=== PATIENT | female | born 1935 | race Caucasian/White ===

== ENCOUNTER → 2016-06-02 | Outpatient (CLI) | payer MEDICARE ==
[~2016-06-02] MED LIST: AC325T PO; ALBU8.5H4 IH; AMLO10TA PO; AMLO10TA2 PO; AMLO5TAB2 PO; ASP81TEC PO; ASPI-586 PO; ATEN25TA PO; ATOR80TA76 PO; CARV6.252 PO; CLOP75TA28 PO; CLPD75T PO; FURO20TA4 PO; HCT25T PO; IBUP-792 PO; ISOS30TA3 PO; KCL20TCR PO; LEVO250T46 PO; LEVO750T6 PO; LOSA100T28 PO; LOSA100T7 PO; MULT-963 PO; NITR0.4T12 SL; NITR12SP6 TL; OMEG-12 PO; OMEP20CA12 PO; PNT40TEC PO; POTA20TA15 PO; TICA90TA PO; TMZP15C PO; ZLP10T PO; ZOLP5TAB7 PO
--- OUTSIDE RECORDS SUMMARY | 2016-06-02 11:15 | XMS REPORT | Continuity of Care Document ---
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 Medications Medication Dose Route Sig Days/Qty Instructions Order Date Discontinued Date Status Albuterol 8.5 Gm IH EVERY 6 HOURS PRN 07/01/12 09/10/14 Discontinued Atenolol 25 Mg PO DAILY 07/01/12 Active Hydrochlorothiazide 25 Mg PO DAILY 07/01/12 07/03/12 Discontinued Ibuprofen 400 Mg PO TWICE A DAY PRN 07/01/12 Active Isosorbide Mononitrate (Imdur) 1 Each PO DAILY 07/01/12 07/03/12 Discontinued Levofloxacin 750 Mg PO DAILY 07/01/12 07/25/12 Discontinued Multivitamin 1 Each PO DAILY 07/01/12 Active Nitroglycerin 12 Gm TL 07/01/12 07/25/12 Discontinued Thompson-3/Dha/Epa/Fish Oil 1,000 Mg PO DAILY 07/01/12 Active Acetaminophen 650 Mg PO EVERY 6 HOURS PRN PAIN 07/03/12 09/10/14 Discontinued Amlodipine Besylate (Norvasc 5 Mg) 10 Mg PO DAILY 07/03/12 09/10/14 Discontinued Clopidogrel Bisulfate 75 Mg PO DAILY 07/03/12 Active Pantoprazole Sodium 40 Mg PO DAILY (AT 0700) 07/03/12 09/10/14 Discontinued Aspirin 81 Mg PO DAILY 07/03/12 Active Nitroglycerin 0.4 Mg SL PRN 07/25/12 Active Zolpidem Tartrate 10 Mg PO BEDTIME PRN 07/25/12 09/10/14 Discontinued Potassium Chloride 20 Meq PO DAILY 07/25/12 Active Amlodipine Besylate 10 Mg PO DAILY 09/10/14 Active Omeprazole 20 Mg PO DAILY 09/10/14 Active Furosemide (Lasix) 20 Mg PO DAILY 09/10/14 Active Losartan Potassium 100 Mg PO DAILY 09/10/14 Active Temazepam 15 Mg PO BEDTIME PRN INSOMNIA 09/10/14 Active Social History Social History Problem Response Recorded Date/Time Alcohol Use Denies Use 07/01/2012 4:35pm Recreational Drug Use No 07/01/2012 4:35pm Recent Foreign Travel No 09/10/2014 7:01am Smoking Status Never a Smoker 09/10/2014 7:00am Query Response Start Date Stop Date Smoking Status Never a Smoker Hospital Discharge Instructions No hospital discharge instructions. Plan of Care No plan of care. Functional Status Query Response Date Recorded Comprehension Ability Understands Concepts September 10, 2014 8:00pm Allergies, Adverse Reactions, Alerts Allergen Type Severity Reaction Status Last Updated oxytetracycline HCl Adverse Reaction Mild HIVES Active 07/01/12 Penicillins ([id number]) Allergy Intermediate HIVES Active 07/25/12 lisinopril ([id number]) Adverse Reaction Mild COUGH Active 07/01/12 hydrocodone ([id number]) Adverse Reaction Mild MAKES ME SICK Active oxytetracycline ([id number]) Allergy Intermediate HIVES Active 07/25/12 Tramadol Adverse Reaction Mild NAUSEA, "HEAVINESS" Active 07/01/12 LASIX Adverse Reaction Mild MAKES ME SICK Active 07/01/12 Immunizations Name Given Type Date of Influenza Vaccine 01/05/12 Historical pneumococcal polysaccharide PPV23 09/11/14 Administered Vital Signs Acute Vital Signs Vital Response Date/Time Temperature (Fahrenheit) 99.0 degrees F (97.6 - 99.5) Temperature (Calculated Celsius) 37.99260 degrees C (36.4 - 37.5) Temperature Source Temporal Pulse Rate (adult) 72 bpm (60 - 90) Respiratory Rate 18 bpm (12 - 24) O2 Sat by Pulse Oximetry 93 % (88 - 100) Blood Pressure 157/80 mm Hg Pain Pain Intensity 0 Height (Feet) 5 feet Height (Inches) 2.00 inches Height (Calculated Centimeters) 157.497923 cm Weight (Pounds) 137 pounds Weight (Calculated Grams) 25460.155 gm Weight (Calculated Kilograms) 62.180994 kilograms Calculated BMI 25.05 Results Laboratory Results Test Name Result Units Flags Reference Collection Date/Time Result Date/ Time Comments White Blood Count 10.7 10^3/uL 4.3-11.0 09/11/2014 3:45am 09/11/2014 4: 18am Red Blood Count 3.92 10^6/uL L 4.35-5.85 09/11/2014 3:45am 09/11/2014 4: 18am Hemoglobin 12.0 G/DL 11.5-16.0 09/11/2014 3:45am 09/11/2014 4:18am Hematocrit 35 % 35-52 09/11/2014 3:45am 09/11/2014 4:18am Mean Corpuscular Volume 89 FL 80-99 09/11/2014 3:45am 09/11/2014 4: 18am Mean Corpuscular Hemoglobin 31 PG 25-34 09/11/2014 3:45am 09/11/2014 4: 18am Mean Corpuscular Hemoglobin Concent 34 G/DL 32-36 09/11/2014 3:45am 4:18am Red Cell Distribution Width 12.8 % 10.0-14.5 09/11/2014 3:45am 2014 4:18am Platelet Count 373 10^3/uL 130-400 09/11/2014 3:45am 09/11/2014 4:18am Mean Platelet Volume 10.0 FL 7.4-10.4 09/11/2014 3:45am 09/11/2014 4: 18am Prothrombin Time 11.4 SEC L 12.2-14.7 09/10/2014 7:43am 09/10/2014 8: 04am INR Comment 0.8 0.8-1.4 09/10/2014 7:43am 09/10/2014 8:04am INTERPRETIVE DATA SUGGESTED THERAPEUTIC RANGE FOR INR'S: VENOUS THROMBOSIS, PULMONARY EMBOLISM, OR PREVENTION OF SYSTEMIC EMBOLISM (EG. IN ATRIAL FIBRILLATION): 2.0 - 3.0 MECHANICAL PROSTHETIC HEART VALVES: 2.5 - 3.5* *NOTE: INR'S UP TO 4.5 MAY BE NECESSARY IN SELECTED GROUPS OF HIGH RISK PATIENTS. [employer] CONSENSUS CONFERENCE ON ANTITHROMBOTIC THERAPY (2000). Activated Partial Thromboplast Time 28 SEC 24-35 09/10/2014 7:43am 8:04am Sodium Level 142 MMOL/L 135-145 09/11/2014 3:45am 09/11/2014 4:49am Potassium Level 3.5 MMOL/L L 3.6-5.0 09/11/2014 3:45am 09/11/2014 4:49am Chloride Level 112 MMOL/L H 98-107 09/11/2014 3:45am 09/11/2014 4:49am Carbon Dioxide Level 18 MMOL/L L 21-32 09/11/2014 3:45am 09/11/2014 4: 49am Blood Urea Nitrogen 18 MG/DL 7-18 09/11/2014 3:45am 09/11/2014 4:49am Creatinine 0.79 MG/DL 0.60-1.30 09/11/2014 3:45am 09/11/2014 4:49am BUN/Creatinine Ratio 23 09/11/2014 3:45am 09/11/2014 4:49am Estimat Glomerular Filtration Rate > 60 09/11/2014 3:45am 2014 4:49am GFR INTERPRETIVE DATA UNITS FOR ESTIMATED GFR (eGFR): mL/min/1.73 M2 REFERENCE RANGE FOR ESTIMATED GFR (eGFR) eGFR NORMAL eGFR >60 MODERATELY DECREASED eGFR 30-59 SEVERLY DECREASED eGFR 15-29 KIDNEY FAILURE <15 (OR DIALYSIS) Glucose Level 95 MG/DL 70-105 09/11/2014 3:45am 09/11/2014 4:49am Calcium Level 9.1 MG/DL 8.5-10.1 09/11/2014 3:45am 09/11/2014 4:49am Total Bilirubin 0.4 MG/DL 0.1-1.0 09/10/2014 7:43am 09/10/2014 8:22am Alkaline Phosphatase 84 U/L 40-136 09/10/2014 7:43am 09/10/2014 8:22am Aspartate Amino Transf (AST/SGOT) 24 U/L 5-34 09/10/2014 7:43am 2014 8:22am Alanine Aminotransferase (ALT/SGPT) 18 U/L 0-55 09/10/2014 7:43am 09/10 8:22am Total Protein 8.4 G/DL H 6.4-8.2 09/10/2014 7:43am 09/10/2014 8:22am Albumin 4.4 G/DL 3.2-4.5 09/10/2014 7:43am 09/10/2014 8:22am Triglycerides Level 367 MG/DL H <150 09/10/2014 7:43am 09/10/2014 8:22am Cholesterol Level 309 MG/DL H < 200 09/10/2014 7:43am 09/10/2014 8:22am HDL Cholesterol 52 MG/DL 40-60 09/10/2014 7:43am 09/10/2014 8:22am LDL Cholesterol Direct 185 MG/DL H 1-129 09/10/2014 7:43am 09/10/2014 8: 22am VLDL Cholesterol 73 MG/DL H 5-40 09/10/2014 7:43am 09/10/2014 8:22am Procedures Procedure Status Date Provider(s) Tracing only of electrocardiogram completed 09/10/14 WALTER GIL MD FACP FACC CCDS Tracing only of electrocardiogram completed 09/10/14 WALTER GIL MD FACP FACC CCDS Encounters Encounter Location Date/Time Departed Surgical [facility] 09/10/14 6:44am
== END ==
LOC: CARD 11:12
PROVIDERS: ATTEND Internal Medicine Cardiovascular Disease
DX: R55 Syncope and collapse (principal); I65.23 Occlusion and stenosis of bilateral carotid arteries; M79.89 Other specified soft tissue disorders; I25.10 Atherosclerotic heart disease of native coronary artery without angina pectoris; I10 Essential (primary) hypertension; E78.4 Other hyperlipidemia
CPT/HCPCS: 93225; 93226

== ENCOUNTER → 2016-06-03 | Outpatient (CLI) | payer MEDICARE ==
[~2016-06-03] VITALS: Ht 157.5 cm; Wt 63.5 kg
[~2016-06-03] MED LIST changes: +CATHETER FLUSH 10 ML SYR IV PRN; +REGADENOSON 0.4 MG/5 ML SYR (LEXISCAN) IV ONE
--- OUTSIDE RECORDS SUMMARY | 2016-06-03 08:18 | XMS REPORT | Continuity of Care Document ---
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 Name Role Phone KRISTY RIBEIRO MD PCP Insurance Providers Payer Name Policy Number Subscriber Name Relationship Wps Medicare [id number] Ruchi Cardenas 19 Self / Same As Patient Blue Cross [facility] Supp [id number] Ruchi Cardenas 19 Self / Same As Patient Advance Directives Directive Response Recorded Date/Time Advance Directives No 09/10/14 6:59am Health Care Power of Boiler Blower Y dylan powell [phone](medical) 09/10/14 6:59am Organ Donor No 09/10/14 6:59am [...] Nitroglycerin 12 Gm TL 07/01/12 07/25/12 Discontinued Lebeau-3/Dha/Epa/Fish Oil 1,000 Mg PO DAILY 07/01/12 Active [...] Adverse Reaction Mild HIVES Active 07/01/12 Penicillins ([id number]) Allergy Intermediate HIVES Active 07/25/12 lisinopril ([id number]) Adverse Reaction Mild COUGH Active 07/01/12 hydrocodone ([id number]) Adverse Reaction Mild MAKES ME SICK Active oxytetracycline ([id number]) Allergy Intermediate HIVES Active 07/25/12 Tramadol Adverse Reaction Mild NAUSEA, "HEAVINESS" Active 07/01/12 LASIX Adverse Reaction Mild MAKES ME SICK Active 07/01/12 Immunizations Name Given Type Date of Influenza Vaccine 01/05/12 Historical pneumococcal polysaccharide PPV23 09/11/14 Administered Vital Signs Acute Vital Signs Vital Response Date/Time Temperature (Fahrenheit) 99.0 degrees F (97.6 - 99.5) Temperature (Calculated Celsius) 37.51301 degrees C (36.4 - 37.5) Temperature Source Temporal Pulse Rate (adult) 72 bpm (60 - 90) Respiratory Rate 18 bpm (12 - 24) O2 Sat by Pulse Oximetry 93 % (88 - 100) Blood Pressure 157/80 mm Hg Pain Pain Intensity 0 Height (Feet) 5 feet Height (Inches) 2.00 inches Height (Calculated Centimeters) 157.120728 cm Weight (Pounds) 137 pounds Weight (Calculated Grams) 43985.155 gm Weight (Calculated Kilograms) 62.116321 kilograms Calculated BMI 25.05 Results Laboratory Results [...] SELECTED GROUPS OF HIGH RISK PATIENTS. [employer] CONSENSUS CONFERENCE ON [...] Location Date/Time Departed Surgical [facility] 09/10/14 6:44am
[2016-06-03 09:43] VITALS: BP 146/86
[2016-06-03 09:53] VITALS: BP 158/88
[2016-06-03 09:54] VITALS: BP 155/76
--- NOTE | 2016-06-04 08:50 | STRESS TEST ---
PROCEDURE PHYSICIAN: WALTER MAYER RESTING AND POST REGADENOSON TECHNETIUM 99M TETROFOSMIN SPECT CT IMAGING: DATE OF PROCEDURE: 06/03/2016 ORDERING PHYSICIAN: Dr. Mayer PRIMARY PHYSICIAN: Dr. Márquez CLINICAL DIAGNOSIS: Coronary artery disease, syncope Baseline images were carried out after injection of 10.93 mCi of technetium 99m tetrofosmin. This was followed by 0.4 mg of regadenoson and 29.3 mCi technetium 99m tetrofosmin for stress imaging. The electrocardiogram showed sinus rhythm at baseline with nonspecific ST and T wave abnormality, which became somewhat more pronounced during the study and then returned towards baseline. One 13 beat run of atrial tachycardia is seen at a rate of approximately 120 beats per minute. Review of images at rest and following stress, indicates an apical perfusion defect that is predominantly fixed. This is a relatively small defect. Gated images show normal regional wall motion except in a small area of the apex which appears akinetic. The patient did not report any significant symptoms during this study. CONCLUSIONS: 1. 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 2. A small area of apical akinesis. 3. Well preserved global left ventricular systolic function with a calculated ejection fraction of the 60%. 4. Normal left ventricular cavity size. 5. One 13 beat run of atrial tachycardia at approximately 120 beats per minute. Job ID: [id number] Dictated Date: 06/03/2016 12:49:04 Financial Advisor Trainee Date: 06/04/2016 08:41:52 / saroj
== END ==
LOC: CARD 08:13
PROVIDERS: ATTEND Internal Medicine Cardiovascular Disease
DX: I65.23 Occlusion and stenosis of bilateral carotid arteries (principal); R55 Syncope and collapse; M79.89 Other specified soft tissue disorders; I25.10 Atherosclerotic heart disease of native coronary artery without angina pectoris; I10 Essential (primary) hypertension; E78.4 Other hyperlipidemia
CPT/HCPCS: 78452; 93017

== ENCOUNTER 2016-12-14 09:17 | Day surgery (SDC) | payer MEDICARE ==
[~2016-12-14] VITALS: Ht 157.5 cm; Wt 62.6 kg
[~2016-12-14 09:17] MED LIST changes: -CATHETER FLUSH 10 ML SYR IV PRN; -REGADENOSON 0.4 MG/5 ML SYR (LEXISCAN) IV ONE
[2016-12-14] MEDS ORDERED: NS IV 1000 ML 1,000 ML ONE (09:25)
[2016-12-14] MEDS ORDERED: HEParin (CATH LAB) 2,000 ML IV ONE (09:25)
[2016-12-14 09:42] VITALS: BP 190/94
[2016-12-14] MEDS ORDERED: NS IV 1000 ML 1,000 ML IV SCH ×2 (09:45→16:18)
[2016-12-14 10:09] LABS: MEAN PLATELET VOLUME 9.9 FL (7.4-10.4); RED BLOOD COUNT 4.17 10^6/uL (4.35-5.85); RED CELL DISTRIBUTION WIDTH 12.4 % (10.0-14.5); WHITE BLOOD COUNT 9.9 10^3/uL (4.3-11.0)
[2016-12-14 10:20] LABS: INR 0.9 (0.8-1.4); PROTHROMBIN TIME PATIENT 12.5 SEC (12.2-14.7)
[2016-12-14 10:34] LABS: ALBUMIN 4.3 GM/DL (3.2-4.5); BILIRUBIN,TOTAL 0.6 MG/DL (0.1-1.0); CALCIUM 9.9 MG/DL (8.5-10.1); CREATININE SERUM 0.95 MG/DL (0.60-1.30)
[2016-12-14] MEDS ORDERED: ACET-2267 PO (11:03)
[2016-12-14] MEDS ORDERED: ASPI-983 PO (11:03)
[2016-12-14] MEDS ORDERED: NITR12SP5 TL (11:03)
[2016-12-14] MEDS ORDERED: RANI150T15 PO (11:03)
[2016-12-14] MEDS ORDERED: FURO20TA4 PO (11:03)
[2016-12-14] MEDS ORDERED: METO-395 PO (11:03)
[2016-12-14] MEDS ORDERED: LEVO50TA6 PO (11:03)
--- OUTSIDE RECORDS SUMMARY | 2016-12-14 12:17 | XMS REPORT | Continuity of Care Document ---
Author Author [facility] Organization [facility] Address Unknown Phone Unavailable Allergies Active Description Code Type Severity Reaction Onset Reported/Identified Relationship to Patient Clinical Status Yes hydrocodone [id number] Drug Allergy Mild MAKES ME SICK 07/01/2012 Yes LASIX LASIX Mild MAKES ME SICK 07/01/2012 Yes lisinopril [id number] Drug Allergy Mild COUGH 07/01/2012 Yes oxytetracycline HCl [id number] Drug Allergy Mild HIVES 07/01/2012 Yes tramadol [id number] Drug Allergy Mild NAUSEA, "HEAVIN 07/01/2012 Yes oxytetracycline [id number] Drug Allergy Moderate HIVES 07/25/2012 Yes Penicillins [id number] Drug Allergy Moderate HIVES 07/25/2012 Medications Problems Date Dx Coded Attending Type Code Diagnosis Diagnosed By 07/03/2012 Ot 276.8 HYPOPOTASSEMIA 07/03/2012 Ot 288.60 LEUKOCYTOSIS, UNSPECIFIED 07/03/2012 Ot 401.9 HYPERTENSION NOS 07/03/2012 Ot 410.71 AC MYOCARDIAL INFARCT,SUBENDO INFARCT,IN 07/03/2012 Ot 414.01 CORONARY ATHEROSCLEROSIS OF [place] CORON 07/03/2012 Ot E932.0 ADV EFF CORTICOSTEROIDS 07/26/2012 Ot 272.4 HYPERLIPIDEMIA NEC/NOS 07/26/2012 Ot 412 OLD MYOCARDIAL INFARCT 07/26/2012 Ot 413.9 ANGINA PECTORIS NEC/NOS 07/26/2012 Ot 414.01 CORONARY ATHEROSCLEROSIS OF [place] CORON 07/26/2012 Ot 414.4 CORONARY ATHEROSCLEROSIS DUE TO CALCIFIE 07/26/2012 Ot 599.0 URIN TRACT INFECTION NOS 07/26/2012 Ot 715.90 OSTEOARTHROS NOS-UNSPEC 07/26/2012 Ot V45.82 PERCUTANEOUS TRANSLUM CORON ANGIOPLASTY 07/26/2012 Ot V58.63 LONG-TERM(CURRENT)USE OF ANTIPLATELET/AN 07/26/2012 Ot V58.66 LONG-TERM (CURRENT) USE OF ASPIRIN 07/26/2012 Ot V58.69 OTH MED,LT,CURRENT USE 07/24/2013 JEFFERY PAZC, ALI FACP CCDS Ot 272.4 HYPERLIPIDEMIA NEC/NOS 07/24/2013 JEFFERY PAZC, ALI FACP CCDS Ot 401.9 HYPERTENSION NOS 07/24/2013 JEFFERY CRAIG FACC, ALI FACP CCDS Ot 414.01 CORONARY ATHEROSCLEROSIS OF [place] CORON 07/24/2013 JEFFERY CRAIG FACC, ALI FACP CCDS Ot 414.4 CORONARY ATHEROSCLEROSIS DUE TO [place]CIFIE 07/24/2013 JEFFERY CRAIG FACC, ALI FACP CCDS Ot 729.81 SWELLING OF LIMB 07/24/2013 JEFFERY CRAIG FACC, ALI FACP CCDS Ot 786.59 CHEST PAIN NEC 07/24/2013 JEFFERY CRAIG FACC, ALI FACP CCDS Ot V45.82 PERCUTANEOUS TRANSLUM CORON ANGIOPLASTY 07/24/2013 JEFFERY CRAIG FACC, ALI FACP CCDS Ot V58.69 OTH MED,LT,CURRENT USE 09/11/2014 JEFFERY CRAIG FACC, WALTER PAZP CCDS Ot 272.4 HYPERLIPIDEMIA NEC/NOS 09/11/2014 JEFFERY CRAIG FACC, ALI FACP CCDS Ot 401.9 HYPERTENSION NOS 09/11/2014 JEFFERY CRAIG FACC, ALI FACP CCDS Ot 414.01 CORONARY ATHEROSCLEROSIS OF [place] CORON 09/11/2014 JEFFERY CRAIG FACC, ALI FACP CCDS Ot 414.4 CORONARY ATHEROSCLEROSIS DUE TO CALCIFIE 09/11/2014 JEFFERY CRAIG FACC, ALI FACP CCDS Ot V45.82 PERCUTANEOUS TRANSLUM CORON ANGIOPLASTY 09/11/2014 JEFFERY CRAIG FACC, ALI FACP CCDS Ot V58.69 OTH MED,LT,CURRENT USE 09/21/2014 BAIMA, VERÓNICA L NUTRITIONALIST Ot 272.4 09/21/2014 BAIMA, VERÓNICA L NUTRITIONALIST Ot 401.9 09/21/2014 BAIMA, VERÓNICA L NUTRITIONALIST Ot 414.00 09/21/2014 BAIMA, VERÓNICA L NUTRITIONALIST Ot 786.50 09/22/2014 BAIMA, VERÓNICA L NUTRITIONALIST Ot 272.4 09/22/2014 BAIMA, VERÓNICA L NUTRITIONALIST Ot 401.9 09/22/2014 BAIMA, VERÓNICA L NUTRITIONALIST Ot 414.00 09/22/2014 BAIMA, VERÓNICA L NUTRITIONALIST Ot 786.50 07/17/2015 HAYLEY SERVIN MD Ot E87.2 ACIDOSIS 07/17/2015 HAYLEY SERVIN MD Ot E87.6 HYPOKALEMIA 07/17/2015 HAYLEY SERVIN MD Ot I10 ESSENTIAL (PRIMARY) HYPERTENSION 07/17/2015 HAYLEY SERVIN MD Ot I21.4 NON-ST ELEVATION (NSTEMI) MYOCARDIAL INF 07/17/2015 HAYLEY SERVIN MD Ot 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 07/17/2015 HAYLEY SERVIN MD Ot I25.10 ATHSCL HEART DISEASE OF [place] CORONARY 07/17/2015 HAYLEY SERVIN MD Ot I48.0 PAROXYSMAL ATRIAL FIBRILLATION 07/17/2015 HAYLEY SERVIN MD Ot I49.1 ATRIAL PREMATURE DEPOLARIZATION 07/17/2015 HAYLEY SERVIN MD Ot I50.21 ACUTE SYSTOLIC (CONGESTIVE) HEART FAILUR 07/17/2015 HAYLEY SERVIN MD Ot J18.9 PNEUMONIA, UNSPECIFIED ORGANISM 07/17/2015 HAYLEY SERVIN MD Ot J96.00 ACUTE RESPIRATORY FAILURE, UNSP W HYPOXI 07/17/2015 HAYLEY SERVIN MD Ot R00.8 OTHER ABNORMALITIES OF HEART BEAT 07/17/2015 HAYLEY SERVIN MD Ot 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, I 07/22/2015 LIUSA LOBO MD Ot I10 ESSENTIAL (PRIMARY) HYPERTENSION 07/22/2015 LUISA LOBO MD Ot I21.09 STEMI INVOLVING OTH CORONARY ARTERY OF A 07/22/2015 LUISA LOBO MD Ot 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 07/22/2015 LUISA LOBO MD Ot I25.10 ATHSCL HEART DISEASE OF [place] CORONARY 07/22/2015 LUISA LOBO MD Ot I50.21 ACUTE SYSTOLIC (CONGESTIVE) HEART FAILUR 07/22/2015 LUISA LOBO MD Ot 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, 08/21/2015 Ot 276.8 HYPOPOTASSEMIA 08/21/2015 VERÓNICA DAY NUTRITIONALIST Ot 786.09 RESPIRATORY ABNORM NEC 08/21/2015 VERÓNICA DAY NUTRITIONALIST Ot 272.4 HYPERLIPIDEMIA NEC/NOS 08/21/2015 BAIMA, VERÓNICA L NUTRITIONALIST Ot 401.9 HYPERTENSION NOS 08/21/2015 BAIMA, VERÓNICA L NUTRITIONALIST Ot 414.00 CORON ATHEROSCLER NOS TYPE VESSEL, NATIV 08/21/2015 BAIMA, VERÓNICA L NUTRITIONALIST Ot 786.50 CHEST PAIN NOS 08/22/2015 JEFFERY CRAIG FACC, ALI FACP CCDS Ot E78.4 OTHER HYPERLIPIDEMIA 08/22/2015 JEFFERY CRAIG FACC, ALI FACP CCDS Ot I10 ESSENTIAL (PRIMARY) HYPERTENSION 08/22/2015 JEFFERY PAZC, ALI FACP CCDS Ot I25.10 ATHSCL HEART DISEASE OF [place] CORONARY 08/22/2015 JEFFERY CRAIG FACC, ALI FACP CCDS Ot I25.5 ISCHEMIC CARDIOMYOPATHY 09/11/2015 JEFFERY CRAIG FACC, ALI FACP CCDS Ot E78.4 OTHER HYPERLIPIDEMIA 09/11/2015 JEFFERY CRAIG FACC, ALI FACP CCDS Ot I10 ESSENTIAL (PRIMARY) HYPERTENSION 09/11/2015 JEFFERY CRAIG FACC, ALI FACP CCDS Ot I25.10 ATHSCL HEART DISEASE OF [place] CORONARY 09/11/2015 JEFFERY PAZ, ALI FACP CCDS Ot I25.5 ISCHEMIC CARDIOMYOPATHY 09/19/2015 JEFFERY CRAIG [facility], ALI FACP CCDS Ot E78.4 OTHER HYPERLIPIDEMIA 09/19/2015 JEFFERY CRAIG FACC, ALI FACP CCDS Ot I10 ESSENTIAL (PRIMARY) HYPERTENSION 09/19/2015 JEFFERY PAZ, ALI FACP CCDS Ot I25.10 ATHSCL HEART DISEASE OF [place] CORONARY 09/19/2015 JEFFERY PAZ, ALI FACP CCDS Ot I25.5 ISCHEMIC CARDIOMYOPATHY 06/01/2016 Ot 276.8 HYPOPOTASSEMIA 06/01/2016 ELDONMA, VERÓNICA L NUTRITIONALIST Ot 786.09 RESPIRATORY ABNORM NEC 06/01/2016 BAIMA, VERÓNICA L NUTRITIONALIST Ot 272.4 HYPERLIPIDEMIA NEC/NOS 06/01/2016 BAIMA, VERÓNICA L NUTRITIONALIST Ot 401.9 HYPERTENSION NOS 06/01/2016 BAIMA, VERÓNICA L NUTRITIONALIST Ot 414.00 CORON ATHEROSCLER NOS TYPE VESSEL, NATIV 06/01/2016 BAIMA, VERÓNICA L NUTRITIONALIST Ot 786.50 CHEST PAIN NOS 06/01/2016 JEFFERY CRAIG FACC, ALI FACP CCDS Ot E78.4 OTHER HYPERLIPIDEMIA 06/01/2016 JEFFERY CRAIG FACC, ALI FACP CCDS Ot I10 ESSENTIAL (PRIMARY) HYPERTENSION 06/01/2016 JEFFERY CRAIG FACC, ALI FACP CCDS Ot I25.10 ATHSCL HEART DISEASE OF [place] CORONARY 06/01/2016 JEFFERY CRAIG [facility], ALI FACP CCDS Ot I25.5 ISCHEMIC CARDIOMYOPATHY 06/03/2016 JEFFERY CRAIG FACC, ALI FACP CCDS Ot E78.4 OTHER HYPERLIPIDEMIA 06/03/2016 JEFFERY CRAIG FACC, ALI FACP CCDS Ot I10 ESSENTIAL (PRIMARY) HYPERTENSION 06/03/2016 JEFFERY CRAIG FACC, ALI FACP CCDS Ot I25.10 ATHSCL HEART DISEASE OF [place] CORONARY 06/03/2016 JEFFERY CRAIG FACC, ALI FACP CCDS Ot I65.23 OCCLUSION AND STENOSIS OF BILATERAL [place] 06/03/2016 JEFFERY CRAIG FACC, ALI FACP CCDS Ot M79.89 OTHER SPECIFIED SOFT TISSUE DISORDERS 06/03/2016 JEFFERY CRAIG FACC ALI FACP CCDS Ot R55 SYNCOPE AND COLLAPSE 06/03/2016 JEFFERY CRAIG FACC, ALI FACP CCDS Ot E78.4 OTHER HYPERLIPIDEMIA 06/03/2016 JEFFERY CRAIG FACC, ALI FACP CCDS Ot I10 ESSENTIAL (PRIMARY) HYPERTENSION 06/03/2016 JEFFERY CRAIG FACC, ALI FACP CCDS Ot I25.10 ATHSCL HEART DISEASE OF [place] CORONARY 06/03/2016 JEFFERY CRAIG FACC, ALI FACP CCDS Ot I65.23 OCCLUSION AND STENOSIS OF [place] 06/03/2016 JEFFERY CRAIG FACC, ALI FACP CCDS Ot M79.89 OTHER SPECIFIED SOFT TISSUE DISORDERS 06/03/2016 JEFFERY CRAIG FACC, ALI FACP CCDS Ot R55 SYNCOPE AND COLLAPSE 06/04/2016 JEFFERY CRAIG FACC, ALI FACP CCDS Ot E78.4 OTHER HYPERLIPIDEMIA 06/04/2016 JEFFERY CRAIG FACC, ALI FACP CCDS Ot I10 ESSENTIAL (PRIMARY) HYPERTENSION 06/04/2016 JEFFERY CRAIG FACC, ALI FACP CCDS Ot I25.10 ATHSCL HEART DISEASE OF [place] CORONARY 06/04/2016 JEFFERY CRAIG FACC, ALI FACP CCDS Ot I65.23 OCCLUSION AND STENOSIS OF [place] 06/04/2016 JEFFERY CRAIG FACC, ALI FACP CCDS Ot M79.89 OTHER SPECIFIED SOFT TISSUE DISORDERS 06/04/2016 JEFFERY CRAIG FACC, ALI FACP CCDS Ot R55 SYNCOPE AND COLLAPSE 06/04/2016 JEFFERY CRAIG [facility], ALI FACP CCDS Ot E78.4 OTHER HYPERLIPIDEMIA 06/04/2016 JEFFERY CRAIG FACC, ALI FACP CCDS Ot I10 ESSENTIAL (PRIMARY) HYPERTENSION 06/04/2016 JEFFERY CRAIG FACC, ALI FACP CCDS Ot I25.10 ATHSCL HEART DISEASE OF [place] CORONARY 06/04/2016 JEFFERY PAZC, ALI FACP CCDS Ot I65.23 OCCLUSION AND STENOSIS OF [place] 06/04/2016 JEFFERY CRAIG FACC, ALI FACP CCDS Ot M79.89 OTHER SPECIFIED SOFT TISSUE DISORDERS 06/04/2016 JEFFERY PAZC, ALI FACP CCDS Ot R55 SYNCOPE AND COLLAPSE 06/24/2016 JEFFERY CRAIG FACC, ALI FACP CCDS Ot E78.4 OTHER HYPERLIPIDEMIA 06/24/2016 JEFFERY CRAIG FACC, ALI FACP CCDS Ot I10 ESSENTIAL (PRIMARY) HYPERTENSION 06/24/2016 JEFFERY CRAIG FACC, ALI FACP CCDS Ot I25.10 ATHSCL HEART DISEASE OF [place] CORONARY 06/24/2016 JEFFERY PAZC, ALI FACP CCDS Ot I65.23 OCCLUSION AND STENOSIS OF [place] 06/24/2016 JEFFERY CRAIG FACC, ALI FACP CCDS Ot M79.89 OTHER SPECIFIED SOFT TISSUE DISORDERS 06/24/2016 JEFFERY CRAIG FACC, ALI FACP CCDS Ot R55 SYNCOPE AND COLLAPSE 06/24/2016 JEFFERY CRAIG FACC, ALI FACP CCDS Ot E78.4 OTHER HYPERLIPIDEMIA 06/24/2016 JEFFERY CRAIG FACC, ALI FACP CCDS Ot I10 ESSENTIAL (PRIMARY) HYPERTENSION 06/24/2016 JEFFERY CRAIG FACC, ALI FACP CCDS Ot I25.10 ATHSCL HEART DISEASE OF [place] CORONARY 06/24/2016 JEFFERY CRAIG FACC, ALI FACP CCDS Ot I65.23 OCCLUSION AND STENOSIS OF [place] 06/24/2016 JEFFERY CRAIG FACC, ALI FACP CCDS Ot M79.89 OTHER SPECIFIED SOFT TISSUE DISORDERS 06/24/2016 JEFFERY CRAIG FACC, ALI FACP CCDS Ot R55 SYNCOPE AND COLLAPSE 06/30/2016 JEFFERY CRAIG FACC, ALI FACP CCDS Ot E78.4 OTHER HYPERLIPIDEMIA 06/30/2016 JEFFERY CRAIG [facility], ALI FACP CCDS Ot I10 ESSENTIAL (PRIMARY) HYPERTENSION 06/30/2016 JEFFERY CRAIG [facility], ALI FACP CCDS Ot I25.10 ATHSCL HEART DISEASE OF [place] CORONARY 06/30/2016 JEFFERY MD FACC, ALI FACP CCDS Ot I65.23 OCCLUSION AND STENOSIS OF [place] 06/30/2016 JEFFERY MD FACC, ALI FACP CCDS Ot M79.89 OTHER SPECIFIED SOFT TISSUE DISORDERS 06/30/2016 JEFFERY MD FACC, ALI FACP CCDS Ot R55 SYNCOPE AND COLLAPSE 06/30/2016 JEFFERY MD [facility], ALI FACP CCDS Ot E78.4 OTHER HYPERLIPIDEMIA 06/30/2016 JEFFERY CRAIG FACC, ALI FACP CCDS Ot I10 ESSENTIAL (PRIMARY) HYPERTENSION 06/30/2016 JEFFERY MD FAC, ALI FACP CCDS Ot I25.10 ATHSCL HEART DISEASE OF [place] CORONARY 06/30/2016 JEFFERY CRAIG [facility], ALI FACP CCDS Ot I65.23 OCCLUSION AND STENOSIS OF [place] 06/30/2016 JEFFERY CRAIG [facility], ALI FACP CCDS Ot M79.89 OTHER SPECIFIED SOFT TISSUE DISORDERS 06/30/2016 JEFFERY CRAIG [facility], ALI FACP CCDS Ot R55 SYNCOPE AND COLLAPSE Procedures Code Description Performed By Performed On 00.41 PROCEDURE ON TWO VESSELS 07/01/2012 00.47 INSERTION OF THREE VASCULAR STENTS 07/01/2012 00.66 PERCUTANEOUS TRANSLUMINAL CORONARY ANGIO 07/01/2012 36.07 INSRT OF DRUG-ELUTING CORON ARTERY STENT 07/01/2012 37.22 LEFT HEART CARDIAC CATH 07/01/2012 88.53 LT HEART ANGIOCARDIOGRAM 07/01/2012 88.56 CORONAR ARTERIOGR-2 CATH 07/01/2012 [id number] DILATION OF 1 COR ART WITH DRUG-ELUT INT 07/14/2015 [id number] EXTIRPATION OF MATTER FROM 1 COR ART, PE 07/14/2015 [id number] FLUOROSCOPY OF SINGLE CORONARY ARTERY US 07/14/2015 [id number] FLUOROSCOPY OF MULT COR ART USING L OSM 07/14/2015 [id number] DILATION OF CORONARY ARTERY, ONE SITE, P 07/20/2015 [id number] MEASURE OF CARDIAC SAMPL PRESSURE, L H 07/20/2015 [id number] FLUOROSCOPY OF MULT COR ART USING L OSM 07/20/2015 [id number] FLUOROSCOPY OF LEFT HEART USING LOW OSMO 07/20/2015 Results Encounters ACCT No. Visit Date/Time Discharge Status Pt. Type Provider Facility Loc./Unit Complaint [id number] 06/03/2016 08:13:00 2016 23:59:59 CLS Outpatient JEFFERY CRAIG FACC, ALI FACP CCDS [facility] SYNCOPE,CAD,LEG SWELLING, HLP [id number] 06/02/2016 11:12:00 2016 23:59:59 CLS Outpatient JEFFERY CRAIG FACC, WALTER FACP CCDS [facility] SYNCOPE,CAD,LEG SWELLING [id number] 08/21/2015 08:25:00 2015 23:59:59 CLS Outpatient JEFFERY CRAIG FACC, ALI FACP CCDS [facility] CAD,ESSENTIAL HTN,HLP, ISCHEMIC CARDIOMYOPATHY [id number] 07/20/2015 09:45:00 2015 17:00:00 DIS Inpatient LUISA LOBO MD [facility] ICU ACUTE ANTERIOR ST ELEVATION MS [id number] 07/14/2015 06:38:00 2015 14:30:00 DIS Inpatient HAYLEY SERVIN MD [facility] ICU CHEST PAIN [id number] 09/10/2014 06:44:00 2014 10:12:00 DIS Outpatient WALTER GIL MD, FACC, FACP CCDS [facility] ABNORMAL STRESS TEST [id number] 08/08/2014 08:10:00 2014 23:59:59 CLS Outpatient VERÓNICA DAYP [facility] CARD CP,CAD,HTN [id number] 07/24/2013 11:44:00 2013 18:50:00 DIS Outpatient WALTER GIL MD, FACC FACTerrie CCDS [facility] CP,CAD,HTN,HLP [id number] 10/04/2012 12:31:00 2012 23:59:59 CLS Outpatient VERÓNICA DAY NUTRITIONALIST [facility] RT DYSPNEA [id number] 07/31/2012 13:59:00 Document Registration [id number] 07/25/2012 11:12:00 Document Registration [id number] 07/01/2012 12:05:00 Document Registration
[2016-12-14] MEDS ORDERED: fentaNYL INJECTION 100 MCG/2 ML AMP ONE (14:20)
[2016-12-14] MEDS ORDERED: MIDAZOLAM 5 MG/5 ML (VERSED) VIAL ONE (14:20)
[2016-12-14] MEDS ORDERED: diphenhydrAMINE 50 MG/ML INJ (BENADRYL) ONE (14:21)
[2016-12-14] MEDS ORDERED: EPTIFIBATIDE BOLUS 20 ML IV ONE (15:04)
[2016-12-14] MEDS ORDERED: HEParin 1000 UNIT/ML (10ML VIAL) FOR BOLUS ONE (15:04)
[2016-12-14] MEDS ORDERED: NITROGLYCERIN DRIP 25 MG/D5W 250 ML IV ONE (15:04)
[2016-12-14 15:45] VITALS: BP 169/72
[2016-12-14 16:00] VITALS: BP 169/88
--- NOTE | 2016-12-14 16:18 | Cardiac Procedure Note-CS/ASA ---
Pre-Procedure Note Pre-Op Procedure Note H&P Reviewed The H&P was reviewed, patient examined and no changes noted. Date H&P Reviewed: Dec 14, 2016 Time H&P Reviewed: 15:20 Conscious Sedation Pre-Proced Time Reviewed: 15:20 ASA Class: 3 Airway Mallampati Classification: (tangirnaq appropriate class) I. II. III, IV Lungs Heart ASA score ASA 1: a normal healthy patient ASA 2: a patient with a mild systemic disease (mid diabetes, controlled hypertension, obesity ASA 3: a patient with a severe systemic disease that limits activity (angina , COPD, prior Myocardial infarction) ASA 4: a patient with an incapacitating disease that is a constant threat to life (CHF, renal failure) ASA 5: a moribund patient not expected to survive 24 hrs. (ruptured aneurysm) ASA 6: a declared brain patient whose organs are being harvested. For emergent operations, add the letter E after the classification Grade 2 Sedation Plan: Analgesia, Amnesia, Plan communicated to team members, Discussed options with patient/fam, Discussed risks with patient/fam Note The patient is an appropriate candidate to undergo the planned procedure, sedation, and anesthesia. The patient immediately re-assessed prior to indication. WALTER GIL MD FACP FAC CCDS Dec 14, 2016 16:18
[2016-12-14] MEDS ORDERED: ACETAMINOPHEN 500 MG TAB (TYLENOL) PO PRN (16:30)
[2016-12-14] MEDS ORDERED: PATIENT MAY USE OWN MEDS, ALL PO SCH (16:30)
[2016-12-14] MEDS ORDERED: raNItidine (ZANTAC) 150 MG TAB NON-FORMULARY PO PRN (16:30)
[2016-12-14] MEDS ORDERED: ASPIRIN 81 MG CHEW (CHILDREN'S ASA) ONE (16:57)
[2016-12-14] MEDS ORDERED: CLOPIDOGREL 75 MG (PLAVIX) TABLET ONE (16:57)
[2016-12-14 17:00] VITALS: BP 153/75
[2016-12-14 18:00] VITALS: BP 139/61
--- NOTE | 2016-12-14 19:26 | CARDIAC CATHETERIZATION ---
DATE OF SERVICE: 12/14/2016 The patient is an 81-year-old lady who is known to have coronary artery disease and has had multiple coronary interventions. She has been experiencing symptoms of new onset of angina pectoris. Cardiac catheterization was carried out today after having obtained an informed consent for cardiac catheterization and possible ad hoc coronary intervention. DESCRIPTION OF PROCEDURE: She was brought to the cardiac catheterization laboratory in a fasting state. Right groin was prepared and draped in the usual sterile fashion. Lidocaine 1% local anesthesia. Modified Seldinger technique was used to advance a 5-[place]aur[place] sheath into the right femoral artery. We used 5-[place]aur[place] JL4 catheter for left coronary angiography, a 5-[place]auruan JR4 catheter was used for right coronary angiography and 5-[place]auruan pigtail catheter for left heart catheterization and left ventricular angiography. PERCUTANEOUS INTERVENTION TO THE LEFT CIRCUMFLEX ARTERY: Following completion of the diagnostic procedure, we carried out percutaneous intervention to the left circumflex artery where the patient had an 80% stenosis just distal to a previously placed stent in a large obtuse marginal branch. We exchanged the sheath over a wire for a 6 [place] sheath. We gave 4000 units of intravenous heparin and double bolus of Integrilin. We used a 6-[place]auruan JL3.5 guide catheter to engage the left coronary artery. We advanced a choice floppy wire across the lesion and the tip was placed in the distal vessel. We advanced a Mini Vision 2.0 x 12 mm stent to carefully cover the lesion. The stent extends slightly into a previously placed stent which is known to be 2.25 x 20 mm drug-eluting stent placed a few years ago. The stent was deployed at 10 atmospheres. The stent balloon was then collapsed and removed. We then advanced a 2.25 x 20 mm balloon and the area of stent overlap was fully covered and the balloon was deployed at 12 atmospheres, achieving a stent lumen size of 2.4 for the stent overlap area. The patient tolerated the procedure well. Subsequent angiography revealed 0% residual stenosis at the site of 80% stenosis in the mid first obtuse marginal branch. Angiography of the right femoral artery had been carried out through the sheath at the beginning of the procedure. At the end of the procedure, Mynx was used to achieve hemostasis following sheath removal. She tolerated the procedure well. HEMODYNAMICS: Left ventricular end-diastolic pressure following coronary angiography was 14 mmHg. There was no significant pressure gradient on pullback across the aortic valve. Ascending aortic pressure was 122/58 with a mean of 80 mmHg. CORONARY ANGIOGRAPHY: Left main coronary artery is short and without significant obstructive disease. Left anterior descending artery has a long stented area in its proximal and mid portions and there is approximately 30% in-stent restenosis in the proximal portion of the proximal stent. The left circumflex artery has a stent in its first obtuse marginal branch and there was 80% stenosis distal to that where successful angioplasty was carried out with deployment of a Mini Vision 2.0 x 12 mm stent today. The right coronary artery is of a small caliber. It had diffuse moderate disease. There is a patent stent in the distal right coronary artery. The right coronary artery is dominant. There are stenoses of up to 50% at multiple spots in this vessel. LEFT VENTRICULAR ANGIOGRAPHY: Left ventricular angiography was carried out in the right anterior oblique projection. Global left ventricular systolic function is well preserved. No distinct regional wall motion abnormalities are seen. Left ventricular ejection fraction approximately 60%. There does not appear to be significant mitral regurgitation. CONCLUSIONS: 1. Coronary artery disease, relatively moderate, except for an 80% stenosis in the mid first obtuse marginal branch to which successful stenting was carried out with a Mini Vision 2.0 x 12 mm stent, as detailed above. There are patent stents in the proximal and mid left anterior descending artery that are known to be (from proximal to distal) 2.75 x 20 mm, 2.25 x 12 mm and two 2.25 x 8 mm stents. The most proximal of these stents has approximately 30% proximal restenosis. 2. The left circumflex artery has a patent stent in the first obtuse marginal branch that is known to be Promus 2.25 x 12 mm stent. Just distal to that was an 80% stenosis to which stenting was carried out with a Mini Vision 2.0 x 12 mm stent today and the stent overlap area was ballooned with a 2.25 mm balloon. 3. The right coronary artery has a patent stent in its distal portion and it is known to be Mini Vision 2.0 x 12 mm stent placed in 2012. 4. Mild elevation left ventricular end-diastolic pressure. 5. Well preserved global left ventricular systolic function with ejection fraction approximately 60%. 6. No significant mitral regurgitation. Job ID: [id number] DocumentID: [id number] Dictated Date: 12/14/2016 15:36:54 Photographic Engineer Date: 12/14/2016 19:25:43 Dictated By: WALTER GIL MD, MA, FACP, FACC, MTDD
[2016-12-14 20:00] VITALS: BP 146/62
[2016-12-14] MEDS ORDERED: ZOLPIDEM 5 MG (AMBIEN) TAB PO SCH (21:00)
[2016-12-15] VITALS: BP 104/73
[2016-12-15 04:00] VITALS: BP 133/67
[2016-12-15 04:56] LABS: MEAN PLATELET VOLUME 10.6 FL (7.4-10.4); RED BLOOD COUNT 3.98 10^6/uL (4.35-5.85); RED CELL DISTRIBUTION WIDTH 12.6 % (10.0-14.5); WHITE BLOOD COUNT 10.6 10^3/uL (4.3-11.0)
[2016-12-15 05:12] LABS: CALCIUM 8.9 MG/DL (8.5-10.1); CREATININE SERUM 0.98 MG/DL (0.60-1.30); POTASSIUM 4.1 MMOL/L (3.6-5.0)
[2016-12-15] MEDS: MINERALS PO SCH ×2 (06:54→09:19)
[2016-12-15] MEDS: MULTIVIT PO SCH ×2 (06:54→09:19)
[2016-12-15] MEDS: KCL 20 MEQ TAB (K-DUR) PO SCH ×2 (06:55→09:18)
[2016-12-15 08:00] VITALS: BP 144/60
[2016-12-15] MEDS ORDERED: meTOprolol SUCCINATE 100 MG (TOPROL XL) TAB PO SCH (09:00)
[2016-12-15] MEDS ORDERED: CLOPIDOGREL 75 MG (PLAVIX) TABLET PO SCH (09:00)
[2016-12-15] MEDS ORDERED: FUROSEMIDE 20 MG (LASIX) TAB PO SCH (09:00)
[2016-12-15] MEDS ORDERED: ASPIRIN 81 MG CHEW (CHILDREN'S ASA) PO SCH (09:00)
[2016-12-15] MEDS ORDERED: LEVOTHYROXINE 50 MCG (LEVOTHROID) TAB PO SCH (09:00)
--- NOTE | 2016-12-15 09:41 | Progress Note-Cardiology ---
Cardiology SOAP Progress Note Subjective: Sitting up in a chair at the bedside. C/O tenderness with palpation at the groin site. No c/o CP, dyspnea, palpitations, syncope or near syncope. Objective: I&O/Vital Signs Vital Sign - Last 12Hours 12/15/16 12/15/16 12/15/16 12/15/16 04:00 07:00 08:00 11:19 Temp 98.0 Pulse 64 86 70 Resp 16 B/P (MAP) 133/67 144/60 Pulse Ox 97 O2 Delivery Room Air Room Air Weight (Pounds): 138 Weight (Ounces): 0.0 Weight (Calculated Kilograms): 62.256069 Side: right Groin site without hematoma: Yes Condition: DP/PT pulses palpable, extremity w/d/p Bruising: moderated bruising Constitutional: AAO x 3 Respiratory: No accessory muscle use, lungs clear to auscultation Cardiovascular: regular rate-rhythm, No JVD, S1 and S2 Gastrointestional: No tender, soft, round Neurologic/Psychiatric: grossly intact Results/Procedures: Labs Laboratory Tests 12/15/16 04:36: White Blood Count 10.6, Red Blood Count 3.98L, Hemoglobin 12.5, Hematocrit 38, Mean Corpuscular Volume 94, Mean Corpuscular Hemoglobin 31, Mean Corpuscular Hemoglobin Concent 33, Red Cell Distribution Width 12.6, Platelet Count 227, Mean Platelet Volume 10.6H, Sodium Level 137, Potassium Level 4.1, Chloride Level 107, Carbon Dioxide Level 18L, Anion Gap 12, Blood Urea Nitrogen 22H, Creatinine 0.98, Estimat Glomerular Filtration Rate 55, BUN/Creatinine Ratio 22 , Glucose Level 80, Calcium Level 8.9 Microbiology 12/14/16 MRSA Screen - Final, Complete MRSA not isolated Laboratory Tests 12/14/16 09:59 12/15/16 04:36 Procedures S/P cardiac cath with successful intervention on 12-14-16. Please refer to Dr. Mayer's cardiac cath report for details. A/P: Assessment: Cardiac cath of 12-14-16: Coronary artery disease, relatively moderate, except for an 80% stenosis in the mid first obtuse marginal branch to which successful stenting was carried out with a Mini Vision 2.0 x 12 mm stent, as detailed above. There are patent stents in the proximal and mid left anterior descending artery that are known to be (from proximal to distal) 2.75 x 20 mm, 2.25 x 12 mm and two 2.25 x 8 mm stents. The most proximal of these stents has approximately 30% proximal restenosis. The left circumflex artery has a patent stent in the first obtuse marginal branch that is known to be Promus 2.25 x 12 mm stent. Just distal to that was an 80% stenosis to which stenting was carried out with a Mini Vision 2.0 x 12 mm stent today and the stent overlap area was ballooned with a 2.25 mm balloon. The right coronary artery has a patent stent in its distal portion and it is known to be Mini Vision 2.0 x 12 mm stent placed in 2012. Mild elevation left ventricular end-diastolic pressure. Well preserved global left ventricular systolic function with ejection fraction approximately 60%. No significant mitral regurgitation. ZIO extended ambulatory heart monitor of 06-09-16 to 06-23-16 showed frequent brief episodes of SVT with HR up to 167 bpm without documentation of a-fib HTN, with a component of white-coat hypertension Echocardiogram of 06-22-15: distal septal and anteroapical hypokinesis; LVEF estimated to be 45-50%; mild to mod MR and TR; aortic valve sclerosis and mitral annular calcification, mild, without evidence of valvular stenosis H/O R CEA per Dr. Pimentel at [facility] in [place], [place]. Carotid u/d of 05-18-16 showed mild bilat carotid art dz; distal LICA not well visualized HLP - for which she refuses statin tx d/t reported intolerance d/t abdominal cramping Mild PAD: Seg perssure of 05-05-16 showed OLEKSANDR 1.0 right and 0.89 L Plan: S/P successful PCI with stent placement on 12-14-16 OK to discharge home today Continue current medications including Plavix and ASA She refuses statin d/t reported intolerance as noted above Out pt f/u in 2 weeks Physician Assessment Physician Assessment No cp. Mild groin bruising, but no discomfort. No shortness of breath or palp Lungs: clear Cor: reg Ext: no c/c/e A&R * As documented in our note above that I updated (italics) and as noted below * I spoke with her in detail and explained cath findings and interventions undertaken * I reviewed risk factor modification with her and advised close outpatient f/u (given multivessel CAD that has required multiple interventions in the recent past) VERÓNICA DAY [employer] Dec 15, 2016 09:41 WALTER MAYER MD [facility] CCDS Dec 15, 2016 15:18
--- NOTE | 2016-12-15 09:44 | Discharge Inst-Cardiology ---
Discharge Inst-Cardiac Discharge Medications Continued Medications: Acetaminophen (Tylenol Extra Strength) 500 Mg Tablet 1000 MG PO Q4H PRN for PAIN-MILD, TAB TAKES 2 (500MG) TABLETS Aspirin (Aspirin EC) 81 Mg Tablet.dr 81 MG PO DAILY, TAB Clopidogrel Bisulfate (Clopidogrel) 75 Mg Tablet 75 MG PO DAILY, TAB Furosemide (Furosemide) 20 Mg Tablet 20 MG PO DAILY, TAB Levothyroxine Sodium (Levothyroxine Sodium) 50 Mcg Tablet 50 MCG PO DAILY, TAB Losartan Potassium (Losartan Potassium) 100 Mg Tablet 100 MG PO DAILY, TAB Metoprolol Succinate (Metoprolol Succinate) 100 Mg Tab.er.24h 50 MG PO DAILY, TAB TAKES 1/2 (100MG) TABLET Multivitamin (Multi-Vitamin Daily) 1 Each Tablet 1 TAB PO DAILY, TAB Nitroglycerin (Nitrolingual) 12 Gm [place] TL UD PRN for CHEST PAIN, SPRAY [place]-3/Dha/Epa/Fish Oil (Fish Oil 1,000 Mg Ec Softgel) 1 Each Capsule.dr 1000 MG PO TID, CAP Potassium Chloride (Potassium Chloride) 20 Meq Tab.er.prt 20 MEQ PO DAILY, TAB Ranitidine HCl (Zantac) 150 Mg Tablet 150 MG PO DAILY PRN for HEARTBURN, TAB Zolpidem Tartrate (Zolpidem Tartrate) 5 Mg Tablet 5 MG PO HS, TAB Patient Instructions Patient Instructions: Please schedule follow up appt to see Dr. Mayer in 2 weeks Orders-Post D/C & Referrals Pneu Vac Indicated: Yes VERÓNICA DAY Dec 15, 2016 09:44
[2016-12-15] MEDS ORDERED: OMEGA 3 (FISH OIL) 1000 MG CAP PO SCH (18:00)
== END 2016-12-15 11:15 | disposition home or self-care (01) ==
LOC: CATH 09:17 → ICU 15:45 → CATH 12-15 11:15
PROVIDERS: ATTEND Nurse Practitioner Family
DX: I25.119 Atherosclerotic heart disease of native coronary artery with unspecified angina pectoris (principal); I10 Essential (primary) hypertension; E78.5 Hyperlipidemia, unspecified; I87.2 Venous insufficiency (chronic) (peripheral); Z79.899 Other long term (current) drug therapy; Z95.5 Presence of coronary angioplasty implant and graft
CPT/HCPCS: 36415; 80048; 80053; 80061; 85027; 85610; 85730; 87081; 92928; 93005; 93458

== ENCOUNTER 2018-07-04 10:38 | Day surgery (SDC) | payer MEDICARE ==
[2018-07-04] VITALS (12 sets, daily range): BP systolic 95–192; BP diastolic 35–88
[~2018-07-04] VITALS: Ht 157.5 cm; Wt 63.0 kg
[~2018-07-04 10:38] MED LIST changes: +ACET-2267 PO; -AMLO10TA2 PO; +AMLO10TA7 PO; +ASPI-983 PO; +LEVO50TA6 PO; -LOSA100T28 PO; +LOSA100T57 PO; +METO-395 PO; +NITR12SP5 TL; +RANI150T46 PO
[2018-07-04] MEDS ORDERED: NS IV 1000 ML 3,000 ML ONE (10:53)
[2018-07-04] MEDS ORDERED: LIDOCAINE 1% INJ 20 ML 20 ML VIAL ONE (10:53)
[2018-07-04] MEDS ORDERED: HEParin 1000 UNIT/ML (10ML VIAL) FOR BOLUS ONE (10:53)
[2018-07-04] MEDS ORDERED: NS IV 1000 ML 1,000 ML IV SCH ×2 (11:00→16:27)
[2018-07-04 11:35] LABS: HEMOGLOBIN 11.9 G/DL (11.5-16.0); RED CELL DISTRIBUTION WIDTH 12.6 % (10.0-14.5); WHITE BLOOD COUNT 9.9 10^3/uL (4.3-11.0)
[2018-07-04 11:47] LABS: PROTHROMBIN TIME PATIENT 12.8 SEC (12.2-14.7)
[2018-07-04] MEDS ORDERED: MULT-1029 PO (11:54)
[2018-07-04] MEDS ORDERED: NITR0.4T42 SL (11:54)
[2018-07-04] MEDS ORDERED: FISH1CAP15 PO (11:54)
--- NOTE | 2018-07-04 11:55 | NUR ---
PATIENT HAD HER MEDICATION BOTTLES WITH HER. WE WENT OVER THEM TOGETHER AND SHE VERIFIED HOW SHE TAKES EACH MEDICATION. HER FUROSEMIDE BOTTLE IS WRITTEN TO TAKE 20MG 2 TABS DAILY HOWEVER SHE STATES SHE ONLY TAKES ONE DAILY. HER METOPROLOL ER 100MG IS WRITTEN TO TAKE 1 DAILY HOWEVER SHE STATES TOLD HER TO DECREASE TO 1/2 TAB DAILY. SHE TAKES THE FOLLOWING OTC: FISH OIL 1200MG DAILY MTV DAILY ASPIRIN 81MG DAILY TYLENOL 500MG PRN RANITIDINE 150MG DAILY PRN
[2018-07-04 11:56] LABS: ALBUMIN 4.3 GM/DL (3.2-4.5); BILIRUBIN,TOTAL 0.4 MG/DL (0.1-1.0); CALCIUM 9.6 MG/DL (8.5-10.1); CREATININE SERUM 1.06 MG/DL (0.60-1.30); POTASSIUM 3.8 MMOL/L (3.6-5.0); TOTAL PROTEIN 7.5 GM/DL (6.4-8.2)
--- OUTSIDE RECORDS SUMMARY | 2018-07-04 12:07 | XMS REPORT | Continuity of Care Document ---
Author Author [facility] Organization [facility] Address Unknown Phone Unavailable Allergies Active Description Code Type Severity Reaction Onset Reported/Identified Relationship to Patient Clinical Status Yes hydrocodone [id number] Drug Allergy Mild MAKES ME SICK 07/01/2012 Yes LASIX LASIX Mild MAKES ME SICK 07/01/2012 Yes lisinopril [id number] Drug Allergy Mild COUGH 07/01/2012 Yes oxytetracycline HCl [id number] Drug Allergy Mild HIVES 07/01/2012 Yes tramadol [id number] Drug Allergy Mild NAUSEA, "HEAVIN 07/01/2012 Yes oxytetracycline [id number] Drug Allergy Moderate HIVES 07/25/2012 Yes Penicillins [id number] Drug Allergy Moderate HIVES 07/25/2012 Yes furosemide [id number] Drug Allergy Mild "MAKES ME SICK" 12/14/2016 Medications There is no data. 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,SUBENDO INFARCT,IN 07/03/2012 Ot 414.01 CORONARY ATHEROSCLEROSIS OF I[place] CORON 07/03/2012 Ot E932.0 ADV EFF CORTICOSTEROIDS 07/26/2012 Ot 272.4 HYPERLIPIDEMIA NEC/NOS 07/26/2012 Ot 412 OLD MYOCARDIAL INFARCT 07/26/2012 Ot 413.9 ANGINA PECTORIS NEC/NOS 07/26/2012 Ot 414.01 CORONARY ATHEROSCLEROSIS OF [place] CORON 07/26/2012 Ot 414.4 CORONARY ATHEROSCLEROSIS DUE TO CALCIFIE 07/26/2012 Ot 599.0 URIN TRACT INFECTION NOS 07/26/2012 Ot 715.90 OSTEOARTHROS NOS-UNSPEC 07/26/2012 Ot V45.82 PERCUTANEOUS TRANSLUM CORON ANGIOPLASTY 07/26/2012 Ot V58.63 LONG-TERM( CURRENT)USE OF ANTIPLATELET/AN 07/26/2012 Ot V58.66 LONG-TERM ( CURRENT) USE OF ASPIRIN 07/26/2012 Ot V58.69 OTH MED,LT, CURRENT USE 07/24/2013 JEFFERY CRAIG FACC, WALTER FACP CCDS Ot 272.4 HYPERLIPIDEMIA NEC/NOS 07/24/2013 JEFFERY CRAIG FACC, ALI FACP CCDS Ot 401.9 HYPERTENSION NOS 07/24/2013 JEFFERY CRAIG FACC, ALI FACP CCDS Ot 414.01 CORONARY ATHEROSCLEROSIS OF I[place] CORON 07/24/2013 JEFFERY CRAIG FACC, ALI FACP CCDS Ot 414.4 CORONARY ATHEROSCLEROSIS DUE TO CALCIFIE 07/24/2013 JEFFERY CRAIG FACC, ALI FACP CCDS Ot 729.81 SWELLING OF LIMB 07/24/2013 JEFFERY CRAIG FACC, WALTER FACP CCDS Ot 786.59 CHEST PAIN NEC 07/24/2013 JEFFERY CRAIG FACC, ALI FACP CCDS Ot V45.82 PERCUTANEOUS TRANSLUM CORON ANGIOPLASTY 07/24/2013 JEFFERY CRAIG FACC ALI FACP CCDS Ot V58.69 OTH MED,LT,CURRENT USE 09/11/2014 JEFFERY CRAIG FACC, WALTER FACP CCDS Ot 272.4 HYPERLIPIDEMIA NEC/NOS 09/11/2014 JEFFERY CRAIG FACC, ALI FACP CCDS Ot 401.9 HYPERTENSION NOS 09/11/2014 JEFFERY CRAIG FACC, ALI FACP CCDS Ot 414.01 CORONARY ATHEROSCLEROSIS OF I[place] CORON 09/11/2014 JEFFERY CRAIG FACC, ALI FACP CCDS Ot 414.4 CORONARY ATHEROSCLEROSIS DUE TO CALCIFIE 09/11/2014 JEFFERY CRAIG FACC, ALI FACP CCDS Ot V45.82 PERCUTANEOUS TRANSLUM CORON ANGIOPLASTY 09/11/2014 JEFFERY CRAIG FACC, ALI FACP CCDS Ot V58.69 OTH MED,LT,CURRENT USE 09/21/2014 BAIMA, VERÓNICA L [employer] Ot 272.4 09/21/2014 BAIMA, VERÓNICA L [employer] Ot 401.9 09/21/2014 BAIMA, VERÓNICA L [employer] Ot 414.00 09/21/2014 BAIMA, VERÓNICA L [employer] Ot 786.50 09/22/2014 BAIMA, VERÓNICA L [employer] Ot 272.4 09/22/2014 BAIMA, VERÓNICA L [employer] Ot 401.9 09/22/2014 BAIMA, VERÓNICA L [employer] Ot 414.00 09/22/2014 VERÓNICA DAY [employer] Ot 786.50 07/17/2015 HAYLEY SERVIN MD Ot E87.2 ACIDOSIS 07/17/2015 HAYLEY SERVIN MD Ot E87.6 HYPOKALEMIA 07/17/2015 HAYLEY SERVIN MD Ot I10 ESSENTIAL (PRIMARY) HYPERTENSION 07/17/2015 HAYLEY SERVIN MD Ot I21.4 NON-ST ELEVATION (NSTEMI) MYOCARDIAL INF 07/17/2015 HAYLEY SERVIN MD Ot 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 07/17/2015 HAYLEY SERVIN MD Ot I25.10 ATHSCL HEART DISEASE OF I[place] CORONARY 07/17/2015 HAYLEY SERVIN MD Ot I48.0 [...] MD Ot T82.867A THROMBOSIS OF CARDIAC PROSTH DEV/GRFT, I 07/22/2015 LUISA LOBO MD Ot I10 ESSENTIAL (PRIMARY) HYPERTENSION 07/22/2015 LUISA LOBO MD Ot I21.09 STEMI INVOLVING OTH CORONARY ARTERY OF A 07/22/2015 LUISA LOBO MD Ot 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 07/22/2015 LUISA LOBO MD Ot I25.10 ATHSCL HEART DISEASE OF I[place] CORONARY 07/22/2015 ULISA LOBO MD Ot I50.21 ACUTE SYSTOLIC (CONGESTIVE) HEART FAILUR 07/22/2015 LUISA LOBO MD Ot 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, 08/21/2015 Ot 276.8 HYPOPOTASSEMIA 08/21/2015 VERÓNICA DAY Ot 786.09 RESPIRATORY ABNORM NEC 08/21/2015 BAIMA, VERÓNICA L [employer] Ot 272.4 HYPERLIPIDEMIA NEC/NOS 08/21/2015 BAIMA, VERÓNICA L [employer] Ot 401.9 HYPERTENSION NOS 08/21/2015 BAIMA, VERÓNICA L [employer] Ot 414.00 CORON ATHEROSCLER NOS TYPE VESSEL, NATIV 08/21/2015 BAIMA, VERÓNICA L [employer] Ot 786.50 CHEST PAIN NOS 08/22/2015 JEFFERY CRAIG FACC, ALI FACP CCDS Ot E78.4 OTHER HYPERLIPIDEMIA 08/22/2015 JEFFERY CRAIG FACC, ALI FACP CCDS Ot I10 ESSENTIAL (PRIMARY) HYPERTENSION 08/22/2015 JEFFERY CRAIG FACC, ALI FACP CCDS Ot I25.10 ATHSCL HEART DISEASE OF I[place] CORONARY 08/22/2015 JEFFERY CRAIG FACC, ALI FACP CCDS Ot I25.5 ISCHEMIC CARDIOMYOPATHY 09/11/2015 JEFFERY CRAIG FACC, ALI FACP CCDS Ot E78.4 OTHER HYPERLIPIDEMIA 09/11/2015 JEFFERY CRAIG FACC, ALI FACP CCDS Ot I10 ESSENTIAL (PRIMARY) HYPERTENSION 09/11/2015 JEFFERY CRAIG FACC, ALI FACP CCDS Ot I25.10 ATHSCL HEART DISEASE OF I[place] CORONARY 09/11/2015 JEFFERY CRAIG FACC, ALI FACP CCDS Ot I25.5 ISCHEMIC CARDIOMYOPATHY 09/19/2015 JEFFERY CRAIG FACC, ALI FACP CCDS Ot E78.4 OTHER HYPERLIPIDEMIA 09/19/2015 JEFFERY CRAIG FACC, ALI FACP CCDS Ot I10 ESSENTIAL (PRIMARY) HYPERTENSION 09/19/2015 JEFFERY CRAIG FACC, ALI FACP CCDS Ot I25.10 ATHSCL HEART DISEASE OF I[place] CORONARY 09/19/2015 JEFFERY CRAIG FACC, ALI FACP CCDS Ot I25.5 ISCHEMIC CARDIOMYOPATHY 06/01/2016 Ot 276.8 HYPOPOTASSEMIA 06/01/2016 BAIMA, VERÓNICA L [employer] Ot 786.09 RESPIRATORY ABNORM NEC 06/01/2016 BAIMA, VERÓNICA L [employer] Ot 272.4 HYPERLIPIDEMIA NEC/NOS 06/01/2016 BAIMA, VERÓNICA L [employer] Ot 401.9 HYPERTENSION NOS 06/01/2016 BAIMA, VERÓNICA L [employer] Ot 414.00 CORON ATHEROSCLER NOS TYPE VESSEL, NATIV 06/01/2016 BAIMA, VERÓNICA L [employer] Ot 786.50 CHEST PAIN NOS 06/01/2016 JEFFERY CRAIG FACC, WALTER FACP CCDS Ot E78.4 OTHER HYPERLIPIDEMIA 06/01/2016 JEFFERY CRAIG FACC, ALI FACP CCDS Ot I10 ESSENTIAL (PRIMARY) HYPERTENSION 06/01/2016 JEFFERY CRAIG FACC, ALI FACP CCDS Ot I25.10 ATHSCL HEART DISEASE OF I[place] CORONARY 06/01/2016 JEFFERY CRAIG FACC, ALI FACP CCDS Ot I25.5 ISCHEMIC CARDIOMYOPATHY 06/03/2016 JEFFERY CRAIG FACC, ALI FACP CCDS Ot E78.4 OTHER HYPERLIPIDEMIA 06/03/2016 JEFFERY CRAIG FACC, ALI FACP CCDS Ot I10 ESSENTIAL (PRIMARY) HYPERTENSION 06/03/2016 JEFFERY CRAIG FACC, ALI FACP CCDS Ot I25.10 ATHSCL HEART DISEASE OF I[place] CORONARY 06/03/2016 JEFFERY CRAIG FACC, ALI FACP CCDS Ot I65.23 OCCLUSION AND STENOSIS OF BILATERAL ADAN 06/03/2016 JEFFERY CRAIG FACC, WALTER FACP CCDS Ot M79.89 OTHER SPECIFIED SOFT TISSUE DISORDERS 06/03/2016 JEFFERY CRAIG FACC ALI FACP CCDS Ot R55 SYNCOPE AND COLLAPSE 06/03/2016 JEFFERY CRAIG FACC, ALI FACP CCDS Ot E78.4 OTHER HYPERLIPIDEMIA 06/03/2016 JEFFERY CRAIG FACC, ALI FACP CCDS Ot I10 ESSENTIAL (PRIMARY) HYPERTENSION 06/03/2016 JEFFERY CRAIG FACC, ALI FACP CCDS Ot I25.10 ATHSCL HEART DISEASE OF I[place] CORONARY 06/03/2016 JEFFERY CRAIG FACC, WALTER FACP CCDS Ot I65.23 OCCLUSION AND STENOSIS [...] CCDS Ot I25.10 ATHSCL HEART DISEASE OF I[place] CORONARY 06/04/2016 JEFFERY CRAIG FACC, ALI FACP [...] I10 ESSENTIAL (PRIMARY) HYPERTENSION 06/04/2016 JEFFERY CRAIG FACSukhdev, ALI FACP CCDS Ot I25.10 ATHSCL HEART DISEASE OF I[place] CORONARY 06/04/2016 JEFFERY CRAIG FACC, ALI FACP [...] CCDS Ot I25.10 ATHSCL HEART DISEASE OF I[place] CORONARY 06/24/2016 JEFFERY CRAIG FACC, ALI FACP [...] CCDS Ot I25.10 ATHSCL HEART DISEASE OF I[place] CORONARY 06/24/2016 JEFFERY CRAIG FACC, ALI FACP CCDS Ot I65.23 OCCLUSION AND STENOSIS OF BILATERAL ADAN 06/24/2016 JEFFERY CRAIG FACC, ALI FACP CCDS Ot M79.89 OTHER SPECIFIED SOFT TISSUE DISORDERS 06/24/2016 JEFFERY CRAIG FACC, ALI FACP CCDS Ot R55 SYNCOPE AND COLLAPSE 06/30/2016 JEFFERY CRAIG [facility], ALI FACP CCDS Ot E78.4 OTHER HYPERLIPIDEMIA 06/30/2016 JEFFERY CRAIG [facility], ALI FACP CCDS Ot I10 ESSENTIAL (PRIMARY) HYPERTENSION 06/30/2016 JEFFERY CRAIG [facility], ALI FACP CCDS Ot I25.10 ATHSCL HEART DISEASE OF I[place] CORONARY 06/30/2016 JEFFERY CRAIG [facility], ALI FACP CCDS Ot I65.23 OCCLUSION AND STENOSIS OF BILATERAL ADAN 06/30/2016 JEFFERY CRAIG [facility], ALI FACP CCDS Ot M79.89 OTHER SPECIFIED SOFT TISSUE DISORDERS 06/30/2016 JEFFERY CRAIG [facility], ALI FACP CCDS Ot R55 SYNCOPE AND COLLAPSE 06/30/2016 JEFFERY CRAIG [facility], ALI FACP CCDS Ot E78.4 OTHER HYPERLIPIDEMIA 06/30/2016 JEFFERY CRAIG [facility], ALI FACP CCDS Ot I10 ESSENTIAL (PRIMARY) HYPERTENSION 06/30/2016 JEFFERY CRAIG [facility], ALI FACP CCDS Ot I25.10 ATHSCL HEART DISEASE OF I[place] CORONARY 06/30/2016 JEFFERY CRAIG [facility], ALI FACP CCDS Ot I65.23 OCCLUSION AND STENOSIS OF BILATERAL ADAN 06/30/2016 JEFFERY CRAIG [facility], ALI FACP CCDS Ot M79.89 OTHER SPECIFIED SOFT TISSUE DISORDERS 06/30/2016 JEFFERY CRAIG [facility], ALI FACP CCDS Ot R55 SYNCOPE AND COLLAPSE 12/15/2016 VERÓNICA DAY L [employer] Ot E78.5 HYPERLIPIDEMIA, UNSPECIFIED 12/15/2016 JOE DAYHER L [employer] Ot I10 ESSENTIAL (PRIMARY) HYPERTENSION 12/15/2016 JOE DAYHER L [employer] Ot 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 I[place] COR ART W 12/15/2016 BARB VERÓNICA L [employer] Ot I87.2 VENOUS INSUFFICIENCY (CHRONIC) (PERIPHER 12/15/2016 JOE DAYHER L [employer] Ot Z79.899 OTHER FLIGHT HOSTESS (CURRENT) DRUG THERAPY 12/15/2016 JOE DAYHER L [employer] Ot Z95.5 PRESENCE OF CORONARY ANGIOPLASTY IMPLANT 02/17/2017 JOE DAYHER L [employer] Ot E78.5 HYPERLIPIDEMIA, UNSPECIFIED 02/17/2017 ELDONMA VERÓNICA L [employer] Ot I10 ESSENTIAL (PRIMARY) HYPERTENSION 02/17/2017 VERÓNICA DAY [employer] Ot 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 [place] COR ART W 02/17/2017 VERÓNICA DAYP Ot I87.2 VENOUS INSUFFICIENCY (CHRONIC) (PERIPHER 02/17/2017 VERÓNICA DAY [employer] Ot Z79.899 OTHER RETIREMENT (CURRENT) DRUG THERAPY 02/17/2017 VERÓNICA DAYP Ot Z95.5 PRESENCE OF CORONARY ANGIOPLASTY IMPLANT Procedures Code Description Performed By Performed On 00.41 PROCEDURE ON TWO VESSELS 07/01/2012 00.47 INSERTION OF THREE VASCULAR STENTS 07/01/2012 00.66 PERCUTANEOUS TRANSLUMINAL CORONARY ANGIO 07/01/2012 36.07 INSRT OF DRUG-ELUTING CORON ARTERY STENT 07/01/2012 37.22 LEFT HEART CARDIAC CATH 07/01/2012 88.53 LT HEART ANGIOCARDIOGRAM 07/01/2012 88.56 CORONAR ARTERIOGR-2 CATH 07/01/2012 [id number] DILATION OF 1 COR ART WITH DRUG-ELUT INT 07/14/2015 [id number] EXTIRPATION OF MATTER FROM 1 COR ART, PE 07/14/2015 [id number] FLUOROSCOPY OF SINGLE CORONARY ARTERY US 07/14/2015 [id number] FLUOROSCOPY OF MULT COR ART USING L OSM 07/14/2015 [id number] DILATION OF CORONARY ARTERY, ONE SITE, P 07/20/2015 [id number] MEASURE OF CARDIAC SAMPL PRESSURE, L H 07/20/2015 [id number] FLUOROSCOPY OF MULT COR ART USING L OSM 07/20/2015 [id number] FLUOROSCOPY OF LEFT HEART USING LOW OSMO 07/20/2015 Results Test Result Range Methicillin resistant Staphylococcus aureus (MRSA) screening culture - 09:49 Methicillin resistant Staphylococcus aureus (MRSA) screening culture NEG NR Automated blood complete blood count (hemogram) panel - 12/14/16 09:59 Blood leukocytes automated count (number/volume) 9.9 10*3/uL 4.3-11.0 Blood erythrocytes automated count (number/volume) 4.17 10*6/uL 4.35-5.85 Venous blood hemoglobin measurement (mass/volume) 13.1 g/dL 11.5-16.0 Blood hematocrit (volume fraction) 39 % 35-52 Automated erythrocyte mean corpuscular volume 93 [foz_us] 80-99 Automated erythrocyte mean corpuscular hemoglobin (mass per erythrocyte) 31 pg 25-34 Automated erythrocyte mean corpuscular hemoglobin concentration measurement ( mass/volume) 34 g/dL 32-36 Automated erythrocyte distribution width ratio 12.4 % 10.0-14.5 Automated blood platelet count (count/volume) 403 10*3/uL 130-400 Automated blood platelet mean volume measurement 9.9 [foz_us] 7.4-10.4 PT panel in platelet poor plasma by coagulation assay - 12/14/16 09:59 Prothrombin time (PT) in platelet poor plasma by coagulation assay 12.5 s 12.2-14.7 INR in platelet poor plasma or blood by coagulation assay 0.9 0.8-1.4 Activated partial thromboplastin time (aPTT) in platelet poor plasma bycoagulation assay - 12/14/16 09:59 Activated partial thromboplastin time (aPTT) in platelet poor plasma bycoagulation assay 34 s 24-35 Comprehensive metabolic panel - 12/14/16 09:59 Serum or plasma sodium measurement (moles/volume) 139 mmol/L 135-145 Serum or plasma potassium measurement (moles/volume) 4.0 mmol/L 3.6-5.0 Serum or plasma chloride measurement (moles/volume) 106 mmol/L 98-107 Carbon dioxide 22 mmol/L 21-32 Serum or plasma anion gap determination (moles/volume) 11 mmol/L 5-14 Serum or plasma urea nitrogen measurement (mass/volume) 20 mg/dL 7-18 Serum or plasma creatinine measurement (mass/volume) 0.95 mg/dL 0.60-1.30 Serum or plasma urea nitrogen/creatinine mass ratio 21 NRG Serum or plasma creatinine measurement with calculation of estimated glomerular filtration rate 57 NRG Serum or plasma glucose measurement (mass/volume) 92 mg/dL 70-105 Serum or plasma calcium measurement (mass/volume) 9.9 mg/dL 8.5-10.1 Serum or plasma total bilirubin measurement (mass/volume) 0.6 mg/dL 0.1-1.0 Serum or plasma alkaline phosphatase measurement (enzymatic activity/volume) 47 U/L 40-136 Serum or plasma aspartate aminotransferase measurement (enzymatic activity/ volume) 20 U/L 5-34 Serum or plasma alanine aminotransferase measurement (enzymatic activity/volume ) 13 U/L 0-55 Serum or plasma protein measurement (mass/volume) 8.0 g/dL 6.4-8.2 Serum or plasma albumin measurement (mass/volume) 4.3 g/dL 3.2-4.5 Lipid 1996 panel - 12/14/16 09:59 Serum or plasma triglyceride measurement (mass/volume) 273 mg/dL <150 Serum or plasma cholesterol measurement (mass/volume) 312 mg/dL < 200 Serum or plasma cholesterol in HDL measurement (mass/volume) 54 mg/ dL 40-60 Cholesterol in LDL [mass/volume] in serum or plasma by direct assay 196 mg/dL 1-129 Serum or plasma cholesterol in VLDL measurement (mass/volume) 55 mg/ dL 5-40 Automated blood complete blood count (hemogram) panel - 12/15/16 04:36 Blood leukocytes automated count (number/volume) 10.6 10*3/uL 4.3-11.0 Blood erythrocytes automated count (number/volume) 3.98 10*6/uL 4.35-5.85 Venous blood hemoglobin measurement (mass/volume) 12.5 g/dL 11.5-16.0 Blood hematocrit (volume fraction) 38 % 35-52 Automated erythrocyte mean corpuscular volume 94 [foz_us] 80-99 Automated erythrocyte mean corpuscular hemoglobin (mass per erythrocyte) 31 pg 25-34 Automated erythrocyte mean corpuscular hemoglobin concentration measurement ( mass/volume) 33 g/dL 32-36 Automated erythrocyte distribution width ratio 12.6 % 10.0-14.5 Automated blood platelet count (count/volume) 227 10*3/uL 130-400 Automated blood platelet mean volume measurement 10.6 [foz_us] 7.4-10.4 Whole blood basic metabolic panel - 12/15/16 04:36 Serum or plasma sodium measurement (moles/volume) 137 mmol/L 135-145 Serum or plasma potassium measurement (moles/volume) 4.1 mmol/L 3.6-5.0 Serum or plasma chloride measurement (moles/volume) 107 mmol/L 98-107 Carbon dioxide 18 mmol/L 21-32 Serum or plasma anion gap determination (moles/volume) 12 mmol/L 5-14 Serum or plasma urea nitrogen measurement (mass/volume) 22 mg/dL 7-18 Serum or plasma creatinine measurement (mass/volume) 0.98 mg/dL 0.60-1.30 Serum or plasma urea nitrogen/creatinine mass ratio 22 NRG Serum or plasma creatinine measurement with calculation of estimated glomerular filtration rate 55 NRG Serum or plasma glucose measurement (mass/volume) 80 mg/dL 70-105 Serum or plasma calcium measurement (mass/volume) 8.9 mg/dL 8.5-10.1 Encounters ACCT No. Visit Date/Time Discharge Status Pt. Type Provider Facility Loc./Unit Complaint [id number] 12/14/2016 09:17:00 12/15/2016 11:15:00 DIS Outpatient VERÓNICA DAY [facility] CHEST PAIN,CAD, CAROTID ARTERIAL DISEASE,HL [id number] 06/03/2016 08:13:00 06/03/2016 23:59:59 CLS Outpatient WALTER GIL MD, FACC, FACP CCDS [facility] SYNCOPE,CAD, LEG SWELLING,HLP [id number] 06/02/2016 11:12:00 06/02/2016 23:59:59 CLS Outpatient WALTER GIL MD, FACC, FACP CCDS [facility] SYNCOPE,CAD, LEG SWELLING [id number] 08/21/2015 08:25:00 08/21/2015 23:59:59 CLS Outpatient WALTER GIL MD, FACC, FACP CCDS [facility] CAD, ESSENTIAL HTN,HLP,ISCHEMIC CARDIOMYOPATHY [id number] 07/20/2015 09:45:00 07/22/2015 17:00:00 DIS Inpatient LUISA LOBO MD [facility] ICU ACUTE ANTERIOR ST ELEVATION [place] [id number] 07/14/2015 06:38:00 07/17/2015 14:30:00 DIS Inpatient HAYLEY SERVIN MD [facility] ICU CHEST PAIN [id number] 09/10/2014 06:44:00 09/11/2014 10:12:00 DIS Outpatient WALTER GIL MD, FACC, FACP CCDS [facility] ABNORMAL STRESS TEST [id number] 08/08/2014 08:10:00 08/08/2014 23:59:59 CLS Outpatient VERÓNICA DAY [facility] CP,CAD,HTN [id number] 07/24/2013 11:44:00 07/24/2013 18:50:00 DIS Outpatient WALTER GIL MD, FACC, FACP CCDS [facility] CATH CP,CAD,HTN, HLP [id number] 10/04/2012 12:31:00 10/04/2012 23:59:59 CLS Outpatient VERÓNICA DAY [facility] RT DYSPNEA [id number] 07/18/2018 08:00:00 PEN Preadmit WALTER GIL MD, FACC, FACP CCDS [facility] CATH LEFT HEART CATH [id number] 07/31/2012 13:59:00 Document Registration [id number] 07/25/2012 11:12:00 Document Registration [id number] 07/01/2012 12:05:00 Document Registration
[2018-07-04] MEDS ORDERED: MIDAZOLAM 5 MG/5 ML (VERSED) VIAL ONE (14:35)
[2018-07-04] MEDS ORDERED: fentaNYL INJECTION 100 MCG/2 ML AMP ONE (14:36)
[2018-07-04] MEDS ORDERED: EPTIFIBATIDE BOLUS 20 ML IV ONE (15:26)
[2018-07-04] MEDS ORDERED: NITRO DRIP 25000 MCG/D5W 250 ML IV ONE (15:33)
--- NOTE | 2018-07-04 16:27 | Cardiac Procedure Note-CS/ASA ---
Pre-Procedure Note Pre-Op Procedure Note H&P Reviewed The H&P was reviewed, patient examined and no changes noted. Date H&P Reviewed: Jul 04, 2018 Time H&P Reviewed: 15:20 Conscious Sedation Pre-Proced Time 15:20 ASA Score 3 For ASA 3 and 4: Consider anesthesia and medical clearance. Also, for patients with a history of failed moderate sedation consider anesthesia. Airway Lungs Heart ASA score ASA 1: a normal healthy patient ASA 2: a patient with a mild systemic disease (mid diabetes, controlled hypertension, obesity ASA 3: a patient with a severe systemic disease that limits activity (angina , COPD, prior Myocardial infarction) ASA 4: a patient with an incapacitating disease that is a constant threat to life (CHF, renal failure) ASA 5: a moribund patient not expected to survive 24 hrs. (ruptured aneurysm) ASA 6: a declared brain- patient whose organs are being harvested. For emergent operations, add the letter E after the classification Mallampati Classification Grade 2 Sedation Plan Analgesia, Amnesia, Plan communicated to team members, Discussed options with patient/fam, Discussed risks with patient/fam The patient is an appropriate candidate to undergo the planned procedure, sedation, and anesthesia. The patient immediately re-assessed prior to indication. WALTER GIL MD FACP FAC CCDS Jul 04, 2018 16:27
[2018-07-04] MEDS ORDERED: PATIENT MAY USE OWN MEDS, ALL PO SCH (16:30)
[2018-07-04] MEDS ORDERED: ASPIRIN 81 MG CHEW (CHILDREN'S ASA) PO ONE (16:30)
[2018-07-04] MEDS ORDERED: ACETAMINOPHEN 500 MG TAB (TYLENOL) PO PRN (16:30)
[2018-07-04] MEDS ORDERED: NITROGLYCERIN 0.4 MG SL TABS BTL 25'S SL PRN (16:30)
[2018-07-04] MEDS ORDERED: CLOPIDOGREL 300 MG (PLAVIX) TABLET PO ONE (16:50)
[2018-07-05] VITALS: BP 89/34
--- NOTE | 2018-07-05 00:48 | CARDIAC CATHETERIZATION ---
DATE OF SERVICE: 07/04/2018 CARDIAC CATHETERIZATION AND CORONARY INTERVENTION REPORT The patient is an 83-year-old lady who is known to have coronary artery disease and has previously had multiple coronary interventions. She has recently had symptoms that are consistent with recurrent angina pectoris. Symptoms have been progressive. Cardiac catheterization was carried out today after having obtained an informed consent for cardiac catheterization, possible ad hoc coronary intervention. DESCRIPTION OF PROCEDURE: She was brought to the cardiac catheterization laboratory in a fasting state. Right groin was prepared and draped in usual sterile fashion. A 1% lidocaine was used for local anesthesia. Modified Seldinger technique was used to advance a 5-Israeli sheath into the right femoral artery. A 5-Israeli JL4 catheter was used for left coronary angiography, 5-Israeli JR4 catheter was used for right coronary angiography, 5-Israeli JR4 catheter was also used for left heart catheterization, left ventricular angiography. PERCUTANEOUS INTERVENTION TO THE LEFT CIRCUMFLEX ARTERY: Following completion of the diagnostic procedure, we carried out percutaneous intervention to the left circumflex artery where the patient was exhibiting 80% to 90% in-stent restenosis. We exchanged the sheath over a wire for a 6-Israeli sheath. We used a 6-Israeli JL4 guide catheter. We used a BMW wire to cross the lesion in the standard portion of the left circumflex artery and the tip was placed in the distal part of left circumflex artery. We carried out balloon angioplasty with Emerge 2.5 x 15 mm balloon that was inflated to 10 atmospheres. This was at the site of a previously implanted stents that are known to be overlapping stents (2.5 mm and 2.0 mm stents). Following balloon angioplasty, there is no significant residual stenosis. The flow throughout the vessel was normal. She tolerated the procedure well. Angioplasty equipment was removed. Angiography of the right femoral artery had been carried out through the sheath at the beginning of the procedure. At the end of the procedure, Mynx was used to achieve hemostasis. The patient received 4500 units of intravenous heparin and a double bolus of Integrilin during the intervention procedure. HEMODYNAMICS: Left ventricular end-diastolic pressure following coronary angiography was 13 mmHg. There is no significant pressure gradient on pullback across the aortic valve. Ascending aortic pressure was 129/62 with a mean of 87 mmHg. CORONARY ANGIOGRAPHY: Diffuse coronary calcification is present. Left main coronary artery does not exhibit significant obstructive disease. Left anterior descending artery has a long stented segment in its proximal and mid portion that is patent and without significant in-stent restenosis. The left circumflex artery has a stented segment in its mid portion that was exhibiting 80% to 90% stenosis in its mid portion. Following balloon angioplasty to this, there is no significant residual stenosis. The first obtuse marginal branch is jailed by the previous stent and exhibits 80% ostial stenosis. The vessel is of a small caliber and does not appear amenable to intervention. The right coronary artery is of a small caliber and diffusely diseased. There is a patent stent in its distal portion that does not exhibit significant disease. The distal right coronary artery proximal to the stented segment has 60% to 70% stenosis. CONCLUSIONS: Coronary artery disease as described above. There was 80% to 90% in-stent restenosis in the mid left circumflex artery to which successful balloon angioplasty was carried out and reduced the stenosis to 0% residual. The stents in the proximal and mid left anterior descending and in the distal right coronary artery patent and do not exhibit significant disease. There is moderate to moderately severe disease of the right coronary artery that is diffuse. DISCUSSION AND RECOMMENDATIONS: Her previous cardiac regimen is being continued. Risk factor modification has been reviewed. Management of angina has been reviewed. Outpatient followup is advised. Job ID: [id number] DocumentID: [id number] Dictated Date: 07/04/2018 16:17:46 Director Payer Date: 07/05/2018 00:47:05 Dictated By: WALTER GIL MD, MA, FACP, FACC,
[2018-07-05 04:00] VITALS: BP 109/52
[2018-07-05] MEDS ORDERED: LEVOTHYROXINE 50 MCG (LEVOTHROID) TAB PO SCH (06:30)
[2018-07-05 07:31] VITALS: BP 131/70
[2018-07-05] MEDS ORDERED: KCL 20 MEQ TAB (K-DUR) PO SCH (09:00)
[2018-07-05] MEDS ORDERED: CLOPIDOGREL 75 MG (PLAVIX) TABLET PO SCH ×2 (09:00)
[2018-07-05] MEDS ORDERED: EPA PO SCH (09:00)
[2018-07-05] MEDS ORDERED: LOSARTAN 100 MG (COZAAR) TABLET PO SCH (09:00)
[2018-07-05] MEDS ORDERED: ASPIRIN 81 MG CHEW (CHILDREN'S ASA) PO SCH (09:00)
[2018-07-05] MEDS ORDERED: FISH OIL PO SCH (09:00)
[2018-07-05] MEDS ORDERED: FUROSEMIDE 20 MG (LASIX) TAB PO SCH (09:00)
[2018-07-05] MEDS ORDERED: MULTIVIT MIN PO SCH (09:00)
[2018-07-05] MEDS ORDERED: LUT PO SCH (09:00)
[2018-07-05] MEDS ORDERED: [UNRECOGNIZED DRUG - OTHER] PO SCH (09:00)
[2018-07-05] MEDS ORDERED: DHA PO SCH (09:00)
[2018-07-05] MEDS ORDERED: LYCOPENE PO SCH (09:00)
[2018-07-05] MEDS ORDERED: meTOprolol SUCCINATE 100 MG (TOPROL XL) TAB PO SCH (09:00)
[2018-07-05] MEDS ORDERED: APIX2.5T PO (09:31)
--- NOTE | 2018-07-05 10:01 | Cardiology Discharge Summary ---
Diagnosis/Chief Complaint Date of Admission 07/04/2018 Date of Discharge 07/05/2018 Admission Diagnosis Chest pain Final/Discharge Diagnosis CAD Chief Complaint/HPI Chief Complaint/HPI The patient is an 83-year-old lady who is known to have coronary artery disease and has previously had multiple coronary interventions. She has recently had symptoms that are consistent with recurrent angina pectoris. Symptoms have been progressive. Discharge Summary Procedures Coronary angiography showed severe in-stent restenosis of the mid left circumflex artery stent which was successfully treated with balloon angioplasty. Discharge Physical Examination Unremarkable. Hospital Course Was the Problem List Reviewed?: Yes Unremarkable. Discussion & Recommendations Discussion Discharge instructions were discussed with the patient. Follow up appt.: Dr. Mayer in 2-3 weeks. Dicharge Diet: Cardiac Diet Activity as Tolerated: Yes Home Medications Reviewed patient Home Medication Reconciliation performed by pharmacy medication reconciliations ict help desk technician and/or nursing. Patients Allergies have been reviewed. Discharge Home Medications: Reviewed and agree with Discharge Medication list on patient's Discharge Instruction sheet Condition at discharge Stable. Instructions to patient/family Discussed with the patient. Samson SOUSA MD Jul 05, 2018 10:01
--- NOTE | 2018-07-05 10:02 | Discharge Inst-Post CATH ---
Discharge Inst-CATH/EP Post Cardiac Cath/EP D/C Inst Follow Up/Plan Dr Mayer in two to three weeks. CARDIAC CATH DISCHARGE INSTRUCTIONS *Hold Metformin for 48 hours post heart cath. ACTIVITY * Go Home directly and rest. * Limit activity of the leg (or wrist if it was used) for 7 days including aerobics, swimming, jogging, bicycling, etc. * Restrict stair-climbing for 7 days if possible, if not, climb up with your non -cath leg, then bring together on the same step. * Avoid lifting, pushing, pulling or excessive movement of the affected extremity for 7 days. * Customary sexual activity may be resumed after 2 days-use caution not to use a position that strains or causes pain to the affected extremity. * No driving for 24 hours. * NO SMOKING. * Avoid straining for bowel movements for 7 days. * Gentle walking on level ground is allowed. * Returning to work will depend on the type of procedure and the results. Your doctor will discuss this with you. CALL YOUR DOCTOR FOR ANY OF THE FOLLOWING: *If bleeding from the puncture site occurs- Apply gentle pressure to site with clean cloth and call your doctor or EMS. * If a knot or lump forms under the skin, increases in size, or causes pain. * If bruising appears to be worsening or moving further down your leg instead of disappearing. * Temperature above 101 F. CARE OF YOUR GROIN INCISION; * Bruising or purple discoloration of the skin near the puncture site is common. * You may shower only, no bathtub bathing for 5 days. Be careful to avoid slipping as your leg may feel stiff. * If a closure device was used on your femoral artery, please see the attached guide regarding care of the device and your leg. * Leave the dressing on, until removed by office staff. CARE OF YOUR WRIST INCISION; * Bruising or purple discoloration of the skin near the puncture site is common. * You may shower. * DO NOT submerge wrist. * Leave dressing on, until removed by office staff.. Samson SOUSA MD Jul 05, 2018 10:02
--- NOTE | 2018-07-05 11:01 | NUR ---
KAHLIL TIDWELL Alfred demonstrates understanding of discharge instructions and accurately returns instructions upon questioning. Copy of Post-Discharge Instructions and Medication Discharge Instructions given to pt. KAHLIL TIDWELL Alfred is able to manage continuing needs after discharge. Patients belongings returned to pt. Skin dry and intact; no breakdown noted. Patient discharged from [facility]- on 07/05/18 at 1101. KAHLIL TIDWELL left floor via wc, accompanied by staff.
== END 2018-07-05 11:01 | disposition home or self-care (01) ==
LOC: CATH 10:38 → ICU 16:01 → CATH 07-05 11:01
PROVIDERS: ATTEND Internal Medicine Cardiovascular Disease
DX: T82.855A Stenosis of coronary artery stent, initial encounter (principal); I25.119 Atherosclerotic heart disease of native coronary artery with unspecified angina pectoris; I10 Essential (primary) hypertension; E78.5 Hyperlipidemia, unspecified; I25.5 Ischemic cardiomyopathy; I73.9 Peripheral vascular disease, unspecified; I08.3 Combined rheumatic disorders of mitral, aortic and tricuspid valves; I65.23 Occlusion and stenosis of bilateral carotid arteries; M19.91 Primary osteoarthritis, unspecified site; Z79.02 Long term (current) use of antithrombotics/antiplatelets; Z79.82 Long term (current) use of aspirin; Z79.899 Other long term (current) drug therapy; Z95.5 Presence of coronary angioplasty implant and graft
CPT/HCPCS: 36415; 80053; 80061; 85027; 85610; 85730; 87081; 93005; 93458

== ENCOUNTER → 2018-08-01 | Outpatient (CLI) | payer MEDICARE ==
[~2018-08-01] MED LIST changes: +APIX2.5T PO; +CATHETER FLUSH 10 ML SYR IV PRN; +FISH1CAP15 PO; +HOLD METFORMIN - RECEIVED CONTRAST 20 ML VIAL IV SCH; +IOHEXOL 350 MG/ML 100 ML (OMNIPAQUE 350) VIAL IV ONE; +MULT-1029 PO; +NITR0.4T42 SL; +NS 50 ML (IVPB) BAG IV ONE
[2018-08-01 09:37] LABS: CREATININE SERUM 0.97 MG/DL (0.60-1.30)
--- NOTE | 2018-08-01 11:03 | Diagnostic Imaging Report ---
CLINICAL INDICATION: Patient with headache X3 weeks. Patient has history of carotid arterial disease. EXAM: Axial CT scan of the brain performed without and with 80 cc of Omnipaque 350 IV contrast. COMPARISON: None. FINDINGS: There is a small area of chronic cerebral infarct involving the right occipital lobe. There are small patchy areas of low-attenuation white matter changes seen throughout both cerebral hemispheres suspected to represent chronic small vessel ischemic disease. The brain parenchymal volume appears appropriate for patient's age. There is no brain herniation, intracranial hemorrhage, acute cerebral infarct, or hydrocephalus. There is no abnormal IV contrast enhancement. The visualized [place] vascular structures are unremarkable. The extracranial soft tissue, skull, and orbits are unremarkable. Paranasal sinuses and temporal bone structures are unremarkable. IMPRESSION: 1: There is no definite CT evidence of interval acute cerebral infarction, intracranial hemorrhage, or mass seen. Given the diffuse low attenuation changes throughout the brain parenchyma which can obscure more subtle findings, if there is clinical concern for acute cerebral infarction, MRI of the brain would better evaluate. 2: There are diffuse patchy low-attenuation white matter changes throughout both cerebral hemispheres which may be related to chronic small vessel ischemic disease. 3: Small chronic cerebral infarct involving the right occipital lobe. Dictated by: Dictated on workstation # [id number]
== END ==
LOC: RAD FS 08:45
PROVIDERS: ATTEND Internal Medicine Cardiovascular Disease
DX: I63.89 Other cerebral infarction (principal); R90.82 White matter disease, unspecified; I25.10 Atherosclerotic heart disease of native coronary artery without angina pectoris; I10 Essential (primary) hypertension; I25.5 Ischemic cardiomyopathy; Z98.890 Other specified postprocedural states; Z86.79 Personal history of other diseases of the circulatory system
CPT/HCPCS: 36415; 70470; 82565; 84520

== ENCOUNTER 2018-08-09 10:37 | Inpatient (IN) | payer MEDICARE ==
[2018-08-09] VITALS (7 sets, daily range): BP systolic 16–146; BP diastolic 51–146
[~2018-08-09] VITALS: Ht 157.5 cm; Wt 64.4 kg
[~2018-08-09 10:37] MED LIST changes: -CATHETER FLUSH 10 ML SYR IV PRN; -HOLD METFORMIN - RECEIVED CONTRAST 20 ML VIAL IV SCH; -IOHEXOL 350 MG/ML 100 ML (OMNIPAQUE 350) VIAL IV ONE; -NS 50 ML (IVPB) BAG IV ONE
--- NOTE | 2018-08-09 10:44 | ED Chest Pain ---
General Chief Complaint: Chest Pain Stated Complaint: CHEST PAIN; SOB History of Present Illness Date Seen by Provider: Aug 09, 2018 Time Seen by Provider: 10:44 Associated Symptoms: No edema; fatigue, shortness of breath, weakness 83 y/o F with significant history of CAD with multiple stents and recent admission for CP and had cath with in-stent restenosis/occlusion on ASA 81 mg, Plavix 75 mg and Eliquis 2.5 mg (took all this AM and has been compliant) presents with increasing frequency of dyspnea, non-radiating exertional chest pressure that feels similar to her prior "heart attacks". She was recently taken off of lasix, and started on Eliquis. Rest improves symptoms, exertion worsens. She does not recall exactly when the pain started yesterday, but it improves and nearly resolves when she is at rest. Allergies and Home Medications Allergies Coded Allergies: Penicillins (Verified Allergy, Intermediate, HIVES, 07/25/12) oxytetracycline (Verified Allergy, Intermediate, HIVES, 07/25/12) furosemide (Unverified Adverse Reaction, Mild, "MAKES ME SICK", 12/14/16) hydrocodone (Verified Adverse Reaction, Mild, MAKES ME SICK, 07/01/12) lisinopril (Verified Adverse Reaction, Mild, COUGH, 07/01/12) oxytetracycline HCl (Verified Adverse Reaction, Mild, HIVES, 07/01/12) tramadol (Verified Adverse Reaction, Mild, NAUSEA, "HEAVINESS", 07/01/12) Home Medications Apixaban 2.5 Mg Tablet, 2.5 MG PO BID Prescribed by: VERÓNICA DAY on 07/05/18 0931 Aspirin 81 Mg Tablet.dr, 81 MG PO DAILY, (Reported) Clopidogrel Bisulfate 75 Mg Tablet, 75 MG PO DAILY, (Reported) Fish Oil/Dha/Epa 1 Each Capsule, 1,200 MG PO DAILY, (Reported) Levothyroxine Sodium 50 Mcg Tablet, 50 MCG PO DAILY, (Reported) Losartan Potassium 100 Mg Tablet, 100 MG PO DAILY, (Reported) Metoprolol Succinate 100 Mg Tab.er.24h, 50 MG PO DAILY, (Reported) TAKES 1/2 (100MG) TABLET Multivit-Min/FA/Lycopene/Lut 1 Each Tablet, 1 TAB PO DAILY, (Reported) Nitroglycerin 0.4 Mg Tab.subl, 0.4 MG SL UD PRN for CHEST PAIN, (Reported) Ranitidine HCl 150 Mg Tablet, 150 MG PO DAILY PRN for HEARTBURN, (Reported) Patient Home Medication List Home Medication List Reviewed: Yes Review of Systems Review of Systems Constitutional: No chills, No fever; weakness Respiratory: Denies Cough; Orthopnea, Shortness of Air, SOA With Exertion Gastrointestinal: Denies Abdominal Pain, Denies Vomiting Skin: No lesions, No rash Psychiatric/Neurological: Denies Numbness, Denies Tingling Past Ikjillv-Hnghov-Ghlkgt Hx Past Med/Social Hx: Reviewed Nursing Past Med/Soc Hx Immunizations Up To Date Date of Influenza Vaccine: Dec 28, 2017 Seasonal Allergies Seasonal Allergies: No Past Medical History Respiratory: Yes Pneumonia Currently Using CPAP: No Currently Using BIPAP: No Cardiac: Yes Coronary Artery Disease Neurological: No Bladder Infection Gastrointestinal: No Arthritis, Chronic Back Pain Cancer: No Blood Disorders: No Family Medical History Diabetes mellitus 19 FATHER FH: liver cancer 19 MOTHER Myocardial infarction G8 BROTHER G8 SISTER Physical Exam Vital Signs Vital Signs - First Documented 08/09/18 10:39 Temp 97.6 Pulse 61 Resp 16 B/P (MAP) 187/87 (120) Pulse Ox 94 O2 Delivery Room Air Capillary Refill : Height, Weight, BMI Height: 5'2.00" Weight: 139lbs. 0.0oz. 63.648880nd; 25.2 BMI Method:Stated General Appearance: WD/WN, Mild Distress (speaks 5-10 word sentences, tachypneic) HEENT: PERRL/EOMI, Normal ENT Inspection Neck: Full Range of Motion, Normal Inspection, Non Tender, Supple Respiratory: Chest Non Tender, Lungs Clear, Normal Breath Sounds, No Accessory Muscle Use Cardiovascular: Regular Rate, Rhythm, No Edema, No Gallop, No JVD, No Murmur, Normal Peripheral Pulses Gastrointestinal: Normal Bowel Sounds, No Organomegaly, No Pulsatile Mass, Non Tender, Soft Extremity: Normal Capillary Refill, Normal Inspection, Normal Range of Motion, Non Tender, No Calf Tenderness, Pedal Edema (trace) Neurologic/Psychiatric: Alert, Oriented x3, No Motor/Sensory Deficits Skin: Normal Color, Warm/Dry Progress/Results/Core Measures Results/Orders Lab Results Laboratory Tests Test 08/09/18 10:50 Range/Units White Blood Count 12.1 H 4.3-11.0 10^3/uL Red Blood Count 3.73 L 4.35-5.85 10^6/uL Hemoglobin 11.6 11.5-16.0 G/DL Hematocrit 35 35-52 % Mean Corpuscular Volume 95 80-99 FL Mean Corpuscular Hemoglobin 31 25-34 PG Mean Corpuscular Hemoglobin Concent 33 32-36 G/DL Red Cell Distribution Width 13.5 10.0-14.5 % Platelet Count 369 130-400 10^3/uL Mean Platelet Volume 10.1 7.4-10.4 FL Neutrophils (%) (Auto) 51 42-75 % Lymphocytes (%) (Auto) 35 12-44 % Monocytes (%) (Auto) 10 0-12 % Eosinophils (%) (Auto) 3 0-10 % Basophils (%) (Auto) 1 0-10 % Neutrophils # (Auto) 6.1 1.8-7.8 X 10^3 Lymphocytes # (Auto) 4.3 H 1.0-4.0 X 10^3 Monocytes # (Auto) 1.2 H 0.0-1.0 X 10^3 Eosinophils # (Auto) 0.3 0.0-0.3 10^3/uL Basophils # (Auto) 0.1 0.0-0.1 10^3/uL Prothrombin Time 14.3 12.2-14.7 SEC INR Comment 1.1 0.8-1.4 Activated Partial Thromboplast Time 35 24-35 SEC Sodium Level 140 135-145 MMOL/L Potassium Level 3.9 3.6-5.0 MMOL/L Chloride Level 107 98-107 MMOL/L Carbon Dioxide Level 21 21-32 MMOL/L Anion Gap 12 5-14 MMOL/L Blood Urea Nitrogen 28 H 7-18 MG/DL Creatinine 1.26 0.60-1.30 MG/DL Estimat Glomerular Filtration Rate 41 BUN/Creatinine Ratio 22 Glucose Level 104 70-105 MG/DL Calcium Level 9.6 8.5-10.1 MG/DL Corrected Calcium 9.4 8.5-10.1 MG/DL Magnesium Level 2.1 1.8-2.4 MG/DL Total Bilirubin 0.3 0.1-1.0 MG/DL Aspartate Amino Transf (AST/SGOT) 18 5-34 U/L Alanine Aminotransferase (ALT/SGPT) 10 0-55 U/L Alkaline Phosphatase 59 40-136 U/L Myoglobin 36.0 10.0-92.0 NG/ML Troponin T 14 H <=10 NG/L Pro-B-Type Natriuretic Peptide 2957.0 H <75.0 PG/ML Total Protein 7.6 6.4-8.2 GM/DL Albumin 4.2 3.2-4.5 GM/DL My Orders Orders - HAYLEY MARTI MD Cbc With Automated Diff (08/09/18 10:51) Magnesium (08/09/18 10:51) Chest 1 View Ap/Pa Only (08/09/18 10:51) Ekg Tracing (08/09/18 10:51) Comprehensive Metabolic Panel (08/09/18 10:51) Myoglobin Serum (08/09/18 10:51) Protime With Inr (08/09/18 10:51) Partial Thromboplastin Time (08/09/18 10:51) O2 (08/09/18 10:51) Monitor-Rhythm Ecg Trace Only (08/09/18 10:51) Nitroglycerin 0.4 Mg Btl 25's (Nitrostat (08/09/18 11:00) Morphine Injection (Morphine Injection (08/09/18 10:51) Ed Iv/Invasive Line Start (08/09/18 10:51) Troponin T (08/09/18 10:51) Probnp Fs (08/09/18 10:51) Furosemide Injection (Lasix Injection) (08/09/18 12:00) Medications Given in ED Current Medications Medications Dose Ordered Sig/Aury Route Start Time Stop Time Status Last Admin Dose Admin Furosemide 40 mg ONCE ONCE IVP 08/09/18 12:00 08/09/18 12:01 DC 08/09/18 12:01 40 MG Nitroglycerin 0.4 mg UD PRN SL 08/09/18 11:00 08/09/18 11:27 DC 08/09/18 11:26 0.4 MG Vital Signs/I&O 08/09/18 10:39 Temp 97.6 Pulse 61 Resp 16 B/P (MAP) 187/87 (120) Pulse Ox 94 O2 Delivery Room Air Progress Progress Note #1: Time: 11:24 Progress Note chest pressure has been relieved after NTG and Morphine. shortness of breath improved. Progress Note #2: Progress Note CP resolved following NTG and Morphine. CXR with pulmonary edema, though looks relatively stable. Will give Lasix 40 IVP x1. EKG with multiple inverted T's and ST depressions, no elevations, no prior available to compare with (has had multiple stents in the past these may be chronic and baseline). On Eliquis therefore will not give heparin or other anticoagulant. Will admit for CP rule out. Initial ECG Impression Date: Aug 09, 2018 Initial ECG Impression Time: 10:42 Initial ECG Comparisson: No Previous ECG Available Comment NSR bpm, normal intervals, normal axis, inverted T waves in I, II, III, V4,V5,V6 , multiple leads with ST depression, no ST elevations, poor R-R progression. Diagnostic Imaging Diagonstic Imaging: Xray Plain Films/CT/US/NM/MRI: chest Comments no acute change since previous. Radiology report reviewed. Reviewed: Reviewed by Me Departure Communication (Admissions) Time/Spoke to Admitting Phy: 11:[address] Griffin, plan to admit OBS/Tele with cardiology c/s. Impression Primary Impression: Chest pain Disposition: ADMITTED INPATIENT (OBS status) Condition: Improved Admissions Decision to Admit Reason: Admit from ER (General) Decision to Admit/Date: Aug 09, 2018 Time/Decision to Admit Time: 11:50 Departure-Patient Inst. Referrals: MARLYN DERAS MD (PCP/Family) Primary Care Physician HAYLEY MARTI MD Aug 09, 2018 10:44
--- OUTSIDE RECORDS SUMMARY | 2018-08-09 10:44 | XMS REPORT | Continuity of Care Document ---
Author Organization Unknown Address Unknown Allergies Active Description Code Type Severity Reaction Onset Reported/Identified Relationship to Patient Clinical Status Yes hydrocodone [id number] Drug Allergy Mild MAKES ME SICK 07/01/2012 Yes LASIX LASIX Mild MAKES ME SICK 07/01/2012 Yes lisinopril [id number] Drug Allergy Mild COUGH 07/01/2012 Yes oxytetracycline HCl [id number] Drug Allergy Mild HIVES 07/01/2012 Yes tramadol [id number] Drug Allergy Mild NAUSEA, "HEAVIN 07/01/2012 Yes oxytetracycline [id number] Drug Allergy Moderate HIVES 07/25/2012 Yes Penicillins [id number] Drug Allergy Moderate HIVES 07/25/2012 Yes furosemide [id number] Drug Allergy Mild "MAKES ME SICK" 12/14/2016 Medications There is no data. 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,SUBENDO INFARCT,IN 07/03/2012 Ot 414.01 CORONARY ATHEROSCLEROSIS OF [place] CORON 07/03/2012 Ot E932.0 ADV EFF CORTICOSTEROIDS 07/26/2012 Ot 272.4 HYPERLIPIDEMIA NEC/NOS 07/26/2012 Ot 412 OLD MYOCARDIAL INFARCT 07/26/2012 Ot 413.9 ANGINA PECTORIS NEC/NOS 07/26/2012 Ot 414.01 CORONARY ATHEROSCLEROSIS OF [place] CORON 07/26/2012 Ot 414.4 CORONARY ATHEROSCLEROSIS DUE [...] FACP CCDS Ot 414.01 CORONARY ATHEROSCLEROSIS OF [place] CORON 07/24/2013 JEFFERY CRAIG FACC, ALI FACP [...] FACP CCDS Ot 414.01 CORONARY ATHEROSCLEROSIS OF [place] CORON 09/11/2014 JEFFERY CRAIG FACC, ALI FACP CCDS Ot 414.4 CORONARY ATHEROSCLEROSIS DUE TO [place]IF[place] 09/11/2014 JEFFERY CRAIG FACC, ALI FACP CCDS Ot V45.82 PERCUTANEOUS TRANSLUM CORON ANGIOPLASTY 09/11/2014 JEFFERY CRAIG FACC, ALI FACP CCDS Ot V58.69 OTH MED,LT,CURRENT USE 09/21/2014 BAIMA, VERÓNICA L SCRIPT DEVELOPER Ot 272.4 09/21/2014 BAIMA, VERÓNICA L SCRIPT DEVELOPER Ot 401.9 09/21/2014 BAIMA, VERÓNICA L SCRIPT DEVELOPER Ot 414.00 09/21/2014 BAIMA, VERÓNICA L SCRIPT DEVELOPER Ot 786.50 09/22/2014 BAIMA, VERÓNICA L SCRIPT DEVELOPER Ot 272.4 09/22/2014 BAIMA, VERÓNICA L SCRIPT DEVELOPER Ot 401.9 09/22/2014 BAIMA, VERÓNICA L SCRIPT DEVELOPER Ot 414.00 09/22/2014 VERÓNICA DAY Ot 786.50 07/17/2015 HAYLEY SERVIN MD Ot E87.2 ACIDOSIS 07/17/2015 HAYLEY SERVIN MD Ot E87.6 HYPOKALEMIA 07/17/2015 HAYLEY SERVIN MD Ot I10 ESSENTIAL (PRIMARY) HYPERTENSION 07/17/2015 HAYLEY SERVIN MD Ot I21.4 NON-ST ELEVATION (NSTEMI) MYOCARDIAL INF 07/17/2015 HAYLEY SERVIN MD Ot 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 07/17/2015 HAYLEY SERVIN MD Ot I25.10 ATHSCL HEART DISEASE OF [place] CORONARY 07/17/2015 HAYLEY SERVIN MD Ot I48.0 PAROXYSMAL ATRIAL FIBRILLATION 07/17/2015 HAYLEY SERVIN MD Ot I49.1 ATRIAL PREMATURE DEPOLARIZATION 07/17/2015 HAYLEY SERVIN MD Ot I50.21 ACUTE SYSTOLIC (CONGESTIVE) HEART FAILUR 07/17/2015 HAYELY SERVIN MD Ot J18.9 PNEUMONIA, UNSPECIFIED ORGANISM [...] MD Ot I25.10 ATHSCL HEART DISEASE OF [place] CORONARY 07/22/2015 LUISA LOBO MD Ot I50.21 ACUTE SYSTOLIC (CONGESTIVE) HEART FAILUR 07/22/2015 LUISA LOBO MD Ot 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, 08/21/2015 Ot 276.8 HYPOPOTASSEMIA 08/21/2015 VERÓNICA DAY Ot 786.09 RESPIRATORY ABNORM NEC 08/21/2015 BAIMA, VERÓNICA L SCRIPT DEVELOPER Ot 272.4 HYPERLIPIDEMIA NEC/NOS 08/21/2015 BAIMA, VERÓNICA L SCRIPT DEVELOPER Ot 401.9 HYPERTENSION NOS 08/21/2015 BAIMA, VERÓNICA L SCRIPT DEVELOPER Ot 414.00 CORON ATHEROSCLER NOS TYPE VESSEL, NATIV 08/21/2015 BAIMA, VERÓNICA L SCRIPT DEVELOPER Ot 786.50 CHEST PAIN NOS 08/22/2015 JEFFERY CRAIG FACC, ALI FACP CCDS Ot E78.4 OTHER HYPERLIPIDEMIA 08/22/2015 JEFFERY CRAIG FACC, ALI FACP CCDS Ot I10 ESSENTIAL (PRIMARY) HYPERTENSION 08/22/2015 JEFFERY CRAIG FACC, ALI FACP CCDS Ot I25.10 ATHSCL HEART DISEASE OF [place] CORONARY 08/22/2015 JEFFERY CRAIG FACC, ALI FACP CCDS Ot I25.5 ISCHEMIC CARDIOMYOPATHY 09/11/2015 JEFFERY CRAIG FACC, ALI FACP CCDS Ot E78.4 OTHER HYPERLIPIDEMIA 09/11/2015 JEFFERY CRAIG FACC, ALI FACP CCDS Ot I10 ESSENTIAL (PRIMARY) HYPERTENSION 09/11/2015 JEFFERY CRAIG FACC, ALI FACP CCDS Ot I25.10 ATHSCL HEART DISEASE OF [place] CORONARY 09/11/2015 JEFFERY CRAIG FACC, ALI FACP CCDS Ot I25.5 ISCHEMIC CARDIOMYOPATHY 09/19/2015 JEFFERY CRAIG FACC, ALI FACP CCDS Ot E78.4 OTHER HYPERLIPIDEMIA 09/19/2015 JEFFERY CRAIG FACC, ALI FACP CCDS Ot I10 ESSENTIAL (PRIMARY) HYPERTENSION 09/19/2015 JEFFERY CRAIG FACC, ALI FACP CCDS Ot I25.10 ATHSCL HEART DISEASE OF [place] CORONARY 09/19/2015 JEFFERY CRAIG FACC, ALI FACP CCDS Ot I25.5 ISCHEMIC CARDIOMYOPATHY 06/01/2016 Ot 276.8 HYPOPOTASSEMIA 06/01/2016 BAIMA, VERÓNICA L SCRIPT DEVELOPER Ot 786.09 RESPIRATORY ABNORM NEC 06/01/2016 BAIMA, VERÓNICA L SCRIPT DEVELOPER Ot 272.4 HYPERLIPIDEMIA NEC/NOS 06/01/2016 BAIMA, VERÓNICA L SCRIPT DEVELOPER Ot 401.9 HYPERTENSION NOS 06/01/2016 BAIMA, VERÓNICA L SCRIPT DEVELOPER Ot 414.00 CORON ATHEROSCLER NOS TYPE VESSEL, NATIV 06/01/2016 BAIMA, VERÓNICA L SCRIPT DEVELOPER Ot 786.50 CHEST PAIN NOS 06/01/2016 JEFFERY MD FACC, ALI FACP CCDS Ot E78.4 OTHER HYPERLIPIDEMIA 06/01/2016 JEFFERY PAZC, ALI FACP CCDS Ot I10 ESSENTIAL (PRIMARY) HYPERTENSION 06/01/2016 JEFFERY CRAIG FACSukhdev, ALI FACP CCDS Ot I25.10 ATHSCL HEART DISEASE OF [place] CORONARY 06/01/2016 JEFFERY CRAIG FACC, ALI FACP CCDS Ot I25.5 ISCHEMIC CARDIOMYOPATHY 06/03/2016 JEFFERY CRAIG FACSukhdev, ALI FACP CCDS Ot E78.4 OTHER HYPERLIPIDEMIA 06/03/2016 JEFFERY CRAIG FACC, ALI FACP CCDS Ot I10 ESSENTIAL (PRIMARY) HYPERTENSION 06/03/2016 JEFFERY CRAIG FACC, ALI FACP CCDS Ot I25.10 ATHSCL HEART DISEASE OF [place] CORONARY 06/03/2016 JEFFERY CRAIG FACC, ALI FACP [...] Ot I10 ESSENTIAL (PRIMARY) HYPERTENSION 06/03/2016 JEFFERY PAZ, ALI FACP CCDS Ot I25.10 ATHSCL HEART DISEASE OF [place] CORONARY 06/03/2016 JEFFERY PAZ, ALI FACP CCDS Ot I65.23 OCCLUSION AND STENOSIS OF BILATERAL [place] 06/03/2016 JEFFERY PAZ, ALI FACP CCDS Ot M79.89 OTHER SPECIFIED SOFT TISSUE DISORDERS 06/03/2016 JEFFERY CRAIG FACC, ALI FACP CCDS Ot R55 SYNCOPE AND COLLAPSE 06/04/2016 JEFFERY CRAIG FACC, ALI FACP CCDS Ot E78.4 OTHER HYPERLIPIDEMIA 06/04/2016 JEFFERY CRAIG FACC, ALI FACP CCDS Ot I10 ESSENTIAL (PRIMARY) HYPERTENSION 06/04/2016 JEFFERY CRAIG FACC, ALI FACP CCDS Ot I25.10 ATHSCL HEART DISEASE OF [place] CORONARY 06/04/2016 JEFFERY PAZC, ALI FACP CCDS Ot I65.23 OCCLUSION AND STENOSIS OF BILATERAL [place] 06/04/2016 JEFFERY PAZC, ALI FACP CCDS Ot M79.89 OTHER SPECIFIED SOFT TISSUE DISORDERS 06/04/2016 JEFFERY CRAIG FACC, ALI FACP CCDS Ot R55 SYNCOPE AND COLLAPSE 06/04/2016 JEFFERY CRAIG FACC, ALI FACP CCDS Ot E78.4 OTHER HYPERLIPIDEMIA 06/04/2016 JEFFERY CRAIG FACC, ALI FACP CCDS Ot I10 ESSENTIAL (PRIMARY) HYPERTENSION 06/04/2016 JEFFERY CRAIG FACC, ALI FACP CCDS Ot I25.10 ATHSCL HEART DISEASE OF [place] CORONARY 06/04/2016 JEFFERY PAZ, ALI FACP CCDS Ot I65.23 OCCLUSION AND STENOSIS OF BILATERAL [place] 06/04/2016 JEFFERY PAZC, ALI FACP CCDS Ot M79.89 OTHER SPECIFIED SOFT TISSUE DISORDERS 06/04/2016 JEFFERY CRAIG FACC, ALI FACP CCDS Ot R55 SYNCOPE AND COLLAPSE 06/24/2016 JEFFERY CRAIG FACC, ALI FACP CCDS Ot E78.4 OTHER HYPERLIPIDEMIA 06/24/2016 JEFFERY CRAIG FACC, ALI FACP CCDS Ot I10 ESSENTIAL (PRIMARY) HYPERTENSION 06/24/2016 JEFFERY PAZ, ALI FACP CCDS Ot I25.10 ATHSCL HEART DISEASE OF [place] CORONARY 06/24/2016 JEFFERY CRAIG FACC, ALI FACP CCDS Ot I65.23 OCCLUSION AND STENOSIS OF [place]ILATER[place] 06/24/2016 JEFFERY PAZ, ALI FACP CCDS Ot M79.89 OTHER SPECIFIED SOFT TISSUE DISORDERS 06/24/2016 JEFFERY CRAIG FACC, ALI FACP CCDS Ot R55 SYNCOPE AND COLLAPSE 06/24/2016 JEFFERY CRAIG FACC, ALI FACP CCDS Ot E78.4 OTHER HYPERLIPIDEMIA 06/24/2016 JEFFERY PAZ, ALI FACP CCDS Ot I10 ESSENTIAL (PRIMARY) HYPERTENSION 06/24/2016 JEFFERY PAZ, ALI FACP CCDS Ot I25.10 ATHSCL HEART DISEASE OF [place] CORONARY 06/24/2016 JEFFERY PAZ, ALI FACP CCDS Ot I65.23 OCCLUSION AND STENOSIS OF BILATER[place] 06/24/2016 JEFFERY CRIAG FACC, ALI FACP CCDS Ot M79.89 OTHER SPECIFIED SOFT TISSUE DISORDERS 06/24/2016 JEFFERY CRAIG FACC, ALI FACP CCDS Ot R55 SYNCOPE AND COLLAPSE 06/30/2016 JEFFERY CRAIG [facility] FACP CCDS Ot E78.4 OTHER HYPERLIPIDEMIA 06/30/2016 JEFFERY CRAIG [facility], ALI FACP CCDS Ot I10 ESSENTIAL (PRIMARY) HYPERTENSION 06/30/2016 JEFFERY CRAIG [facility], ALI FACP CCDS Ot I25.10 ATHSCL HEART DISEASE OF [place] CORONARY 06/30/2016 JEFFERY CRAIG [facility], ALI FACP CCDS Ot I65.23 OCCLUSION AND STENOSIS OF BILATERAL [place]AN 06/30/2016 JEFFERY CRAIG [facility], ALI FACP CCDS Ot M79.89 OTHER SPECIFIED SOFT TISSUE DISORDERS 06/30/2016 JEFFERY CRAIG [facility], ALI FACP CCDS Ot R55 SYNCOPE AND COLLAPSE 06/30/2016 JEFFERY CRAIG [facility], ALI FACP CCDS Ot E78.4 OTHER HYPERLIPIDEMIA 06/30/2016 JEFFERY CRAIG [facility], ALI FACP CCDS Ot I10 ESSENTIAL (PRIMARY) HYPERTENSION 06/30/2016 JEFFERY CRAIG [facility], ALI FACP CCDS Ot I25.10 ATHSCL HEART DISEASE OF [place] CORONARY 06/30/2016 JEFFERY CRAIG [facility], ALI FACP CCDS Ot I65.23 OCCLUSION AND STENOSIS OF BILATERAL [place]AN 06/30/2016 JEFFERY CRAIG [facility], ALI FACP CCDS Ot M79.89 OTHER SPECIFIED SOFT TISSUE DISORDERS 06/30/2016 JEFFERY CRAIG [facility], ALI FACP CCDS Ot R55 SYNCOPE AND COLLAPSE 12/15/2016 JOE DAYHER L SCRIPT DEVELOPER Ot E78.5 HYPERLIPIDEMIA, UNSPECIFIED 12/15/2016 ELDONMA, VERÓNICA L SCRIPT DEVELOPER Ot I10 ESSENTIAL (PRIMARY) HYPERTENSION 12/15/2016 ELDONMA VERÓNICA L SCRIPT DEVELOPER Ot 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 [place] COR ART W 12/15/2016 ELDONMA VERÓNICA L SCRIPT DEVELOPER Ot I87.2 VENOUS INSUFFICIENCY (CHRONIC) (PERIPHER 12/15/2016 ELDONMA VERÓNICA L SCRIPT DEVELOPER Ot Z79.899 OTHER COUNTRY SALES MANAGER (CURRENT) DRUG THERAPY 12/15/2016 BARB VERÓNICA L SCRIPT DEVELOPER Ot Z95.5 PRESENCE OF CORONARY ANGIOPLASTY IMPLANT 02/17/2017 BARB VERÓNICA L SCRIPT DEVELOPER Ot E78.5 HYPERLIPIDEMIA, UNSPECIFIED 02/17/2017 BAIMA, VERÓNICA L SCRIPT DEVELOPER Ot I10 ESSENTIAL (PRIMARY) HYPERTENSION 02/17/2017 BAIMA, VERÓNICA L SCRIPT DEVELOPER Ot 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 [place] COR ART W 02/17/2017 VERÓNICA DAY SCRIPT DEVELOPER Ot I87.2 VENOUS INSUFFICIENCY (CHRONIC) (PERIPHER 02/17/2017 VERÓNICA DAY SCRIPT DEVELOPER Ot Z79.899 OTHER HALF-WAY (CURRENT) DRUG THERAPY 02/17/2017 ELDONVERÓNICA ROBERTS SCRIPT DEVELOPER Ot Z95.5 PRESENCE OF CORONARY ANGIOPLASTY IMPLANT 07/04/2018 ELDONVERÓNICA ROBERTS SCRIPT DEVELOPER Ot 272.4 HYPERLIPIDEMIA NEC/NOS 07/04/2018 ELDONVERÓNICA ROBERTS SCRIPT DEVELOPER Ot 401.9 HYPERTENSION NOS 07/04/2018 ELDONVERÓNICA ROBERTS SCRIPT DEVELOPER Ot 414.00 CORON ATHEROSCLER NOS TYPE VESSEL, NATIV 07/04/2018 ELDONVERÓNICA ROBERTS SCRIPT DEVELOPER Ot 786.50 CHEST PAIN NOS 07/04/2018 JEFFERY CRAIG FACC, WALTER FACP CCDS Ot E78.4 OTHER HYPERLIPIDEMIA 07/04/2018 JEFFERY CRAIG FACC, WALTER FACP CCDS Ot I10 ESSENTIAL (PRIMARY) HYPERTENSION 07/04/2018 JEFFERY CRAIG FACC, WALTER FACP CCDS Ot I25.10 ATHSCL HEART DISEASE OF [place] CORONARY 07/04/2018 JEFFERY CRAIG FACC, WALTER FACP CCDS Ot I25.5 ISCHEMIC CARDIOMYOPATHY 07/04/2018 JEFFERY CRAIG FACC, WALTER FACP CCDS Ot E78.4 OTHER HYPERLIPIDEMIA 07/04/2018 JEFFERY CRAIG FACC, ALI FACP CCDS Ot I10 ESSENTIAL (PRIMARY) HYPERTENSION 07/04/2018 JEFFERY CRAIG FACC, ALI FACP CCDS Ot I25.10 ATHSCL HEART DISEASE OF [place] CORONARY 07/04/2018 JEFFERY CRAIG FACC, WALTER FACP CCDS Ot I65.23 OCCLUSION AND STENOSIS OF BILATERAL [place]AN 07/04/2018 JEFFERY CRAIG FACC, ALI FACP CCDS Ot M79.89 OTHER SPECIFIED SOFT TISSUE DISORDERS 07/04/2018 JEFFERY CRAIG FACC, WALTER FACP CCDS Ot R55 SYNCOPE AND COLLAPSE 07/04/2018 JEFFERY CRAIG FACC, ALI FACP CCDS Ot E78.4 OTHER HYPERLIPIDEMIA 07/04/2018 JEFFERY CRAIG FACC, ALI FACP CCDS Ot I10 ESSENTIAL (PRIMARY) HYPERTENSION 07/04/2018 JEFFERY CRAIG FACC, ALI FACP CCDS Ot I25.10 ATHSCL HEART DISEASE OF [place] CORONARY 07/04/2018 JEFFERY CRAIG FACC, WALTER FACP CCDS Ot I65.23 OCCLUSION AND STENOSIS OF BILATERAL [place] 07/04/2018 JEFFERY CRAIG FACC, ALI FACP CCDS Ot M79.89 OTHER SPECIFIED SOFT TISSUE DISORDERS 07/04/2018 JEFFERY CRAIG FACC, ALI FACP CCDS Ot R55 SYNCOPE AND COLLAPSE 07/05/2018 JEFFERY CRAIG FACC, ALI FACP CCDS Ot E78.5 HYPERLIPIDEMIA, UNSPECIFIED 07/05/2018 JEFFERY CRAIG FACC, ALI FACP CCDS Ot I08.3 COMB RHEUMATIC DISORD OF MITRAL, AORTIC 07/05/2018 JEFFERY CRAIG FACC, ALI FACP CCDS Ot I10 ESSENTIAL (PRIMARY) HYPERTENSION 07/05/2018 JEFFERY CRAIG FACC, ALI FACP CCDS Ot 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 [place] COR ART W 07/05/2018 JEFFERY CRAIG FACC, WALTER FACP CCDS Ot I25.5 ISCHEMIC CARDIOMYOPATHY 07/05/2018 JEFFERY CRAIG FACC, ALI FACP CCDS Ot I65.23 OCCLUSION AND STENOSIS OF BILATERAL [place] 07/05/2018 JEFFERY CRAIG FACC, ALI FACP CCDS Ot I73.9 PERIPHERAL VASCULAR DISEASE, UNSPECIFIED 07/05/2018 JEFFERY CRAIG FACC, ALI FACP CCDS Ot M19.91 PRIMARY OSTEOARTHRITIS, UNSPECIFIED SITE 07/05/2018 JEFFERY CRAIG FACC, ALI FACP CCDS Ot T82.855A STENOSIS OF CORONARY ARTERY STENT, INITI 07/05/2018 JEFFERY CRAIG FACC, ALI FACP CCDS Ot Z79.02 COUNTRY SALES MANAGER (CURRENT) USE OF ANTITHROMBOTI 07/05/2018 JEFFERY CRAIG FACC, WALTER FACP CCDS Ot Z79.82 HALF-WAY (CURRENT) USE OF ASPIRIN 07/05/2018 JEFFERY CRAIG FACC, ALI FACP CCDS Ot Z79.899 OTHER HALF-WAY (CURRENT) DRUG THERAPY 07/05/2018 JEFFERY CRAIG FACC, ALI FACP CCDS Ot Z95.5 PRESENCE OF CORONARY ANGIOPLASTY IMPLANT 07/11/2018 JEFFERY CRAIG FACC, ALI FACP CCDS Ot E78.5 HYPERLIPIDEMIA, UNSPECIFIED 07/11/2018 JEFFERY CRAIG FACC, WALTER FACP CCDS Ot I08.3 COMB RHEUMATIC DISORD OF MITRAL, AORTIC 07/11/2018 JEFFERY CRAIG FACC, ALI FACP CCDS Ot I10 ESSENTIAL (PRIMARY) HYPERTENSION 07/11/2018 JEFFERY CRAIG FACC, ALI FACP CCDS Ot 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 [place] COR ART W 07/11/2018 JEFFERY CRAIG FACC, WALTER FACP CCDS Ot I25.5 ISCHEMIC CARDIOMYOPATHY 07/11/2018 JEFFERY CRAIG FACC, ALI FACP CCDS Ot I65.23 OCCLUSION AND STENOSIS OF BILATERAL [place]AN 07/11/2018 JEFFERY CRAIG FACC, ALI FACP CCDS Ot I73.9 PERIPHERAL VASCULAR DISEASE, UNSPECIFIED 07/11/2018 JEFFERY CRAIG FACC, ALI FACP CCDS Ot M19.91 PRIMARY OSTEOARTHRITIS, UNSPECIFIED SITE 07/11/2018 JEFFERY CRAIG FACC, WALTER FACP CCDS Ot T82.855A STENOSIS OF CORONARY ARTERY STENT, INITI 07/11/2018 JEFFERY CRAIG FACC, WALTER FACP CCDS Ot Z79.02 COUNTRY SALES MANAGER (CURRENT) USE OF ANTITHROMBOTI 07/11/2018 WALTER GIL MD, FACC FACP CCDS Ot Z79.82 HALF-WAY (CURRENT) USE OF ASPIRIN 07/11/2018 JEFFERY CRAIG FACC, WALTER FACP CCDS Ot Z79.899 OTHER COUNTRY SALES MANAGER (CURRENT) DRUG THERAPY 07/11/2018 JEFFERY CRAIG FACC, WALTER FACP CCDS Ot Z95.5 PRESENCE OF CORONARY ANGIOPLASTY IMPLANT 07/13/2018 JEFFERY CRAIG FACC, WALTER FACP CCDS Ot E78.5 HYPERLIPIDEMIA, UNSPECIFIED 07/13/2018 JEFFERY CRAIG FACC, ALI FACP CCDS Ot I08.3 COMB RHEUMATIC DISORD OF MITRAL, AORTIC 07/13/2018 JEFFERY CRAIG FACC, ALI FACP CCDS Ot I10 ESSENTIAL (PRIMARY) HYPERTENSION 07/13/2018 JEFFERY CRAIG FACC, ALI FACP CCDS Ot 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 [place] COR ART W 07/13/2018 JEFFERY CRAIG FACC, WALTER FACP CCDS Ot I25.5 ISCHEMIC CARDIOMYOPATHY 07/13/2018 JEFFERY CRAIG FACC, ALI FACP CCDS Ot I65.23 OCCLUSION AND STENOSIS OF BILATERAL ADAN 07/13/2018 JEFFERY CRAIG FACC, ALI FACP CCDS Ot I73.9 PERIPHERAL VASCULAR DISEASE, UNSPECIFIED 07/13/2018 JEFFERY CRAIG FACC, ALI FACP CCDS Ot M19.91 PRIMARY OSTEOARTHRITIS, UNSPECIFIED SITE 07/13/2018 JEFFERY CRAIG FACC, WALTER FACP CCDS Ot T82.855A STENOSIS OF CORONARY ARTERY STENT, INITI 07/13/2018 JEFFERY CRAIG FACC, WALTER FACP CCDS Ot Z79.02 COUNTRY SALES MANAGER (CURRENT) USE OF ANTITHROMBOTI 07/13/2018 WALTER GIL MD, FACC FACP CCDS Ot Z79.82 HALF-WAY (CURRENT) USE OF ASPIRIN 07/13/2018 JEFFERY CRAIG FACC, WALTER FACP CCDS Ot Z79.899 OTHER COUNTRY SALES MANAGER (CURRENT) DRUG THERAPY 07/13/2018 JEFFERY CRAIG FACC, WALTER FACP CCDS Ot Z95.5 PRESENCE OF CORONARY ANGIOPLASTY IMPLANT 07/31/2018 VERÓNICA DAY SCRIPT DEVELOPER Ot 272.4 HYPERLIPIDEMIA NEC/NOS 07/31/2018 BARB VERÓNICA L SCRIPT DEVELOPER Ot 401.9 HYPERTENSION NOS 07/31/2018 ELDONMA VERÓNICA L SCRIPT DEVELOPER Ot 414.00 CORON ATHEROSCLER NOS TYPE VESSEL, NATIV 07/31/2018 VERÓNICA DAY L SCRIPT DEVELOPER Ot 786.50 CHEST PAIN NOS 07/31/2018 JEFFERY CRAIG FACC, WALTER FACP CCDS Ot E78.4 OTHER HYPERLIPIDEMIA 07/31/2018 JEFFERY CRAIG FACC, WALTER FACP CCDS Ot I10 ESSENTIAL (PRIMARY) HYPERTENSION 07/31/2018 JEFFERY CRAIG FACC, WALTER FACP CCDS Ot I25.10 ATHSCL HEART DISEASE OF [place] CORONARY 07/31/2018 JEFFERY CRAIG FACC, WALTER FACP CCDS Ot I25.5 ISCHEMIC CARDIOMYOPATHY 07/31/2018 JEFFERY CRAIG FACC, WALTER FACP CCDS Ot E78.4 OTHER HYPERLIPIDEMIA 07/31/2018 JEFFERY CRAIG FACC, ALI FACP CCDS Ot I10 ESSENTIAL (PRIMARY) HYPERTENSION 07/31/2018 JEFFERY CRAIG FACC, ALI FACP CCDS Ot I25.10 ATHSCL HEART DISEASE OF [place] CORONARY 07/31/2018 JEFFERY CRAIG FACC, WALTER FACP CCDS Ot I65.23 OCCLUSION AND STENOSIS OF BILATERAL ADAN 07/31/2018 JEFFERY CRAIG FACC, WALTER FACP CCDS Ot M79.89 OTHER SPECIFIED SOFT TISSUE DISORDERS 07/31/2018 WALTER GIL MD, FACC FACP CCDS Ot R55 SYNCOPE AND COLLAPSE 07/31/2018 JEFFERY MD FACC, ALI FACP CCDS Ot E78.4 OTHER HYPERLIPIDEMIA 07/31/2018 JEFFERY CRAIG FACC, ALI FACP CCDS Ot I10 ESSENTIAL (PRIMARY) HYPERTENSION 07/31/2018 JEFFERY PAZC, ALI FACP CCDS Ot I25.10 ATHSCL HEART DISEASE OF [place] CORONARY 07/31/2018 JEFFERY PAZC, ALI FACP CCDS Ot I65.23 OCCLUSION AND STENOSIS OF BILATERAL ADAN 07/31/2018 JEFFERY CRAIG [facility], ALI FACP CCDS Ot M79.89 OTHER SPECIFIED SOFT TISSUE DISORDERS 07/31/2018 JEFFERY PAZ, ALI FACP CCDS Ot R55 SYNCOPE AND COLLAPSE 08/02/2018 JEFFERY CRAIG FAC, ALI FACP CCDS Ot I10 ESSENTIAL (PRIMARY) HYPERTENSION 08/02/2018 JEFFERY PAZ, ALI FACP CCDS Ot I25.10 ATHSCL HEART DISEASE OF [place] CORONARY 08/02/2018 JEFFERY PAZ, ALI FACP CCDS Ot I25.5 ISCHEMIC CARDIOMYOPATHY 08/02/2018 JEFFERY PAZ, ALI FACP CCDS Ot 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 08/02/2018 JEFFERY PAZ, ALI FACP CCDS Ot 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, UNSPECIFIED 08/02/2018 JEFFERY PAZ, ALI FACP CCDS Ot Z86.79 PERSONAL HISTORY OF OTHER DISEASES OF 08/02/2018 JEFFERY PAZ, ALI FACP CCDS Ot Z98.890 OTHER SPECIFIED POSTPROCEDURAL STATES 08/04/2018 JEFFERY PAZ, ALI FACP CCDS Ot I10 ESSENTIAL (PRIMARY) HYPERTENSION 08/04/2018 JEFFERY PAZ, ALI FACP CCDS Ot I25.10 ATHSCL HEART DISEASE OF [place] CORONARY 08/04/2018 JEFFERY CRAIG [facility], ALI FACP CCDS Ot I25.5 ISCHEMIC CARDIOMYOPATHY 08/04/2018 JEFFERY PAZ, ALI FACP CCDS Ot 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 08/04/2018 JEFFERY PAZ, ALI FACP CCDS Ot 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, UNSPECIFIED 08/04/2018 JEFFERY PAZC, ALI FACP CCDS Ot Z86.79 PERSONAL HISTORY OF OTHER DISEASES OF 08/04/2018 JEFFERY PAZ, ALI FACP CCDS Ot Z98.890 OTHER SPECIFIED POSTPROCEDURAL STATES Procedures Code Description Performed By Performed On 00.41 PROCEDURE ON TWO VESSELS 07/01/2012 00.47 INSERTION OF THREE VASCULAR STENTS 07/01/2012 00.66 PERCUTANEOUS TRANSLUMINAL CORONARY ANGIO 07/01/2012 36.07 INSRT OF DRUG-ELUTING CORON ARTERY STENT 07/01/2012 37.22 LEFT HEART CARDIAC CATH 07/01/2012 88.53 LT HEART ANGIOCARDIOGRAM 07/01/2012 88.56 CORONAR ARTERIOGR-2 CATH 07/01/2012 [id number] DILATION OF 1 COR ART WITH DRUG-ELUT INT 07/14/2015 [id number] EXTIRPATION OF MATTER FROM 1 COR ART, PE 07/14/2015 [id number] FLUOROSCOPY OF SINGLE CORONARY ARTERY US 07/14/2015 [id number] FLUOROSCOPY OF MULT COR ART USING L OSM 07/14/2015 [id number] DILATION OF CORONARY ARTERY, ONE SITE, P 07/20/2015 [id number] MEASURE OF CARDIAC SAMPL PRESSURE, L H 07/20/2015 [id number] FLUOROSCOPY OF MULT COR ART USING L OSM 07/20/2015 [id number] FLUOROSCOPY OF LEFT HEART USING LOW OSMO [...] plasma calcium measurement (mass/volume) 8.9 mg/dL 8.5-10.1 Automated blood complete blood count (hemogram) panel - 07/04/18 11:25 Blood leukocytes automated count (number/volume) 9.9 10*3/uL 4.3-11.0 Blood erythrocytes automated count (number/volume) 3.88 10*6/uL 4.35-5.85 Venous blood hemoglobin measurement (mass/volume) 11.9 g/dL 11.5-16.0 Blood hematocrit (volume fraction) 37 % 35-52 Automated erythrocyte mean corpuscular volume 96 [foz_us] 80-99 Automated erythrocyte mean corpuscular hemoglobin (mass per erythrocyte) 31 pg 25-34 Automated erythrocyte mean corpuscular hemoglobin concentration measurement ( mass/volume) 32 g/dL 32-36 Automated erythrocyte distribution width ratio 12.6 % 10.0-14.5 Automated blood platelet count (count/volume) 402 10*3/uL 130-400 Automated blood platelet mean volume measurement 10.0 [foz_us] 7.4-10.4 PT panel in platelet poor plasma by coagulation assay - 07/04/18 11:25 Prothrombin time (PT) in platelet poor plasma by coagulation assay 12.8 s 12.2-14.7 INR in platelet poor plasma or blood by coagulation assay 1.0 0.8-1.4 Activated partial thromboplastin time (aPTT) in platelet poor plasma bycoagulation assay - 07/04/18 11:25 Activated partial thromboplastin time (aPTT) in platelet poor plasma bycoagulation assay 32 s 24-35 Comprehensive metabolic panel - 07/04/18 11:25 Serum or plasma sodium measurement (moles/volume) 141 mmol/L 135-145 Serum or plasma potassium measurement (moles/volume) 3.8 mmol/L 3.6-5.0 Serum or plasma chloride measurement (moles/volume) 109 mmol/L 98-107 Carbon dioxide 22 mmol/L 21-32 Serum or plasma anion gap determination (moles/volume) 10 mmol/L 5-14 Serum or plasma urea nitrogen measurement (mass/volume) 27 mg/dL 7-18 Serum or plasma creatinine measurement (mass/volume) 1.06 mg/dL 0.60-1.30 Serum or plasma urea nitrogen/creatinine mass ratio 25 NRG Serum or plasma creatinine measurement with calculation of estimated glomerular filtration rate 50 NRG Serum or plasma glucose measurement (mass/volume) 92 mg/dL 70-105 Serum or plasma calcium measurement (mass/volume) 9.6 mg/dL 8.5-10.1 Serum or plasma total bilirubin measurement (mass/volume) 0.4 mg/dL 0.1-1.0 Serum or plasma alkaline phosphatase measurement (enzymatic activity/volume) 49 U/L 40-136 Serum or plasma aspartate aminotransferase measurement (enzymatic activity/ volume) 22 U/L 5-34 Serum or plasma alanine aminotransferase measurement (enzymatic activity/volume ) 11 U/L 0-55 Serum or plasma protein measurement (mass/volume) 7.5 g/dL 6.4-8.2 Serum or plasma albumin measurement (mass/volume) 4.3 g/dL 3.2-4.5 CALCIUM CORRECTED 9.4 mg/dL 8.5-10.1 Lipid 1996 panel - 07/04/18 11:25 Serum or plasma triglyceride measurement (mass/volume) 275 mg/dL <150 Serum or plasma cholesterol measurement (mass/volume) 278 mg/dL < 200 Serum or plasma cholesterol in HDL measurement (mass/volume) 52 mg/ dL 40-60 Cholesterol in LDL [mass/volume] in serum or plasma by direct assay 170 mg/dL 1-129 Serum or plasma cholesterol in VLDL measurement (mass/volume) 55 mg/ dL 5-40 Methicillin resistant Staphylococcus aureus (MRSA) screening culture - 11:25 Methicillin resistant Staphylococcus aureus (MRSA) screening culture NEG NRG [id number] - 08/01/18 09:00 Serum or plasma urea nitrogen measurement (mass/volume) 22 mg/dL 7-18 Serum or plasma creatinine measurement (mass/volume) 0.97 mg/dL 0.60-1.30 Serum or plasma urea nitrogen/creatinine mass ratio 23 NRG Serum or plasma creatinine measurement with calculation of estimated glomerular filtration rate 55 NRG Encounters ACCT No. Visit Date/Time Discharge Status Pt. Type Provider Facility Loc./Unit Complaint [id number] 08/01/2018 08:45:00 08/01/2018 23:59:59 CLS Outpatient WALTER GIL MD, FACC, FACP CCDS [facility] RAD FS CAROTID ARTERIAL DISEASE [id number] 07/04/2018 10:38:00 07/05/2018 11:01:00 DIS Outpatient WALTER GIL MD, FACC, FACP CCDS [facility] CATH LEFT HEART CATH [id number] 12/14/2016 09:17:00 12/15/2016 11:15:00 DIS Outpatient VERÓINCA DAY L [employer] [facility] CHEST PAIN,CAD, CAROTID ARTERIAL DISEASE,HL [id number] 06/03/2016 08:13:00 06/03/2016 23:59:59 CLS Outpatient JEFFERY CRAIG FACC, ALI FACP CCDS [facility] SYNCOPE,CAD, LEG SWELLING,HLP [id number] 06/02/2016 11:12:00 06/02/2016 23:59:59 CLS Outpatient JEFFERY CRAIG FACC, WALTER FACP CCDS [facility] SYNCOPE,CAD, LEG SWELLING [id number] 08/21/2015 08:25:00 08/21/2015 23:59:59 CLS Outpatient JEFFERY CRAIG FACC, WALTER VILLARREAL CCDS [facility] CAD, ESSENTIAL HTN,HLP,ISCHEMIC CARDIOMYOPATHY [id number] 07/20/2015 09:45:00 07/22/2015 17:00:00 DIS Inpatient LUISA LOBO MD [facility] ICU ACUTE ANTERIOR ST ELEVATION [place] [id number] 07/14/2015 06:38:00 07/17/2015 14:30:00 DIS Inpatient HAYLEY SERVIN MD [facility] ICU CHEST PAIN [id number] 09/10/2014 06:44:00 09/11/2014 10:12:00 DIS Outpatient WALTER GIL MD, FACC, FACP CCDS [facility] ABNORMAL STRESS TEST [id number] 08/08/2014 08:10:00 08/08/2014 23:59:59 CLS Outpatient VERÓNICA DAY SCRIPT DEVELOPER [facility] CP,CAD,HTN [id number] 07/24/2013 11:44:00 07/24/2013 18:50:00 DIS Outpatient JEFFERY CRAIG FACC, WALTER FACTerrie CCDS [facility] CP,CAD,HTN, HLP [id number] 10/04/2012 12:31:00 10/04/2012 23:59:59 CLS Outpatient VERÓNICA DAY L SCRIPT DEVELOPER [facility] RT DYSPNEA [id number] 08/09/2018 10:39:00 ACT Emergency FIGUEROA CRAIG, HAYLEY Davies [facility] ER FS CHEST PAIN; SOB [id number] 07/31/2012 13:59:00 Document Registration [id number] 07/25/2012 11:12:00 Document Registration [id number] 07/01/2012 12:05:00 Document Registration
[2018-08-09] MEDS ORDERED: morphine INJ 10 MG/ML 1ML (SYR OR VIAL) IV STA (10:51)
[2018-08-09 11:14] LABS: HEMATOCRIT 35 % (35-52); HEMOGLOBIN 11.6 G/DL (11.5-16.0); LYMPHOCYTES % (AUTO) 35 % (12-44); MEAN CORPUSCULAR HEMOGLOBIN 31 PG (25-34); MEAN CORPUSCULAR HGB CONC 33 G/DL (32-36); MEAN CORPUSCULAR VOLUME 95 FL (80-99); MEAN PLATELET VOLUME 10.1 FL (7.4-10.4); PLATELET COUNT 369 10^3/uL (130-400); RED CELL DISTRIBUTION WIDTH 13.5 % (10.0-14.5); WHITE BLOOD COUNT 12.1 10^3/uL (4.3-11.0)
[2018-08-09] MEDS: NITROGLYCERIN 0.4 MG SL TABS BTL 25'S SL PRN ×3 (11:14→11:26)
[2018-08-09 11:15] LABS: BASOPHILS # (AUTO) 0.1 10^3/uL (0.0-0.1); BASOPHILS % (AUTO) 1 % (0-10); EOSINOPHILS # (AUTO) 0.3 10^3/uL (0.0-0.3); EOSINOPHILS % (AUTO) 3 % (0-10); LYMPHOCYTES # (AUTO) 4.3 X 10^3 (1.0-4.0); MONOCYTES # (AUTO) 1.2 X 10^3 (0.0-1.0); MONOCYTES % (AUTO) 10 % (0-12); NEUTROPHILS # (AUTO) 6.1 X 10^3 (1.8-7.8); NEUTROPHILS % (AUTO) 51 % (42-75)
--- NOTE | 2018-08-09 11:23 | Diagnostic Imaging Report ---
INDICATION: Chest pain. Portable chest 11:05 a.m. FINDINGS: There is interstitial thickening similar in appearance to compared study dated 07/21/2015. There are no consolidating alveolar infiltrates. There is no effusion or pneumothorax. IMPRESSION: Suspected chronic interstitial lung disease. No acute abnormalities or appreciable change since 07/21/2015. Dictated by: Dictated on workstation # [id number]
[2018-08-09 11:34] LABS: INR 1.1 (0.8-1.4); PROTHROMBIN TIME PATIENT 14.3 SEC (12.2-14.7)
[2018-08-09 11:35] LABS: POTASSIUM 3.9 MMOL/L (3.6-5.0)
[2018-08-09 11:36] LABS: ALBUMIN 4.2 GM/DL (3.2-4.5); BILIRUBIN,TOTAL 0.3 MG/DL (0.1-1.0); CALCIUM 9.6 MG/DL (8.5-10.1); CREATININE SERUM 1.26 MG/DL (0.60-1.30); MAGNESIUM 2.1 MG/DL (1.8-2.4); TOTAL PROTEIN 7.6 GM/DL (6.4-8.2)
--- NOTE | 2018-08-09 11:46 | NUR ---
PT STATES THE HEAVINESS IS GONE AND SHE IS BREATHING BETTER. IN TALKING TO PT AT THIS TIME.
[2018-08-09] MEDS ORDERED: FUROSEMIDE 40 MG/4 ML INJ (LASIX) IVP ONE (12:00)
--- NOTE | 2018-08-09 12:06 | NUR ---
STRATEGIC DEBRIEFING SPECIALIST CONTACTED FOR BED PLACEMENT.
--- NOTE | 2018-08-09 12:33 | NUR ---
PT'S PULSE OX 86% RA AFTER WALKING TO AND FROM THE BATHROOM. OXYGEN APPLIED AT 2LNC. NOTIFIED.
--- NOTE | 2018-08-09 12:43 | NUR ---
UP TO BATHROOM AGAIN.
--- NOTE | 2018-08-09 13:00 | NUR ---
PT HAS VOIDED X3 SINCE HAVING THE LASIX.
[2018-08-09] MEDS ORDERED: CATHETER FLUSH 10 ML SYR IV PRN (14:15)
[2018-08-09] MEDS ORDERED: morphine INJ 4 MG/ML 1 ML (VIAL/SYRINGE) IV PRN (14:15)
[2018-08-09] MEDS ORDERED: NITROGLYCERIN 0.4 MG SL TABS BTL 25'S SL PRN (14:15)
[2018-08-09] MEDS ORDERED: APIX2.5T PO (14:31)
--- NOTE | 2018-08-09 14:34 | NUR ---
SPOKE WITH THE PATIENT ABOUT HER MEDICATIONS, SHE HAD HER PRESCRIPTION BOTTLES AND WE WENT OVER THE EXT MED HX AND SHE VERIFIED HOW SHE TAKES THEM. SHE FILLED LASIX 20MG #180 12-13-17 HOWEVER STATES SHE WAS ONLY TAKING IT ONCE DAILY AND WAS TOLD TO STOP TAKING IT BY DR. GIL 2 WEEKS AGO. SHE ALSO STOPPED TAKING HER POTASSIUM 20MEQ #30 LAST FILLED 07-07-18. SHE IS NOT TO RESUME THESE UNTIL SEEN BY HIM NEXT. OTC MEDS: ASPIRIN 81MG DAILY FISH OIL 1200MG DAILY MTV DAILY ZANTAC PRN SHE ALSO HAS NITROGLYCERIN IF NEEDED
--- NOTE | 2018-08-09 14:51 | NUR ---
KAHLIL TIDWELL admitted to room CU12-1, with an admitting diagnosis of CHEST PAIN , on 08/09/18 from [facility] via [facility], accompanied by EMS. KAHLIL TIDWELL introduced to surroundings, call light, bed controls, phone, TV, temperature control, lights, meal times, smoking policy, visitor policy, side rail policy, bathrooms and showers. Patient Rights given to patient in the handbook.KAHLIL TIDWELL verbalizes understanding that [facility] is not responsible for the loss or damage to any personal effects or valuables that are kept in the patients posession during their hospitalization.
--- NOTE | 2018-08-09 14:58 | NUR ---
1408 DR SOUSA NOTIFIED OF CONSULT NO NEW ORDERS RECEIVED AT THIS TIME.
--- NOTE | 2018-08-09 15:36 | NUR ---
Offered soothing touch and reassuring words and presence as pt was admitted to ICU. Pt is Yazdanism.
[2018-08-09] MEDS ORDERED: PATIENT MAY USE OWN MEDS, ALL MC SCH (16:30)
--- NOTE | 2018-08-09 16:39 | NUR ---
DR SOUSA IN TO SEE PT NEW VERBAL ORDERS RECEIVED TO GIVE LASIX 80 MG IV IN AM AND OBTAIN ECHO IN AM.
--- NOTE | 2018-08-09 18:15 | Consultation-Cardiology ---
HPI-Cardiology Cardiology Consultation: Date of Consultation 08/09/18 Date of Admission Attending Physician Carly Griffin MD Admitting Physician Regulo Márquez MD Consulting Physician Samson ARTIS MD HPI: Time Seen by a Provider: 16:00 Chief Complaint: Chest pain and shortness of breath. This is a 83 year old lady who follows with Dr Mayer. She has history of CAD with numerous PCI in the past. Three months ago, she presented with chest pain and PTCA was done without stents. She continues to be on dual antiplatelet therapy. She has history of PAF and has been on Eliquis. The chest pain is like something sitting on the chest. Improves with rest and worse with exertion. Associated with shortness of breath. symptoms since tuesday. Moderate intensity with no radiation. Resolved with three NTG in the ER and morphine. IV lasix given in the ER. Review of Systems-Cardiology Review of Systems Constitutional: As described under HPI; No As described under HPI, No no symptoms reported, No chills, No fever, No lightheadedness Eyes: No As described under HPI, No no symptoms reported, No blindness, No blurred vision, No contact lenses, No drainage, No decreased acuity, No foreign body sensation, No pain, No vision change Ears/Nose/Throat: No As described under HPI, No no symptoms reported, No chronic hearing loss, No ear discharge, No ear pain, No nasal drainage, No ulcerations Respiratory: No no symptoms reported; As described under HPI; No As described under HPI, No cough, No orthopnea; shortness of breath; No SOB with excertion Cardiovascular: No no symptoms reported; As described under HPI; No As described under HPI; chest pain; No edema, No irregular heart rate, No lightheadedness, No palpitations Gastrointestinal: No no symptoms reported, No As described under HPI, No abdomen distended, No abdominal pain, No blood streaked bowels, No constipation , No diarrhea, No nausea, No vomiting, No stool coloration changes Genitourinary: No As described under HPI, No burning, No dysuria, No discharge , No frequency, No flank pain, No hematuria, No urgency : Yes : No Skin: No rash, No skin related problems, No ulcerations Psychiatric/Neurological: No anxiety, No depression, No seizure, No focal weakness, No syncope Hematologic: No bleeding abnormalities EMA-Irtcwy-Iyudir Hx Patient Social History Alcohol Use: Denies Use Recreational Drug Use: No Smoking Status: Never a Smoker Recent Foreign Travel: No Recent Infectious Disease Expo: No Immunizations Up To Date Date of Influenza Vaccine: Dec 28, 2017 Past Medical History PMH As described under Assessment. Family Medical History Family History: Diabetes mellitus 19 FATHER FH: liver cancer 19 MOTHER Myocardial infarction G8 BROTHER G8 SISTER Allergies and Home Medications Allergies Coded Allergies: Penicillins (Verified Allergy, Intermediate, HIVES, 07/25/12) oxytetracycline (Verified Allergy, Intermediate, HIVES, 07/25/12) furosemide (Unverified Adverse Reaction, Mild, "MAKES ME SICK", 12/14/16) hydrocodone (Verified Adverse Reaction, Mild, MAKES ME SICK, 07/01/12) lisinopril (Verified Adverse Reaction, Mild, COUGH, 07/01/12) oxytetracycline HCl (Verified Adverse Reaction, Mild, HIVES, 07/01/12) tramadol (Verified Adverse Reaction, Mild, NAUSEA, "HEAVINESS", 07/01/12) Home Medications Apixaban 2.5 Mg Tablet, 2.5 MG PO BID, (Reported) Aspirin 81 Mg Tablet.dr, 81 MG PO DAILY, (Reported) Clopidogrel Bisulfate 75 Mg Tablet, 75 MG PO DAILY, (Reported) Fish Oil/Dha/Epa 1 Each Capsule, 1,200 MG PO DAILY, (Reported) Levothyroxine Sodium 50 Mcg Tablet, 50 MCG PO DAILY, (Reported) Losartan Potassium 100 Mg Tablet, 100 MG PO DAILY, (Reported) Metoprolol Succinate 100 Mg Tab.er.24h, 100 MG PO DAILY, (Reported) Multivit-Min/FA/Lycopene/Lut 1 Each Tablet, 1 TAB PO DAILY, (Reported) Nitroglycerin 0.4 Mg Tab.subl, 0.4 MG SL UD PRN for CHEST PAIN, (Reported) Ranitidine HCl 150 Mg Tablet, 150 MG PO HS PRN for HEARTBURN, (Reported) Patient Home Medication List Home Medication List Reviewed: Yes Physical Exam-Cardiology Physical Exam Vital Signs/I&O 08/09/18 08/09/18 08/09/18 08/09/18 10:39 12:33 13:00 13:03 Temp 97.6 Pulse 61 51 53 Resp 16 17 B/P (MAP) 187/87 (120) 143/56 (85) Pulse Ox 94 86 98 O2 Delivery Room Air Nasal Cannula Nasal Cannula O2 Flow Rate 2.00 2.00 08/09/18 08/09/18 08/09/18 08/09/18 13:05 14:19 14:26 15:00 Pulse 51 49 49 Resp 16 15 B/P (MAP) 146/70 (95) 136/55 (82) Pulse Ox 94 98 97 O2 Delivery Nasal Cannula Nasal Cannula Nasal Cannula O2 Flow Rate 2.00 2.00 2.00 08/09/18 08/09/18 08/09/18 16:00 16:04 16:15 Pulse 63 49 Resp 15 B/P (MAP) 136/51 (79) Pulse Ox 94 70 95 O2 Delivery Nasal Cannula Nasal Cannula O2 Flow Rate 2.00 2.00 FiO2 28 Capillary Refill : Less Than 3 Seconds Constitutional: appears stated age, AAO x 3; No apparent distress; well- developed, well-nourished HEENT: PERRL; No normal ENT inspection, No TMs normal, No pharynx normal, No scleral icterus (R), No scleral icterus (L), No pale conjunctivae (R), No pale conjunctivae (L), No photophobia, No TM abnormal (R), No TM abnormal (L), No pharyngeal erythema, No tonsillar exudate, No other, No discharge, No EOMI; hearing is well preserved; No hard of hearing; oral hygience is good; No ulceration, No xanthelasmas are seen Neck: No non-tender, No full range of motion, No supple, No normal inspection, No carotid bruit, No limited range of motion, No lymphadenopathy (R), No lymphadenopathy (L), No tender lateral, No tender midline, No thyromegaly, No other; carotid pulses are 2 + bilaterally; No with good upstrokes Respiratory: No accessory muscle use, No respiratory distress, No chest tender , No chest expansion is symmetric; chest is bilaterally symmetric; No lungs clear to percussion; lungs clear to auscultation; No crackles, No rhonchi, No rales, No stridor, No wheezing, No pleural rub, No other Cardiovascular: regular rate-rhythm; No irregularly irregular, No extra beats, No parasternal heave is noted, No JVD, No edema; bradycardia; No tachycardia, No point of maximal impulse, No cardiac thrills are palpable; S1 and S2; No gallop/S3, No gallop/S4, No diastolic murmur, No systolic murmur, No friction rub, No click, No other Gastrointestinal: No tender, No soft, No round, No distended, No pulsatile mass , No organomegaly, No guarding, No rebound, No tenderness, No hernia, No mass, No audible bowel sounds, No abnormal bowel sounds, No abdominal bruits, No spleenomegaly, No other Rectal: deferred Extremities: No normal range of motion, No non-tender, No normal inspection, No pedal edema, No calf tenderness, No normal capillary refill, No pelvis stable , No calf tenderness, No inflammation, No pedal edema, No slow capillary refill , No swelling, No other, No abrasion, No clubbing, No cyanosis, No ecchymosis, No laceration, No no lower extremity edema bilateral, No significant edema, No tenderness, No wound Neurologic/Psychiatric: no motor/sensory deficits, alert, normal mood/affect, oriented x 3, power is 5/5 both on sides Skin: No normal color, No warm/dry, No cyanosis, No cool, No diaphoresis, No damp, No ecchymosis, No jaundice, No mottled, No pallor, No rash, No tattoos/ piercings, No ulcerations, No rash on exposed areas, No ulcerations on exposed areas, No other Data Review Labs Laboratory Tests 08/09/18 10:50: White Blood Count 12.1H, Red Blood Count 3.73L, Hemoglobin 11.6, Hematocrit 35, Mean Corpuscular Volume 95, Mean Corpuscular Hemoglobin 31, Mean Corpuscular Hemoglobin Concent 33, Red Cell Distribution Width 13.5, Platelet Count 369, Mean Platelet Volume 10.1, Neutrophils (%) (Auto) 51, Lymphocytes (%) (Auto) 35 , Monocytes (%) (Auto) 10, Eosinophils (%) (Auto) 3, Basophils (%) (Auto) 1, Neutrophils # (Auto) 6.1, Lymphocytes # (Auto) 4.3H, Monocytes # (Auto) 1.2H, Eosinophils # (Auto) 0.3, Basophils # (Auto) 0.1, Prothrombin Time 14.3, INR Comment 1.1, Activated Partial Thromboplast Time 35, Sodium Level 140, Potassium Level 3.9, Chloride Level 107, Carbon Dioxide Level 21, Anion Gap 12, Blood Urea Nitrogen 28H, Creatinine 1.26, Estimat Glomerular Filtration Rate 41 , BUN/Creatinine Ratio 22, Glucose Level 104, Calcium Level 9.6, Corrected Calcium 9.4, Magnesium Level 2.1, Total Bilirubin 0.3, Aspartate Amino Transf ( AST/SGOT) 18, Alanine Aminotransferase (ALT/SGPT) 10, Alkaline Phosphatase 59, Myoglobin 36.0, Troponin T 14H, Pro-B-Type Natriuretic Peptide 2957.0H, Total Protein 7.6, Albumin 4.2 08/09/18 16:01: Glucometer 103 08/09/18 18:04: ECG Impression ECG Initial ECG Rhythm: S.Carlyle Comment mild ST depressions. A/P-Cardiology Assessment/Admission Diagnosis Acute coronary syndrome, Acute chf, HTN, Hyperlipidemia, PAF Plan likely Acute coronary syndrome, Troponin serial, if positive, cath. if negative - nuclear stress test. Continue dual antiplatelet therapy. Acute chf, IV lasix. Echo HTN, continue outpatient meds. Hyperlipidemia, continue high dose lipitor. PAF, continue eliquis and BB. Thank you for your consultation. Please call me if you have any questions. Maria Guadalupe Artis MD, FACP, FACC, FSCAI, FHRS, CCDS Interventional Cardiology Cardiac Electrophysiology Vascular Medicine and Endovascular Interventions Clinical Quality Measures AMI/AHF: ASA po Prior to arrival: Yes (81MG) DVT/VTE Risk/Contraindication: Risk Factor Score Per Nursin RFS Level Per Nursing on Admit: 3=High Samson ARTIS MD Aug 09, 2018 18:15
--- NOTE | 2018-08-09 19:04 | NUR ---
DR SOUSA NOTIFIED OF NORMAL TROPONIN RESULTS, PLAN FOR NUCLEAR STRESS TEST TOMORROW. BATTERY MECHANIC NOTIFIED EARLIER IN SHIFT OF TEST TOMORROW.
[2018-08-09] MEDS: APIXABAN 2.5 MG (ELIQUIS) TABLET PO SCH (21:00)
[2018-08-09] MEDS ORDERED: APIXABAN 2.5 MG (ELIQUIS) TABLET PO SCH (21:00)
[2018-08-09] MEDS: CATHETER FLUSH 10 ML SYR IV SCH (22:00)
[2018-08-10] VITALS (15 sets, daily range): BP systolic 91–163; BP diastolic 41–75
[2018-08-10 03:55] LABS: BASOPHILS # (AUTO) 0.1 10^3/uL (0.0-0.1); BASOPHILS % (AUTO) 1 % (0-10); EOSINOPHILS # (AUTO) 0.3 10^3/uL (0.0-0.3); EOSINOPHILS % (AUTO) 4 % (0-10); HEMATOCRIT 33 % (35-52); HEMOGLOBIN 10.4 G/DL (11.5-16.0); LYMPHOCYTES # (AUTO) 3.7 X 10^3 (1.0-4.0); LYMPHOCYTES % (AUTO) 42 % (12-44); MEAN CORPUSCULAR HEMOGLOBIN 30 PG (25-34); MEAN CORPUSCULAR HGB CONC 32 G/DL (32-36); MEAN CORPUSCULAR VOLUME 94 FL (80-99); MEAN PLATELET VOLUME 10.5 FL (7.4-10.4); MONOCYTES # (AUTO) 1.2 X 10^3 (0.0-1.0); MONOCYTES % (AUTO) 13 % (0-12); NEUTROPHILS # (AUTO) 3.6 X 10^3 (1.8-7.8); NEUTROPHILS % (AUTO) 41 % (42-75); PLATELET COUNT 318 10^3/uL (130-400); RED CELL DISTRIBUTION WIDTH 13.8 % (10.0-14.5); WHITE BLOOD COUNT 8.9 10^3/uL (4.3-11.0)
[2018-08-10 04:11] LABS: ALANINE AMINOTRANSFERASE 9 U/L (0-55); ALBUMIN 3.8 GM/DL (3.2-4.5); ALKALINE PHOSPHATASE 43 U/L (40-136); BILIRUBIN,TOTAL 0.4 MG/DL (0.1-1.0); BUN/CREATININE RATIO 27; CALCIUM 9.2 MG/DL (8.5-10.1); CARBON DIOXIDE 18 MMOL/L (21-32); CHLORIDE 110 MMOL/L (98-107); CHOLESTEROL 242 MG/DL (< 200); CREATININE SERUM 1.09 MG/DL (0.60-1.30); GFR ESTIMATED 48; GLUCOSE 79 MG/DL (70-105); HDL CHOLESTEROL 43 MG/DL (40-60); POTASSIUM 3.4 MMOL/L (3.6-5.0); SODIUM 142 MMOL/L (135-145); TOTAL PROTEIN 6.6 GM/DL (6.4-8.2); TRIGLYCERIDES 306 MG/DL (<150); VLDL CHOLESTEROL 61 MG/DL (5-40)
[2018-08-10] MEDS ORDERED: FUROSEMIDE 40 MG/4 ML INJ (LASIX) IVP NR (06:00)
[2018-08-10] MEDS ORDERED: FUROSEMIDE 40 MG/4 ML INJ (LASIX) IVP ONE (06:00)
[2018-08-10] MEDS: CATHETER FLUSH 10 ML SYR IV SCH ×3 (07:00→22:00)
[2018-08-10] MEDS: LEVOTHYROXINE 50 MCG (LEVOTHROID) TAB PO SCH (07:00)
[2018-08-10] MEDS ORDERED: REGADENOSON 0.4 MG/5 ML SYR (LEXISCAN) IV ONE (08:00)
[2018-08-10] MEDS: LOSARTAN 100 MG (COZAAR) TABLET PO SCH (08:20)
[2018-08-10] MEDS: APIXABAN 2.5 MG (ELIQUIS) TABLET PO SCH ×2 (08:20→21:00)
[2018-08-10] MEDS: meTOprolol SUCCINATE 100 MG (TOPROL XL) TAB PO SCH (08:20)
[2018-08-10] MEDS: ASPIRIN E.C. 81 MG (ECOTRIN) TAB PO SCH (08:21)
[2018-08-10] MEDS ORDERED: LIDOCAINE 1% INJ 20 ML 20 ML VIAL ONE (08:34)
[2018-08-10] MEDS ORDERED: HEParin 1000 UNIT/ML (10ML VIAL) FOR BOLUS ONE (08:34)
[2018-08-10] MEDS ORDERED: NS IV 1000 ML 2,000 ML ONE (08:34)
[2018-08-10] MEDS ORDERED: LOSARTAN 100 MG (COZAAR) TABLET PO SCH (09:00)
--- NOTE | 2018-08-10 10:50 | NUR ---
Pt is Judaism. Will decide later on sacraments if she has to stay. Piece Maker offered prayer and blessing.
--- NOTE | 2018-08-10 11:33 | Cardiology Progress Note ---
Cardiology SOAP Progress Note Subjective: No further chest pain. Objective: I&O/Vital Signs 08/10/18 08/10/18 08/10/18 08/10/18 00:00 00:00 01:00 04:00 Temp 97.5 Pulse 46 49 Resp 14 B/P (MAP) 106/61 (76) Pulse Ox 97 96 96 O2 Delivery Nasal Cannula Nasal Cannula Nasal Cannula O2 Flow Rate 2.00 2.00 2.00 08/10/18 08/10/18 08/10/18 08/10/18 04:00 07:00 08:00 08:00 Temp 97.9 97.1 Pulse 55 47 68 Resp 16 25 B/P (MAP) 136/61 (86) 163/68 (99) Pulse Ox 97 94 94 O2 Delivery Room Air Room Air Room Air 08/10/18 08/10/18 08:50 09:00 Pulse Ox 95 94 O2 Delivery Room Air Room Air 08/09/18 23:59 Intake Total 150 ml Output Total 900 ml Balance -750 ml Weight (Pounds): 140 Weight (Ounces): 0.0 Weight (Calculated Kilograms): 63.715671 Constitutional: appears stated age, AAO x 3; No apparent distress; well- developed, well-nourished Respiratory: No accessory muscle use, No respiratory distress, No chest tender , No chest expansion is symmetric; chest is bilaterally symmetric; No lungs clear to percussion; lungs clear to auscultation; No crackles, No rhonchi, No rales, No stridor, No wheezing, No pleural rub, No other Cardiovascular: regular rate-rhythm; No irregularly irregular, No extra beats, No parasternal heave is noted, No JVD, No edema; bradycardia; No tachycardia, No point of maximal impulse, No cardiac thrills are palpable; S1 and S2; No gallop/S3, No gallop/S4, No diastolic murmur, No systolic murmur, No friction rub, No click, No other Gastrointestional: No tender, No soft, No round, No distended, No pulsatile mass, No organomegaly, No guarding, No rebound, No tenderness, No hernia, No mass, No audible bowel sounds, No abnormal bowel sounds, No abdominal bruits, No spleenomegaly, No other Extremities: No normal range of motion, No non-tender, No normal inspection, No pedal edema, No calf tenderness, No normal capillary refill, No pelvis stable , No calf tenderness, No inflammation, No pedal edema, No slow capillary refill , No swelling, No other, No abrasion, No clubbing, No cyanosis, No ecchymosis, No laceration, No no lower extremity edema bilateral, No significant edema, No tenderness, No wound Neurologic/Psychiatric: no motor/sensory deficits, alert, normal mood/affect, oriented x 3, power is 5/5 both on sides Skin: No normal color, No warm/dry, No cyanosis, No cool, No diaphoresis, No damp, No ecchymosis, No jaundice, No mottled, No pallor, No rash, No tattoos/ piercings, No ulcerations, No rash on exposed areas, No ulcerations on exposed areas, No other Results/Procedures: Labs Laboratory Tests 08/09/18 16:01: Glucometer 103 08/09/18 18:04: Troponin I < 0.028 08/10/18 03:10: Troponin I < 0.028, White Blood Count 8.9, Red Blood Count 3.45L, Hemoglobin 10.4L, Hematocrit 33L, Mean Corpuscular Volume 94, Mean Corpuscular Hemoglobin 30, Mean Corpuscular Hemoglobin Concent 32, Red Cell Distribution Width 13.8, Platelet Count 318, Mean Platelet Volume 10.5H, Neutrophils (%) (Auto) 41L, Lymphocytes (%) (Auto) 42, Monocytes (%) (Auto) 13H, Eosinophils (%) (Auto) 4, Basophils (%) (Auto) 1, Neutrophils # (Auto) 3.6, Lymphocytes # (Auto) 3.7, Monocytes # (Auto) 1.2H, Eosinophils # (Auto) 0.3, Basophils # (Auto) 0.1, Sodium Level 142, Potassium Level 3.4L, Chloride Level 110H, Carbon Dioxide Level 18L, Anion Gap 14, Blood Urea Nitrogen 29H, Creatinine 1.09, Estimat Glomerular Filtration Rate 48, BUN/Creatinine Ratio 27, Glucose Level 79, Calcium Level 9.2, Corrected Calcium 9.4, Total Bilirubin 0.4, Aspartate Amino Transf (AST/SGOT) 17, Alanine Aminotransferase (ALT/SGPT) 9, Alkaline Phosphatase 43, Total Protein 6.6, Albumin 3.8, Triglycerides Level 306H, Cholesterol Level 242H, LDL Cholesterol Direct 151H, VLDL Cholesterol 61H, HDL Cholesterol 43 A/P: Assessment/Dx: Acute coronary syndrome, Acute chf, HTN, Hyperlipidemia, PAF Plan: Acute coronary syndrome, serial troponin are negative. However typical prolonged chest pain with significant history of CAD and PCI in the recent past. Therefore coronary angiography is recommended. Acute chf, IV lasix. Echo HTN, continue outpatient meds. Hyperlipidemia, continue high dose lipitor. PAF, continue eliquis and BB. Thank you for your consultation. Please call me if you have any questions. Maria Guadalupe Artis MD, FACP, FACC, FSCAI, FHRS, CCDS Interventional Cardiology Cardiac Electrophysiology Vascular Medicine and Endovascular Interventions Clinical Quality Measures AMI/AHF: ASA po Prior to arrival: Yes (81MG) Samson ARTIS MD Aug 10, 2018 11:33
[2018-08-10] MEDS ORDERED: fentaNYL INJECTION 100 MCG/2 ML AMP ONE (18:10)
[2018-08-10] MEDS ORDERED: MIDAZOLAM 5 MG/5 ML (VERSED) VIAL ONE (18:10)
--- NOTE | 2018-08-10 18:20 | Cardiac Procedure Note-CS/ASA ---
Pre-Procedure Note Pre-Op Procedure Note H&P Reviewed The H&P was reviewed, patient examined and no changes noted. Date H&P Reviewed: Aug 10, 2018 Time H&P Reviewed: 18:20 Conscious Sedation Pre-Proced Time 18:20 ASA Score 3 For ASA 3 and 4: Consider anesthesia and medical clearance. Also, for patients with a history of failed moderate sedation consider anesthesia. Airway Lungs Heart ASA score ASA 1: a normal healthy patient ASA 2: a patient with a mild systemic disease (mid diabetes, controlled hypertension, obesity ASA 3: a patient with a severe systemic disease that limits activity (angina , COPD, prior Myocardial infarction) ASA 4: a patient with an incapacitating disease that is a constant threat to life (CHF, renal failure) ASA 5: a moribund patient not expected to survive 24 hrs. (ruptured aneurysm) ASA 6: a declared brain- patient whose organs are being harvested. For emergent operations, add the letter E after the classification Mallampati Classification Grade 1 Sedation Plan Analgesia, Amnesia, Plan communicated to team members, Discussed options with patient/fam, Discussed risks with patient/fam The patient is an appropriate candidate to undergo the planned procedure, sedation, and anesthesia. The patient immediately re-assessed prior to indication. Samson SOUSA MD Aug 10, 2018 18:20
[2018-08-10] MEDS ORDERED: NS IV 1000 ML 1,000 ML ONE (18:31)
[2018-08-10] MEDS ORDERED: NITRO DRIP 25000 MCG/D5W 250 ML IV ONE (18:49)
[2018-08-10] MEDS ORDERED: VERAPAMIL 5 MG/2 ML (CALAN) VIAL IV ONE (18:49)
--- NOTE | 2018-08-10 19:58 | Coronary Angiography & PCI ---
Coronary Angiography & PCI DATE OF PROCEDURE: 08/10/18 INDICATION: Unstable angina. PREOPERATIVE DIAGNOSIS: Unstable angina. POSTOPERATIVE DIAGNOSIS: Severe ISR of previous LCX stent. HISTORY: This is a 83-year-old lady a patient of Dr. Mayer. She has multiple previous PCI to LAD and left circumflex artery. 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 The patient presented with a prolonged episode of chest pain, which she describes as something sitting on her chest. The chest pain went away after 3 nitroglycerin and morphine. Troponin 2 was negative. EKG showed mild ST depressions. Therefore, the patient was scheduled for coronary angiography. PROCEDURES PERFORMED: 1.Coronary angiography. 2.Left heart catheterization. 3.PTCA to the in-stent restenosis in the left circumflex artery. COMPLICATIONS: None. SPECIMENS: None. ESTIMATED BLOOD LOSS: 10 mL ANESTHESIA: Conscious sedation ANTICOAGULATION: IV heparin CONTRAST: 50 ml. FLUOROSCOPY: 6.8 minutes. FLOUROSCOPY DOSE: 570 mgy. PROCEDURE DETAILS: The patient is a 83 female and was brought to the oven laborer after informed consent was taken. All the risks and complications were explained in detail; this included the risk of bleeding, vascular damage, stroke , [place] and even . The patient was draped and prepped in the usual sterile fashion. We tried to gain access in the right radial artery but were unsuccessful. Therefore, Access was gained in the right femoral artery with a 6 [place] sheath. Coronary angiography and left heart catheterization was performed with a JR4 and a JL4 catheter. FINDINGS: 1.Left main: Patent. 2.LAD: Patent stents in the proximal/mid LAD. Mild diffuse disease. 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 Stenosis severity is 80 percent. 4.RCA: Moderate to severe diffuse disease in a small caliber artery. 5.Left heart catheterization: LV pressure 70/-8 mmHg. LVEDP 3 mmHg. Aortic pressure 80/37 mmHg. Normal LV function with no gradient across the aortic valve. RECOMMENDATIONS: PTCA to the in-stent restenosis in the left circumflex artery stent is recommended. INTERVENTION DETAILS: JL4 guide catheter, whisper extra-support guidewire, IV heparin for anticoagulation. ACT was 274 seconds. The lesion was crossed with the whisper wire. The tip of the wire was placed in the distal left circumflex artery. We took a 2.5 x 15 noncompliant balloon and performed 3 inflations. The first inflation was for 14 xu for 18 seconds. The second inflation was for 20 xu at 18 seconds. The third inflation was for 14 xu for 49 seconds. The patient developed chest pain and ST elevations. Chest pain and ST elevation resolved as soon as the balloon was deflated. Excellent results post with 10 percent residual stenosis. Patient tolerated procedure well and did not have any complications. Right femoral artery was closed with a mynx device. CONCLUSIONS: 1. Successful PTCA to severe in-stent restenosis of the left circumflex artery stent. 2. Continue dual antiplatelet therapy. 3. Overnight IV fluids. Discharged tomorrow on secondary prevention therapy. Follow-up with Dr. Mayer. Maria Guadalupe Artis MD, FACP, FACC, [facility] Interventional Cardiology Samson ARTIS MD Aug 10, 2018 19:58
[2018-08-10] MEDS ORDERED: PATIENT MAY USE OWN MEDS, ALL PO SCH (20:00)
--- NOTE | 2018-08-10 21:42 | History & Physicial (CHS) ---
HPI History of Present Illness: 83 yo F that presents with chest pain. States that she has been having pain for the last 3 days but the day she presented it felt like a heaviness on her chest that would not go away with rest. She has a h/o of multiple stent placements most recently 3 months ago. States that she was having pain at rest. + shortness of breath and fatigue. Denies any radiation of pain. 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 Patients Allergies have been reviewed. Allergies Coded Allergies: Penicillins (Verified Allergy, Intermediate, HIVES, 07/25/12) oxytetracycline (Verified Allergy, Intermediate, HIVES, 07/25/12) furosemide (Unverified Adverse Reaction, Mild, "MAKES ME SICK", 12/14/16) hydrocodone (Verified Adverse Reaction, Mild, MAKES ME SICK, 07/01/12) lisinopril (Verified Adverse Reaction, Mild, COUGH, 07/01/12) oxytetracycline HCl (Verified Adverse Reaction, Mild, HIVES, 07/01/12) tramadol (Verified Adverse Reaction, Mild, NAUSEA, "HEAVINESS", 07/01/12) BCH-Ifnpnx-Jjqaer Hx Patient Social History Alcohol Use: Denies Use Recreational Drug Use: No Smoking Status: Never a Smoker Recent Foreign Travel: No Contact w/other who traveled: No Recent Infectious Disease Expo: No Immunizations Up To Date Date of Influenza Vaccine: Dec 28, 2017 Past Medical History CAD with ~10 stents HTN Family Medical History Family History: Diabetes mellitus 19 FATHER FH: liver cancer 19 MOTHER Myocardial infarction G8 BROTHER G8 SISTER Review of Systems (CHC) Constitutional: malaise, weakness EENTM: no symptoms reported; No ear pain, No nose congestion, No nose pain Respiratory: No cough; dyspnea on exertion, short of breath Cardiovascular: chest pain; No edema, No palpitations Gastrointestinal: no symptoms reported; No abdominal pain, No constipation, No diarrhea, No nausea, No vomiting Genitourinary: no symptoms reported; No dysuria, No frequency, No hematuria Musculoskeletal: no symptoms reported Skin: no symptoms reported Psychiatric/Neurological: No Symptoms Reported Reviewed Test Results Reviewed Test Results Lab Laboratory Tests Test 08/10/18 03:10 Range/Units White Blood Count 8.9 4.3-11.0 10^3/uL Red Blood Count 3.45 L 4.35-5.85 10^6/uL Hemoglobin 10.4 L 11.5-16.0 G/DL Hematocrit 33 L 35-52 % Mean Corpuscular Volume 94 80-99 FL Mean Corpuscular Hemoglobin 30 25-34 PG Mean Corpuscular Hemoglobin Concent 32 32-36 G/DL Red Cell Distribution Width 13.8 10.0-14.5 % Platelet Count 318 130-400 10^3/uL Mean Platelet Volume 10.5 H 7.4-10.4 FL Neutrophils (%) (Auto) 41 L 42-75 % Lymphocytes (%) (Auto) 42 12-44 % Monocytes (%) (Auto) 13 H 0-12 % Eosinophils (%) (Auto) 4 0-10 % Basophils (%) (Auto) 1 0-10 % Neutrophils # (Auto) 3.6 1.8-7.8 X 10^3 Lymphocytes # (Auto) 3.7 1.0-4.0 X 10^3 Monocytes # (Auto) 1.2 H 0.0-1.0 X 10^3 Eosinophils # (Auto) 0.3 0.0-0.3 10^3/uL Basophils # (Auto) 0.1 0.0-0.1 10^3/uL Sodium Level 142 135-145 MMOL/L Potassium Level 3.4 L 3.6-5.0 MMOL/L Chloride Level 110 H 98-107 MMOL/L Carbon Dioxide Level 18 L 21-32 MMOL/L Anion Gap 14 5-14 MMOL/L Blood Urea Nitrogen 29 H 7-18 MG/DL Creatinine 1.09 0.60-1.30 MG/DL Estimat Glomerular Filtration Rate 48 BUN/Creatinine Ratio 27 Glucose Level 79 70-105 MG/DL Calcium Level 9.2 8.5-10.1 MG/DL Corrected Calcium 9.4 8.5-10.1 MG/DL Total Bilirubin 0.4 0.1-1.0 MG/DL Aspartate Amino Transf (AST/SGOT) 17 5-34 U/L Alanine Aminotransferase (ALT/SGPT) 9 0-55 U/L Alkaline Phosphatase 43 40-136 U/L Troponin I < 0.028 <0.028 NG/ML Total Protein 6.6 6.4-8.2 GM/DL Albumin 3.8 3.2-4.5 GM/DL Triglycerides Level 306 H <150 MG/DL Cholesterol Level 242 H < 200 MG/DL LDL Cholesterol Direct 151 H 1-129 MG/DL VLDL Cholesterol 61 H 5-40 MG/DL HDL Cholesterol 43 40-60 MG/DL Physical Exam-(CHC) Physical Exam Vital Signs VS - Last 72 Hours, by Label 08/09/18 08/09/18 08/09/18 08/09/18 10:39 12:33 13:00 13:03 Temp 97.6 Pulse 61 51 53 Resp 16 17 B/P (MAP) 187/87 (120) 143/56 (85) Pulse Ox 94 86 98 O2 Delivery Room Air Nasal Cannula Nasal Cannula O2 Flow Rate 2.00 2.00 08/09/18 08/09/18 08/09/18 08/09/18 13:05 14:19 14:26 15:00 Pulse 51 49 49 Resp 16 15 B/P (MAP) 146/70 (95) 136/55 (82) Pulse Ox 94 98 97 O2 Delivery Nasal Cannula Nasal Cannula Nasal Cannula O2 Flow Rate 2.00 2.00 2.00 08/09/18 08/09/18 08/09/18 08/09/18 16:00 16:04 16:15 17:00 Pulse 63 49 48 Resp 15 14 B/P (MAP) 136/51 (79) 142/63 (89) Pulse Ox 94 70 95 98 O2 Delivery Nasal Cannula Nasal Cannula Nasal Cannula O2 Flow Rate 2.00 2.00 2.00 FiO2 28 08/09/18 08/09/18 08/09/18 08/09/18 18:00 19:23 20:00 20:00 Temp 97.8 Pulse 47 56 Resp 13 14 B/P (MAP) 133/59 (83) 121/60 (80) Pulse Ox 96 97 96 95 O2 Delivery Nasal Cannula Nasal Cannula Nasal Cannula Nasal Cannula O2 Flow Rate 2.00 2.00 2.00 2.00 08/09/18 08/10/18 08/10/18 08/10/18 21:00 00:00 00:00 01:00 Temp 97.5 Pulse 46 49 Resp 14 B/P (MAP) 106/61 (76) Pulse Ox 96 97 96 O2 Delivery Nasal Cannula Nasal Cannula Nasal Cannula O2 Flow Rate 2.00 2.00 2.00 08/10/18 08/10/18 08/10/18 08/10/18 04:00 04:00 07:00 08:00 Temp 97.9 Pulse 55 47 Resp 16 B/P (MAP) 136/61 (86) Pulse Ox 96 97 94 O2 Delivery Nasal Cannula Room Air Room Air O2 Flow Rate 2.00 08/10/18 08/10/18 08/10/18 08/10/18 08:00 08:50 09:00 12:00 Temp 97.1 Pulse 68 Resp 25 B/P (MAP) 163/68 (99) Pulse Ox 94 95 94 93 O2 Delivery Room Air Room Air Room Air Room Air 08/10/18 08/10/18 08/10/18 08/10/18 12:00 13:00 16:00 16:00 Temp 97.1 98.4 Pulse 54 64 55 Resp 20 18 B/P (MAP) 163/75 (104) 145/73 (97) Pulse Ox 93 93 93 O2 Delivery Room Air Room Air Room Air 08/10/18 18:25 Pulse Ox 92 O2 Delivery Room Air Capillary Refill : Less Than 3 Seconds General Appearance: WD/WN, no apparent distress HEENT: PERRL/EOMI Neck: non-tender, full range of motion, supple Respiratory: chest non-tender, lungs clear, normal breath sounds, no respiratory distress, no accessory muscle use Cardiovascular: normal peripheral pulses, regular rate, rhythm, no edema, no murmur Gastrointestinal: normal bowel sounds, non tender, soft, no organomegaly Back: no CVA tenderness, no vertebral tenderness Extremities: normal range of motion, non-tender, normal inspection, no pedal edema, no calf tenderness, normal capillary refill Neurologic/Psychiatric: therapeutic recreation specialist II-XII nml as tested, no motor/sensory deficits, alert, normal mood/affect, oriented x 3 Skin: normal color, warm/dry Lymphatic: no adenopathy Assessment/Plan Assessment/Plan Admission Status: Inpatient Order (span 2 midnights) Reason for Inpatient Admission: Patient needs ICU care with cardiac procedure (1) CAD (coronary artery disease) Status: Acute Assessment & Plan: - To cath today with SHIREEN Pereyra normal x2 Qualifiers: Qualified Codes: I25.110 - Atherosclerotic heart disease of [place] coronary artery with unstable angina pectoris (2) 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
[2018-08-11 00:15] VITALS: BP 101/57
[2018-08-11 04:00] VITALS: BP 117/55
[2018-08-11 04:05] LABS: HEMOGLOBIN 11.7 G/DL (11.5-16.0); MEAN PLATELET VOLUME 10.5 FL (7.4-10.4); RED CELL DISTRIBUTION WIDTH 13.8 % (10.0-14.5); WHITE BLOOD COUNT 10.8 10^3/uL (4.3-11.0)
[2018-08-11 04:20] LABS: CREATININE SERUM 1.06 MG/DL (0.60-1.30); POTASSIUM 3.4 MMOL/L (3.6-5.0)
[2018-08-11 04:47] VITALS: BP 117/55
[2018-08-11] MEDS: NS IV 1000 ML 1,000 ML IV SCH (05:29)
[2018-08-11] MEDS: LEVOTHYROXINE 50 MCG (LEVOTHROID) TAB PO SCH (05:46)
[2018-08-11] MEDS: CATHETER FLUSH 10 ML SYR IV SCH (05:46)
[2018-08-11 08:00] VITALS: BP 133/62
[2018-08-11] MEDS ORDERED: CLOPIDOGREL 75 MG (PLAVIX) TABLET PO SCH (09:00)
[2018-08-11] MEDS ORDERED: ASPIRIN E.C. 81 MG (ECOTRIN) TAB PO SCH (09:00)
[2018-08-11] MEDS: ASPIRIN E.C. 81 MG (ECOTRIN) TAB PO SCH (09:13)
[2018-08-11] MEDS: meTOprolol SUCCINATE 100 MG (TOPROL XL) TAB PO SCH (09:14)
[2018-08-11] MEDS: LOSARTAN 100 MG (COZAAR) TABLET PO SCH (09:16)
[2018-08-11] MEDS: APIXABAN 2.5 MG (ELIQUIS) TABLET PO SCH (09:18)
--- NOTE | 2018-08-11 10:53 | Discharge Summary ---
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 States that she has been having pain for the last 3 days but the day she presented it felt like a heaviness on her chest that would not go away with rest. She has a h/o of multiple stent placements most recently 3 months ago. States that she was having pain at rest. + shortness of breath and fatigue. Denies any radiation of pain. Discharge Summary-Simple/Stand Procedures 08/10: Cath with balloon deployment Consultations Dr Artis, Cardiology Discharge Physical Examination Allergies: Coded Allergies: Penicillins (Verified Allergy, Intermediate, HIVES, 07/25/12) oxytetracycline (Verified Allergy, Intermediate, HIVES, 07/25/12) furosemide (Unverified Adverse Reaction, Mild, "MAKES ME SICK", 12/14/16) hydrocodone (Verified Adverse Reaction, Mild, MAKES ME SICK, 07/01/12) lisinopril (Verified Adverse Reaction, Mild, COUGH, 07/01/12) oxytetracycline HCl (Verified Adverse Reaction, Mild, HIVES, 07/01/12) tramadol (Verified Adverse Reaction, Mild, NAUSEA, "HEAVINESS", 07/01/12) Vitals & I&Os Vital Sign - Last 12Hours Date Time Temp Pulse Resp B/P (MAP) Pulse Ox O2 Delivery O2 Flow Rate FiO2 08/11/18 08:26 94 Room Air 08/11/18 08:00 99.0 59 18 133/62 (85) 08/10/18 04:00 2.00 08/09/18 16:04 28 Intake and Output 08/11/18 00:00 Intake Total 0 ml Output Total 700 ml Balance -700 ml General Appearance: Alert, Oriented X3, Cooperative, No Acute Distress HEENT: Mucous Memb Moist/Winger Respiratory: Clear to Auscultation, Normal Air Movement Cardiovascular: Regular Rate, No Murmurs Abdominal: Normal Bowel Sounds, Soft, No Tenderness, No Masses Extremities: No Edema, No Tenderness/Swelling Skin: No Rashes, No Breakdown Neuro: Strength at 5/5 X4 Ext, Cranial Nerves 3-12 NL Psych/Mental Status: Mental Status NL, Mood NL Hospital Course Was the Problem List Reviewed?: Yes See final discharge diagnosis. Discussion & Recommendations 83 yo F with extensive CAD history with ~10 stents that presented with heaviness in her chest. Patient had normal ECG and CE neg x3. 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 Dr Artis found severe disease in the circumflex and was able to balloon area. On day of discharge patient states that she no longer has heaviness feeling in her chest. She is tolerating ambulation and PO diet without difficulty. Will d/c home with close follow up with Dr Mayer and PCP Discharge Condition at discharge stable Instructions to patient/family Please see electronic discharge instructions given to patient. Discharge Medications Reviewed and agree with Discharge Medication list on patient's Discharge Instruction sheet Clinical Quality Measures AMI/AHF: ASA po Prior to arrival: Yes (81MG) DVT/VTE Risk/Contraindication: Risk Factor Score Per Nursin RFS Level Per Nursing on Admit: 3=High Copy Copies To 1: MARLYN DERAS MD, HOLLY R MD Aug 11, 2018 10:53
--- NOTE | 2018-08-11 10:56 | Discharge Instructions ---
Discharge [facility] Discharge Medications New, Converted or Re-Newed RX: Other Continued Medications: Apixaban (Eliquis) 2.5 Mg Tablet 2.5 MG PO BID, TAB Aspirin (Aspirin EC) 81 Mg Tablet.dr 81 MG PO DAILY, TAB Clopidogrel Bisulfate (Clopidogrel) 75 Mg Tablet 75 MG PO DAILY, TAB Fish Oil/Dha/Epa (Fish Oil 1,200 mg Fish Oil) 1 Each Capsule 1200 MG PO DAILY, CAP Levothyroxine Sodium (Levothyroxine Sodium) 50 Mcg Tablet 50 MCG PO DAILY, TAB Losartan Potassium (Losartan Potassium) 100 Mg Tablet 100 MG PO DAILY, TAB Metoprolol Succinate (Metoprolol Succinate) 100 Mg Tab.er.24h 100 MG PO DAILY, TAB Multivit-Min/FA/Lycopene/Lut (Centrum Silver Tablet) 1 Each Tablet 1 TAB PO DAILY, TAB Nitroglycerin (Nitroglycerin) 0.4 Mg Tab.subl 0.4 MG SL UD PRN for CHEST PAIN, TAB Ranitidine HCl (Zantac) 150 Mg Tablet 150 MG PO HS PRN for HEARTBURN, TAB Patient Instructions Goal/Follow Up Appt: You have a follow up appt with Dr Márquez on August 16 @ 113 Return to The [facility] For: - Chest pain - Shortness of breath Activity & Diet Discharge Diet: Cardiac Diet Activity as Tolerated: Yes Orders-Post D/C & Referrals Pneu Vac Indicated: Yes Copy Copies To 1: MARLYN MÁRQUEZ MD, HOLLY R MD Aug 11, 2018 10:55
--- NOTE | 2018-08-11 11:36 | Cardiology Progress Note ---
Cardiology SOAP Progress Note Subjective: No further chest pain. Objective: I&O/Vital Signs Weight (Pounds): 142 Weight (Ounces): 0.0 Weight (Calculated Kilograms): [phone] Constitutional: appears stated age, AAO x 3; No apparent distress; well- developed, well-nourished Respiratory: No accessory muscle use, No respiratory distress, No chest tender , No chest expansion is symmetric; chest is bilaterally symmetric; No lungs clear to percussion; lungs clear to auscultation; No crackles, No rhonchi, No rales, No stridor, No wheezing, No pleural rub, No other Cardiovascular: regular rate-rhythm; No irregularly irregular, No extra beats, No parasternal heave is noted, No JVD, No edema; bradycardia; No tachycardia, No point of maximal impulse, No cardiac thrills are palpable; S1 and S2; No gallop/S3, No gallop/S4, No diastolic murmur, No systolic murmur, No friction rub, No click, No other Gastrointestional: No tender, No soft, No round, No distended, No pulsatile mass, No organomegaly, No guarding, No rebound, No tenderness, No hernia, No mass, No audible bowel sounds, No abnormal bowel sounds, No abdominal bruits, No spleenomegaly, No other Extremities: No normal range of motion, No non-tender, No normal inspection, No pedal edema, No calf tenderness, No normal capillary refill, No pelvis stable , No calf tenderness, No inflammation, No pedal edema, No slow capillary refill , No swelling, No other, No abrasion, No clubbing, No cyanosis, No ecchymosis, No laceration, No no lower extremity edema bilateral, No significant edema, No tenderness, No wound Neurologic/Psychiatric: no motor/sensory deficits, alert, normal mood/affect, oriented x 3, power is 5/5 both on sides Skin: No normal color, No warm/dry, No cyanosis, No cool, No diaphoresis, No damp, No ecchymosis, No jaundice, No mottled, No pallor, No rash, No tattoos/ piercings, No ulcerations, No rash on exposed areas, No ulcerations on exposed areas, No other Results/Procedures: Labs A/P: Assessment/Dx: Acute coronary syndrome, Acute chf, HTN, Hyperlipidemia, PAF Plan: Acute coronary syndrome, serial troponin are negative. However typical prolonged chest pain with significant history of CAD and PCI in the recent past. 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 Successful balloon angioplasty. Patient will be discharged to follow-up with Dr. Mayer. Acute chf, IV lasix. Echo HTN, continue outpatient meds. Hyperlipidemia, continue high dose lipitor. PAF, continue eliquis and BB. Thank you for your consultation. Please call me if you have any questions. Maria Guadalupe Artis MD, FACP, FACC, FSCAI, FHRS, CCDS Interventional Cardiology Cardiac Electrophysiology Vascular Medicine and Endovascular Interventions Clinical Quality Measures AMI/AHF: ASA po Prior to arrival: Yes (81MG) Samson ARTIS MD Aug 11, 2018 11:36
== END 2018-08-11 11:47 | disposition home or self-care (01) | DRG 250 ==
LOC: EDUNIT# 10:37 → ER FS 10:39 → ICU 12:41
PROVIDERS: ADMIT Family Medicine; ATTEND Family Medicine
PROC: 02703ZZ Dilation of Coronary Artery, One Artery, Percutaneous Approach (ICD-10-PCS; principal; 2018-08-10)
PROC: 4A023N7 Measurement of Cardiac Sampling and Pressure, Left Heart, Percutaneous Approach (ICD-10-PCS; 2018-08-10)
PROC: B2151ZZ Fluoroscopy of Left Heart using Low Osmolar Contrast (ICD-10-PCS; 2018-08-10)
PROC: B2111ZZ Fluoroscopy of Multiple Coronary Arteries using Low Osmolar Contrast (ICD-10-PCS; 2018-08-10)
DX: I24.9 Acute ischemic heart disease, unspecified (principal); T82.855A Stenosis of coronary artery stent, initial encounter; I11.0 Hypertensive heart disease with heart failure; I50.23 Acute on chronic systolic (congestive) heart failure; I48.0 Paroxysmal atrial fibrillation; E78.5 Hyperlipidemia, unspecified; R54 Age-related physical debility; Z95.5 Presence of coronary angioplasty implant and graft; Z79.01 Long term (current) use of anticoagulants; Z79.02 Long term (current) use of antithrombotics/antiplatelets; Z79.82 Long term (current) use of aspirin
CPT/HCPCS: 36415; 71045; 80048; 80053; 80061; 82962; 83735; 83874; 83880; 84484; 85025; 85027; 85347; 85610; 85730; 93005; 93041; 93306; 93458

== ENCOUNTER → 2018-08-30 | Outpatient (CLI) | payer MEDICARE ==
[2018-08-30 08:42] LABS: HEMATOCRIT 37 % (35-52); LYMPHOCYTES % (AUTO) 42 % (12-44); MEAN CORPUSCULAR HEMOGLOBIN 31 PG (25-34); MEAN CORPUSCULAR HGB CONC 32 G/DL (32-36); MEAN CORPUSCULAR VOLUME 96 FL (80-99); MEAN PLATELET VOLUME 9.9 FL (7.4-10.4); MONOCYTES % (AUTO) 11 % (0-12); NEUTROPHILS % (AUTO) 43 % (42-75); PLATELET COUNT 443 10^3/uL (130-400); RED CELL DISTRIBUTION WIDTH 13.4 % (10.0-14.5); WHITE BLOOD COUNT 9.8 10^3/uL (4.3-11.0)
[2018-08-30 08:43] LABS: BASOPHILS # (AUTO) 0.1 10^3/uL (0.0-0.1); BASOPHILS % (AUTO) 1 % (0-10); EOSINOPHILS # (AUTO) 0.3 10^3/uL (0.0-0.3); EOSINOPHILS % (AUTO) 3 % (0-10); LYMPHOCYTES # (AUTO) 4.1 X 10^3 (1.0-4.0); NEUTROPHILS # (AUTO) 4.3 X 10^3 (1.8-7.8)
[2018-08-30 09:27] LABS: ERYTHROCYTE SEDIMENTATION RATE 9 MM/HR (0-30)
[2018-08-30 09:35] LABS: BUN/CREATININE RATIO 29; CARBON DIOXIDE 19 MMOL/L (21-32); CHLORIDE 106 MMOL/L (98-107); CREATININE SERUM 1.18 MG/DL (0.60-1.30); GFR ESTIMATED 44; POTASSIUM 4.5 MMOL/L (3.6-5.0); SODIUM 143 MMOL/L (135-145)
[2018-08-30 09:36] LABS: ALANINE AMINOTRANSFERASE 11 U/L (0-55); ALBUMIN 4.7 GM/DL (3.2-4.5); ALKALINE PHOSPHATASE 59 U/L (40-136); BILIRUBIN,TOTAL 0.3 MG/DL (0.1-1.0); CALCIUM 9.2 MG/DL (8.5-10.1); GLUCOSE 105 MG/DL (70-105); MAGNESIUM 2.5 MG/DL (1.8-2.4)
== END ==
LOC: LAB FS 08:09
PROVIDERS: ATTEND Internal Medicine Cardiovascular Disease
DX: I10 Essential (primary) hypertension (principal); I25.10 Atherosclerotic heart disease of native coronary artery without angina pectoris; I25.5 Ischemic cardiomyopathy; R55 Syncope and collapse; R51 Headache; Z98.890 Other specified postprocedural states
CPT/HCPCS: 36415; 80053; 83735; 84443; 85025; 85652

== ENCOUNTER → 2018-11-20 | Outpatient (CLI) | payer MEDICARE ==
--- NOTE | 2018-11-20 10:31 | Diagnostic Imaging Report ---
INDICATION: Chronic right knee pain. Time of exam 10:17 a.m. FINDINGS: Three views of the right knee were obtained. Moderate patellofemoral and medial compartmental degenerative change is noted with joint space narrowing and marginal spurring. Lateral compartment is fairly well maintained. There is some spurring of the tibial spines. No fracture, dislocation or effusion is identified. IMPRESSION: Degenerative changes. No acute bony abnormality is detected. Dictated by: Dictated on workstation # [id number]
== END ==
LOC: RAD FS 09:55
PROVIDERS: ATTEND Nurse Practitioner
DX: M17.11 Unilateral primary osteoarthritis, right knee (principal)
CPT/HCPCS: 73562

== ENCOUNTER 2018-12-06 13:45 | Observation (INO) | payer MEDICARE ==
[~2018-12-06] VITALS: Ht 157.5 cm; Wt 62.3 kg
[~2018-12-06 13:45] MED LIST changes: +RANI-613 PO; -RANI150T46 PO
--- NOTE | 2018-12-06 13:57 | ED General ---
General Stated Complaint: NAUSEA History of Present Illness Date Seen by Provider: Dec 06, 2018 Time Seen by Provider: 13:55 Initial Comments Patient presents emergency department for evaluation of chest pain abdominal pain nausea and vomiting she says she has been having a chest pressure sensation for the past 2 weeks has been taking nitroglycerin at night consistently for the past 2 weeks however since yesterday she has felt more ill as she has been having upper abdominal pain that is radiating towards her chest and back and is associated with nonbloody nonbilious emesis. She has extensive history of coronary artery disease including 10 stents in the past. She said she spoke to her gravel weigher Dr. Simental and he recommended that she come to the ED. she said it could also feel like reflux as well as she feels acid in her stomach chest and neck. She is in no obvious distress with normal vital signs. Allergies and Home Medications Allergies Coded Allergies: Penicillins (Verified Allergy, Intermediate, HIVES, 07/25/12) oxytetracycline (Verified Allergy, Intermediate, HIVES, 07/25/12) furosemide (Unverified Adverse Reaction, Mild, "MAKES ME SICK", 12/14/16) hydrocodone (Verified Adverse Reaction, Mild, MAKES ME SICK, 07/01/12) lisinopril (Verified Adverse Reaction, Mild, COUGH, 07/01/12) oxytetracycline HCl (Verified Adverse Reaction, Mild, HIVES, 07/01/12) tramadol (Verified Adverse Reaction, Mild, NAUSEA, "HEAVINESS", 07/01/12) Home Medications Apixaban 2.5 Mg Tablet, 2.5 MG PO BID, (Reported) Aspirin 81 Mg Tablet.dr, 81 MG PO DAILY, (Reported) Clopidogrel Bisulfate 75 Mg Tablet, 75 MG PO DAILY, (Reported) Fish Oil/Dha/Epa 1 Each Capsule, 1,200 MG PO DAILY, (Reported) Levothyroxine Sodium 50 Mcg Tablet, 50 MCG PO DAILY, (Reported) Losartan Potassium 100 Mg Tablet, 100 MG PO DAILY, (Reported) Metoprolol Succinate 100 Mg Tab.er.24h, 100 MG PO DAILY, (Reported) Multivit-Min/FA/Lycopene/Lut 1 Each Tablet, 1 TAB PO DAILY, (Reported) Nitroglycerin 0.4 Mg Tab.subl, 0.4 MG SL UD PRN for CHEST PAIN, (Reported) Ranitidine HCl 150 Mg Tablet, 150 MG PO HS PRN for HEARTBURN, (Reported) Patient Home Medication List Home Medication List Reviewed: Yes Review of Systems Review of Systems Constitutional: no symptoms reported EENTM: no symptoms reported Respiratory: no symptoms reported Cardiovascular: chest pain Gastrointestinal: abdominal pain Genitourinary: no symptoms reported Musculoskeletal: no symptoms reported Skin: no symptoms reported Psychiatric/Neurological: No Symptoms Reported All Other Systems Reviewed Negative Unless Noted: Yes Past Blfposq-Jugmol-Mavldh Hx Immunizations Up To Date Date of Influenza Vaccine: Dec 28, 2017 Seasonal Allergies Seasonal Allergies: No Past Medical History Surgeries: Yes (RIGHT CAROTID ENDARTERECTOMY, BACK SURGERY) Respiratory: Yes Pneumonia Currently Using CPAP: No Currently Using BIPAP: No Cardiac: Yes Coronary Artery Disease Neurological: No Bladder Infection Gastrointestinal: No Musculoskeletal: Yes Arthritis, Chronic Back Pain Endocrine: No Cancer: No Psychosocial: No Integumentary: No Blood Disorders: No Family Medical History Diabetes mellitus 19 FATHER FH: liver cancer 19 MOTHER Myocardial infarction G8 BROTHER G8 SISTER Physical Exam Vital Signs Vital Signs - First Documented 12/06/18 13:57 Temp 96.8 Pulse 71 Resp 18 B/P (MAP) 169/75 (106) Pulse Ox 98 Capillary Refill : Height, Weight, BMI Height: 5'2.00" Weight: 142lbs. 0.0oz. [id number]; 25.6 BMI Method:Stated General Appearance: No Apparent Distress, WD/WN Eyes: Bilateral Eye Normal Inspection HEENT: PERRL/EOMI Neck: Supple Respiratory: Lungs Clear, No Respiratory Distress Cardiovascular: Regular Rate, Rhythm Gastrointestinal: Non Tender, Soft Back: Normal Inspection Neurologic/Psychiatric: Alert, Oriented x3 Skin: Normal Color, Warm/Dry Progress/Results/Core Measures Suspected Sepsis SIRS Temperature: Pulse: Respiratory Rate: Laboratory Tests 12/06/18 14:47: White Blood Count 10.3 Blood Pressure / Mean: Laboratory Tests 12/06/18 14:47: Creatinine 1.56H, INR Comment 1.0, Platelet Count 429H, Total Bilirubin 0.2 Results/Orders Lab Results Laboratory Tests Test 12/06/18 14:47 12/06/18 15:00 Range/Units White Blood Count 10.3 4.3-11.0 10^3/uL Red Blood Count 3.94 L 4.35-5.85 10^6/uL Hemoglobin 12.5 11.5-16.0 G/DL Hematocrit 39 35-52 % Mean Corpuscular Volume 98 80-99 FL Mean Corpuscular Hemoglobin 32 25-34 PG Mean Corpuscular Hemoglobin Concent 33 32-36 G/DL Red Cell Distribution Width 12.3 10.0-14.5 % Platelet Count 429 H 130-400 10^3/uL Mean Platelet Volume 9.7 7.4-10.4 FL Neutrophils (%) (Auto) 62 42-75 % Lymphocytes (%) (Auto) 27 12-44 % Monocytes (%) (Auto) 8 0-12 % Eosinophils (%) (Auto) 2 0-10 % Basophils (%) (Auto) 1 0-10 % Neutrophils # (Auto) 6.4 1.8-7.8 X 10^3 Lymphocytes # (Auto) 2.8 1.0-4.0 X 10^3 Monocytes # (Auto) 0.8 0.0-1.0 X 10^3 Eosinophils # (Auto) 0.2 0.0-0.3 10^3/uL Basophils # (Auto) 0.1 0.0-0.1 10^3/uL Prothrombin Time 13.5 12.2-14.7 SEC INR Comment 1.0 0.8-1.4 Activated Partial Thromboplast Time 34 24-35 SEC D-Dimer 0.21 0.00-0.49 UG/ML Sodium Level 140 135-145 MMOL/L Potassium Level 4.2 3.6-5.0 MMOL/L Chloride Level 101 98-107 MMOL/L Carbon Dioxide Level 20 L 21-32 MMOL/L Anion Gap 19 H 5-14 MMOL/L Blood Urea Nitrogen 39 H 7-18 MG/DL Creatinine 1.56 H 0.60-1.30 MG/DL Estimat Glomerular Filtration Rate 32 BUN/Creatinine Ratio 25 Glucose Level 105 70-105 MG/DL Calcium Level 9.6 8.5-10.1 MG/DL Corrected Calcium 9.2 8.5-10.1 MG/DL Magnesium Level 2.2 1.6-2.4 MG/DL Total Bilirubin 0.2 0.1-1.0 MG/DL Aspartate Amino Transf (AST/SGOT) 21 5-34 U/L Alanine Aminotransferase (ALT/SGPT) 13 0-55 U/L Alkaline Phosphatase 53 40-136 U/L Troponin I < 0.30 <0.30 NG/ML Pro-B-Type Natriuretic Peptide 276.9 H <75.0 PG/ML Total Protein 8.0 6.4-8.2 GM/DL Albumin 4.5 3.2-4.5 GM/DL Lipase 144 H 8-78 U/L Urine Color YELLOW Urine Clarity CLEAR Urine pH 5.0 5-9 Urine Specific [place] 1.020 1.016-1.022 Urine Protein NEGATIVE NEGATIVE Urine Glucose (UA) NEGATIVE NEGATIVE Urine Ketones NEGATIVE NEGATIVE Urine Nitrite NEGATIVE NEGATIVE Urine Bilirubin NEGATIVE NEGATIVE Urine Urobilinogen 0.2 NORMAL MG/DL Urine Leukocyte Esterase 2+ H NEGATIVE Urine RBC (Auto) TRACE H NEGATIVE Urine RBC 5-10 H /HPF Urine WBC 50-100 H /HPF Urine Squamous Epithelial Cells 25-505 /HPF Urine Crystals NONE /LPF Urine Bacteria FEW H /HPF Urine Casts NONE /LPF Urine Mucus NEGATIVE /LPF Urine Culture Indicated YES My Orders Orders - JOSE BRADEN DO Ekg Tracing (12/06/18 14:04) Chest 1 View Ap/Pa Only (12/06/18 14:04) Ua Culture If Indicated (12/06/18 14:04) Troponin I (12/06/18 14:04) Cbc With Automated Diff (12/06/18 14:04) Comprehensive Metabolic Panel (12/06/18 14:04) Lipase (12/06/18 14:04) Magnesium (12/06/18 14:04) Fibrin Degradation Products (12/06/18 14:04) Partial Thromboplastin Time (12/06/18 14:04) Protime With Inr (12/06/18 14:04) Probnp Fs (12/06/18 14:04) Ondansetron Injection (Zofran Injectio (12/06/18 14:15) Morphine Injection (Morphine Injection (12/06/18 14:04) Ns Iv 1000 Ml (Sodium Chloride 0.9%) (12/06/18 14:15) Pantoprazole Injection (Protonix Injecti (12/06/18 14:15) Antacid Suspension (Mylanta Suspension (12/06/18 14:15) Aspirin Chewable Tablet (Baby Aspirin Ch (12/06/18 14:15) Urine Culture (12/06/18 15:00) Medications Given in ED Current Medications Medications Dose Ordered Sig/Aury Route Start Time Stop Time Status Last Admin Dose Admin Aspirin 324 mg ONCE ONCE PO 12/06/18 14:15 12/06/18 14:16 DC 12/06/18 14:29 324 MG Ondansetron HCl 4 mg ONCE ONCE IVP 12/06/18 14:15 12/06/18 14:16 DC 12/06/18 14:58 4 MG Pantoprazole 40 mg ONCE ONCE IV 12/06/18 14:15 12/06/18 14:16 DC 12/06/18 14:57 40 MG Vital Signs/I&O 12/06/18 13:57 Temp 96.8 Pulse 71 Resp 18 B/P (MAP) 169/75 (106) Pulse Ox 98 Capillary Refill : Progress Note : Progress Note Patient with chest pain abdominal pain nausea vomiting. Will start by checking labs and imaging treat symptoms and reassess. Patient with abnormal labs including worsening renal insufficiency and dehydration compared to prior as well as she has a elevated lipase consistent with a mild pancreatitis. She does have bradycardia but appears to be similar to prior heart rate on chart review. Patient was given Zofran and morphine Protonix and she says she continues to have nausea and does not want to drink anything. Given her multiple comorbidities with continued symptoms and abnormal workup she will be admitted to [facility]. I was willing to do a CT here however given her renal insufficiency Will hydrate her first and then consider CT at [facility]. Patient accepted by Dr. Pina. She was transferred in stable condition. Departure Impression Primary Impression: Chest pain Additional Impressions: Nausea & vomiting Bradycardia Dehydration Abdominal pain Pancreatitis Disposition: ADMITTED INPATIENT Condition: Stable Departure-Patient Inst. Referrals: MARLYN DERAS MD (PCP/Family) Primary Care Physician JOSE BRADEN DO Dec 06, 2018 13:57
[2018-12-06] MEDS ORDERED: morphine INJ 10 MG/ML 1ML (SYR OR VIAL) IVP STA (14:04)
[2018-12-06] MEDS ORDERED: ASPIRIN 81 MG CHEW (CHILDREN'S ASA) PO ONE (14:15)
[2018-12-06] MEDS ORDERED: ANTACID SUSP 30 ML UDC (MYLANTA) PO ONE (14:15)
[2018-12-06] MEDS ORDERED: PANTOPRAZOLE 40 MG (PROTONIX) VIAL IV ONE (14:15)
[2018-12-06] MEDS ORDERED: ONDANSETRON 4 MG/2 ML (SDV) Z0FRAN IVP ONE ×2 (14:15→16:15)
[2018-12-06] MEDS ORDERED: NS IV 1000 ML 1,000 ML IV SCH (14:15)
--- NOTE | 2018-12-06 14:47 | NUR ---
R ac IV started by Dr Macias under ultrasound guidance.
--- NOTE | 2018-12-06 15:00 | Diagnostic Imaging Report ---
INDICATION: Chest pain x 2 weeks. EXAMINATION: PA and lateral chest. FINDINGS: There are some calcified right hilar lymph nodes. The heart size and pulmonary vascularity are normal. The lungs are clear. There are no effusions or pneumothoraces. IMPRESSION: No acute abnormalities in the chest. Dictated by: Dictated on workstation # [id number]
[2018-12-06 15:06] LABS: BASOPHILS # (AUTO) 0.1 10^3/uL (0.0-0.1); BASOPHILS % (AUTO) 1 % (0-10); EOSINOPHILS # (AUTO) 0.2 10^3/uL (0.0-0.3); EOSINOPHILS % (AUTO) 2 % (0-10); HEMATOCRIT 39 % (35-52); HEMOGLOBIN 12.5 G/DL (11.5-16.0); LYMPHOCYTES # (AUTO) 2.8 X 10^3 (1.0-4.0); LYMPHOCYTES % (AUTO) 27 % (12-44); MEAN CORPUSCULAR HEMOGLOBIN 32 PG (25-34); MEAN CORPUSCULAR HGB CONC 33 G/DL (32-36); MEAN CORPUSCULAR VOLUME 98 FL (80-99); MEAN PLATELET VOLUME 9.7 FL (7.4-10.4); MONOCYTES # (AUTO) 0.8 X 10^3 (0.0-1.0); MONOCYTES % (AUTO) 8 % (0-12); NEUTROPHILS # (AUTO) 6.4 X 10^3 (1.8-7.8); NEUTROPHILS % (AUTO) 62 % (42-75); PLATELET COUNT 429 10^3/uL (130-400); RED CELL DISTRIBUTION WIDTH 12.3 % (10.0-14.5); WHITE BLOOD COUNT 10.3 10^3/uL (4.3-11.0)
[2018-12-06 15:17] LABS: BACTERIA,URINE FEW /HPF; BILIRUBIN,URINE NEGATIVE (NEGATIVE); CLARITY,URINE CLEAR; COLOR,URINE YELLOW; GLUCOSE, URINE (UA) NEGATIVE (NEGATIVE); KETONES,URINE NEGATIVE (NEGATIVE); LEUKOCYTE ESTERASE ,URINE 2+ (NEGATIVE); NITRITE,URINE NEGATIVE (NEGATIVE); PROTEIN,URINE NEGATIVE (NEGATIVE); UROBILINOGEN,URINE 0.2 MG/DL (NORMAL)
[2018-12-06 15:18] LABS: SQUAMOUS EPITHELIAL CELL,UR 25-505 /HPF; WBC,URINE 50-100 /HPF
[2018-12-06 15:28] LABS: FIBRIN DEGRADATION PRODUCTS 0.21 UG/ML (0.00-0.49); PROTHROMBIN TIME PATIENT 13.5 SEC (12.2-14.7)
[2018-12-06 15:30] LABS: BUN/CREATININE RATIO 25; CALCIUM 9.6 MG/DL (8.5-10.1); CARBON DIOXIDE 20 MMOL/L (21-32); CHLORIDE 101 MMOL/L (98-107); CREATININE SERUM 1.56 MG/DL (0.60-1.30); GFR ESTIMATED 32; GLUCOSE 105 MG/DL (70-105); MAGNESIUM 2.2 MG/DL (1.6-2.4); POTASSIUM 4.2 MMOL/L (3.6-5.0); SODIUM 140 MMOL/L (135-145)
[2018-12-06 15:31] LABS: ALANINE AMINOTRANSFERASE 13 U/L (0-55); ALBUMIN 4.5 GM/DL (3.2-4.5); ALKALINE PHOSPHATASE 53 U/L (40-136); BILIRUBIN,TOTAL 0.2 MG/DL (0.1-1.0); LIPASE 144 U/L (8-78)
[2018-12-06] MEDS ORDERED: ONDANSETRON 4 MG (ZOFRAN) ORAL DISSOLVE TAB ONE (16:17)
--- NOTE | 2018-12-06 16:30 | NUR ---
R AC iv is removed due to being infiltrated. Dr Macias and inpatient nurse notified.
[2018-12-06] MEDS ORDERED: ONDANSETRON 4 MG (ZOFRAN) ORAL DISSOLVE TAB PO ONE (16:45)
[2018-12-06 17:30] VITALS: BP 132/60
[2018-12-06] MEDS ORDERED: SCOPOLAMINE 1.5 MG (TRANSDERM-SCOP) PATCH TD NR (17:45)
[2018-12-06] MEDS ORDERED: PROMETHAZINE INJ 25 MG/ML (PHENERGAN) AMP IM PRN (17:45)
[2018-12-06] MEDS ORDERED: ONDANSETRON 4 MG/2 ML (SDV) Z0FRAN IVP PRN (17:45)
[2018-12-06] MEDS ORDERED: ACETAMINOPHEN 500 MG TAB (TYLENOL) PO PRN (17:45)
[2018-12-06] MEDS ORDERED: PROCHLORPERAZINE 25 MG (COMPAZINE) SUPP PR PRN (17:45)
[2018-12-06] MEDS ORDERED: CATHETER FLUSH 10 ML SYR IV PRN (17:45)
[2018-12-06] MEDS: NS IV 1000 ML 1,000 ML IV SCH (17:58)
[2018-12-06 18:00] VITALS: BP 122/57
[2018-12-06] MEDS: fentaNYL INJECTION 100 MCG/2 ML AMP IVP PRN (18:10)
[2018-12-06 19:00] VITALS: BP 105/47
--- NOTE | 2018-12-06 19:15 | NUR ---
Notified Dr. Deal patient has been bradycardic since arrival to unit. Day shift nurse reported HR in 40s and low of 38. Patient's HR now ranging in 40 to 50 range. No orders Rec'd.
--- NOTE | 2018-12-06 19:45 | Consultation-Cardiology ---
HPI-Cardiology Cardiology Consultation Date of Consultation 12/06/18 Date of Admission Time Seen by Provider: 19:41 Indication: Chest pain HPI 83 years old lady with extensive history of coronary artery disease multiple intervention the past was in her usual state of health, has been using nitroglycerin for chest pain and reporting improvement, started to have abdominal pain and retrosternal pain and then nausea and vomiting this morning came into the emergency room and she was admitted and transferred to [place], currently still having abdominal/epigastric pain, no chest pain. No palpitation. Noted to have few episodes of bradycardia. She took her Toprol-XL 100 mg this morning. Home Medications & Allergies Allergies: Coded Allergies: Penicillins (Verified Allergy, Intermediate, HIVES, 07/25/12) oxytetracycline (Verified Allergy, Intermediate, HIVES, 07/25/12) furosemide (Unverified Adverse Reaction, Mild, "MAKES ME SICK", 12/14/16) hydrocodone (Verified Adverse Reaction, Mild, MAKES ME SICK, 07/01/12) lisinopril (Verified Adverse Reaction, Mild, COUGH, 07/01/12) oxytetracycline HCl (Verified Adverse Reaction, Mild, HIVES, 07/01/12) tramadol (Verified Adverse Reaction, Mild, NAUSEA, "HEAVINESS", 07/01/12) Home Medication List Reviewed: Yes OPP-Kajtir-Keostw Hx Patient Social History Marital Status: Employed/Student: retired Alcohol Use: Denies Use Recreational Drug Use: No Smoking Status: Never a Smoker 2nd Hand Smoke Exposure: No Recent Foreign Travel: No Recent Infectious Disease Expo: No Immunizations Up To Date Date of Influenza Vaccine: Dec 28, 2017 Past Medical History Discussed below Family Medical History Family History: Diabetes mellitus 19 FATHER FH: liver cancer 19 MOTHER Myocardial infarction G8 BROTHER G8 SISTER Review of Systems-General Review of Systems Constitutional: no symptoms reported, see HPI, malaise EENTM: see HPI, no symptoms reported Respiratory: see HPI; No cough; dyspnea on exertion; No hemoptysis, No orthopnea, No phlegm, No short of breath, No stridor, No wheezing, No other Cardiovascular: No no symptoms reported; see HPI, chest pain; No edema, No Hx of Intervention, No palpitations, No syncope, No vascular heart diseas, No other Gastrointestinal: abdominal pain, nausea, vomiting Genitourinary: no symptoms reported, see HPI Musculoskeletal: no symptoms reported, see HPI Skin: no symptoms reported, see HPI Psychiatric/Neurological: No Symptoms Reported, See HPI All Other Systems Reviewed Negative Unless Noted: Yes Reviewed Test Results Reviewed Test Results Lab Laboratory Tests Test 12/06/18 14:47 12/06/18 15:00 12/06/18 17:34 Range/Units White Blood Count 10.3 4.3-11.0 10^3/uL Red Blood Count 3.94 L 4.35-5.85 10^6/uL Hemoglobin 12.5 11.5-16.0 G/DL Hematocrit 39 35-52 % Mean Corpuscular Volume 98 80-99 FL Mean Corpuscular Hemoglobin 32 25-34 PG Mean Corpuscular Hemoglobin Concent 33 32-36 G/DL Red Cell Distribution Width 12.3 10.0-14.5 % Platelet Count 429 H 130-400 10^3/uL Mean Platelet Volume 9.7 7.4-10.4 FL Neutrophils (%) (Auto) 62 42-75 % Lymphocytes (%) (Auto) 27 12-44 % Monocytes (%) (Auto) 8 0-12 % Eosinophils (%) (Auto) 2 0-10 % Basophils (%) (Auto) 1 0-10 % Neutrophils # (Auto) 6.4 1.8-7.8 X 10^3 Lymphocytes # (Auto) 2.8 1.0-4.0 X 10^3 Monocytes # (Auto) 0.8 0.0-1.0 X 10^3 Eosinophils # (Auto) 0.2 0.0-0.3 10^3/uL Basophils # (Auto) 0.1 0.0-0.1 10^3/uL Prothrombin Time 13.5 12.2-14.7 SEC INR Comment 1.0 0.8-1.4 Activated Partial Thromboplast Time 34 24-35 SEC D-Dimer 0.21 0.00-0.49 UG/ML Sodium Level 140 135-145 MMOL/L Potassium Level 4.2 3.6-5.0 MMOL/L Chloride Level 101 98-107 MMOL/L Carbon Dioxide Level 20 L 21-32 MMOL/L Anion Gap 19 H 5-14 MMOL/L Blood Urea Nitrogen 39 H 7-18 MG/DL Creatinine 1.56 H 0.60-1.30 MG/DL Estimat Glomerular Filtration Rate 32 BUN/Creatinine Ratio 25 Glucose Level 105 70-105 MG/DL Calcium Level 9.6 8.5-10.1 MG/DL Corrected Calcium 9.2 8.5-10.1 MG/DL Magnesium Level 2.2 1.6-2.4 MG/DL Total Bilirubin 0.2 0.1-1.0 MG/DL Aspartate Amino Transf (AST/SGOT) 21 5-34 U/L Alanine Aminotransferase (ALT/SGPT) 13 0-55 U/L Alkaline Phosphatase 53 40-136 U/L Troponin I < 0.30 < 0.028 <0.028 NG/ML Pro-B-Type Natriuretic Peptide 276.9 H <75.0 PG/ML Total Protein 8.0 6.4-8.2 GM/DL Albumin 4.5 3.2-4.5 GM/DL Lipase 144 H 8-78 U/L Urine Color YELLOW Urine Clarity CLEAR Urine pH 5.0 5-9 Urine Specific [place] 1.020 1.016-1.022 Urine Protein NEGATIVE NEGATIVE Urine Glucose (UA) NEGATIVE NEGATIVE Urine Ketones NEGATIVE NEGATIVE Urine Nitrite NEGATIVE NEGATIVE Urine Bilirubin NEGATIVE NEGATIVE Urine Urobilinogen 0.2 NORMAL MG/DL Urine Leukocyte Esterase 2+ H NEGATIVE Urine RBC (Auto) TRACE H NEGATIVE Urine RBC 5-10 H /HPF Urine WBC 50-100 H /HPF Urine Squamous Epithelial Cells 25-505 /HPF Urine Crystals NONE /LPF Urine Bacteria FEW H /HPF Urine Casts NONE /LPF Urine Mucus NEGATIVE /LPF Urine Culture Indicated YES Physical Exam Physical Exam Vital Signs Vital Signs - First Documented 12/06/18 12/06/18 13:57 15:20 Temp 96.8 Pulse 71 Resp 18 B/P (MAP) 169/75 (106) Pulse Ox 98 O2 Delivery Room Air Capillary Refill : Less Than 3 Seconds Height, Weight, BMI Height: 5'2.00" Weight: 136lbs. 0.0oz. 61.834913fj; 24.9 BMI Method:Stated General Appearance: No Apparent Distress, WD/WN Eyes: Bilateral Eye Normal Inspection HEENT: PERRL/EOMI, TMs Normal, Normal ENT Inspection Neck: Full Range of Motion, Normal Inspection, Supple Respiratory: Lungs Clear, Normal Breath Sounds, No Accessory Muscle Use, No Respiratory Distress Cardiovascular: Regular Rate, Rhythm, No Gallop, Normal Peripheral Pulses, Systolic Murmur Gastrointestinal: Non Tender, Soft Back: Normal Inspection Extremity: Normal Capillary Refill, Normal Inspection, Normal Range of Motion, Non Tender, No Calf Tenderness, No Pedal Edema Neurologic/Psychiatric: Alert, Oriented x3 Skin: Normal Color, Warm/Dry Lymphatic: No Adenopathy A/P-Cardiology Admission Diagnosis Chest pain Coronary artery disease Sinus node dysfunction Paroxysmal atrial fibrillation Assessment/Plan Chest pain, nonspecific etiology, angina, responsive to nitroglycerin, no reported chest pain today, continue with nitroglycerin monitor chronic enzymes and EKG Coronary artery disease multiple intervention in the past, has been followed by Dr. Mayer, last intervention was done on August 10, 2018, had severe instent restenosis in the left circumflex artery that was treated with balloon angioplasty, had diffuse disease in the right coronary artery treated medically, patent stents in the LAD. Next Paroxysmal atrial fibrillation, sinus node dysfunction, sinus bradycardia probably secondary to Toprol, has been on Toprol-XL 100 mg daily, asymptomatic, continue to monitor heart rate. Hypertension, restart home medication except for the beta blockers and monitor next Hyperlipidemia, maintained on high-dose Lipitor Chronic anticoagulation with Eliquis for reducing the risk of stroke Epigastric pain, nausea and vomiting, possible gastroenteritis. Clinical Quality Measures DVT/VTE Risk/Contraindication: Risk Factor Score Per Nursin RFS Level Per Nursing on Admit: 3=High DOMINIC HOOVER MD Dec 06, 2018 19:45
[2018-12-06 20:00] VITALS: BP 136/64
[2018-12-06 21:00] VITALS: BP 130/57
[2018-12-06 22:00] VITALS: BP 107/51
[2018-12-07 00:08] VITALS: BP 91/42
[2018-12-07 03:31] LABS: BASOPHILS % (AUTO) 0 % (0-10); EOSINOPHILS # (AUTO) 0.1 10^3/uL (0.0-0.3); EOSINOPHILS % (AUTO) 1 % (0-10); HEMATOCRIT 32 % (35-52); HEMOGLOBIN 10.2 G/DL (11.5-16.0); LYMPHOCYTES # (AUTO) 2.7 X 10^3 (1.0-4.0); LYMPHOCYTES % (AUTO) 28 % (12-44); MEAN CORPUSCULAR HEMOGLOBIN 32 PG (25-34); MEAN CORPUSCULAR HGB CONC 32 G/DL (32-36); MEAN CORPUSCULAR VOLUME 99 FL (80-99); MEAN PLATELET VOLUME 10.1 FL (7.4-10.4); MONOCYTES # (AUTO) 0.9 X 10^3 (0.0-1.0); MONOCYTES % (AUTO) 10 % (0-12); NEUTROPHILS # (AUTO) 5.7 X 10^3 (1.8-7.8); NEUTROPHILS % (AUTO) 61 % (42-75); PLATELET COUNT 297 10^3/uL (130-400); RED CELL DISTRIBUTION WIDTH 12.7 % (10.0-14.5); WHITE BLOOD COUNT 9.4 10^3/uL (4.3-11.0)
[2018-12-07 03:57] LABS: ALBUMIN 3.5 GM/DL (3.2-4.5); BILIRUBIN,TOTAL 0.4 MG/DL (0.1-1.0); CALCIUM 8.2 MG/DL (8.5-10.1); CREATININE SERUM 1.32 MG/DL (0.60-1.30); POTASSIUM 4.1 MMOL/L (3.6-5.0); TOTAL PROTEIN 6.1 GM/DL (6.4-8.2)
[2018-12-07 04:00] VITALS: BP 85/40
[2018-12-07] MEDS: NS IV 1000 ML 1,000 ML IV SCH ×2 (04:21→20:23)
[2018-12-07 08:00] VITALS: BP 107/48
--- NOTE | 2018-12-07 08:54 | Progress Note - Cardiology ---
Cardiology SOAP Progress Note Subjective: Lying in bed. States no further CP. Reports no further vomiting. C/O abdomen being "sore". Reports abdominal pain, cramping and a "burning sensation from her stomach up into her throat" started approx 30 minutes after eating an egg at home yesterday. Objective: I&O/Vital Signs 12/07/18 12/07/18 12/07/18 12/07/18 04:00 07:00 08:00 12:00 Temp 97.4 Pulse 43 42 43 B/P (MAP) 85/40 (55) 107/48 (67) 130/49 (76) Pulse Ox 98 95 100 O2 Delivery Room Air Room Air Room Air 12/07/18 12:19 Pulse 39 12/07/18 00:00 Intake Total 1000 ml Output Total 350 ml Balance 650 ml Weight (Pounds): 138 Weight (Ounces): 2.0 Weight (Calculated Kilograms): [id number] Constitutional: AAO x 3 Respiratory: accessory muscle use; No respiratory distress; chest expansion is symmetric, chest is bilaterally symmetric, lungs clear to auscultation Cardiovascular: regular rate-rhythm, S1 and S2 Gastrointestional: tender (diffuse), audible bowel sounds (hyperactive) Extremities: no lower extremity edema bilateral Neurologic/Psychiatric: grossly intact Skin: No rash on exposed areas, No ulcerations on exposed areas Results/Procedures: Labs Laboratory Tests 12/06/18 17:34: Troponin I < 0.028 12/07/18 03:01: White Blood Count 9.4, Red Blood Count 3.21L, Hemoglobin 10.2L, Hematocrit 32L, Mean Corpuscular Volume 99, Mean Corpuscular Hemoglobin 32, Mean Corpuscular Hemoglobin Concent 32, Red Cell Distribution Width 12.7, Platelet Count 297, Mean Platelet Volume 10.1, Neutrophils (%) (Auto) 61, Lymphocytes (%) (Auto) 28, Monocytes (%) (Auto) 10, Eosinophils (%) (Auto) 1, Basophils (%) (Auto) 0, Neutrophils # (Auto) 5.7, Lymphocytes # (Auto) 2.7, Monocytes # (Auto) 0.9, Eosinophils # (Auto) 0.1, Basophils # (Auto) 0.0, Sodium Level 142, Potassium Level 4.1, Chloride Level 113#H, Carbon Dioxide Level 17L, Anion Gap 12, Blood Urea Nitrogen 34H, Creatinine 1.32H, Estimat Glomerular Filtration Rate 39, BUN/Creatinine Ratio 26, Glucose Level 83, Calcium Level 8.2L, Corrected Calcium 8.6, Total Bilirubin 0.4, Aspartate Amino Transf (AST/SGOT) 14, Alanine Aminotransferase (ALT/SGPT) 11, Alkaline Phosphatase 40, Total Protein 6.1L, Albumin 3.5, Amylase Level 64, Lipase 65 Laboratory Tests 12/06/18 14:47 12/07/18 03:01 A/P: Assessment: Abdominal pain of undetermined etiology, managed by Dr Pina Coronary artery disease multiple intervention in the past, most recent cath was done on August 10, [address] Artis: had severe instent restenosis in the left circumflex artery that was treated with balloon angioplasty, had diffuse disease in the right coronary artery treated medically, patent stents in the LAD Episodes of intermittent hematuria Paroxysmal atrial fibrillation, sinus node dysfunction, sinus bradycardia probably secondary to Toprol - BB currently being withheld Hypertension - currently hypotensive - hold medications for now Hyperlipidemia - statin - hold statin for now Acute renal insufficiency - likely d/t intravascular volume depletion - continue IVF Chronic anticoagulation with Eliquis Epigastric pain, nausea and vomiting, possible gastroenteritis - management per medical services Probable UTI (culture pending) - management per medical services Plan: No further c/o chest discomfort Continued episodes of SB (albeit asymptomatic), sinus node dysfunction, hold BB Currently somewhat low BP - hold antihypertensives for now (Losartan 100mg) Abdominal discomfort with nausea of undetermined etiology, remains NPO, start PPI - management per medical services Prob UTI (culture pending) - management per medical services Acute renal insufficiency - continue IVF Continue ASA d/t CAD Continue Eliquis for stroke prophylaxis Continue current medication regimen Physician Assessment Physician Assessment No cp or palp or syncope Abd pain better, but not resolved Cor: reg Lungs: clear Abdomen: mild to mod epigastric tenderness, audible bowel sounds Ext: no c/c/e A&R * As documented in our note above that I updated (italics) * We are holding of bb at this time because of relatively low bp * Dr Pina is managing patient's abdominal pain * Monitor labs [place] [employer] ADMINISTRATOR Dec 07, 2018 08:54 WALTER GIL MD [facility] Dec 07, 2018 16:00
[2018-12-07] MEDS ORDERED: PANTOPRAZOLE 40 MG (PROTONIX) VIAL IV SCH (09:00)
[2018-12-07 09:11] LABS: AMYLASE 64 U/L (25-125); LIPASE 65 U/L (8-78)
[2018-12-07] MEDS ORDERED: APIXABAN 2.5 MG (ELIQUIS) TABLET PO NR (09:15)
[2018-12-07] MEDS ORDERED: ASPIRIN 81 MG CHEW (CHILDREN'S ASA) PO NR (09:15)
[2018-12-07] MEDS ORDERED: POTA20TA15 PO (10:16)
[2018-12-07] MEDS ORDERED: FURO20TA4 PO (10:16)
[2018-12-07] MEDS ORDERED: OMG1KC PO (10:16)
[2018-12-07] MEDS ORDERED: ACET-2267 PO (10:17)
--- NOTE | 2018-12-07 10:18 | NUR ---
SPOKE WITH THE PATIENT ABOUT HER MEDICATIONS. SHE HAD A LIST WELL HER BOTTLES HERE WITH HER. HER FUROSEMIDE IS WRITTEN DAILY PRN HOWEVER SHE STATES SHE TAKES IT DAILY SCHEDULED. SHE TAKES THE FOLLOWING OTC: FISH OIL 1000MG DAILY ASPIRIN 81MG DAILY MTV DAILY ZANTAC 150MG 2 HS PRN
--- NOTE | 2018-12-07 10:31 | History & Physical-Hospitalist ---
History of Present Illness HPI/Chief Complaint Chief Complaint: Chest pain with nausea and vomiting and abdominal pain . HPI: This is a 83yoWF with multiple stents placed in the past by Dr. Mayer who presented to the [facility] with non specific chest pain, abdominal pain, nausea and vomiting, and elevated lipase with elevated creatinine of 1.56. She was given IV fluids IV pain medication and she had reported she has been taking Nitroglycerine every night for the past two weeks sublingual type. I have consulted Dr. Caballero and I did consulted Dr. Deal and heart rate remains between 38 and 46 and cardiology is aware Dr. Mayer has assumed her cardiology care from Dr. Deal who was chief controller tower last night and at this current time we will get pt up and around ambulating and await for Dr. Caballero and cardiology expert consultation recommendations. Source: patient Exam Limitations: clinical condition Date Seen 12/07/18 Time Seen by a Provider: 09:00 Attending Physician Kamala Chapman Pankaj K MD Referring Physician Date of Admission Dec 06, 2018 at 16:00 Home Medications & Allergies Home Medications Reviewed patient Home Medication Reconciliation performed by pharmacy medication reconciliations radio/tv technician and/or nursing. Patients Allergies have been reviewed. Allergies Allergies Coded Allergies Penicillins (Verified Allergy, Intermediate, HIVES, 07/25/12) oxytetracycline (Verified Allergy, Intermediate, HIVES, 07/25/12) furosemide (Unverified Adverse Reaction, Mild, "MAKES ME SICK", 12/14/16) hydrocodone (Verified Adverse Reaction, Mild, MAKES ME SICK, 07/01/12) lisinopril (Verified Adverse Reaction, Mild, COUGH, 07/01/12) oxytetracycline HCl (Verified Adverse Reaction, Mild, HIVES, 07/01/12) tramadol (Verified Adverse Reaction, Mild, NAUSEA, "HEAVINESS", 07/01/12) Past Rvdvuur-Cjeely-Bzvevq Hx Past Med/Social Hx: Reviewed Nursing Past Med/Soc Hx, Reviewed and Corrections made Patient Social History Marrital Status: Employed/Student: retired Alcohol Use: Denies Use Recreational Drug Use: No Smoking Status: Never a Smoker 2nd Hand Smoke Exposure: No Recent Foreign Travel: No Contact w/other who traveled: No Recent Infectious Disease Expo: No Immunizations Up To Date Date of Influenza Vaccine: Dec 28, 2017 Seasonal Allergies Seasonal Allergies: No Past Medical History Surgeries: Coronary Stent, Gallbladder, Hysterectomy, Orthopedic Currently Using CPAP: No Currently Using BIPAP: No Cardiac: Coronary Artery Disease, Heart Attack, Hypertension Genitourinary: Bladder Infection Gastrointestinal: Gastroesophageal Reflux Musculoskeletal: Arthritis, Chronic Back Pain History of Blood Disorders: No Family History Diabetes mellitus 19 FATHER FH: liver cancer 19 MOTHER Myocardial infarction G8 BROTHER G8 SISTER Review of Systems Constitutional: see HPI, weakness Respiratory: dyspnea on exertion Cardiovascular: chest pain Gastrointestinal: abdominal pain (LUQ) Physical Exam Physical Exam Vital Signs Vital Signs - First Documented 12/06/18 12/06/18 13:57 15:20 Temp 96.8 Pulse 71 Resp 18 B/P (MAP) 169/75 (106) Pulse Ox 98 O2 Delivery Room Air Capillary Refill : Less Than 3 Seconds Height, Weight, BMI Height: 5'2.00" Weight: 138lbs. 2.0oz. [id number]; 24.9 BMI Method:Stated General Appearance: No Apparent Distress, WD/WN, Chronically ill, Thin Eyes: Right Eye Normal Inspection, Right Eye PERRL HEENT: PERRL/EOMI, Normal ENT Inspection, Pharynx Normal, Moist Mucous Membranes Neck: Full Range of Motion, Normal Inspection, Non Tender Respiratory: Chest Non Tender, Lungs Clear, Normal Breath Sounds, No Accessory Muscle Use, No Respiratory Distress Cardiovascular: Regular Rate, Rhythm, No Edema, No Gallop, No JVD, No Murmur, Normal Peripheral Pulses Gastrointestinal: Normal Bowel Sounds, No Organomegaly, No Pulsatile Mass, Non Tender, Soft Back: Normal Inspection, No CVA Tenderness, No Vertebral Tenderness Extremity: Normal Capillary Refill, Normal Inspection, Normal Range of Motion, Non Tender, No Calf Tenderness, No Pedal Edema Neurologic/Psychiatric: Alert, Oriented x3, No Motor/Sensory Deficits, Normal Mood/Affect, Disoriented (subtle) Skin: Normal Color, Warm/Dry Lymphatic: No Adenopathy Results Results/Procedures Labs Laboratory Tests 12/06/18 14:47 12/07/18 03:01 Patient resulted labs reviewed. Assessment/Plan Admission Diagnosis Assessment: Chest pain Abdominal pain ARF Pancreatitis? Dementia? 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
--- NOTE | 2018-12-07 11:33 | Physical Therapy Evaluation ---
PT Evaluation-General Medical Diagnosis Admission Date Dec 06, 2018 at 16:00 Medical Diagnosis: intractable nausea and vomiting;CP/pancreatitis Onset Date: Dec 06, 2018 Therapy Diagnosis Therapy Diagnosis: debility Height/Weight Height (Feet): 5 Height (Inches): 2.00 Weight (Pounds): 138 Weight (Ounces): 2.0 Precautions Precautions/Isolations: Standard Precautions Referral Physician: Silvana Reason for Referral: Evaluation/Treatment Medical History Pertinent Medical History: Arthritis, CAD Current History ER secondary to CP, N/V and abdominal pain Reviewed History: Yes Social History Home: Apartment Current Living Status: Alone Entry Into Home: Level Entry Prior/Core FIM Prior Level of Function Therapy Code Descriptions/Definitions Functional Hawks Measure: 0=Not Assessed/NA 4=Minimal Assistance 1=Total Assistance 5=Supervision or Setup 2=Maximal Assistance 6=Modified Hawks 3=Moderate Assistance 7=Complete Hawks Therapy Quality Codes: 6 Independent with activity with or without an assistive device 5 Patient requires set up or clean up by helper. Patient completes activity by themselves 4 Supervision or touching assist (CGA). [place] provide cues , steadying assist 3 The helper provides less than half the effort to complete the activity 2 The helper provides more than half the effort to complete the activity 1 Dependent. The helper does all the effort to complete an activity 7 Patient refused to complete or attempt activity 9 The patient did not perform the activity before the current illness or injury 88 Not attempted due to Medical conditions or safety concerns Functional Abilities and Goals: Independent: Patient completed the activities by him/herself, with or without an assistive device, with no assistance from a helper. Needed Some Help: Patient needed partial assistance from another person to complete activities. Dependent: A helper completed the activities for the patient. Unknown: Not Applicable: Bed Mobility: 7 Transfers (B,C,W/C) (FIM): 7 Gait: 7 Indoor Mobility (Ambulation): Independent Prior Devices Use: None PT Evaluation-Current Subjective Patient agrees to PT and adamantly declined FWW use stating, "I'm independent and will stay that way." Objective Patient Orientation: Normal For Age Problem Solving: Fair Attachments: IV ROM/Strength ROM Lower Extremities bilateral LE WFL Strength Lower Extremities 4-/5 grossly bilateral LE Integumentary/Posture Integumentary refer to nursing notes Bowel Incontinence: No Bladder Incontinence: No Posture WFL Neuromuscular (Tone, Coordination, Reflexes) grossly intact Sensory Vision: Wears Glasses Hearing: Functional Sensation Right Lower Extremit: Intact Sensation Left Lower Extremity: Intact Transfers Therapy Code Descriptions/Definitions Functional Hawks Measure: 0=Not Assessed/NA 4=Minimal Assistance 1=Total Assistance 5=Supervision or Setup 2=Maximal Assistance 6=Modified Hawks 3=Moderate Assistance 7=Complete Hawks Transfers (B, C, W/C) (FIM): 7 Scootin Supine to/from Sit: 7 Sit to/from Stand: 7 Gait Mode of Locomotion: Walk Anticipated Mode of Locomotion: Walk Gait (FIM): 7 Distance (FIM): 3=150 ft Distance: 275' Gait Level of Assist: 7 Gait Assistive Device: None Comments/Gait Description slight deviation with self correct x 2 episodes (patient reports she wears a knee brace on her right LE and doesn't have it here) Balance Sitting Static: Normal Sitting Dynamic: Normal Standing Static: Normal Standing Dynamic: Normal Assessment/Needs 83 y.o. female, is currently independent with all gross motor skills and does not require skilled therapy intervention. Rehab Potential: Fair PT Plan Treatment/Plan Treatment Plan: Discontinue PT, goals met Treatment Plan: Other Treatment Duration: Dec 07, 2018 Frequency: 1 time per week Estimated Hrs Per Day: .25 hour per day Patient and/or Family Agrees t: Yes Discharge Recommendations Therapy D/C Recommendations: Home Independently Time/GCodes Time In: 1056 Time Out: 1110 Total Billed Treatment Time: 14 Total Billed Treatment 1 visit EVLowC 14 min ISAAK JARAMILLO PT Dec 07, 2018 11:33
--- NOTE | 2018-12-07 11:39 | NUR ---
Pt is [employer]. Education Department Registrar will provided Communion when not NPO. Offered blessing.
[2018-12-07 12:00] VITALS: BP 130/49
[2018-12-07] MEDS ORDERED: LIDOCAINE 1% INJ 20 ML 20 ML VIAL ONE (13:57)
[2018-12-07] MEDS: fentaNYL INJECTION 100 MCG/2 ML AMP IVP PRN (15:06)
[2018-12-07 16:00] VITALS: BP 133/55
--- NOTE | 2018-12-07 18:17 | Consultation - Surgery ---
History of Present Illness History of Present Illness Patient Consulted On(ryan/time) 12/07/18 18:12 Time Seen by Provider: 09:51 Reason for Visit: Chest pain History of Present Illness Surgery asked to consult regarding abdominal pain and N/V. HPI per ED: Patient presents emergency department for evaluation of chest pain abdominal pain nausea and vomiting she says she has been having a chest pressure sensation for the past 2 weeks has been taking nitroglycerin at night consistently for the past 2 weeks however since yesterday she has felt more ill as she has been having upper abdominal pain that is radiating towards her chest and back and is associated with nonbloody nonbilious emesis. She has extensive history of coronary artery disease including 10 stents in the past. She said she spoke to her quarter lining smoother Dr. Simental and he recommended that she come to the ED. she said it could also feel like reflux as well as she feels acid in her stomach chest and neck. She is in no obvious distress with normal vital signs. When I spoke to pt this am she stated she was feeling a little better, did not have the pain and nausea like she was having. She thought she just had a bad stomach ache; "my friend made me go into the the ER, I thought it would pass". She complained of a burning pain, "like reflux". Rating the pain as 6 out of 10, on 1-10 scale. It was a dull pain. Allergies and Home Medications Allergies Coded Allergies: Penicillins (Verified Allergy, Intermediate, HIVES, 07/25/12) oxytetracycline (Verified Allergy, Intermediate, HIVES, 07/25/12) furosemide (Unverified Adverse Reaction, Mild, "MAKES ME SICK", 12/14/16) hydrocodone (Verified Adverse Reaction, Mild, MAKES ME SICK, 07/01/12) lisinopril (Verified Adverse Reaction, Mild, COUGH, 07/01/12) oxytetracycline HCl (Verified Adverse Reaction, Mild, HIVES, 07/01/12) tramadol (Verified Adverse Reaction, Mild, NAUSEA, "HEAVINESS", 07/01/12) Home Medications Acetaminophen 500 Mg Tablet, 1,000 MG PO TID, (Reported) Apixaban 2.5 Mg Tablet, 2.5 MG PO BID, (Reported) Aspirin 81 Mg Tablet.dr, 81 MG PO DAILY, (Reported) Furosemide 20 Mg Tablet, 20 MG PO DAILY, (Reported) Levothyroxine Sodium 50 Mcg Tablet, 50 MCG PO DAILY, (Reported) Losartan Potassium 100 Mg Tablet, 100 MG PO DAILY, (Reported) Metoprolol Succinate 100 Mg Tab.er.24h, 100 MG PO DAILY, (Reported) Multivit-Min/FA/Lycopene/Lut 1 Each Tablet, 1 TAB PO DAILY, (Reported) Nitroglycerin 0.4 Mg Tab.subl, 0.4 MG SL UD PRN for CHEST PAIN, (Reported) Deposit 3 Polyunsat Fatty Acids 1,000 Mg Cap, 1,000 MG PO DAILY, (Reported) Potassium Chloride 20 Meq Tab.er.prt, 20 MEQ PO DAILY, (Reported) Ranitidine HCl 150 Mg Tablet, 300 MG PO HS PRN for HEARTBURN, (Reported) Patient Home Medication List Home Medication List Reviewed: Yes Past Szpjdiu-Rwqspj-Pltgbq Hx Patient Social History Alcohol Use: Denies Use Recreational Drug Use: No Smoking Status: Never a Smoker 2nd Hand Smoke Exposure: No Recent Foreign Travel: No Contact w/Someone Who Travel: No Recent Infectious Disease Expo: No Immunizations Up To Date Date of Influenza Vaccine: Dec 28, 2017 Seasonal Allergies Seasonal Allergies: No Surgeries History of Surgeries: Yes (RIGHT CAROTID ENDARTERECTOMY, BACK SURGERY) Surgeries: Coronary Stent, Gallbladder, Hysterectomy, Orthopedic Respiratory History of Respiratory Disorde: Yes Respiratory Disorders: Pneumonia Cardiovascular History of Cardiac Disorders: Yes Cardiac Disorders: Coronary Artery Disease, Heart Attack, Hypertension Neurological History of Neurological Disord: No Genitourinary History of Genitourinary Disor: Yes Genitourinary Disorders: Bladder Infection Gastrointestinal History of Gastrointestinal Di: No Gastrointestinal Disorders: Gastroesophageal Reflux Musculoskeletal History of Musculoskeletal Dis: Yes Musculoskeletal Disorders: Arthritis, Chronic Back Pain Endocrine History of Endocrine Disorders: No HEENT History of HEENT Disorders: No Cancer History of Cancer: No Psychosocial History of Psychiatric Problem: No Integumentary History of Skin or Integumenta: No Blood Transfusions History of Blood Disorders: No Family Medical History Significant Family History: Cancer, CAD Over 55 Years Old, Diabetes Family Medial History: Diabetes mellitus 19 FATHER FH: liver cancer 19 MOTHER Myocardial infarction G8 BROTHER G8 SISTER Review of Systems-General Constitutional: dizziness, malaise, weakness EENTM: No blurred vision, No double vision, No mouth swelling, No epistaxis Respiratory: No cough, No dyspnea on exertion, No hemoptysis Cardiovascular: chest pain; No edema; Hx of Intervention Gastrointestinal: abdominal pain, constipation; No hematemesis, No jaundice, No melena Genitourinary: No dysuria, No frequency, No hematuria Musculoskeletal: back pain, joint pain, joint swelling, muscle stiffness Skin: No change in color, No change in hair/nails Psychiatric/Neurological: Denies Anxiety, Denies Depressed, Denies Seizure, Denies Tremors Other pt denies any hx of abnormal bleeding or bruising Physical Exam-General Problems Physical Exam Vital Signs Vital Signs - First Documented 12/06/18 12/06/18 13:57 15:20 Temp 96.8 Pulse 71 Resp 18 B/P (MAP) 169/75 (106) Pulse Ox 98 O2 Delivery Room Air Capillary Refill : Less Than 3 Seconds General Appearance: WD/WN, mild distress Eyes: Bilateral Eye PERRL, Bilateral Eye EOMI HEENT: pharynx normal; No scleral icterus (R), No scleral icterus (L) Neck: No supple, No thyromegaly Respiratory: chest non-tender, lungs clear, normal breath sounds, no respiratory distress, no accessory muscle use Cardiovascular: regular rate, rhythm, no murmur Gastrointestinal: soft, no organomegaly, no pulsatile mass; No distended; tenderness (very minimal with deep palpation diffusely) Back: no CVA tenderness, no vertebral tenderness Extremities: no pedal edema, no calf tenderness, normal capillary refill Neurologic/Psychiatric: citrix architect II-XII nml as tested, no motor/sensory deficits, alert, normal mood/affect, oriented x 3 Skin: normal color, warm/dry Lymphatic: no adenopathy (neck, axilla or groin) Data Review Labs Laboratory Tests 12/07/18 03:01: White Blood Count 9.4, Red Blood Count 3.21L, Hemoglobin 10.2L, Hematocrit 32L, Mean Corpuscular Volume 99, Mean Corpuscular Hemoglobin 32, Mean Corpuscular Hemoglobin Concent 32, Red Cell Distribution Width 12.7, Platelet Count 297, Mean Platelet Volume 10.1, Neutrophils (%) (Auto) 61, Lymphocytes (%) (Auto) 28, Monocytes (%) (Auto) 10, Eosinophils (%) (Auto) 1, Basophils (%) (Auto) 0, Neutrophils # (Auto) 5.7, Lymphocytes # (Auto) 2.7, Monocytes # (Auto) 0.9, Eosinophils # (Auto) 0.1, Basophils # (Auto) 0.0, Sodium Level 142, Potassium Level 4.1, Chloride Level 113#H, Carbon Dioxide Level 17L, Anion Gap 12, Blood Urea Nitrogen 34H, Creatinine 1.32H, Estimat Glomerular Filtration Rate 39, BUN/Creatinine Ratio 26, Glucose Level 83, Calcium Level 8.2L, Corrected Calcium 8.6, Total Bilirubin 0.4, Aspartate Amino Transf (AST/SGOT) 14, Alanine Aminotransferase (ALT/SGPT) 11, Alkaline Phosphatase 40, Total Protein 6.1L, Albumin 3.5, Amylase Level 64, Lipase 65 Assessment/Plan Assessment/Plan Assessment/Plan Abdominal pain Nausea and vomiting Pancreatitis - mild CAD, HTN Anemia Her abdominal pain has improved and her Lipase has come back to normal range (65 from 144). She is not hungry, but states this is normal for her. No more vomiting and only very minimal nausea. I am unsure if all of this was a mild pancreatitis that she is getting over, it is possible she has been battling this for past 2 weeks. Anemia is probably secondary to the IV fluids and most likely her baseline, but can be worked up as an outpt. There are no indications for any surgical intervention at this time. Advance diet slowly and control symptoms of pain and nausea. I will continue to follow along. Clinical Quality Measures DVT/VTE Risk/Contraindication: Risk Factor Score Per Nursin RFS Level Per Nursing on Admit: 3=High OMAYRA BRANDON DO Dec 07, 2018 18:17
[2018-12-07 20:00] VITALS: BP 117/58
[2018-12-07] MEDS: APIXABAN 2.5 MG (ELIQUIS) TABLET PO SCH (20:22)
--- NOTE | 2018-12-08 08:59 | Progress Note - Cardiology ---
Cardiology SOAP Progress Note Subjective: Sitting up in recliner at the bedside. No c/o CP, SOB or palpitations. Reports abdomen feels "sore" but better today. No further c/o nausea or vomiting. Wants to go home. Does not wish to have another IV place. Objective: I&O/Vital Signs 12/08/18 12/08/18 12/08/18 00:36 02:00 07:00 Temp 97.1 Pulse 44 62 12/08/18 00:00 Intake Total 220 ml Output Total 500 ml Balance -280 ml Weight (Pounds): 137 Weight (Ounces): 4.0 Weight (Calculated Kilograms): [id number] Constitutional: AAO x 3 Respiratory: accessory muscle use; No respiratory distress; chest expansion is symmetric, chest is bilaterally symmetric, lungs clear to auscultation Cardiovascular: regular rate-rhythm, S1 and S2 Gastrointestional: tender (diffuse), audible bowel sounds (hyperactive) Extremities: no lower extremity edema bilateral Neurologic/Psychiatric: grossly intact Skin: No rash on exposed areas, No ulcerations on exposed areas Results/Procedures: Labs Laboratory Tests 12/08/18 09:50: White Blood Count 10.4, Red Blood Count 3.31L, Hemoglobin 10.6L, Hematocrit 34L, Mean Corpuscular Volume 101H, Mean Corpuscular Hemoglobin 32, Mean Corpuscular Hemoglobin Concent 32, Red Cell Distribution Width 12.8, Platelet Count 337, Mean Platelet Volume 9.9, Sodium Level 143, Potassium Level 4.3, Chloride Level 113H, Carbon Dioxide Level 20L, Anion Gap 10, Blood Urea Nitrogen 23H, Creatinine 1.26, Estimat Glomerular Filtration Rate 41, BUN/Creatinine Ratio 18, Glucose Level 78, Calcium Level 8.6, Corrected Calcium 8.8, Magnesium Level 1.8, Total Bilirubin 0.4, Aspartate Amino Transf (AST/SGOT) 19, Alanine Aminotransferase (ALT/SGPT) 11, Alkaline Phosphatase 37L, Total Protein 6.9, Albumin 3.7 Microbiology 12/06/18 Urine Culture - Preliminary, Resulted Gram Negative Ugo A/P: Assessment: Abdominal pain of undetermined etiology, managed by Dr Pina Coronary artery disease multiple intervention in the past, most recent cath was done on August 10, [address] Artis: had severe instent restenosis in the left circumflex artery that was treated with balloon angioplasty, had diffuse disease in the right coronary artery treated medically, patent stents in the LAD Episodes of intermittent hematuria Paroxysmal atrial fibrillation, sinus node dysfunction, sinus bradycardia probably secondary to Toprol - BB currently being withheld Hypertension - currently hypotensive - hold medications for now Hyperlipidemia - statin - hold statin for now Acute renal insufficiency - likely d/t intravascular volume depletion - continue IVF Chronic anticoagulation with Eliquis Epigastric pain, nausea and vomiting, possible gastroenteritis - management per medical services Probable UTI (culture pending) - management per medical services Plan: No further c/o chest discomfort HR has improved BP has improved Abdominal discomfort with nausea of undetermined etiology - management per surgical/medical services Prob UTI (culture pending) - management per medical services Acute renal insufficiency Continue ASA d/t CAD Continue Eliquis for stroke prophylaxis Monitor lab Physician Assessment Physician Assessment No cp or palp or syncope or shortness of breath. Abd pain has resolved Lungs: clear Cor: reg Ext: no c/c/e A&R * As documented in our note above that I updated (italics) and as noted below * I advised pt to be compliant with meds and discussed risk factor mod. BB have been reduced due to sinus lidia at presentation * I advised close clinical f/u VERÓNICA DAY DOG HAIR CLIPPER Dec 08, 2018 08:59 WALTER GIL MD [facility] Dec 08, 2018 11:51
[2018-12-08] MEDS ORDERED: PANTOPRAZOLE 40 MG (PROTONIX) TAB PO SCH (09:00)
[2018-12-08] MEDS ORDERED: ASPIRIN 81 MG CHEW (CHILDREN'S ASA) PO SCH (09:00)
--- NOTE | 2018-12-08 09:19 | Progress Note - Surgery ---
ANA ROSA STILES,MED STUDENT 12/08/18 0919: Subjective Date Seen by a Provider: Dec 08, 2018 Time Seen by a Provider: 07:30 Subjective/Events-last exam Pt states her abdominal pain and nausea have subsided and she is feeling ready to go home. Admits some SOB with exertion but otherwise no complaints. Ate some jello last night without sequelae. Review of Systems General: No Chills, No Night Sweats Objective Exam Vital Signs Date Time Temp Pulse Resp B/P (MAP) Pulse Ox O2 Delivery O2 Flow Rate FiO2 12/08/18 07:00 62 12/08/18 02:00 44 12/08/18 00:36 97.1 12/07/18 20:00 96.5 46 18 117/58 (77) 96 Room Air 12/07/18 19:00 46 12/07/18 16:00 40 133/55 (81) 96 Room Air 12/07/18 16:00 96.4 14 12/07/18 12:19 39 12/07/18 12:00 97.4 130/49 (76) 100 Room Air I & O 12/08/18 07:00 Intake Total 220 ml Output Total 950 ml Balance -730 ml Capillary Refill : Less Than 3 Seconds General Appearance: No Apparent Distress, WD/WN HEENT: PERRL/EOMI, Pharynx Normal; No Pale Conjunctivae (L), No Pale Conjunctivae (R) Neck: Non Tender; No Lymphadenopathy (L), No Lymphadenopathy (R) Respiratory: Chest Non Tender, Lungs Clear, Normal Breath Sounds, No Accessory Muscle Use, No Respiratory Distress Cardiovascular: Regular Rate, Rhythm, No Edema, Normal Peripheral Pulses Peripheral Pulses: 2+ Dorsalis Pedis (R), 2+ Left Dors-Pedis (L), 2+ Radial Pulses (R), 2+ Radial Pulses (L) Gastrointestinal: soft, no organomegaly; No distended; tenderness (tender with deep palpation epigastric region) Extremity: Normal Capillary Refill, No Pedal Edema, Calf Tenderness Neurologic/Psychiatric: Alert, Oriented x3, No Motor/Sensory Deficits, Normal Mood/Affect Skin: Normal Color, Warm/Dry Lymphatic: No Adenopathy (neck, axilla) Assessment/Plan Assessment/Plan Assessment/Plan Abdominal pain Nausea and vomiting Pancreatitis - mild CAD, HTN Anemia Tolerating advanced diet but admits she is not hungry, this is her baseline. Pain and nausea have subsided. Patient wants to go home. Will continue to f ollow. Clinical Quality Measures DVT/VTE Risk/Contraindication: Risk Factor Score Per Nursin RFS Level Per Nursing on Admit: 3=High GABINO CABALLERO DO 12/08/18 1031: Subjective Time Seen by a Provider: 10:16 Subjective/Events-last exam Pt states "only a little pain". Review of Systems Pulmonary: No Dyspnea, No Cough Cardiovascular: No: Chest Pain Gastrointestinal: No: Nausea, Vomiting Objective Exam Gastrointestinal: tenderness (tender with deep palpation epigastric region) Assessment/Plan Assessment/Plan Assessment/Plan Pt ok to send home from surgical standpoint. Supervisory-Addendum Brief Verification & Attestation Participated in pt care: history, MDM, physical Personally performed: exam, history, MDM Care discussed with: Medical Student Procedures: n/a Verification and Attestation of Medical Student E/M Service A medical student performed and documented this service in my presence. I reviewed and verified all information documented by the medical student and made modifications to such information, when appropriate. I personally performed the physical exam and medical decision making. Gabino Caballero, Dec 08, 2018,10:30 ANA ROSA STILES,MED STUDENT Dec 08, 2018 09:19 GABINO CABALLERO DO Dec 08, 2018 10:31
[2018-12-08] MEDS: APIXABAN 2.5 MG (ELIQUIS) TABLET PO SCH (09:36)
[2018-12-08] MEDS ORDERED: meTOproloL SUCCINATE 50 MG (TOPROL XL) TAB PO NR (10:00)
[2018-12-08] MEDS ORDERED: LOSARTAN 100 MG (COZAAR) TABLET PO NR (10:00)
[2018-12-08 10:01] LABS: HEMOGLOBIN 10.6 G/DL (11.5-16.0); MEAN PLATELET VOLUME 9.9 FL (7.4-10.4); RED CELL DISTRIBUTION WIDTH 12.8 % (10.0-14.5); WHITE BLOOD COUNT 10.4 10^3/uL (4.3-11.0)
[2018-12-08 10:17] LABS: ALBUMIN 3.7 GM/DL (3.2-4.5); BILIRUBIN,TOTAL 0.4 MG/DL (0.1-1.0); CALCIUM 8.6 MG/DL (8.5-10.1); CREATININE SERUM 1.26 MG/DL (0.60-1.30); MAGNESIUM 1.8 MG/DL (1.6-2.4); POTASSIUM 4.3 MMOL/L (3.6-5.0); TOTAL PROTEIN 6.9 GM/DL (6.4-8.2)
[2018-12-08] MEDS ORDERED: METO-370 PO (10:29)
[2018-12-08] MEDS ORDERED: PANT40TA3 PO (10:29)
--- NOTE | 2018-12-08 10:31 | Discharge Summary ---
Diagnosis/Chief Complaint Date of Admission Dec 06, 2018 at 16:00 Date of Discharge Discharge Date: Dec 08, 2018 Admission Diagnosis Assessment: Chest pain Abdominal pain ARF Pancreatitis? Dementia? 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 (8) Advanced age Status: Chronic (9) CAD (coronary artery disease) Status: Acute Discharge Summary Discharge Physical Exam Allergies: Coded Allergies: Penicillins (Verified Allergy, Intermediate, HIVES, 07/25/12) oxytetracycline (Verified Allergy, Intermediate, HIVES, 07/25/12) furosemide (Unverified Adverse Reaction, Mild, "MAKES ME SICK", 12/14/16) hydrocodone (Verified Adverse Reaction, Mild, MAKES ME SICK, 07/01/12) lisinopril (Verified Adverse Reaction, Mild, COUGH, 07/01/12) oxytetracycline HCl (Verified Adverse Reaction, Mild, HIVES, 07/01/12) tramadol (Verified Adverse Reaction, Mild, NAUSEA, "HEAVINESS", 07/01/12) Vitals & I&Os Vital Signs Date Time Temp Pulse Resp B/P (MAP) Pulse Ox O2 Delivery O2 Flow Rate FiO2 12/08/18 12:54 52 12 109/68 98 Room Air 12/08/18 00:36 97.1 General Appearance: No Apparent Distress, WD/WN, Chronically ill Respiratory: Chest Non Tender, Lungs Clear, Normal Breath Sounds, No Accessory Muscle Use, No Respiratory Distress Cardiovascular: Regular Rate, Rhythm, No Edema, No Gallop, No JVD, No Murmur, Normal Peripheral Pulses Neurologic/Psychiatric: Alert, Oriented x3, No Motor/Sensory Deficits, Normal Mood/Affect Hospital Course Was the Problem List Reviewed?: Yes Hospital course: patient had a short hospital course after she was admitted for chest pain and abdominal pain and elevated lipase along with dehydration and increased creatinine. Surgical and Cardiology consultations were appreciated. Patient was deemed stable for DC after IVF given and she was feeling well enough to return home. Labs (last 24 hrs) Microbiology 12/06/18 Urine Culture - Preliminary, Resulted Gram Negative Ugo Patient resulted labs reviewed. Pending Labs Discussion & Recommendations Discharge Planning: <30 minutes discharge planning Discharge Home Medications: Active Scripts Active Pantoprazole Sodium 40 Mg Tablet.dr 40 Mg PO DAILY Metoprolol Succinate 50 Mg Tab.er.24h 50 Mg PO DAILY Reported Tylenol Extra Strength (Acetaminophen) 500 Mg Tablet 1,000 Mg PO TID Potassium Chloride 20 Meq Tab.er.prt 20 Meq PO DAILY Furosemide 20 Mg Tablet 20 Mg PO DAILY Fish Oil 1,000 mg Capsule ([place] 3 Polyunsat Fatty Acids) 1,000 Mg Cap 1,000 Mg PO DAILY Eliquis (Apixaban) 2.5 Mg Tablet 2.5 Mg PO BID Nitroglycerin 0.4 Mg Tab.subl 0.4 Mg SL UD PRN Centrum Silver Tablet (Multivit-Min/FA/Lycopene/Lut) 1 Each Tablet 1 Tab PO DAILY Zantac (Ranitidine HCl) 150 Mg Tablet 300 Mg PO HS PRN Levothyroxine Sodium 50 Mcg Tablet 50 Mcg PO DAILY Aspirin EC (Aspirin) 81 Mg Tablet.dr 81 Mg PO DAILY Losartan Potassium 100 Mg Tablet 100 Mg PO DAILY Instructions to patient/family Please see electronic discharge instructions given to patient. Clinical Quality Measures DVT/VTE Risk/Contraindication: Risk Factor Score Per Nursin RFS Level Per Nursing on Admit: 3=High CRISTINA CHAPMAN DO Dec 08, 2018 10:31
--- NOTE | 2018-12-08 10:49 | Physical Therapy Progress Note ---
Therapy Progress Note Patient was evaluated by PT 12/07/18 and was dismissed from services due to patient is at PLOF with all gross motor skills. Patient does wear a knee brace due to arthritis and her knee "tamika", however, patient adamantly declines FWW or cane use due to wanting to maintain her "independence". RN notified. No PT indicated. ISAAK JARAMILLO PT Dec 08, 2018 10:49
--- NOTE | 2018-12-08 10:50 | Occupational Therapy Eval ---
OT Evaluation-General/PLF Medical Diagnosis Admission Date Dec 06, 2018 at 16:00 Medical Diagnosis: intractable nausea and vomiting;CP/pancreatitis Onset Date: Dec 06, 2018 Therapy Diagnosis Therapy Diagnosis: imapired ADLS and moblity Height/Weight Height (Feet): 5 Height (Inches): 2.00 Weight (Pounds): 137 Weight (Ounces): 4.0 Precautions Precautions/Isolations: Fall Prevention, Standard Precautions Safety Interventions: Bed Exit Alarm Weight Bear Status Weight Bearing Restriction: Weight Bearing/Tolerated Referral Physician: Silvana Referral Reason: Activity Tolerance, Self Care, Evaluation/Treatment, Strengthening/ROM Medical History Pertinent Medical History: Arthritis, CAD Current History per H&P: "HPI: This is a 83yoWF with multiple stents placed in the past by Dr. Mayer who presented to the [place] [facility] with non specific chest pain, abd ominal pain, nausea and vomiting, and elevated lipase with elevated creatinine of 1.56. She was given IV fluids IV pain medication and she had reported she has been taking Nitroglycerine every night for the past two weeks sublingual type. I have consulted Dr. Caballero and I did consulted Dr. Deal and heart rate remains between 38 and 46 and cardiology is aware Dr. Mayer has assumed her cardiology care from Dr. Deal who was proposal consultant last night and at this current time we will get pt up and around ambulating and await for Dr. Caballero and cardiology expert consultation recommendations." Social History Home: Apartment (correction apts ) Current Living Status: Alone Entry Into Home: Elevator, Level Entry ADL-Prior Level of Function Therapy Code Descriptions/Definitions Functional [place] Measure: 0=Not Assessed/NA 4=Minimal Assistance 1=Total Assistance 5=Supervision or Setup 2=Maximal Assistance 6=Modified [place] 3=Moderate Assistance 7=Complete [place] Therapy Quality Codes: 6 Independent with activity with or without an assistive device 5 Patient requires set up or clean up by helper. Patient completes activity by themselves 4 Supervision or touching assist (CGA). [place] provide cues , steadying assist 3 The helper provides less than half the effort to complete the activity 2 The helper provides more than half the effort to complete the activity 1 Dependent. The helper does all the effort to complete an activity 7 Patient refused to complete or attempt activity 9 The patient did not perform the activity before the current illness or injury 88 Not attempted due to Medical conditions or safety concerns Functional Abilities and Goals: Independent: Patient completed the activities by him/herself, with or without an assistive device, with no assistance from a helper. Needed Some Help: Patient needed partial assistance from another person to complete activities. Dependent: A helper completed the activities for the patient. Unknown: Not Applicable: ADL PLOF Comments pt stated indep PLOF using no AE. pt stated she does own RW and will use it PRN at home. Self Care: Independent Functional Cognition: Independent Drive Self: Yes OT Current Status Subjective pt sitting in recliner chair. pt agreed to OT evaluation session Mental Status/Objective Patient Orientation: Person, Place, Time, Situation Attachments: Telemetry Current Glasses/Contacts: Yes Hearing Aids: No Dentures/Partials: Yes Hand Dominance: Right Upper Extremity ROM pt REF to complete ROM above head stated "if I raise my arms above by head I will pass out" pt reports this has been going on for 5+ years and she has adjusted her life to it. pt stated she is unsure of the reasoning, NSG aware. WFL Upper Extremity Coordination WNL opposition WNL finger to nose Upper Extremity Sensation WFL Upper Extremity Strength WFL ADL-Treatment Therapy Code Descriptions/Definitions Functional [place] Measure: 0=Not Assessed/NA 4=Minimal Assistance 1=Total Assistance 5=Supervision or Setup 2=Maximal Assistance 6=Modified [place] 3=Moderate Assistance 7=Complete [place] Therapy Quality Codes: 6 Independent with activity with or without an assistive device 5 Patient requires set up or clean up by helper. Patient completes activity by themselves 4 Supervision or touching assist (CGA). [place] provide cues , steadying assist 3 The helper provides less than half the effort to complete the activity 2 The helper provides more than half the effort to complete the activity 1 Dependent. The helper does all the effort to complete an activity 7 Patient refused to complete or attempt activity 9 The patient did not perform the activity before the current illness or injury 88 Not attempted due to Medical conditions or safety concerns Eating (FIM): 6 Grooming (FIM): 6 Bathing (FIM): 6 Upper Body Dressing (FIM): 7 Lower Body Dressing (FIM): 7 Toileting (FIM): 7 Transfers (B, C, W/C) (FIM): 6 Toilet/Commode Transfer (FIM): 6 EVALUATION ONLY OT Short Term Goals Short Term Goals 1=Demonstrate adherence to instructed precautions during ADL tasks. 2=Patient will verbalize/demonstrate understanding of assistive devices/modifications for ADL. 3=Patient will improve strength/tolerance for activity to enable patient to perform ADL's. OT Charge Machine Operator Goals Residential Goals 1=Demonstrate adherence to instructed precautions during ADL tasks. 2=Patient will verbalize/demonstrate understanding of assistive devices/modifications for ADL. 3=Patient will improve strength/tolerance for activity to enable patient to perform ADL's. OT Education/Plan Problem List/Assessment Assessment: No Skilled OT Needs ID'd pt demo ability to complete ADLS for EVALUATION. pt lito dylan socks, pants, underpants, shirt, toileting, simulated bathing tasks, and perform functional mobility 100 ft using no AD MOD I . pt MOD I for functional transfers secondary to safety concerns with balance. pt able to self correct. pt demo 1 LOB during tasks. pt demo ability to pick item up from floor from seated and standing while maintaining good balance. OT services not indicated secondary to patient functioning at baseline. pt agrees she does not need OT Services. d/c OT service s at this time. pt is safe to return home. Discharge Recommendations Plan/Recommendations: Discontinue OT Therapy D/C Recommendations: Home w/ Family Support Equpiment Recommendations-D/C: None Treatment Plan/Plan of Care Treatment,Training & Education: Yes Treatment Duration: Dec 08, 2018 Frequency: 1 time per week (EVAL ONLY ) Estimated Hrs Per Day: Other (EVAL ONLY ) Rehab Potential: Fair Time/GCodes Start Time: 10:30 Stop Time: 10:45 Billed Treatment Time EVL 15 minutes SARTHAK SPENCER OT Dec 08, 2018 10:50
--- NOTE | 2018-12-08 11:29 | NUR ---
provided prayer and Communion.
[2018-12-08] MEDS: NS IV 1000 ML 1,000 ML IV SCH (12:09)
[2018-12-08 12:54] VITALS: BP 109/68
[2018-12-09] MEDS ORDERED: meTOproloL SUCCINATE 50 MG (TOPROL XL) TAB PO SCH (09:00)
[2018-12-09] MEDS ORDERED: LOSARTAN 100 MG (COZAAR) TABLET PO SCH ×2 (09:00)
[2018-12-09] MEDS ORDERED: SCOPOLAMINE PATCH REMOVAL TP SCH (17:45)
== END 2018-12-08 10:29 | disposition home or self-care (01) ==
LOC: EDUNIT# 13:45 → ER FS 13:47 → ICU 16:00 → UNDOADMOB 16:00 → ICU 16:55 → UNDODISOB 12-08 12:25
PROVIDERS: ADMIT Internal Medicine; ATTEND Internal Medicine
DX: R07.9 Chest pain, unspecified (principal); E86.0 Dehydration; R10.9 Unspecified abdominal pain; Z79.01 Long term (current) use of anticoagulants; Z79.899 Other long term (current) drug therapy; K85.90 Acute pancreatitis without necrosis or infection, unspecified; R00.1 Bradycardia, unspecified; I50.20 Unspecified systolic (congestive) heart failure; I25.10 Atherosclerotic heart disease of native coronary artery without angina pectoris; D64.9 Anemia, unspecified; R31.9 Hematuria, unspecified; I48.0 Paroxysmal atrial fibrillation; I11.9 Hypertensive heart disease without heart failure; N17.9 Acute kidney failure, unspecified; Z88.0 Allergy status to penicillin; I25.2 Old myocardial infarction; K21.9 Gastro-esophageal reflux disease without esophagitis; M19.91 Primary osteoarthritis, unspecified site; Z95.5 Presence of coronary angioplasty implant and graft
CPT/HCPCS: 36415; 71045; 80053; 81000; 82150; 83690; 83735; 83880; 84484; 85025; 85027; 85379; 85610; 85730; 87077; 87088; 87186; 93005; 96361; 96374; 96375

== ENCOUNTER 2018-12-12 08:30 | Emergency (ER) | payer MEDICARE ==
[~2018-12-12] VITALS: Ht 157.5 cm; Wt 62.1 kg
[~2018-12-12 08:30] MED LIST changes: +METO-370 PO; +OMG1KC PO; +PANT40TA3 PO
--- NOTE | 2018-12-12 09:21 | ED Cardiac General ---
History of Present Illness General Chief Complaint: Chest Pain Stated Complaint: SOB; HIGH BP; DIZZINESS Nursing Triage Note: States she woke up at midnight with shortness of breath, palpitations, and intermittent chest pain. Is currently not having any pain but states she gets sharp pains on the left side of her chest. Has also been dizzy and feels flushed. Has appointment with hide mill man, Dr Mayer, tomorrow. Source: patient Exam Limitations: no limitations History of Present Illness Date Seen by Provider: Dec 12, 2018 Time Seen by Provider: 08:55 Initial Comments Patient is a 83-year-old female with known CAD, paroxysmal atrial fibrillation who presents with written palpitations, shortness of breath with chest pain starting 8 hours prior to ED arrival. Patient's symptoms are nonexertional. Ches t pain is brief and different than typical anginal chest pain. Patient has not taken nitroglycerin for current symptoms. Patient describes symptoms most consistent with her underlying arrhythmia. She does report feeling dizzy while standing and feeling flushed. No fevers chills, nausea vomiting or sweats. No abdominal pain. Denies increased leg pain or swelling. Timing/Duration: 4-6 hours Severity: mild Location: other (left-sided) Activities at Onset: rest Prior CP/Workup: angina, cardiac cath Associated Systoms: No Diaphoresis, No Fever/Chills, No Nausea/Vomiting, No Shortness of Air, No Syncope; Weakness Allergies and Home Medications Allergies Coded Allergies: Penicillins (Verified Allergy, Intermediate, HIVES, 07/25/12) oxytetracycline (Verified Allergy, Intermediate, HIVES, 07/25/12) furosemide (Unverified Adverse Reaction, Mild, "MAKES ME SICK", 12/14/16) hydrocodone (Verified Adverse Reaction, Mild, MAKES ME SICK, 07/01/12) lisinopril (Verified Adverse Reaction, Mild, COUGH, 07/01/12) oxytetracycline HCl (Verified Adverse Reaction, Mild, HIVES, 07/01/12) tramadol (Verified Adverse Reaction, Mild, NAUSEA, "HEAVINESS", 07/01/12) Home Medications Acetaminophen 500 Mg Tablet, 1,000 MG PO TID, (Reported) Apixaban 2.5 Mg Tablet, 2.5 MG PO BID, (Reported) Aspirin 81 Mg Tablet.dr, 81 MG PO DAILY, (Reported) Furosemide 20 Mg Tablet, 20 MG PO DAILY, (Reported) Levothyroxine Sodium 50 Mcg Tablet, 50 MCG PO DAILY, (Reported) Losartan Potassium 100 Mg Tablet, 100 MG PO DAILY, (Reported) Metoprolol Succinate 50 Mg Tab.er.24h, 50 MG PO DAILY Prescribed by: CRISTINA CHAPMAN on 12/08/18 1029 Multivit-Min/FA/Lycopene/Lut 1 Each Tablet, 1 TAB PO DAILY, (Reported) Nitroglycerin 0.4 Mg Tab.subl, 0.4 MG SL UD PRN for CHEST PAIN, (Reported) [place] 3 Polyunsat Fatty Acids 1,000 Mg Cap, 1,000 MG PO DAILY, (Reported) Pantoprazole Sodium 40 Mg Tablet.dr, 40 MG PO DAILY Prescribed by: CRISTINA CHPAMAN on 12/08/18 1029 Potassium Chloride 20 Meq Tab.er.prt, 20 MEQ PO DAILY, (Reported) Ranitidine HCl 150 Mg Tablet, 300 MG PO HS PRN for HEARTBURN, (Reported) Patient Home Medication List Home Medication List Reviewed: Yes Review of Systems Review of Systems Constitutional: see HPI Respiratory: See HPI Cardiovascular: See HPI Gastrointestinal: See HPI Genitourinary: See HPI Musculoskeletal: see HPI Skin: see HPI Psychiatric/Neurological: Anxiety Endocrine: See HPI Hematologic/Lymphatic: See HPI Past Hspkthr-Hduqtv-Cvmeuz Hx Patient Social History Alcohol Use: Denies Use Recreational Drug Use: No Smoking Status: Never a Smoker 2nd Hand Smoke Exposure: No Recent Foreign Travel: No Contact w/Someone Who Travel: No Recent Infectious Disease Expo: No Physical Abuse: No Sexual Abuse: No Mistreated: No Fear: No Immunizations Up To Date Date of Influenza Vaccine: Dec 28, 2017 Seasonal Allergies Seasonal Allergies: No Past Medical History Surgeries: Yes (RIGHT CAROTID ENDARTERECTOMY, BACK SURGERY) Coronary Stent, Gallbladder, Hysterectomy, Orthopedic Respiratory: Yes Pneumonia Currently Using CPAP: No Currently Using BIPAP: No Cardiac: Yes Coronary Artery Disease, Heart Attack, Hypertension Neurological: No Genitourinary: Yes (pessary ) Bladder Infection Gastrointestinal: No Gastroesophageal Reflux Musculoskeletal: Yes Arthritis, Chronic Back Pain Endocrine: No HEENT: No Cancer: No Psychosocial: No Integumentary: No Blood Disorders: No Family Medical History Diabetes mellitus 19 FATHER FH: liver cancer 19 MOTHER Myocardial infarction G8 BROTHER G8 SISTER Cancer, CAD Over 55 Years Old, Diabetes Physical Exam Vital Signs Vital Signs - First Documented 12/12/18 08:35 Temp 98.0 Pulse 66 Resp 18 B/P (MAP) 167/90 (115) Pulse Ox 94 Capillary Refill : Less Than 3 Seconds Height, Weight, BMI Height: 5'2.00" Weight: 137lbs. 4.0oz. [id number]; 24.9 BMI Method:Stated General Appearance: No Apparent Distress, WD/WN, Anxious HEENT: PERRL/EOMI, Pharynx Normal, Moist Mucous Membranes Neck: Normal Inspection, Supple Respiratory: Chest Non Tender, Lungs Clear, Normal Breath Sounds Cardiovascular: Regular Rate, Rhythm, No Edema, No Murmur, Normal Peripheral Pulses Gastrointestinal: Normal Bowel Sounds, No Organomegaly, Non Tender Extremity: Normal Capillary Refill, Normal Range of Motion Neurologic/Psychiatric: Alert, Oriented x3 Progress/Results/Core Measures Results/Orders Lab Results Laboratory Tests Test 12/12/18 09:10 12/12/18 09:35 Range/Units Urine Color PALE YELLOW Urine Clarity CLEAR Urine pH 5.5 5-9 Urine Specific [place] <=1.005 1.016-1.022 Urine Protein NEGATIVE NEGATIVE Urine Glucose (UA) NEGATIVE NEGATIVE Urine Ketones NEGATIVE NEGATIVE Urine Nitrite NEGATIVE NEGATIVE Urine Bilirubin NEGATIVE NEGATIVE Urine Urobilinogen 0.2 NORMAL MG/DL Urine Leukocyte Esterase 1+ H NEGATIVE Urine RBC (Auto) NEGATIVE NEGATIVE Urine RBC NONE /HPF Urine WBC 2-5 /HPF Urine Squamous Epithelial Cells 2-5 /HPF Urine Crystals NONE /LPF Urine Bacteria TRACE /HPF Urine Casts NONE /LPF Urine Mucus NONE /LPF Urine Culture Indicated YES White Blood Count 10.9 4.3-11.0 10^3/uL Red Blood Count 3.71 L 4.35-5.85 10^6/uL Hemoglobin 11.9 11.5-16.0 G/DL Hematocrit 36 35-52 % Mean Corpuscular Volume 96 80-99 FL Mean Corpuscular Hemoglobin 32 25-34 PG Mean Corpuscular Hemoglobin Concent 33 32-36 G/DL Red Cell Distribution Width 12.5 10.0-14.5 % Platelet Count 256 130-400 10^3/uL Mean Platelet Volume 10.2 7.4-10.4 FL Neutrophils (%) (Auto) 54 42-75 % Lymphocytes (%) (Auto) 30 12-44 % Monocytes (%) (Auto) 12 0-12 % Eosinophils (%) (Auto) 2 0-10 % Basophils (%) (Auto) 1 0-10 % Neutrophils # (Auto) 5.9 1.8-7.8 X 10^3 Lymphocytes # (Auto) 3.3 1.0-4.0 X 10^3 Monocytes # (Auto) 1.3 H 0.0-1.0 X 10^3 Eosinophils # (Auto) 0.3 0.0-0.3 10^3/uL Basophils # (Auto) 0.1 0.0-0.1 10^3/uL Sodium Level 139 135-145 MMOL/L Potassium Level 3.9 3.6-5.0 MMOL/L Chloride Level 101 98-107 MMOL/L Carbon Dioxide Level 18 L 21-32 MMOL/L Anion Gap 20 H 5-14 MMOL/L Blood Urea Nitrogen 15 7-18 MG/DL Creatinine 1.26 0.60-1.30 MG/DL Estimat Glomerular Filtration Rate 41 BUN/Creatinine Ratio 12 Glucose Level 93 70-105 MG/DL Calcium Level 9.6 8.5-10.1 MG/DL Corrected Calcium 9.5 8.5-10.1 MG/DL Total Bilirubin 0.2 0.1-1.0 MG/DL Aspartate Amino Transf (AST/SGOT) 21 5-34 U/L Alanine Aminotransferase (ALT/SGPT) 13 0-55 U/L Alkaline Phosphatase 49 40-136 U/L Troponin I < 0.30 <0.30 NG/ML Total Protein 7.5 6.4-8.2 GM/DL Albumin 4.1 3.2-4.5 GM/DL Lipase 100 H 8-78 U/L My Orders Orders - ALVAREZ ANAYA DO Cbc With Automated Diff (12/12/18 09:03) Comprehensive Metabolic Panel (12/12/18 09:03) Troponin I (12/12/18 09:03) Thyroid Stimulating Hormone (12/12/18 09:03) Lipase (12/12/18 09:03) Chest 1 View Ap/Pa Only (12/12/18 09:03) Ua Culture If Indicated (12/12/18 09:11) Ekg Tracing (12/12/18 09:16) Clonidine Tablet (Catapres Tablet) (12/12/18 09:30) Urine Culture (12/12/18 09:10) Medications Given in ED Current Medications Medications Dose Ordered Sig/Aury Route Start Time Stop Time Status Last Admin Dose Admin Clonidine HCl 0.1 mg ONCE ONCE PO 12/12/18 09:30 12/12/18 09:31 DC 12/12/18 09:29 0.1 MG Vital Signs/I&O 12/12/18 08:35 Temp 98.0 Pulse 66 Resp 18 B/P (MAP) 167/90 (115) Pulse Ox 94 Blood Pressure Mean: 115 Departure Communication (Admissions) EKG: Sinus rhythm, rate 66, diffuse ST depression in inferior and lateral leads. No acute ST elevation. Patient with sinus bradycardia on monitor, blood pressure improved and stable treatment. Patient takes Toprol XL 100 mg daily. EKG, labs, imaging unremarkable. Troponin negative despite 8 hours of intermittent palpitati ons/chest pain. Only occasional PAC on monitor. Patient able to ambulate with steady gait. She is instructed to use a walker continued dizziness and increased risk of fall and injury given the patient is currently on Eliquis.. Patient further instructed to follow up with her hide mill man tomorrow. Return precautions reviewed. Impression Primary Impression: Palpitations Additional Impressions: Shortness of breath Dizziness Chest pain Elevated blood pressure reading Disposition: 01 HOME, SELF-CARE Condition: Stable Departure-Patient Inst. Referrals: MARLYN DERAS MD (PCP/Family) Primary Care Physician Patient Instructions: Chest Pain That Is Not Caused by the Heart (DC), Palpitations (DC) Add. Discharge Instructions: You were evaluated in the emergency department for dizziness palpitations, shortness of breath and chest pain. EKG lab and imaging studies were performed and are nondiagnostic. The exact cause of her symptoms has not been determined. Do not take blood pressure medication this afternoon if you continues to feel dizzy or lightheaded. Use a walker to ambulate with assistance as needed. Follow-up with her hide mill man tomorrow as scheduled. Return to the ED if new or worsening symptoms. All discharge instructions reviewed with patient and/or family. Voiced understanding. ALVAREZ ANAYA DO Dec 12, 2018 09:20
[2018-12-12] MEDS ORDERED: cloNIDine 0.1 MG (CATAPRES) TAB PO ONE (09:30)
[2018-12-12 09:42] LABS: HEMATOCRIT 36 % (35-52); HEMOGLOBIN 11.9 G/DL (11.5-16.0); MEAN CORPUSCULAR HEMOGLOBIN 32 PG (25-34); MEAN CORPUSCULAR HGB CONC 33 G/DL (32-36); MEAN CORPUSCULAR VOLUME 96 FL (80-99); WHITE BLOOD COUNT 10.9 10^3/uL (4.3-11.0)
[2018-12-12 09:43] LABS: BASOPHILS # (AUTO) 0.1 10^3/uL (0.0-0.1); BASOPHILS % (AUTO) 1 % (0-10); EOSINOPHILS # (AUTO) 0.3 10^3/uL (0.0-0.3); EOSINOPHILS % (AUTO) 2 % (0-10); LYMPHOCYTES # (AUTO) 3.3 X 10^3 (1.0-4.0); LYMPHOCYTES % (AUTO) 30 % (12-44); MEAN PLATELET VOLUME 10.2 FL (7.4-10.4); MONOCYTES # (AUTO) 1.3 X 10^3 (0.0-1.0); MONOCYTES % (AUTO) 12 % (0-12); NEUTROPHILS # (AUTO) 5.9 X 10^3 (1.8-7.8); NEUTROPHILS % (AUTO) 54 % (42-75); PLATELET COUNT 256 10^3/uL (130-400); RED CELL DISTRIBUTION WIDTH 12.5 % (10.0-14.5)
--- NOTE | 2018-12-12 10:02 | Diagnostic Imaging Report ---
PATIENT HISTORY: Hypertension, shortness of breath, dizziness. TECHNIQUE: Single frontal view of the chest COMPARISON: 12/06/2018 FINDINGS: Lung volumes appear normal. There are mildly prominent interstitial markings, similar to 08/09/2018. Calcified lymph nodes are noted, particularly at the right hilum. No pleural effusion or pneumothorax is seen. No acute osseous abnormality is seen. IMPRESSION: 1. Mildly prominent interstitial markings, increased from the prior exam, but similar to July 2018, may represent a mild interstitial edema. No new airspace consolidation is seen. Dictated by: Dictated on workstation # [id number]
[2018-12-12 10:06] LABS: CARBON DIOXIDE 18 MMOL/L (21-32); CHLORIDE 101 MMOL/L (98-107); POTASSIUM 3.9 MMOL/L (3.6-5.0); SODIUM 139 MMOL/L (135-145)
[2018-12-12 10:07] LABS: ALANINE AMINOTRANSFERASE 13 U/L (0-55); ALBUMIN 4.1 GM/DL (3.2-4.5); ALKALINE PHOSPHATASE 49 U/L (40-136); BILIRUBIN,TOTAL 0.2 MG/DL (0.1-1.0); BUN/CREATININE RATIO 12; CALCIUM 9.6 MG/DL (8.5-10.1); CREATININE SERUM 1.26 MG/DL (0.60-1.30); GFR ESTIMATED 41; GLUCOSE 93 MG/DL (70-105); TOTAL PROTEIN 7.5 GM/DL (6.4-8.2)
[2018-12-12 10:08] LABS: LIPASE 100 U/L (8-78)
[2018-12-12 10:18] LABS: BILIRUBIN,URINE NEGATIVE (NEGATIVE); CLARITY,URINE CLEAR; COLOR,URINE PALE YELLOW; GLUCOSE, URINE (UA) NEGATIVE (NEGATIVE); KETONES,URINE NEGATIVE (NEGATIVE); LEUKOCYTE ESTERASE ,URINE 1+ (NEGATIVE); NITRITE,URINE NEGATIVE (NEGATIVE); PH,URINE 5.5 (5-9); PROTEIN,URINE NEGATIVE (NEGATIVE); UROBILINOGEN,URINE 0.2 MG/DL (NORMAL)
[2018-12-12 10:19] LABS: BACTERIA,URINE TRACE /HPF
[2018-12-12 11:01] VITALS: BP 126/57
== END 2018-12-12 11:01 | disposition home or self-care (01) ==
LOC: EDUNIT# 08:30 → ER FS 08:31
DX: R06.02 Shortness of breath (principal); R00.2 Palpitations; R42 Dizziness and giddiness; R07.9 Chest pain, unspecified; I10 Essential (primary) hypertension; I25.10 Atherosclerotic heart disease of native coronary artery without angina pectoris; I48.0 Paroxysmal atrial fibrillation; F41.9 Anxiety disorder, unspecified; I25.2 Old myocardial infarction; K21.9 Gastro-esophageal reflux disease without esophagitis; Z87.01 Personal history of pneumonia (recurrent); Z88.0 Allergy status to penicillin; Z88.1 Allergy status to other antibiotic agents; Z88.5 Allergy status to narcotic agent; Z88.8 Allergy status to other drugs, medicaments and biological substances; Z79.82 Long term (current) use of aspirin; Z90.710 Acquired absence of both cervix and uterus; Z95.5 Presence of coronary angioplasty implant and graft; Z80.0 Family history of malignant neoplasm of digestive organs
CPT/HCPCS: 36415; 71045; 80053; 81000; 83690; 84443; 84484; 85025; 87077; 87088; 87186; 93005

== ENCOUNTER 2018-12-17 10:22 | Emergency (ER) | payer MEDICARE ==
[~2018-12-17] VITALS: Ht 157.5 cm; Wt 62.1 kg
[2018-12-17] MEDS ORDERED: FAMOTIDINE 20 MG (PEPCID) TABLET PO STA (10:49)
[2018-12-17] MEDS ORDERED: ONDANSETRON 4 MG (ZOFRAN) ORAL DISSOLVE TAB SL STA (10:49)
--- NOTE | 2018-12-17 10:52 | ED Abdominal Pain ---
General Stated Complaint: HIGH BP Source of Information: Patient Exam Limitations: No Limitations History of Present Illness Date Seen by Provider: Dec 17, 2018 Time Seen by Provider: 10:40 Initial Comments The patient presents to ER by private conveyance with chief complaint that earlier this morning she woke up with some abdominal cramping had her walking the floors. She's not taken anything for it. She went to [facility] but then she came to the ER this was still having pain and she noticed she had some diarrhea. She's also nauseated and did vomit once in the early hours the morning. No fevers or chills. She does have a history of coronary disease known to Dr. Mayer however she says this pain is very different from her heart pain. She says it's across the top of her stomach and burning sensation. She's had her gallbladder, appendix out as well as a hysterectomy and some surgical biopsies on her abdomen before. She had a history of dermatomyositis. Allergies and Home Medications Allergies Coded Allergies: Penicillins (Verified Allergy, Intermediate, HIVES, 07/25/12) oxytetracycline (Verified Allergy, Intermediate, HIVES, 07/25/12) furosemide (Unverified Adverse Reaction, Mild, "MAKES ME SICK", 12/14/16) hydrocodone (Verified Adverse Reaction, Mild, MAKES ME SICK, 07/01/12) lisinopril (Verified Adverse Reaction, Mild, COUGH, 07/01/12) oxytetracycline HCl (Verified Adverse Reaction, Mild, HIVES, 07/01/12) tramadol (Verified Adverse Reaction, Mild, NAUSEA, "HEAVINESS", 07/01/12) Home Medications Acetaminophen 500 Mg Tablet, 1,000 MG PO TID, (Reported) Apixaban 2.5 Mg Tablet, 2.5 MG PO BID, (Reported) Aspirin 81 Mg Tablet.dr, 81 MG PO DAILY, (Reported) Furosemide 20 Mg Tablet, 20 MG PO DAILY, (Reported) Levothyroxine Sodium 50 Mcg Tablet, 50 MCG PO DAILY, (Reported) Losartan Potassium 100 Mg Tablet, 100 MG PO DAILY, (Reported) Metoprolol Succinate 50 Mg Tab.er.24h, 50 MG PO DAILY Prescribed by: CRISTINA CHAPMAN on 12/08/18 1029 Multivit-Min/FA/Lycopene/Lut 1 Each Tablet, 1 TAB PO DAILY, (Reported) Nitroglycerin 0.4 Mg Tab.subl, 0.4 MG SL UD PRN for CHEST PAIN, (Reported) [place] 3 Polyunsat Fatty Acids 1,000 Mg Cap, 1,000 MG PO DAILY, (Reported) Ondansetron 4 Mg Tab.rapdis, 4 MG PO Q6H PRN for NAUSEA/VOMITING Prescribed by: LANDON RIVAS on 12/17/18 1218 Pantoprazole Sodium 40 Mg Tablet.dr, 40 MG PO DAILY Prescribed by: CRISTINA CHAPMAN on 12/08/18 1029 Pantoprazole Sodium 40 Mg Tablet.dr, 40 MG PO DAILY Prescribed by: LANDON RIVAS on 12/17/18 1218 Potassium Chloride 20 Meq Tab.er.prt, 20 MEQ PO DAILY, (Reported) Ranitidine HCl 150 Mg Tablet, 300 MG PO HS PRN for HEARTBURN, (Reported) Sucralfate 1 Gm Tablet, 1 GM PO QIDACHS Prescribed by: LANDON RIVAS on 12/17/18 1218 Patient Home Medication List Home Medication List Reviewed: Yes Review of Systems Review of Systems Constitutional: No chills, No fever; malaise EENTM: No Blurred Vision, No Double Vision Respiratory: Denies Cough, Denies Shortness of Air Cardiovascular: Denies Chest Pain, Denies Edema Gastrointestinal: Denies Abdomen Distended; Abdominal Pain; Denies Constipated; Diarrhea, Nausea, Poor Fluid Intake, Vomiting Genitourinary: Denies Burning, Denies Discharge Musculoskeletal: No back pain, No joint pain Skin: No pruritus, No rash Psychiatric/Neurological: Denies Headache, Denies Numbness Past Bqjknva-Mppghu-Lbblph Hx Patient Social History Alcohol Use: Denies Use Recreational Drug Use: No Smoking Status: Never a Smoker 2nd Hand Smoke Exposure: No Immunizations Up To Date Date of Influenza Vaccine: Dec 28, 2017 Seasonal Allergies Seasonal Allergies: No Past Medical History Surgeries: Yes (RIGHT CAROTID ENDARTERECTOMY, BACK SURGERY) Coronary Stent, Gallbladder, Hysterectomy, Orthopedic Respiratory: Yes Pneumonia Currently Using CPAP: No Currently Using BIPAP: No Cardiac: Yes Coronary Artery Disease, Heart Attack, Hypertension Neurological: No Genitourinary: Yes (pessary ) Bladder Infection Gastrointestinal: No Gastroesophageal Reflux Musculoskeletal: Yes Arthritis, Chronic Back Pain Endocrine: No HEENT: No Cancer: No Psychosocial: No Integumentary: No Blood Disorders: No Family Medical History Diabetes mellitus 19 FATHER FH: liver cancer 19 MOTHER Myocardial infarction G8 BROTHER G8 SISTER Cancer, CAD Over 55 Years Old, Diabetes Physical Exam Vital Signs Vital Signs - First Documented 12/17/18 10:40 Temp 97.6 Pulse 81 Resp 18 B/P (MAP) 153/101 (118) Pulse Ox 99 O2 Delivery Room Air Capillary Refill : Height/Weight/BMI Height: 5'2.00" Weight: 137lbs. 4.0oz. [id number]; 24.9 BMI Method:Stated General Appearance: WD/WN, mild distress HEENT: PERRL/EOMI, normal ENT inspection, pharynx normal Neck: full range of motion, normal inspection Respiratory: lungs clear, normal breath sounds, no respiratory distress, no accessory muscle use Cardiovascular: normal peripheral pulses, regular rate, rhythm Peripheral Pulses: 2+ Radial Pulses (R), 2+ Radial Pulses (L) Gastrointestinal: normal bowel sounds, soft, tenderness (epigastric) Extremities: normal range of motion, non-tender, normal capillary refill Neurologic/Psychiatric: alert, normal mood/affect, oriented x 3 Skin: normal color, warm/dry Progress/Results/Core Measures Results/Orders Lab Results Laboratory Tests Test 12/17/18 11:15 12/17/18 11:38 Range/Units White Blood Count 8.1 4.3-11.0 10^3/uL Red Blood Count 3.80 L 4.35-5.85 10^6/uL Hemoglobin 12.0 11.5-16.0 G/DL Hematocrit 37 35-52 % Mean Corpuscular Volume 97 80-99 FL Mean Corpuscular Hemoglobin 32 25-34 PG Mean Corpuscular Hemoglobin Concent 32 32-36 G/DL Red Cell Distribution Width 12.5 10.0-14.5 % Platelet Count 277 130-400 10^3/uL Mean Platelet Volume 10.0 7.4-10.4 FL Neutrophils (%) (Auto) 50 42-75 % Lymphocytes (%) (Auto) 33 12-44 % Monocytes (%) (Auto) 14 H 0-12 % Eosinophils (%) (Auto) 2 0-10 % Basophils (%) (Auto) 1 0-10 % Neutrophils # (Auto) 4.0 1.8-7.8 X 10^3 Lymphocytes # (Auto) 2.6 1.0-4.0 X 10^3 Monocytes # (Auto) 1.8 H 0.0-1.0 X 10^3 Eosinophils # (Auto) 0.2 0.0-0.3 10^3/uL Basophils # (Auto) 0.1 0.0-0.1 10^3/uL Sodium Level 141 135-145 MMOL/L Potassium Level 3.7 3.6-5.0 MMOL/L Chloride Level 104 98-107 MMOL/L Carbon Dioxide Level 20 L 21-32 MMOL/L Anion Gap 17 H 5-14 MMOL/L Blood Urea Nitrogen 14 7-18 MG/DL Creatinine 1.06 0.60-1.30 MG/DL Estimat Glomerular Filtration Rate 50 BUN/Creatinine Ratio 13 Glucose Level 125 H 70-105 MG/DL Calcium Level 9.5 8.5-10.1 MG/DL Corrected Calcium 9.4 8.5-10.1 MG/DL Total Bilirubin 0.2 0.1-1.0 MG/DL Aspartate Amino Transf (AST/SGOT) 20 5-34 U/L Alanine Aminotransferase (ALT/SGPT) 13 0-55 U/L Alkaline Phosphatase 56 40-136 U/L Troponin I < 0.30 <0.30 NG/ML Total Protein 7.7 6.4-8.2 GM/DL Albumin 4.1 3.2-4.5 GM/DL Lipase 95 H 8-78 U/L Urine Color YELLOW Urine Clarity SL CLOUDY Urine pH 5.5 5-9 Urine Specific [place] <=1.005 1.016-1.022 Urine Protein NEGATIVE NEGATIVE Urine Glucose (UA) NEGATIVE NEGATIVE Urine Ketones NEGATIVE NEGATIVE Urine Nitrite NEGATIVE NEGATIVE Urine Bilirubin NEGATIVE NEGATIVE Urine Urobilinogen 0.2 NORMAL MG/DL Urine Leukocyte Esterase 2+ H NEGATIVE Urine RBC (Auto) NEGATIVE NEGATIVE Urine RBC NONE /HPF Urine WBC 25-50 H /HPF Urine Squamous Epithelial Cells 5-10 /HPF Urine Crystals NONE /LPF Urine Bacteria LARGE H /HPF Urine Casts NONE /LPF Urine Mucus NEGATIVE /LPF Urine Culture Indicated YES My Orders Orders - LANDON RIVAS Cbc With Automated Diff (12/17/18 10:42) Comprehensive Metabolic Panel (12/17/18 10:42) Lipase (12/17/18 10:42) Ekg Tracing (12/17/18 10:42) Continuous Ekg Monitoring (12/17/18 10:42) Ua Culture If Indicated (12/17/18 10:42) Ondansetron Oral Dissolve Tab (Zofran (12/17/18 10:49) Lidocaine 2% Viscous 15 Ml (Xylocaine Vi (12/17/18 11:00) Famotidine Tablet (Pepcid Tablet) (12/17/18 10:49) Antacid Suspension (Mylanta Suspension (12/17/18 11:00) Troponin I (12/17/18 10:49) Urine Culture (12/17/18 11:38) Ct Abdomen/Pelvis Wo (12/17/18 12:03) Ekg Tracing (12/17/18 12:09) Medications Given in ED Vital Signs/I&O 12/17/18 10:40 Temp 97.6 Pulse 81 Resp 18 B/P (MAP) 153/101 (118) Pulse Ox 99 O2 Delivery Room Air Progress Progress Note #1: Time: 11:08 Progress Note CBC, CMP, UA, lipase. We'll give her some Zofran and then trial some GI cocktail and Pepcid. She has a history of being a very difficult IV start and has refused further attempts at this time. If we can get her symptoms under control and rehydrate her orally that would be ideal. If we need to do imaging a CT without contrast would be less than desirable. Her previous hospitalization from a week ago she had a mild bump in her lipase and similar symptoms. With conservative care her lipase went back down to normal. Known to Dr. Mayer with last intervention August 10, 2018. 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 Diffuse disease in the right coronary artery treated medically and patent stents in the LAD. History of paroxysmal atrial fibrillation, sinus node dysfunction, sinus bradycardia likely secondary to Toprol but asymptomatic. History of hyperlipidemia and uses Eliquis. Suspect gastroenteritis versus gastritis versus pancreatitis. Progress Note #2: Time: 12:04 Progress Note Urine could be contamination or infection. We'll culture. Plan to get a CT of the abdomen and pelvis as she does have a mild elevation in her lipase. Unable to get an IV so we'll do it without IV contrast. She did get moderate relief from the Pepcid. She declined to take the Mylanta or lidocaine. No nausea or vomiting presently. Plan to put her on an antacid and have her follow up outpatient with Dr. Villarreal to consider endoscopy or further management. Initial ECG Impression Date: Dec 17, 2018 Initial ECG Impression Time: 11:20 Initial ECG Rate: 63 Initial ECG Rhythm: Normal Sinus Initial ECG Intervals: QT (477) Initial ECG Impression: Normal, Nonspecific Changes Comment EKG with some respiratory artifact but no clinically significant ST elevation or depression. EKG : EKG Time: 12:23 Rate: 63 Rhythm: Normal Sinus Intervals: QT (399) ECG Comparisson: Unchanged ECG Impression: Normal, Nonspecific Changes Comment No clinically significant ST elevation or depression. Diagnostic Imaging Diagonstic Imaging: CT (without IV contrast) Plain Films/CT/US/NM/MRI: abdomen, pelvis Comments NAME: KAHLIL TIDWELL [facility] REC#: [id number] PT STATUS: REG ER : 1935 PHYSICIAN: LANDON RIVAS MD ADMIT DATE: 12/17/18/ER FS Signed Date of Exam:12/17/18 CT ABDOMEN/PELVIS WO PROCEDURE: CT abdomen and pelvis without contrast. TECHNIQUE: Multiple contiguous axial images were obtained through the abdomen and pelvis without the use of intravenous contrast. Auto Exposure Controls were utilized during the CT exam to meet ALARA standards for radiation dose reduction. INDICATION: Low abdominal pain. COMPARISON: There are no prior studies available for comparison. FINDINGS: The images through the low pelvis show that there are innumerable diverticula involving the sigmoid and distal descending colon. However, there is no definite distortion of the pericolonic fat about the diverticula to suggest acute diverticulitis. There is no pelvic mass or free fluid collection noted either. The uterus is surgically absent. There is a pessary in place. The urinary bladder is grossly unremarkable. The appendix is not well-visualized. There are no indirect signs of acute appendicitis. There are a few calcifications scattered throughout the liver and several macrocalcifications within the spleen. These findings are nonspecific. The liver and spleen are otherwise unremarkable. The pancreas, adrenals, kidneys, aorta and inferior vena cava show no sign of an acute abnormality. The stomach is not well-distended and consequently difficult to assess. There is a sizable 2.9 x 5.5 cm hiatal hernia. The images through lung bases do show cardiomegaly. The central pulmonary vascularity is somewhat prominent and there may be an element of mild pulmonary congestion present as well. A small amount of atelectasis/infiltrate is also seen in the right lung base. The bone windows are unremarkable for fracture or for destructive lesion. IMPRESSION: 1. There are numerous diverticula involving the sigmoid and descending colon, but there is no sign of acute diverticulitis. 2. There is no acute abnormality of the abdomen or pelvis noted otherwise. 3. There is cardiomegaly and there may be an element of mild pulmonary congestion present. A small amount of atelectasis/infiltrate is also seen in the right lung base. Clinical followup is recommended. 4. There is a large hiatal hernia. Dictated by: Dictated on workstation # [id number] Dict: 12/17/18 1227 Trans: 12/17/18 1244 [facility] [id number] Interpreted by: PIOTR KOCH MD Electronically signed by: PIOTR KOCH MD 12/17/18 1244 Reviewed: Reviewed by Me Departure Impression Primary Impression: Gastritis Qualified Codes: K29.70 - Gastritis, unspecified, without bleeding Disposition: 01 HOME, SELF-CARE Condition: Stable Departure-Patient Inst. Decision time for Depature: 13:10 Referrals: [place] VILLARREAL PANKAJ K MD (PCP/Family) Primary Care Physician Patient Instructions: Gastritis (DC) Add. 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 meter shop superintendent the Carafate and take one tablet 30 minutes prior to meals and at bedtime for the next 2 weeks. Stick to a liquid diet until your symptoms improve. Then you can advance back towards your normal diet. Call Dr. Villarreal and request a follow-up appointment for your recurrent burning pain in your belly. Take your other medications as prescribed. If you have recurrence of your burning in your belly please try antacids such as Tums, Rolaids, Mylanta, Maalox etc. If you have nausea use the Zofran 1 tablet every 6 hours under the tongue as needed. Scripts Ondansetron (Ondansetron Odt) 4 Mg Tab.rapdis 4 MG PO Q6H PRN for NAUSEA/VOMITING, #8 TAB 0 Refills Prov: LANDON RIVAS 12/17/18 Pantoprazole Sodium (Pantoprazole Sodium) 40 Mg Tablet.dr 40 MG PO DAILY for 14 Days, #28 TAB 0 Refills Prov: LANDON RIVAS 12/17/18 Sucralfate (Carafate) 1 Gm Tablet 1 GM PO QIDACHS for 14 Days, #56 TAB 0 Refills Prov: LANDON RIVAS 12/17/18 Copy Copies To 1: IND[place] VILLARREAL DO LANDON RIVAS Dec 17, 2018 10:51
[2018-12-17] MEDS: LIDOCAINE 2% VISCOUS 15 ML UDC PO ONE ×2 (11:26→11:31)
[2018-12-17] MEDS: ANTACID SUSP 30 ML UDC (MYLANTA) PO ONE ×2 (11:26→11:30)
[2018-12-17 11:33] LABS: HEMATOCRIT 37 % (35-52); MEAN CORPUSCULAR HEMOGLOBIN 32 PG (25-34); MEAN CORPUSCULAR HGB CONC 32 G/DL (32-36); MEAN CORPUSCULAR VOLUME 97 FL (80-99); RED CELL DISTRIBUTION WIDTH 12.5 % (10.0-14.5); WHITE BLOOD COUNT 8.1 10^3/uL (4.3-11.0)
[2018-12-17 11:34] LABS: BASOPHILS # (AUTO) 0.1 10^3/uL (0.0-0.1); BASOPHILS % (AUTO) 1 % (0-10); EOSINOPHILS # (AUTO) 0.2 10^3/uL (0.0-0.3); EOSINOPHILS % (AUTO) 2 % (0-10); LYMPHOCYTES # (AUTO) 2.6 X 10^3 (1.0-4.0); LYMPHOCYTES % (AUTO) 33 % (12-44); MONOCYTES # (AUTO) 1.8 X 10^3 (0.0-1.0); MONOCYTES % (AUTO) 14 % (0-12); NEUTROPHILS % (AUTO) 50 % (42-75)
[2018-12-17 11:54] LABS: PLATELET COUNT 277 10^3/uL (130-400)
[2018-12-17 11:55] LABS: BILIRUBIN,URINE NEGATIVE (NEGATIVE); CLARITY,URINE SL CLOUDY; COLOR,URINE YELLOW; GLUCOSE, URINE (UA) NEGATIVE (NEGATIVE); KETONES,URINE NEGATIVE (NEGATIVE); NITRITE,URINE NEGATIVE (NEGATIVE); PH,URINE 5.5 (5-9); PROTEIN,URINE NEGATIVE (NEGATIVE)
[2018-12-17 11:56] LABS: BACTERIA,URINE LARGE /HPF; LEUKOCYTE ESTERASE ,URINE 2+ (NEGATIVE); UROBILINOGEN,URINE 0.2 MG/DL (NORMAL); WBC,URINE 25-50 /HPF
[2018-12-17 11:58] LABS: ALANINE AMINOTRANSFERASE 13 U/L (0-55); ALKALINE PHOSPHATASE 56 U/L (40-136); BILIRUBIN,TOTAL 0.2 MG/DL (0.1-1.0); BUN/CREATININE RATIO 13; CALCIUM 9.5 MG/DL (8.5-10.1); CARBON DIOXIDE 20 MMOL/L (21-32); CHLORIDE 104 MMOL/L (98-107); CREATININE SERUM 1.06 MG/DL (0.60-1.30); GFR ESTIMATED 50; GLUCOSE 125 MG/DL (70-105); POTASSIUM 3.7 MMOL/L (3.6-5.0); SODIUM 141 MMOL/L (135-145)
[2018-12-17 11:59] LABS: ALBUMIN 4.1 GM/DL (3.2-4.5); LIPASE 95 U/L (8-78); TOTAL PROTEIN 7.7 GM/DL (6.4-8.2)
[2018-12-17] MEDS ORDERED: SUCR1TAB36 PO (12:18)
[2018-12-17] MEDS ORDERED: PANT40TA3 PO (12:18)
[2018-12-17] MEDS ORDERED: ONDA4TAB11 PO (12:18)
--- NOTE | 2018-12-17 12:41 | Diagnostic Imaging Report ---
PROCEDURE: CT abdomen and pelvis without contrast. TECHNIQUE: Multiple contiguous axial images were obtained through the abdomen and pelvis without the use of intravenous contrast. Auto Exposure Controls were utilized during the CT exam to meet ALARA standards for radiation dose reduction. INDICATION: Low abdominal pain. COMPARISON: There are no prior studies available for comparison. FINDINGS: The images through the low pelvis show that there are innumerable diverticula involving the sigmoid and distal descending colon. However, there is no definite distortion of the pericolonic fat about the diverticula to suggest acute diverticulitis. There is no pelvic mass or free fluid collection noted either. The uterus is surgically absent. There is a pessary in place. The urinary bladder is grossly unremarkable. The appendix is not well-visualized. There are no indirect signs of acute appendicitis. There are a few calcifications scattered throughout the liver and several macrocalcifications within the spleen. These findings are nonspecific. The liver and spleen are otherwise unremarkable. The pancreas, adrenals, kidneys, aorta and inferior vena cava show no sign of an acute abnormality. The stomach is not well-distended and consequently difficult to assess. There is a sizable 2.9 x 5.5 cm hiatal hernia. The images through lung bases do show cardiomegaly. The central pulmonary vascularity is somewhat prominent and there may be an element of mild pulmonary congestion present as well. A small amount of atelectasis/infiltrate is also seen in the right lung base. The bone windows are unremarkable for fracture or for destructive lesion. IMPRESSION: 1. There are numerous diverticula involving the sigmoid and descending colon, but there is no sign of acute diverticulitis. 2. There is no acute abnormality of the abdomen or pelvis noted otherwise. 3. There is cardiomegaly and there may be an element of mild pulmonary congestion present. A small amount of atelectasis/infiltrate is also seen in the right lung base. Clinical followup is recommended. 4. There is a large hiatal hernia. Dictated by: Dictated on workstation # [id number]
[2018-12-17 13:50] VITALS: BP 128/85
[2018-12-18] MEDS ORDERED: NITR-65 PO (16:08)
== END 2018-12-17 13:50 | disposition home or self-care (01) ==
LOC: EDUNIT# 10:22 → ER FS 10:24
DX: K29.70 Gastritis, unspecified, without bleeding (principal); I10 Essential (primary) hypertension; I25.2 Old myocardial infarction; I25.10 Atherosclerotic heart disease of native coronary artery without angina pectoris; K21.9 Gastro-esophageal reflux disease without esophagitis; I48.0 Paroxysmal atrial fibrillation; E78.5 Hyperlipidemia, unspecified; Z80.0 Family history of malignant neoplasm of digestive organs; Z90.710 Acquired absence of both cervix and uterus; Z88.0 Allergy status to penicillin; Z88.1 Allergy status to other antibiotic agents; Z88.5 Allergy status to narcotic agent; Z88.8 Allergy status to other drugs, medicaments and biological substances; Z79.82 Long term (current) use of aspirin; Z95.5 Presence of coronary angioplasty implant and graft; Z87.01 Personal history of pneumonia (recurrent); Z82.49 Family history of ischemic heart disease and other diseases of the circulatory system; Z79.01 Long term (current) use of anticoagulants
CPT/HCPCS: 36415; 74176; 80053; 81000; 83690; 84484; 85025; 87077; 87088; 87186; 93005

== ENCOUNTER 2018-12-28 10:10 | Emergency (ER) | payer MEDICARE ==
[~2018-12-28] VITALS: Ht 157.5 cm; Wt 61.7 kg
[~2018-12-28 10:10] MED LIST changes: +NITR-65 PO; +ONDA4TAB11 PO; +SUCR1TAB36 PO
[2018-12-28 10:56] LABS: BILIRUBIN,URINE NEGATIVE (NEGATIVE); CLARITY,URINE CLEAR; COLOR,URINE YELLOW; GLUCOSE, URINE (UA) NEGATIVE (NEGATIVE); KETONES,URINE NEGATIVE (NEGATIVE); LEUKOCYTE ESTERASE ,URINE 3+ (NEGATIVE); NITRITE,URINE NEGATIVE (NEGATIVE); PH,URINE 5 (5-9); PROTEIN,URINE NEGATIVE (NEGATIVE); UROBILINOGEN,URINE NORMAL (NORMAL)
[2018-12-28] MEDS ORDERED: ONDANSETRON 4 MG/2 ML (SDV) Z0FRAN IVP ONE (11:00)
[2018-12-28] MEDS ORDERED: LIDOCAINE 2% VISCOUS 15 ML UDC PO ONE (11:00)
[2018-12-28] MEDS ORDERED: ANTACID SUSP 30 ML UDC (MYLANTA) PO ONE (11:00)
--- NOTE | 2018-12-28 11:02 | ED GI ---
General Chief Complaint: Abdominal/GI Problems Stated Complaint: N/V Nursing Triage Note: TO ROOM 06 WITH CONTINUED ABD PAIN N/V. HAS BEEN A INPATIENT HERE AND RECENTLY SEEN IN [facility]. STATES SHE WAS CALLED YESTERDAY DUE TO NEEDING A NEW ABX FOR A KIDNEY INFECTION BUT HAS NOT STARTED IT. Sepsis Screen: No Definite Risk Source of Information: Patient Exam Limitations: No Limitations History of Present Illness Date Seen by Provider: Dec 28, 2018 Time Seen by Provider: 11:01 Initial Comments To have continued nausea and vomiting and epigastric pain for the past month. Scheduled to see Dr. Gomez in 5 days. Timing/Duration: Other Severity/Quality: Moderate Location: Epigastric Radiation: No Radiation Activities at Onset: None Associated Symptoms: Nausea/Vomiting Allergies and Home Medications Allergies Coded Allergies: Penicillins (Verified Allergy, Intermediate, HIVES, 07/25/12) oxytetracycline (Verified Allergy, Intermediate, HIVES, 07/25/12) furosemide (Unverified Adverse Reaction, Mild, "MAKES ME SICK", 12/14/16) hydrocodone (Verified Adverse Reaction, Mild, MAKES ME SICK, 07/01/12) lisinopril (Verified Adverse Reaction, Mild, COUGH, 07/01/12) oxytetracycline HCl (Verified Adverse Reaction, Mild, HIVES, 07/01/12) tramadol (Verified Adverse Reaction, Mild, NAUSEA, "HEAVINESS", 07/01/12) Home Medications Acetaminophen 500 Mg Tablet, 1,000 MG PO TID, (Reported) Apixaban 2.5 Mg Tablet, 2.5 MG PO BID, (Reported) Aspirin 81 Mg Tablet.dr, 81 MG PO DAILY, (Reported) Furosemide 20 Mg Tablet, 20 MG PO DAILY, (Reported) Levothyroxine Sodium 50 Mcg Tablet, 50 MCG PO DAILY, (Reported) Losartan Potassium 100 Mg Tablet, 100 MG PO DAILY, (Reported) Metoprolol Succinate 50 Mg Tab.er.24h, 50 MG PO DAILY Prescribed by: CRISTINA CHAPMAN on 12/08/18 1029 Multivit-Min/FA/Lycopene/Lut 1 Each Tablet, 1 TAB PO DAILY, (Reported) Nitrofurantoin Monohyd/M-Cryst 100 Mg Capsule, 100 MG PO BID, (Reported) Nitroglycerin 0.4 Mg Tab.subl, 0.4 MG SL UD PRN for CHEST PAIN, (Reported) [place] 3 Polyunsat Fatty Acids 1,000 Mg Cap, 1,000 MG PO DAILY, (Reported) Ondansetron 4 Mg Tab.rapdis, 4 MG PO Q6H PRN for NAUSEA/VOMITING Prescribed by: LANDON RIVAS on 12/17/18 1218 Pantoprazole Sodium 40 Mg Tablet.dr, 40 MG PO DAILY Prescribed by: CRISTINA CHAPMAN on 12/08/18 1029 Pantoprazole Sodium 40 Mg Tablet.dr, 40 MG PO DAILY Prescribed by: LANDON RIVAS on 12/17/18 1218 Potassium Chloride 20 Meq Tab.er.prt, 20 MEQ PO DAILY, (Reported) Ranitidine HCl 150 Mg Tablet, 300 MG PO HS PRN for HEARTBURN, (Reported) Sucralfate 1 Gm Tablet, 1 GM PO QIDACHS Prescribed by: LANDON RIVAS on 12/17/18 1218 Patient Home Medication List Home Medication List Reviewed: Yes Review of Systems Review of Systems Constitutional: see HPI EENTM: No Symptoms Reported Respiratory: No Symptoms Reported Cardiovascular: No Symptoms Reported Gastrointestinal: See HPI, Abdominal Pain Genitourinary: No Symptoms Reported Musculoskeletal: no symptoms reported Skin: no symptoms reported Psychiatric/Neurological: No Symptoms Reported Endocrine: No Symptoms Reported Hematologic/Lymphatic: No Symptoms Reported Past Yqyyedi-Rofaur-Ylzkbe Hx Patient Social History Alcohol Use: Denies Use Recreational Drug Use: No Smoking Status: Never a Smoker 2nd Hand Smoke Exposure: No Recent Foreign Travel: No Contact w/Someone Who Travel: No Recent Infectious Disease Expo: No Recent Hopitalizations: Yes (Via [facility]) Immunizations Up To Date Date of Influenza Vaccine: Dec 28, 2017 Seasonal Allergies Seasonal Allergies: No Past Medical History Surgeries: Yes (RIGHT CAROTID ENDARTERECTOMY, BACK SURGERY) Coronary Stent, Gallbladder, Hysterectomy, Orthopedic Respiratory: Yes Pneumonia Currently Using CPAP: No Currently Using BIPAP: No Cardiac: Yes Coronary Artery Disease, Heart Attack, Hypertension Neurological: No Genitourinary: Yes (pessary ) Bladder Infection Gastrointestinal: No Gastroesophageal Reflux Musculoskeletal: Yes Arthritis, Chronic Back Pain Endocrine: No HEENT: No Cancer: No Psychosocial: No Integumentary: No Blood Disorders: No Family Medical History Diabetes mellitus 19 FATHER FH: liver cancer 19 MOTHER Myocardial infarction G8 BROTHER G8 SISTER Cancer, CAD Over 55 Years Old, Diabetes Physical Exam Vital Signs Vital Signs - First Documented 12/28/18 10:14 Temp 97.0 Pulse 61 Resp 16 B/P (MAP) 187/78 (114) Pulse Ox 97 O2 Delivery Room Air Capillary Refill : Less Than 3 Seconds Height/Weight/BMI Height: 5'2.00" Weight: 136lbs. 4.0oz. 61.867862dn; 24.9 BMI Method:Stated General Appearance: WD/WN, no apparent distress Respiratory: no respiratory distress, no accessory muscle use Cardiovascular: regular rate, rhythm, no murmur Gastrointestinal: normal bowel sounds, soft, tenderness Extremities: normal range of motion, non-tender Neurologic/Psychiatric: alert, normal mood/affect, oriented x 3 Skin: normal color, warm/dry Progress/Results/Core Measures Results/Orders Lab Results Laboratory Tests Test 12/28/18 10:33 12/28/18 11:33 Range/Units Urine Color YELLOW Urine Clarity CLEAR Urine pH 5 5-9 Urine Specific [place] 1.015 L 1.016-1.022 Urine Protein NEGATIVE NEGATIVE Urine Glucose (UA) NEGATIVE NEGATIVE Urine Ketones NEGATIVE NEGATIVE Urine Nitrite NEGATIVE NEGATIVE Urine Bilirubin NEGATIVE NEGATIVE Urine Urobilinogen NORMAL NORMAL MG/DL Urine Leukocyte Esterase 3+ H NEGATIVE Urine RBC (Auto) NEGATIVE NEGATIVE Urine RBC RARE /HPF Urine WBC 5-10 H /HPF Urine Squamous Epithelial Cells 5-10 /HPF Urine Crystals NONE /LPF Urine Bacteria TRACE /HPF Urine Casts NONE /LPF Urine Mucus SMALL H /LPF Urine Culture Indicated YES White Blood Count 11.7 H 4.3-11.0 10^3/uL Red Blood Count 4.19 L 4.35-5.85 10^6/uL Hemoglobin 13.1 11.5-16.0 G/DL Hematocrit 41 35-52 % Mean Corpuscular Volume 97 80-99 FL Mean Corpuscular Hemoglobin 31 25-34 PG Mean Corpuscular Hemoglobin Concent 32 32-36 G/DL Red Cell Distribution Width 12.5 10.0-14.5 % Platelet Count 308 130-400 10^3/uL Mean Platelet Volume 10.1 7.4-10.4 FL Neutrophils (%) (Auto) 58 42-75 % Lymphocytes (%) (Auto) 28 12-44 % Monocytes (%) (Auto) 12 0-12 % Eosinophils (%) (Auto) 2 0-10 % Basophils (%) (Auto) 1 0-10 % Neutrophils # (Auto) 6.7 1.8-7.8 X 10^3 Lymphocytes # (Auto) 3.3 1.0-4.0 X 10^3 Monocytes # (Auto) 1.4 H 0.0-1.0 X 10^3 Eosinophils # (Auto) 0.2 0.0-0.3 10^3/uL Basophils # (Auto) 0.1 0.0-0.1 10^3/uL Sodium Level 142 135-145 MMOL/L Potassium Level 3.9 3.6-5.0 MMOL/L Chloride Level 105 98-107 MMOL/L Carbon Dioxide Level 27 21-32 MMOL/L Anion Gap 10 5-14 MMOL/L Blood Urea Nitrogen 16 7-18 MG/DL Creatinine 1.13 0.60-1.30 MG/DL Estimat Glomerular Filtration Rate 46 BUN/Creatinine Ratio 14 Glucose Level 86 70-105 MG/DL Calcium Level 9.7 8.5-10.1 MG/DL Corrected Calcium 9.4 8.5-10.1 MG/DL Total Bilirubin 0.4 0.1-1.0 MG/DL Aspartate Amino Transf (AST/SGOT) 21 5-34 U/L Alanine Aminotransferase (ALT/SGPT) 18 0-55 U/L Alkaline Phosphatase 58 40-136 U/L Total Protein 7.8 6.4-8.2 GM/DL Albumin 4.4 3.2-4.5 GM/DL Lipase 106 H 8-78 U/L My Orders Orders - LATOYA ALVARADO TEXTILE EXAMINER Cbc With Automated Diff (12/28/18 10:50) Comprehensive Metabolic Panel (12/28/18 10:50) Ua Culture If Indicated (12/28/18 10:50) Ed Iv/Invasive Line Start (12/28/18 10:50) Lipase (12/28/18 10:59) Ondansetron Injection (Zofran Injectio (12/28/18 11:00) Antacid Suspension (Mylanta Suspension (12/28/18 11:00) Lidocaine 2% Viscous 15 Ml (Xylocaine Vi (12/28/18 11:00) Urine Culture (12/28/18 10:33) Ondansetron Oral Dissolve Tab (Zofran (12/28/18 11:30) Ct Abdomen/Pelvis Wo (12/28/18 12:09) Medications Given in ED Current Medications Medications Dose Ordered Sig/Aury Route Start Time Stop Time Status Last Admin Dose Admin Al Hydrox/Mg Hydrox/Simethicone 30 ml ONCE ONCE PO 12/28/18 11:00 12/28/18 11:01 DC 12/28/18 11:24 30 ML Lidocaine HCl 15 ml ONCE ONCE PO 12/28/18 11:00 12/28/18 11:01 DC 12/28/18 11:24 15 ML Ondansetron HCl 8 mg ONCE ONCE PO 12/28/18 11:30 12/28/18 11:31 DC 12/28/18 11:25 8 MG Vital Signs/I&O 12/28/18 10:14 Temp 97.0 Pulse 61 Resp 16 B/P (MAP) 187/78 (114) Pulse Ox 97 O2 Delivery Room Air Blood Pressure Mean: 114 Departure Communication (Admissions) She did have improvement in pain after a GI cocktail, still persists but is much better. Impression Primary Impression: Abdominal pain Qualified Codes: R10.13 - Epigastric pain Additional Impression: Nausea alone Disposition: HOME, SELF-CARE Condition: Stable Departure-Patient Inst. Decision time for Depature: 13:47 Referrals: MARLYN DERAS MD (PCP/Family) Primary Care Physician Patient Instructions: Acute Abdomen (Belly Pain), Adult (DC) Add. Discharge Instructions: 1. Follow-up with Dr. gomez as scheduled 2. Return to ER for any concerns All discharge instructions reviewed with patient and/or family. Voiced understanding. Scripts Sucralfate (Carafate) 1 Gm Tablet 1 GM PO QID, #40 TAB Prov: LATOYA ALVARADO TEXTILE EXAMINER 12/28/18 Pantoprazole Sodium (Protonix) 40 Mg Tablet. 40 MG PO DAILY, #20 TAB Prov: LATOYA ALVARADO TEXTILE EXAMINER 12/28/18 Copy Copies To 1: WALTER GIL MD [employer] LATOYA ALVARADO TEXTILE EXAMINER Dec 28, 2018 11:02
[2018-12-28 11:05] LABS: RBC,URINE RARE /HPF
[2018-12-28 11:06] LABS: BACTERIA,URINE TRACE /HPF
[2018-12-28] MEDS ORDERED: ONDANSETRON 4 MG (ZOFRAN) ORAL DISSOLVE TAB PO ONE (11:30)
[2018-12-28 11:44] LABS: BASOPHILS # (AUTO) 0.1 10^3/uL (0.0-0.1); BASOPHILS % (AUTO) 1 % (0-10); EOSINOPHILS # (AUTO) 0.2 10^3/uL (0.0-0.3); EOSINOPHILS % (AUTO) 2 % (0-10); HEMATOCRIT 41 % (35-52); HEMOGLOBIN 13.1 G/DL (11.5-16.0); LYMPHOCYTES # (AUTO) 3.3 X 10^3 (1.0-4.0); LYMPHOCYTES % (AUTO) 28 % (12-44); MEAN CORPUSCULAR HEMOGLOBIN 31 PG (25-34); MEAN CORPUSCULAR HGB CONC 32 G/DL (32-36); MEAN CORPUSCULAR VOLUME 97 FL (80-99); MEAN PLATELET VOLUME 10.1 FL (7.4-10.4); MONOCYTES # (AUTO) 1.4 X 10^3 (0.0-1.0); MONOCYTES % (AUTO) 12 % (0-12); NEUTROPHILS # (AUTO) 6.7 X 10^3 (1.8-7.8); NEUTROPHILS % (AUTO) 58 % (42-75); PLATELET COUNT 308 10^3/uL (130-400); RED CELL DISTRIBUTION WIDTH 12.5 % (10.0-14.5); WHITE BLOOD COUNT 11.7 10^3/uL (4.3-11.0)
[2018-12-28 12:05] LABS: ALBUMIN 4.4 GM/DL (3.2-4.5); BILIRUBIN,TOTAL 0.4 MG/DL (0.1-1.0); CALCIUM 9.7 MG/DL (8.5-10.1); CREATININE SERUM 1.13 MG/DL (0.60-1.30); POTASSIUM 3.9 MMOL/L (3.6-5.0); TOTAL PROTEIN 7.8 GM/DL (6.4-8.2)
--- NOTE | 2018-12-28 13:44 | Diagnostic Imaging Report ---
PROCEDURE: CT abdomen and pelvis without contrast. TECHNIQUE: Multiple contiguous axial images were obtained through the abdomen and pelvis without the use of intravenous contrast. Auto Exposure Controls were utilized during the CT exam to meet ALARA standards for radiation dose reduction. INDICATION: Abdominal pain. History of bladder sling, cholecystectomy, appendectomy, and partial hysterectomy. COMPARISON: 12/17/2018. FINDINGS: There is atelectasis/scarring in the lung bases. There is a large hiatal hernia. The heart is large. No pericardial effusion is seen. The liver demonstrates no focal lesions. There are calcified granulomas. There are calcified granulomas in the spleen as well, from old granulomatous disease. The pancreas is normal. The adrenal glands appear normal. The kidneys demonstrate no hydronephrosis. There is a punctate nonobstructing calculus in the right kidney. The bowel loops are nondistended without obstruction. There is diverticulosis of the transverse, descending, and sigmoid colon without diverticulitis seen. A pessary is noted. There is mild calcific atherosclerosis. No free fluid or free air is seen. No acute osseous abnormality is seen. Injection granulomas are seen posteriorly. IMPRESSION: 1. No evidence of bowel obstruction or other acute abdominal abnormality seen. 2. Large hiatal hernia. 3. Extensive colonic diverticulosis without diverticulitis. 4. Chronic opacities in lung bases, thought to represent atelectasis/scarring. There is mild cardiomegaly. Dictated by: Dictated on workstation # [id number]
[2018-12-28] MEDS ORDERED: PANT40TA2 PO (13:48)
[2018-12-28] MEDS ORDERED: SUCR1TAB36 PO (13:48)
[2018-12-28 13:51] VITALS: BP 196/92
== END 2018-12-28 13:51 | disposition home or self-care (01) ==
LOC: EDUNIT# 10:10 → ER 10:10
DX: R10.13 Epigastric pain (principal); R11.0 Nausea; I10 Essential (primary) hypertension; I25.2 Old myocardial infarction; I25.10 Atherosclerotic heart disease of native coronary artery without angina pectoris; K21.9 Gastro-esophageal reflux disease without esophagitis; Z80.0 Family history of malignant neoplasm of digestive organs; Z87.01 Personal history of pneumonia (recurrent); Z88.0 Allergy status to penicillin; Z88.1 Allergy status to other antibiotic agents; Z88.5 Allergy status to narcotic agent; Z88.8 Allergy status to other drugs, medicaments and biological substances; Z79.82 Long term (current) use of aspirin; Z95.5 Presence of coronary angioplasty implant and graft; Z90.710 Acquired absence of both cervix and uterus; Z82.49 Family history of ischemic heart disease and other diseases of the circulatory system
CPT/HCPCS: 36415; 74176; 80053; 81000; 83690; 85025; 87088

== ENCOUNTER 2019-01-03 13:08 | Day surgery (SDC) | payer MEDICARE ==
[~2019-01-03] VITALS: Ht 157.5 cm; Wt 61.8 kg
[2019-01-03] VITALS (7 sets, daily range): BP systolic 122–180; BP diastolic 63–85
[~2019-01-03 13:08] MED LIST changes: +LACTATED RINGERS 1,000 ML IV ONE; +PANT40TA2 PO
[2019-01-03] MEDS ORDERED: proPOfol 200 MG/20 ML (DIPRIVAN) VIAL IV ONE (13:49)
[2019-01-03] MEDS ORDERED: LACTATED RINGERS 1,000 ML IV STA (14:05)
[2019-01-03] MEDS ORDERED: HURRICAINE EXT TUBE (BENZOCAINE) XX PRN (14:15)
--- NOTE | 2019-01-03 14:24 | Progress Note-Post Operative ---
Post-Operative Progess Note Surgeon (s)/Regional Planner (s) Surgeon OMAYRA BRANDON DO Regional Planner: none Pre-Operative Diagnosis Epigastric Burning pain, vomiting, weight loss Post-Operative Diagnosis Gastritis Hiatal Hernia Procedure & Operative Findings Date of Procedure 01/03/19 Procedure Performed/Findings EGD with bx Anesthesia Type IV sedation by ORTHO TECH Estimated Blood Loss Estimated blood loss (mL): scant Specimens/Packing Specimens Removed Antral bx body of stomach bx GE jxn bx LES bx OMAYRA BRANDON DO Jan 03, 2019 14:24
--- NOTE | 2019-01-03 14:27 | Endoscopy Discharge Instruct ---
Endo Procedure/Findings Findings 1.: Gastritis 2.: Hiatal Hernia Discharge Instructions - Activity: You might feel a little sleepy until tomorrow. This is due to the medicine you received to relax you. Until tomorrow, you should: NOT drive a car, operate machinery or power tools. NOT drink any alcoholic beverages. NOT make any important decisions or sign importortant papers. Do not return to work until tomorrow, unless otherwise instructed. Resume previous activities tomorrow. Diet: Start by taking liquids. If you tolerate liquids, advance to solid food. make an appointment for one week. Notify Physician - If you experience excessive bleeding, unusual abdominal pain, fever, or chest pain, contact your doctor immediately. OMARYA BRANDON DO Jan 03, 2019 14:27
[2019-01-03] MEDS ORDERED: SUCR1TAB36 PO (14:41)
--- NOTE | 2019-01-03 22:46 | OPERATIVE REPORT ---
DATE OF SERVICE: PREOPERATIVE DIAGNOSES: 1. Burning epigastric pain. 2. Vomiting with nausea. 3. Weight loss. POSTOPERATIVE DIAGNOSES: 1. Gastritis. 2. Large hiatal hernia. PROCEDURE: EGD with biopsy. SURGEON: Gabino Caballero D.O. MENTAL HEALTH AIDES TEACHER: None. ANESTHESIA: IV sedation by [employer]. SPECIMEN: Biopsy from the antrum, biopsy from the body of stomach, one biopsy from the GE junction, one biopsy from the lower esophageal sphincter. BLOOD LOSS: Scant. FLUIDS: Per anesthesia. POSTOPERATIVE CONDITION: Stable. INDICATION FOR PROCEDURE: The patient is an 83-year-old female who has been having severe epigastric burning pain so much so that she has had nausea, vomiting and has been unable to eat and has lost weight. She had a CAT scan performed and was told that she had a large hiatal hernia, possibly even cancer. FINDINGS: The patient had gastritis and large hiatal hernia, pictures taken, biopsy was done. PROCEDURE NOTE: After informed consent was obtained, the patient was brought to the endoscopy suite, placed in the left lateral decubitus position. She was administered IV sedation by the [employer] who then monitored her vitals the entire time, heart rate, blood pressure and pulse ox and the scope was inserted down the mouth through the esophagus into the stomach. Upon entering the stomach, pushed towards the antrum, appeared some gastritis, redness, took a picture, pushed into the duodenum, duodenum looked fine, pulled back into the antrum, did a biopsy and then pulled back into the body of stomach, did another biopsy and then retroflexed the scope and saw a large hiatal hernia, took a picture of this and then able to actually pulled into the hiatal hernia, took another picture then pulled back, did a biopsy of the GE junction, which is actually below the lower esophageal sphincter, in the hiatal hernia, took a biopsy here and then did a biopsy of the lower esophageal sphincter. All these were sent in separate specimen containers. At this point, then suctioned out all the air out of the stomach and pulled the scope up the esophagus, took picture of the esophagus, was normal and then removed the scope. The patient tolerated the procedure, recovered in endoscopy suite. Job ID: [id number] DocumentID: [id number] Dictated Date: 01/03/2019 14:16:45 Knife Setter Assembler Date: 01/03/2019 22:44:37 Dictated By: GABINO CABALLERO DO
== END 2019-01-03 15:15 | disposition home or self-care (01) ==
LOC: ENDO 13:08
PROVIDERS: ATTEND Surgery
DX: K29.50 Unspecified chronic gastritis without bleeding (principal); K21.0 Gastro-esophageal reflux disease with esophagitis; K44.9 Diaphragmatic hernia without obstruction or gangrene; R63.4 Abnormal weight loss; I25.10 Atherosclerotic heart disease of native coronary artery without angina pectoris; I20.8 Other forms of angina pectoris; Z95.1 Presence of aortocoronary bypass graft; Z88.6 Allergy status to analgesic agent; Z88.1 Allergy status to other antibiotic agents; Z88.5 Allergy status to narcotic agent; Z88.8 Allergy status to other drugs, medicaments and biological substances; Z79.82 Long term (current) use of aspirin; Z79.899 Other long term (current) drug therapy
CPT/HCPCS: 88305

== ENCOUNTER 2019-02-15 11:45 | Outpatient (RCR) | payer MEDICARE ==
[~2019-02-15 11:45] MED LIST changes: -LACTATED RINGERS 1,000 ML IV ONE; -METO-370 PO; -METO-395 PO; +METO50TA7 PO; +MTP100TCR PO
[2019-03-07] MEDS ORDERED: RANI150T11 PO (16:09)
[2019-03-07] MEDS ORDERED: AMLO5TAB9 PO (16:09)
[2019-03-07] MEDS ORDERED: FAMO20TA3 PO (16:09)
[2019-03-07] MEDS ORDERED: ACET-2267 PO (16:09)
[2019-03-07] MEDS ORDERED: MTP100TCR PO (16:09)
[2019-03-09] MEDS ORDERED: PANT40TA3 PO (15:21)
== END 2019-05-16 | disposition home or self-care (01) ==
LOC: LAB 11:45
PROVIDERS: ATTEND Surgery
DX: Z09 Encounter for follow-up examination after completed treatment for conditions other than malignant neoplasm (principal); B96.81 Helicobacter pylori [H. pylori] as the cause of diseases classified elsewhere
CPT/HCPCS: 87338

== ENCOUNTER 2019-07-16 11:27 | Emergency (ER) | payer MEDICARE ==
[~2019-07-16 11:27] MED LIST changes: +AMLO5TAB9 PO; +FAMO20TA3 PO; +RANI150T11 PO
--- OUTSIDE RECORDS SUMMARY | 2019-07-16 11:36 | XMS REPORT | Continuity of Care Document ---
Author Organization Unknown Address Unknown Phone Unavailable Allergies Active Description Code Type Severity Reaction Onset Reported/Identified Relationship to Patient Clinical Status Yes hydrocodone [id number] Drug Aller gy Mild MAKES ME SICK 07/01/2012 Yes LASIX LASIX Mild MAKES ME SICK 07/01/2012 Yes lisinopril [id number] Drug Allerg y Mild COUGH 07/01/2012 Yes oxytetracycline HCl [id number] Drug Allergy Mild HIVES 07/01/2012 Yes tramadol [id number] Drug Allergy Mild NAUSEA, "HEAVIN 07/01/2012 Yes oxytetracycline [id number] D rug Allergy Moderate HIVES 07/25/2012 Yes Penicillins [id number] Drug Aller gy Moderate HIVES 07/25/2012 Yes furosemide [id number] Drug Allerg y Mild "MAKES ME SICK" 12/14/2016 Medications There is no data. 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 07/26/2012 Ot 599.0 URIN TRACT INFECTION NOS 07/26/2012 Ot 715.90 OST EOARTHROS NOS- UNSPEC 07/26/2012 Ot V45.82 PER CUTANEOUS TRANSLUM CORON ANGIOPLASTY 07/26/2012 Ot V58.63 NELSY G- TERM(CURRENT)USE OF ANTIPLATELET/AN 07/26/2012 Ot V58.66 NELSY G-TERM (CURRENT) USE OF ASPIRIN 07/26/2012 Ot V58.69 OTH MED,LT,CURRENT USE 07/24/2013 JEFFERY CRAIG FACC, WALTER FACP CCDS Ot 272.4 HYPERLIPIDEMIA NEC/NOS 07/24/2013 JEFFERY CRAIG FACC, ALI FACP CCDS Ot 401.9 HYPERTENSION NOS 07/24/2013 JEFFERY CRAIG FACC, ALI FACP CCDS Ot 414.01 CORONARY ATHEROSCLEROSIS OF [place] CORON 07/24/2013 JEFFERY CRAIG FACC, ALI FACP [...] FACP CCDS Ot 414.01 CORONARY ATHEROSCLEROSIS OF [place] CORON 09/11/2014 JEFFERY CRAIG FACC, ALI FACP CCDS Ot 414.4 CORONARY ATHEROSCLEROSIS DUE TO [place]CIF[place] 09/11/2014 JEFFERY CRAIG FACC, ALI FACP CCDS Ot V45.82 PERCUTANEOUS TRANSLUM CORON ANGIOPLASTY 09/11/2014 JEFFERY CRAIG FACC, ALI FACP CCDS Ot V58.69 OTH MED,LT,CURRENT USE 09/21/2014 BAIMA, VERÓNICA L INSIDE SALES ENGINEER Ot 272.4 09/21/2014 BAIMA, VERÓNICA L INSIDE SALES ENGINEER Ot 401.9 09/21/2014 BAIMA, VERÓNICA L INSIDE SALES ENGINEER Ot 414.00 09/21/2014 BAIMA, VERÓNICA L INSIDE SALES ENGINEER Ot 786.50 09/22/2014 BAIMA, VERÓNICA L INSIDE SALES ENGINEER Ot 272.4 09/22/2014 BAIMA, VERÓNICA L INSIDE SALES ENGINEER Ot 401.9 09/22/2014 VERÓNICA DAY INSIDE SALES ENGINEER Ot 414.00 09/22/2014 VERÓNICA DAY INSIDE SALES ENGINEER Ot 786.50 07/17/2015 HAYLEY SERVIN MD Ot E87.2 ACIDOSIS 07/17/2015 HAYLEY SERVIN MD Ot E87.6 HYPOKALEMIA 07/17/2015 HAYLEY SERVIN MD Ot I10 ESSENTIAL (PRIMARY) HYPERTENSION 07/17/2015 HAYLEY SERVIN MD Ot I21.4 NON-ST ELEVATION (NSTEMI) MYOCARDIAL INF 07/17/2015 HAYLEY SEVRIN MD Ot 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 07/17/2015 HAYLEY SERVIN MD Ot I25.10 ATHSCL HEART DISEASE OF [place] CORONARY 07/17/2015 HAYLEY SERVIN MD Ot I48.0 [...] MD Ot I25.10 ATHSCL HEART DISEASE OF [place] CORONARY 07/22/2015 LUISA LOBO MD Ot I50.21 ACUTE SYSTOLIC (CONGESTIVE) HEART FAILUR 07/22/2015 LUISA LOBO MD Ot 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, 08/21/2015 Ot 276.8 HYPO POTASSEMIA 08/21/2015 BAIMA, VERÓNICA L INSIDE SALES ENGINEER Ot 786.09 RESPIRATORY ABNORM NEC 08/21/2015 BAIMA, VERÓNICA L INSIDE SALES ENGINEER Ot 272.4 HYPERLIPIDEMIA NEC/NOS 08/21/2015 BAIMA, VERÓNICA L INSIDE SALES ENGINEER Ot 401.9 HYPERTENSION NOS 08/21/2015 BAIMA, VERÓNICA L INSIDE SALES ENGINEER Ot 414.00 CORON ATHEROSCLER NOS TYPE VESSEL, NATIV 08/21/2015 BAIMA, VERÓNICA L INSIDE SALES ENGINEER Ot 786.50 CHEST PAIN NOS 08/22/2015 JEFFERY CRAIG FACC, ALI FACP CCDS Ot E78.4 OTHER HYPERLIPIDEMIA 08/22/2015 JEFFERY CRAIG FACC, ALI FACP CCDS Ot I10 ESSENTIAL (PRIMARY) HYPERTENSION 08/22/2015 JEFFERY CRAIG FACC, ALI FACP CCDS Ot I25.10 ATHSCL HEART DISEASE OF [place] CORONARY 08/22/2015 JEFFERY CRAIG FACC, ALI FACP CCDS Ot I25.5 ISCHEMIC CARDIOMYOPATHY 09/11/2015 JEFFERY CRAIG FACC, ALI FACP CCDS Ot E78.4 OTHER HYPERLIPIDEMIA 09/11/2015 JEFFERY CRAIG FACC, ALI FACP CCDS Ot I10 ESSENTIAL (PRIMARY) HYPERTENSION 09/11/2015 JEFFERY CRAIG FACC, ALI FACP CCDS Ot I25.10 ATHSCL HEART DISEASE OF [place] CORONARY 09/11/2015 JEFFERY CRAIG FACC, ALI FACP CCDS Ot I25.5 ISCHEMIC CARDIOMYOPATHY 09/19/2015 JEFFERY CRAIG FACC, ALI FACP CCDS Ot E78.4 OTHER HYPERLIPIDEMIA 09/19/2015 JEFFERY CRAIG FACC, ALI FACP CCDS Ot I10 ESSENTIAL (PRIMARY) HYPERTENSION 09/19/2015 JEFFERY CRAIG FACC, ALI FACP CCDS Ot I25.10 ATHSCL HEART DISEASE OF [place] CORONARY 09/19/2015 JEFFERY CRAIG FACC, ALI FACP CCDS Ot I25.5 ISCHEMIC CARDIOMYOPATHY 06/01/2016 Ot 276.8 HYPO POTASSEMIA 06/01/2016 ELDONALEJANDRA, VERÓNICA L INSIDE SALES ENGINEER Ot 786.09 RESPIRATORY ABNORM NEC 06/01/2016 ELDONMA, VERÓNICA L INSIDE SALES ENGINEER Ot 272.4 HYPERLIPIDEMIA NEC/NOS 06/01/2016 BAIMA, VERÓNICA L INSIDE SALES ENGINEER Ot 401.9 HYPERTENSION NOS 06/01/2016 BAIMA, VERÓNICA L INSIDE SALES ENGINEER Ot 414.00 CORON ATHEROSCLER NOS TYPE VESSEL, NATIV 06/01/2016 ELDONALEJANDRA, VERÓNICA Gina INSIDE SALES ENGINEER Ot 786.50 CHEST PAIN NOS 06/01/2016 JEFFERY CRAIG FACC, ALI FACP CCDS Ot E78.4 OTHER HYPERLIPIDEMIA 06/01/2016 JEFFERY CRAIG FACC, ALI FACP CCDS Ot I10 ESSENTIAL (PRIMARY) HYPERTENSION 06/01/2016 JEFFERY CRAIG FACC, ALI FACP CCDS Ot I25.10 ATHSCL HEART DISEASE OF [place] CORONARY 06/01/2016 JEFFERY CRAIG FACC, ALI FACP CCDS Ot I25.5 ISCHEMIC CARDIOMYOPATHY 06/03/2016 JEFFERY CRAIG FACC, ALI FACP CCDS Ot E78.4 OTHER HYPERLIPIDEMIA 06/03/2016 JEFFERY CRAIG FACC, ALI FACP CCDS Ot I10 ESSENTIAL (PRIMARY) HYPERTENSION 06/03/2016 JEFFERY CRAIG FACC, ALI FACP CCDS Ot I25.10 ATHSCL HEART DISEASE OF [place] CORONARY 06/03/2016 JEFFERY CRAIG FACC, ALI FACP [...] CCDS Ot I25.10 ATHSCL HEART DISEASE OF [place] CORONARY 06/03/2016 JEFFERY PAZ, ALI FACP CCDS [...] CCDS Ot I25.10 ATHSCL HEART DISEASE OF [place] CORONARY 06/04/2016 JEFFERY MD FACC, ALI FACP CCDS Ot [...] CCDS Ot I25.10 ATHSCL HEART DISEASE OF [place] CORONARY 06/04/2016 JEFFERY CRAIG FACC, ALI FACP [...] Ot I10 ESSENTIAL (PRIMARY) HYPERTENSION 06/24/2016 JEFFERY PAZC, ALI FACP CCDS Ot I25.10 ATHSCL HEART DISEASE OF [place] CORONARY 06/24/2016 JEFFERY PAZ, ALI FACP CCDS Ot I65.23 OCCLUSION AND STENOSIS OF BILATERAL ADAN 06/24/[address] [facility], ALI FACP CCDS Ot M79.89 OTHER SPECIFIED SOFT TISSUE DISORDERS 06/24/2016 JEFFERY CRAIG FACC, ALI FACP CCDS Ot R55 SYNCOPE AND COLLAPSE 06/24/2016 JEFFERY PAZ, ALI FACP CCDS Ot E78.4 OTHER HYPERLIPIDEMIA 06/24/2016 JEFFERY PAZC, ALI FACP CCDS Ot I10 ESSENTIAL (PRIMARY) HYPERTENSION 06/24/2016 JEFFERY CRAIG FACC, ALI FACP CCDS Ot I25.10 ATHSCL HEART DISEASE OF [place] CORONARY 06/24/2016 JEFFERY PAZC, ALI FACP CCDS Ot I65.23 OCCLUSION AND STENOSIS OF BILATERAL ADAN 06/24/2016 JEFFERY CRAIG FACC, ALI FACP CCDS Ot M79.89 OTHER SPECIFIED SOFT TISSUE DISORDERS 06/24/[address] [facility], [facility] FACP CCDS Ot R55 SYNCOPE AND COLLAPSE 06/30/[address] [facility], ALI FACP CCDS Ot E78.4 OTHER HYPERLIPIDEMIA 06/30/[address] [facility], ALI FACP CCDS Ot I10 ESSENTIAL (PRIMARY) HYPERTENSION 06/30/[address] [facility], ALI FACP CCDS Ot I25.10 ATHSCL HEART DISEASE OF [place] CORONARY 06/30/[address] [facility], ALI FACP CCDS Ot I65.23 OCCLUSION AND STENOSIS OF BILATERAL ADAN 06/30/[address] [facility], ALI FACP CCDS Ot M79.89 OTHER SPECIFIED SOFT TISSUE DISORDERS 06/30/[address] [facility], ALI FACP CCDS Ot R55 SYNCOPE AND COLLAPSE 06/30/[address] [facility], ALI FACP CCDS Ot E78.4 OTHER HYPERLIPIDEMIA 06/30/[address] [facility], ALI FACP CCDS Ot I10 ESSENTIAL (PRIMARY) HYPERTENSION 06/30/[address] [facility], ALI FACP CCDS Ot I25.10 ATHSCL HEART DISEASE OF [place] CORONARY 06/30/[address] [facility], ALI FACP CCDS Ot I65.23 OCCLUSION AND STENOSIS OF BILATERAL ADAN 06/30/[address] [facility], ALI FACP CCDS Ot M79.89 OTHER SPECIFIED SOFT TISSUE DISORDERS 06/30/[address] [facility], ALI FACP CCDS Ot R55 SYNCOPE AND COLLAPSE 12/15/2016 VERÓNICA DAY L INSIDE SALES ENGINEER Ot E78.5 HYPERLIPIDEMIA, UNSPECIFIED 12/15/2016 BARB VERÓNICA L INSIDE SALES ENGINEER Ot I 10 ESSENTIAL (PRIMARY) HYPERTENSION 12/15/2016 BARB VERÓNICA L INSIDE SALES ENGINEER Ot 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 [place] COR ART W 12/15/2016 JOE DAYHER L INSIDE SALES ENGINEER Ot I87.2 VENOUS INSUFFICIENCY (CHRONIC) (PERIPHER 12/15/2016 JOE DAYHER L INSIDE SALES ENGINEER Ot Z79.899 OTHER 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 (CURRENT) DRUG THERAPY 12/15/2016 JOE DAYHER L INSIDE SALES ENGINEER Ot Z95.5 PRESENCE OF CORONARY ANGIOPLASTY IMPLANT 02/17/2017 JOE DAYHER L INSIDE SALES ENGINEER Ot E78.5 HYPERLIPIDEMIA, UNSPECIFIED 02/17/2017 BAIMA, VERÓNICA L INSIDE SALES ENGINEER Ot I 10 ESSENTIAL (PRIMARY) HYPERTENSION 02/17/2017 VERÓNICA DAY INSIDE SALES ENGINEER Ot 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 [place] COR ART W 02/17/2017 VERÓNICA DAY INSIDE SALES ENGINEER Ot I87.2 VENOUS INSUFFICIENCY (CHRONIC) (PERIPHER 02/17/2017 VERÓNICA DAY INSIDE SALES ENGINEER Ot Z79.899 OTHER USP (CURRENT) DRUG THERAPY 02/17/2017 ELDONVERÓNICA ROBERTS INSIDE SALES ENGINEER Ot Z95.5 PRESENCE OF CORONARY ANGIOPLASTY IMPLANT 07/04/2018 VERÓNICA DAY INSIDE SALES ENGINEER Ot 272.4 HYPERLIPIDEMIA NEC/NOS 07/04/2018 VERÓNICA DAY INSIDE SALES ENGINEER Ot 401.9 HYPERTENSION NOS 07/04/2018 ELDONVERÓNICA ROBERTS INSIDE SALES ENGINEER Ot 414.00 CORON ATHEROSCLER NOS TYPE VESSEL, NATIV 07/04/2018 VERÓNICA DAY INSIDE SALES ENGINEER Ot 786.50 CHEST PAIN NOS 07/04/2018 JEFFERY CRAIG FACC, WALTER FACP CCDS Ot E78.4 OTHER HYPERLIPIDEMIA 07/04/2018 JEFFERY CRAIG FACC, WALTER FACP CCDS Ot I10 ESSENTIAL (PRIMARY) HYPERTENSION 07/04/2018 JEFFERY CRAIG FACC, WALTER FACP CCDS Ot I25.10 ATHSCL HEART DISEASE OF [place] CORONARY 07/04/2018 JEFFERY CRAIG FACC, WALTER FACP CCDS Ot I25.5 ISCHEMIC CARDIOMYOPATHY 07/04/2018 JEFFERY CRAIG FACC, WALTER FACP CCDS Ot E78.4 OTHER HYPERLIPIDEMIA 07/04/2018 JEFFERY CRAIG FACC, ALI FACP CCDS Ot I10 ESSENTIAL (PRIMARY) HYPERTENSION 07/04/2018 JEFFERY CRAIG FACC, ALI FACP CCDS Ot I25.10 ATHSCL HEART DISEASE OF [place] CORONARY 07/04/2018 JEFFERY CRAIG FACC, WALTER FACP [...] CCDS Ot I25.10 ATHSCL HEART DISEASE OF [place] CORONARY 07/04/2018 JEFFERY CRAIG FACC, ALI FACP CCDS [...] CCDS Ot 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 [place] COR ART W 07/05/2018 JEFFERY CRAIG FACC, ALI FACP CCDS Ot I25.5 ISCHEMIC CARDIOMYOPATHY 07/05/2018 [...] CRAIG FACC, ALI FACP CCDS Ot Z79.02 USP (CURRENT) USE OF ANTITHROMBOTI 07/05/2018 JEFFERY CRAIG FACC, WALTER FACP CCDS Ot Z79.82 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 (CURRENT) USE OF ASPIRIN 07/05/2018 JEFFERY CRAIG FACC, ALI FACP CCDS Ot Z79.899 OTHER 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 (CURRENT) DRUG THERAPY 07/05/2018 JEFFERY CRAIG FACC, ALI FACP CCDS Ot Z95.5 PRESENCE OF CORONARY ANGIOPLASTY IMPLANT 07/11/2018 JEFFERY CRAIG FACC, WALTER FACP CCDS Ot E78.5 HYPERLIPIDEMIA, UNSPECIFIED 07/11/2018 JEFFERY CRAIG FACC, ALI FACP CCDS Ot I08.3 COMB RHEUMATIC DISORD OF MITRAL, AORTIC 07/11/2018 JEFFERY CRAIG FACC, ALI FACP CCDS Ot I10 ESSENTIAL (PRIMARY) HYPERTENSION 07/11/2018 JEFFERY CRAIG FACC, ALI FACP CCDS Ot 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 [place] COR ART W 07/11/2018 JEFFERY CRAIG FACC, ALI FACP CCDS Ot I25.5 ISCHEMIC CARDIOMYOPATHY 07/11/2018 JEFFERY CRAIG FACC, ALI FACP CCDS Ot I65.23 OCCLUSION AND STENOSIS OF BILATERAL ADAN 07/11/2018 JEFFERY CRAIG FACC, ALI FACP CCDS Ot I73.9 PERIPHERAL VASCULAR DISEASE, UNSPECIFIED 07/11/2018 JEFFERY CRAIG FACC, ALI FACP CCDS Ot M19.91 PRIMARY OSTEOARTHRITIS, UNSPECIFIED SITE 07/11/2018 JEFFERY CRAIG FACC, ALI FACP CCDS Ot T82.855A STENOSIS OF CORONARY ARTERY STENT, INITI 07/11/2018 JEFFERY CRAIG FACC, WALTER FACP CCDS Ot Z79.02 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 (CURRENT) USE OF ANTITHROMBOTI 07/11/2018 JEFFERY CRAIG FACC, WALTER FACP CCDS Ot Z79.82 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 (CURRENT) USE OF ASPIRIN 07/11/2018 JEFFERY CRAIG FACC, WALTER FACP CCDS Ot Z79.899 OTHER USP (CURRENT) DRUG THERAPY 07/11/2018 JEFFERY CRAIG FACC, ALI FACP CCDS Ot Z95.5 PRESENCE OF CORONARY ANGIOPLASTY IMPLANT 07/13/2018 JEFFERY CRAIG FACC, ALI FACP CCDS Ot E78.5 HYPERLIPIDEMIA, UNSPECIFIED 07/13/2018 JEFFERY CRAIG FACC, WALTER FACP CCDS Ot I08.3 COMB RHEUMATIC DISORD OF MITRAL, AORTIC 07/13/2018 JEFFERY CRAIG FACC, ALI FACP CCDS Ot I10 ESSENTIAL (PRIMARY) HYPERTENSION 07/13/2018 JEFFERY CRAIG FACC, WALTER FACP CCDS Ot 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 [place] COR ART W 07/13/2018 JEFFERY CRAIG FACC, ALI FACP CCDS Ot I25.5 ISCHEMIC CARDIOMYOPATHY 07/13/2018 JEFFERY CRAIG FACC, ALI FACP CCDS Ot I65.23 OCCLUSION AND STENOSIS OF BILATERAL ADAN 07/13/2018 JEFFERY CRAIG FACC, ALI FACP CCDS Ot I73.9 PERIPHERAL VASCULAR DISEASE, UNSPECIFIED 07/13/2018 JEFFERY CRAIG FACC, WALTER FACP CCDS Ot M19.91 PRIMARY OSTEOARTHRITIS, UNSPECIFIED SITE 07/13/2018 JEFFERY CRAIG FACC, WALTER FACP CCDS Ot T82.855A STENOSIS OF CORONARY ARTERY STENT, INITI 07/13/2018 JEFFERY CRAIG FACC, WALTER FACP CCDS Ot Z79.02 USP (CURRENT) USE OF ANTITHROMBOTI 07/13/2018 WALTER GIL MD, FACC FACP CCDS Ot Z79.82 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 (CURRENT) USE OF ASPIRIN 07/13/2018 JEFFERY CRAIG FACC, WALTER FACP CCDS Ot Z79.899 OTHER 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 (CURRENT) DRUG THERAPY 07/13/2018 JEFFERY CRAIG FACC, WALTER FACP CCDS Ot Z95.5 PRESENCE OF CORONARY ANGIOPLASTY IMPLANT 07/31/2018 VERÓNICA DAY L INSIDE SALES ENGINEER Ot 272.4 HYPERLIPIDEMIA NEC/NOS 07/31/2018 BARB VERÓNICA L INSIDE SALES ENGINEER Ot 401.9 HYPERTENSION NOS 07/31/2018 BARB VERÓNICA L INSIDE SALES ENGINEER Ot 414.00 CORON ATHEROSCLER NOS TYPE VESSEL, NATIV 07/31/2018 BARB VERÓNICA L INSIDE SALES ENGINEER Ot 786.50 CHEST PAIN NOS 07/31/2018 JEFFERY CRAIG FACC, WALTER FACP CCDS Ot E78.4 OTHER HYPERLIPIDEMIA 07/31/2018 JEFFERY CRAIG FACC, WALTER FACP CCDS Ot I10 ESSENTIAL (PRIMARY) HYPERTENSION 07/31/2018 JEFFERY CRAIG FACC, WALTER FACP CCDS Ot I25.10 ATHSCL HEART DISEASE OF [place] CORONARY 07/31/2018 JEFFERY CRAIG FACC, WALTER FACP CCDS Ot I25.5 ISCHEMIC CARDIOMYOPATHY 07/31/2018 JEFFERY CRAIG FACC, WALTER FACP CCDS Ot E78.4 OTHER HYPERLIPIDEMIA 07/31/2018 JEFFERY CRAIG FACC, ALI FACP CCDS Ot I10 ESSENTIAL (PRIMARY) HYPERTENSION 07/31/2018 JEFFERY CRAIG FACC, ALI FACP CCDS Ot I25.10 ATHSCL HEART DISEASE OF [place] CORONARY 07/31/2018 WALTER GIL MD, FACC FACP CCDS Ot I65.23 OCCLUSION AND STENOSIS OF BILATERAL ADAN 07/31/2018 WALTER GIL MD, FACC FACP CCDS Ot M79.89 OTHER SPECIFIED SOFT TISSUE DISORDERS 07/31/2018 JEFFERY MD FACC, ALI FACP CCDS Ot R55 SYNCOPE AND COLLAPSE 07/31/2018 JEFFERY CRAIG FACC, ALI FACP CCDS Ot E78.4 OTHER HYPERLIPIDEMIA 07/31/2018 JEFFERY CRAIG FACC, ALI FACP CCDS Ot I10 ESSENTIAL (PRIMARY) HYPERTENSION 07/31/2018 JEFFERY CRAIG FACC, ALI FACP CCDS Ot I25.10 ATHSCL HEART DISEASE OF [place] CORONARY 07/31/2018 JEFFERY CRAIG FACC, ALI FACP CCDS Ot I65.23 OCCLUSION AND STENOSIS OF BILATERAL ADAN 07/31/2018 JEFFERY CRAIG FAC, ALI FACP CCDS Ot M79.89 OTHER SPECIFIED SOFT TISSUE DISORDERS 07/31/2018 JEFFERY PAZ, ALI FACP CCDS Ot R55 SYNCOPE AND COLLAPSE 08/02/2018 JEFFERY CRAIG FACC, ALI FACP CCDS Ot I10 ESSENTIAL (PRIMARY) HYPERTENSION 08/02/2018 JEFFERY PAZC, ALI FACP CCDS Ot I25.10 ATHSCL HEART DISEASE OF [place] CORONARY 08/02/2018 JEFFERY PAZ, ALI FACP CCDS [...] CCDS Ot I25.10 ATHSCL HEART DISEASE OF [place] CORONARY 08/04/2018 JEFFERY PAZ, ALI FACP CCDS Ot I25.5 ISCHEMIC CARDIOMYOPATHY 08/04/2018 JEFFERY PAZ, ALI FACP CCDS Ot 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 08/04/2018 JEFFERY PAZ, ALI FACP CCDS Ot 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, UNSPECIFIED 08/04/2018 JEFFERY PAZ, ALI FACP CCDS Ot Z86.79 PERSONAL HISTORY OF OTHER DISEASES OF 08/04/2018 JEFFERY CRAIG FAC, WALTER FACP CCDS Ot Z98.890 OTHER SPECIFIED POSTPROCEDURAL STATES 08/11/2018 SINGH LUCAS MD Ot E78.5 HYPERLIPIDEMIA, UNSPECIFIED 08/11/2018 SINGH LUCAS MD Ot I11.0 HYPERTENSIVE HEART DISEASE WITH HEART FA 08/11/2018 SINGH LUCAS MD Ot I24.9 ACUTE ISCHEMIC HEART DISEASE, UNSPECIFIE 08/11/2018 SINGH LUCAS MD Ot I48.0 PAROXYSMAL ATRIAL FIBRILLATION 08/11/2018 SINGH LUCAS MD Ot I50.2 3 ACUTE ON CHRONIC SYSTOLIC (CONGESTIVE) H 08/11/2018 SINGH LUCAS MD Ot 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 08/11/2018 SINGH LUCAS MD Ot T82.855A STENOSIS OF CORONARY ARTERY STENT, INITI 08/11/2018 SINGH LUCAS MD Ot Z79.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 OF 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 08/11/2018 SINGH LUCAS MD Ot Z79.0 2 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 (CURRENT) USE OF ANTITHROMBOTI 08/11/2018 SINGH LUCAS MD Ot Z79.8 2 USP (CURRENT) USE OF ASPIRIN 08/11/2018 SINGH LUCAS MD Ot Z95.5 PRESENCE OF CORONARY ANGIOPLASTY IMPLANT 08/16/2018 SINGH LUCAS MD Ot E78.5 HYPERLIPIDEMIA, UNSPECIFIED 08/16/2018 SINGH LUCAS MD Ot I11.0 HYPERTENSIVE HEART DISEASE WITH HEART FA 08/16/2018 SINGH LUCAS MD Ot I24.9 ACUTE ISCHEMIC HEART DISEASE, UNSPECIFIE 08/16/2018 SINGH LUCAS MD Ot I48.0 PAROXYSMAL ATRIAL FIBRILLATION 08/16/2018 SINGH LUCAS MD Ot I50.2 3 ACUTE ON CHRONIC SYSTOLIC (CONGESTIVE) H 08/16/2018 SINGH LUCAS MD Ot 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 08/16/2018 SINGH LUCAS MD Ot T82.855A STENOSIS OF CORONARY ARTERY STENT, INITI 08/16/2018 SINGH LUCAS MD Ot Z79.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 OF 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 08/16/2018 SINGH LUCAS MD Ot Z79.0 2 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 (CURRENT) USE OF ANTITHROMBOTI 08/16/2018 SINGH LUCAS MD Ot Z79.8 2 USP (CURRENT) USE OF ASPIRIN 08/16/2018 SINGH LUCAS MD R Ot Z95.5 PRESENCE OF CORONARY ANGIOPLASTY IMPLANT 08/17/2018 SINGH LUCAS MD Ot E78.5 HYPERLIPIDEMIA, UNSPECIFIED 08/17/2018 SINGH LUCAS MD R Ot I11.0 HYPERTENSIVE HEART DISEASE WITH HEART FA 08/17/2018 SINGH LUCAS MD R Ot I24.9 ACUTE ISCHEMIC HEART DISEASE, UNSPECIFIE 08/17/2018 SINGH LUCAS MD R Ot I48.0 PAROXYSMAL ATRIAL FIBRILLATION 08/17/2018 SINGH LUCAS MD R Ot I50.2 3 ACUTE ON CHRONIC SYSTOLIC (CONGESTIVE) H 08/17/2018 SINGH LUCAS MD Ot 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 08/17/2018 SINGH LUCAS MD Ot T82.855A STENOSIS OF CORONARY ARTERY STENT, INITI 08/17/2018 SINGH LUCAS MD R Ot Z79.0 1 USP (CURRENT) USE OF 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 08/17/2018 SINGH LUCAS MD Ot Z79.0 2 USP (CURRENT) USE OF ANTITHROMBOTI 08/17/2018 SINGH LUCAS MD Ot Z79.8 2 USP (CURRENT) USE OF ASPIRIN 08/17/2018 SINGH LUCAS MD Ot Z95.5 PRESENCE OF CORONARY ANGIOPLASTY IMPLANT 08/17/2018 SINGH LUCAS MD Ot E78.5 HYPERLIPIDEMIA, UNSPECIFIED 08/17/2018 SINGH LUCAS MD R Ot I11.0 HYPERTENSIVE HEART DISEASE WITH HEART FA 08/17/2018 SINGH LUCAS MD Ot I24.9 ACUTE ISCHEMIC HEART DISEASE, UNSPECIFIE 08/17/2018 SINGH LUCAS MD Ot I48.0 PAROXYSMAL ATRIAL FIBRILLATION 08/17/2018 SINGH LUCAS MD R Ot I50.2 3 ACUTE ON CHRONIC SYSTOLIC (CONGESTIVE) H 08/17/2018 SINGH LUCAS MD Ot 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 08/17/2018 SINGH LUCAS MD Ot T82.855A STENOSIS OF CORONARY ARTERY STENT, INITI 08/17/2018 SINGH LUCAS MD R Ot Z79.0 1 USP (CURRENT) USE OF 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 08/17/2018 SINGH LUCAS MD Ot Z79.0 2 USP (CURRENT) USE OF ANTITHROMBOTI 08/17/2018 SINGH LUCAS MD Ot Z79.8 2 USP (CURRENT) USE OF ASPIRIN 08/17/2018 SINGH LUCAS MD Ot Z95.5 PRESENCE OF CORONARY ANGIOPLASTY IMPLANT 08/22/2018 JEFFERY CRAIG FACC, ALI FACP CCDS Ot I10 ESSENTIAL (PRIMARY) HYPERTENSION 08/22/2018 JEFFERY CRAIG FACC, ALI FACP CCDS Ot I25.10 ATHSCL HEART DISEASE OF [place] CORONARY 08/22/2018 JEFFERY CRAIG FACC, ALI FACP CCDS Ot I25.5 ISCHEMIC CARDIOMYOPATHY 08/22/2018 JEFFERY CRAIG FACC, ALI FACP CCDS Ot 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 08/22/2018 JEFFERY CRAIG FACC, ALI FACP CCDS Ot 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, UNSPECIFIED 08/22/2018 JEFFERY CRAIG FACC, ALI FACP CCDS Ot Z86.79 PERSONAL HISTORY OF OTHER DISEASES OF 08/22/2018 JEFFERY CRAIG FACC, ALI FACP CCDS Ot Z98.890 OTHER SPECIFIED POSTPROCEDURAL STATES 08/30/2018 JEFFERY CRAIG FACC, ALI FACP CCDS Ot I10 ESSENTIAL (PRIMARY) HYPERTENSION 08/30/2018 JEFFERY CRAIG FACC, ALI FACP CCDS Ot I25.10 ATHSCL HEART DISEASE OF [place] CORONARY 08/30/2018 JEFFERY CRAIG FACC, ALI FACP CCDS Ot I25.5 ISCHEMIC CARDIOMYOPATHY 08/30/2018 JEFFERY CRAIG FACC, ALI FACP CCDS Ot 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 08/30/2018 JEFFERY CRAIG FACC, ALI FACP CCDS Ot 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, UNSPECIFIED 08/30/2018 JEFFERY CRAIG FACC, ALI FACP CCDS Ot Z86.79 PERSONAL HISTORY OF OTHER DISEASES OF 08/30/2018 JEFFERY CRAIG FACC, ALI FACP CCDS Ot Z98.890 OTHER SPECIFIED POSTPROCEDURAL STATES 09/07/2018 JEFFERY CRAIG FACC, ALI FACP CCDS Ot I10 ESSENTIAL (PRIMARY) HYPERTENSION 09/07/2018 JEFFERY CRAIG FACC, ALI FACP CCDS Ot I25.10 ATHSCL HEART DISEASE OF [place] CORONARY 09/07/2018 JEFFERY CRAIG FACC, ALI FACP CCDS Ot I25.5 ISCHEMIC CARDIOMYOPATHY 09/07/2018 JEFFERY CRAIG FACC, ALI FACP CCDS Ot R51 HEADACHE 09/07/2018 JEFFERY CRAIG FACC, ALI FACP CCDS Ot R55 SYNCOPE AND COLLAPSE 09/07/2018 JEFFERY CRAIG FACC, ALI FACP CCDS Ot Z98.890 OTHER SPECIFIED POSTPROCEDURAL STATES 09/07/2018 JEFFERY CRAIG FACC, ALI FACP CCDS Ot I10 ESSENTIAL (PRIMARY) HYPERTENSION 09/07/2018 JEFFERY CRAIG FACC, ALI FACP CCDS Ot I25.10 ATHSCL HEART DISEASE OF [place] CORONARY 09/07/2018 JEFFERY CRAIG FAC, ALI FACP CCDS Ot I25.5 ISCHEMIC CARDIOMYOPATHY 09/07/2018 JEFFERY CRAIG FACC, ALI FACP CCDS Ot R51 HEADACHE 09/07/2018 JEFFERY CRAIG FACC, ALI FACP CCDS Ot R55 SYNCOPE AND COLLAPSE 09/07/[address] [facility], ALI FACP CCDS Ot Z98.890 OTHER SPECIFIED POSTPROCEDURAL STATES 09/25/2018 JEFFERY CRAIG FAC, ALI FACP CCDS Ot I10 ESSENTIAL (PRIMARY) HYPERTENSION 09/25/[address] [facility], ALI FACP CCDS Ot I25.10 ATHSCL HEART DISEASE OF [place] CORONARY 09/25/[address] [facility], ALI FACP CCDS Ot I25.5 ISCHEMIC CARDIOMYOPATHY 09/25/[address] [facility], ALI FACP CCDS Ot R51 HEADACHE 09/25/[address] [facility], ALI FACP CCDS Ot R55 SYNCOPE AND COLLAPSE 09/25/[address] [facility], ALI FACP CCDS Ot Z98.890 OTHER SPECIFIED POSTPROCEDURAL STATES 10/16/2018 SINGH LUCAS MD Ot E78.5 HYPERLIPIDEMIA, UNSPECIFIED 10/16/2018 SINGH LUCAS MD Ot I11.0 HYPERTENSIVE HEART DISEASE WITH HEART FA 10/16/2018 SINGH LUCAS MD Ot I24.9 ACUTE ISCHEMIC HEART DISEASE, UNSPECIFIE 10/16/2018 SINGH LUCAS MD Ot I48.0 PAROXYSMAL ATRIAL FIBRILLATION 10/16/2018 GAULT MD, SINGH R Ot I50.2 3 ACUTE ON CHRONIC SYSTOLIC (CONGESTIVE) H 10/16/2018 SINGH LUCAS MD Ot 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 10/16/2018 SINGH LUCAS MD Ot T82.855A STENOSIS OF CORONARY ARTERY STENT, INITI 10/16/2018 SINGH LUCAS MD Ot 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.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 OF 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 10/16/2018 SINGH LUCAS MD Ot Z79.0 2 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 (CURRENT) USE OF ANTITHROMBOTI 10/16/2018 SINGH LUCAS MD Ot Z79.8 2 USP (CURRENT) USE OF ASPIRIN 10/16/2018 SINGH LUCAS MD Ot Z95.5 PRESENCE OF CORONARY ANGIOPLASTY IMPLANT 11/17/2018 SINGH LUCAS MD Ot E78.5 HYPERLIPIDEMIA, UNSPECIFIED 11/17/2018 SINGH LUCAS MD Ot I11.0 HYPERTENSIVE HEART DISEASE WITH HEART FA 11/17/2018 SINGH LUCAS MD Ot I24.9 ACUTE ISCHEMIC HEART DISEASE, UNSPECIFIE 11/17/2018 SINGH LUCAS MD Ot I48.0 PAROXYSMAL ATRIAL FIBRILLATION 11/17/2018 SINGH LUCAS MD Ot I50.2 3 ACUTE ON CHRONIC SYSTOLIC (CONGESTIVE) H 11/17/2018 SINGH LUCAS MD Ot 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 11/17/2018 SINGH LUCAS MD, Ot T82.855A STENOSIS OF CORONARY ARTERY STENT, INITI 11/17/2018 SINGH LUCAS MD Ot Z79.0 1 USP (CURRENT) USE OF 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 11/17/2018 SINGH LUCAS MD Ot Z79.0 2 USP (CURRENT) USE OF ANTITHROMBOTI 11/17/2018 SINGH LUCAS MD Ot Z79.8 2 USP (CURRENT) USE OF ASPIRIN 11/17/2018 SINGH LUCAS MD Ot Z95.5 PRESENCE OF CORONARY ANGIOPLASTY IMPLANT 12/08/2018 RAI DO CRISTINA Ot D64.9 ANEMIA, UNSPECIFIED 12/08/2018 CHAPMAN DO, CRISTINA Ot E86.0 DEHYDRATION 12/08/2018 ARI DO CRISTINA Ot I11.9 HYPERTENSIVE HEART DISEASE WITHOUT HEART 12/08/2018 ARI DO CRISTINA Ot I25.10 ATHSCL HEART DISEASE OF [place] CORONARY 12/08/2018 CHAPMAN DO, CRISTINA Ot I25.2 OLD MYOCARDIAL INFARCTION 12/08/2018 CHAPMAN DO, CRISTINA Ot I48.0 PAROXYSMAL ATRIAL FIBRILLATION 12/08/2018 CHAPMAN DO, CRISTINA Ot 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 12/08/2018 CHAPMAN DO, CRISTINA Ot K21.9 GASTRO-ESOPHAGEAL REFLUX DISEASE WITHOUT 12/08/2018 CHAPMAN DO, CRISTINA Ot K85.90 ACUTE PANCREATITIS WITHOUT NECROSIS OR I 12/08/2018 CHAPMAN DO, CRISTINA Ot M19.91 PRIMARY OSTEOARTHRITIS, UNSPECIFIED SITE 12/08/2018 CHAPMAN DO, CRISTINA Ot N17.9 ACUTE KIDNEY FAILURE, UNSPECIFIED 12/08/2018 CHAPMAN DO CRISTINA Ot R00.1 BRADYCARDIA, UNSPECIFIED 12/08/2018 CHAPMAN DO, CRISTINA Ot R07.9 CHEST PAIN, UNSPECIFIED 12/08/2018 CHAPMAN DO CRISTINA Ot R10.9 UNSPECIFIED ABDOMINAL PAIN 12/08/2018 CHAPMAN DO CRISTINA Ot R31.9 HEMATURIA, UNSPECIFIED 12/08/2018 CHAPMAN DO CRISTINA Ot 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 12/08/2018 ARI DO CRISTINA Ot Z79.89 9 OTHER 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 (CURRENT) DRUG THERAPY 12/08/2018 ARI MARTE CRISTINA Ot Z88.0 ALLERGY STATUS TO PENICILLIN 12/08/2018 CHAPMAN DO CRISTINA Ot Z95.5 PRESENCE OF CORONARY ANGIOPLASTY IMPLANT 12/12/2018 ANAYA DO, ALVAREZ Ot F41.9 ANXIETY DISORDER, UNSPECIFIED 12/12/2018 ANAYA DO ALVAREZ Ot I10 ESSENTIAL (PRIMARY) HYPERTENSION 12/12/2018 ANAYA DO, ALVAREZ Ot I25.10 ATHSCL HEART DISEASE OF [place] CORONARY 12/12/2018 ANAYA DO, ALVAREZ Ot I25.2 OLD MYOCARDIAL INFARCTION 12/12/2018 ANAYA DO, ALVAREZ Ot I48.0 PAROXYSMAL ATRIAL FIBRILLATION 12/12/2018 ANAYA DO, ALVAREZ Ot K21.9 GASTRO-ESOPHAGEAL REFLUX DISEASE WITHOUT 12/12/2018 ANAYA DO, ALVAREZ Ot R00.2 PALPITATIONS 12/12/2018 ANAYA DO, ALVAREZ Ot R06.02 SHORTNESS OF BREATH 12/12/2018 ANAYA DO, ALVAREZ Ot R07.9 CHEST PAIN, UNSPECIFIED 12/12/2018 URBANA DO, ALVAREZ Ot R42 DIZZINESS AND GIDDINESS 12/12/2018 URBANA DO, ALVAREZ Ot Z79.82 USP (CURRENT) USE OF ASPIRIN 12/12/2018 URBANA DO, ALVAREZ Ot Z80.0 FAMILY HISTORY OF MALIGNANT NEOPLASM OF 12/12/2018 URBANA DO, ALVAREZ Ot Z87.01 PERSONAL HISTORY OF PNEUMONIA (RECURRENT 12/12/2018 URBANA DO, ALVAREZ Ot Z88.0 ALLERGY STATUS TO PENICILLIN 12/12/2018 URBANA DO, ALVAREZ Ot Z88.1 ALLERGY STATUS TO OTHER ANTIBIOTIC AGENT 12/12/2018 URBANA DO, ALVAREZ Ot Z88.5 ALLERGY STATUS TO NARCOTIC AGENT STATUS 12/12/2018 URBANA DO, ALVAREZ Ot Z88.8 ALLERGY STATUS TO OTH DRUG/MEDS/BIOL SUB 12/12/2018 URBANA DO, ALVAREZ Ot Z90.710 ACQUIRED ABSENCE OF BOTH CERVIX AND UTER 12/12/2018 URBANA DO, ALVAREZ Ot Z95.5 PRESENCE OF CORONARY ANGIOPLASTY IMPLANT 12/12/2018 LUCERO HILL Ot M17.11 UNILATERAL PRIMARY OSTEOARTHRITIS, RIGHT 12/15/2018 URBANA DO, ALVAREZ Ot F41.9 ANXIETY DISORDER, UNSPECIFIED 12/15/2018 URBANA DO, ALVAREZ Ot I10 ESSENTIAL (PRIMARY) HYPERTENSION 12/15/2018 URBANA DO, ALVAREZ Ot I25.10 ATHSCL HEART DISEASE OF [place] CORONARY 12/15/2018 URBANA DO, ALVAREZ Ot I25.2 OLD MYOCARDIAL INFARCTION 12/15/2018 URBANA DO, ALVAREZ Ot I48.0 PAROXYSMAL ATRIAL FIBRILLATION 12/15/2018 URBANA DO, ALVAREZ Ot K21.9 GASTRO-ESOPHAGEAL REFLUX DISEASE WITHOUT 12/15/2018 URBANA DO, ALVAREZ Ot R00.2 PALPITATIONS 12/15/2018 URBANA DO, ALVAREZ Ot R06.02 SHORTNESS OF BREATH 12/15/2018 URBANA DO, ALVAREZ Ot R07.9 CHEST PAIN, UNSPECIFIED 12/15/2018 URBANA DO, ALVAREZ Ot R42 DIZZINESS AND GIDDINESS 12/15/2018 URBANA DO, ALVAREZ Ot Z79.82 USP (CURRENT) USE OF ASPIRIN 12/15/2018 URBANA DO, ALVAREZ Ot Z80.0 FAMILY HISTORY OF MALIGNANT NEOPLASM OF 12/15/2018 URBANA DO, ALVAREZ Ot Z87.01 PERSONAL HISTORY OF PNEUMONIA (RECURRENT 12/15/2018 URBANA DO, ALVAREZ Ot Z88.0 ALLERGY STATUS TO PENICILLIN 12/15/2018 URBANA DO, ALVAREZ Ot Z88.1 ALLERGY STATUS TO OTHER ANTIBIOTIC AGENT 12/15/2018 ALVAREZ ANAYA DO Ot Z88.5 ALLERGY STATUS TO NARCOTIC AGENT STATUS 12/15/2018 ALVAREZ ANAYA DO Ot Z88.8 ALLERGY STATUS TO OTH DRUG/MEDS/BIOL SUB 12/15/2018 ALVAREZ ANAYA DO Ot Z90.710 ACQUIRED ABSENCE OF BOTH CERVIX AND UTER 12/15/2018 ALVAREZ ANAYA DO Ot Z95.5 PRESENCE OF CORONARY ANGIOPLASTY IMPLANT 12/17/2018 LANDON RIVAS MD Ot E78. 5 HYPERLIPIDEMIA, UNSPECIFIED 12/17/2018 LANDON RIVAS MD Ot I10 ESSENTIAL (PRIMARY) HYPERTENSION 12/17/2018 LANDON RIVAS MD Ot I25. 10 ATHSCL HEART DISEASE OF [place] CORONARY 12/17/2018 LANDON RIVAS MD Ot I25. 2 OLD MYOCARDIAL INFARCTION 12/17/2018 LANDON RIVAS MD Ot I48. 0 PAROXYSMAL ATRIAL FIBRILLATION 12/17/2018 LANDON RIVAS MD Ot K21. 9 GASTRO-ESOPHAGEAL REFLUX DISEASE WITHOUT 12/17/2018 LANDON RIVAS MD Ot K29. 70 GASTRITIS, UNSPECIFIED, WITHOUT BLEEDING 12/17/2018 LANDON RIVAS MD Ot R10. 9 UNSPECIFIED ABDOMINAL PAIN 12/17/2018 LANDON RIVAS MD Ot Z79. 01 USP (CURRENT) USE OF 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 12/17/2018 LANDON RIVAS MD Ot Z79. 82 USP (CURRENT) USE OF ASPIRIN 12/17/2018 LANDON RIVAS MD Ot Z80. 0 FAMILY HISTORY OF MALIGNANT NEOPLASM OF 12/17/2018 LANDON RIVAS MD Ot Z82. 49 FAMILY HX OF ISCHEM HEART DIS AND OTH DI 12/17/2018 LANDON RIVAS MD Ot Z87. 01 PERSONAL HISTORY OF PNEUMONIA (RECURRENT 12/17/2018 LANDON RIVAS MD Ot Z88. 0 ALLERGY STATUS TO PENICILLIN 12/17/2018 LANDON RIVAS MD Ot Z88. 1 ALLERGY STATUS TO OTHER ANTIBIOTIC AGENT 12/17/2018 LANDON RIVAS MD Ot Z88. 5 ALLERGY STATUS TO NARCOTIC AGENT STATUS 12/17/2018 LANDON RIVAS MD Ot Z88. 8 ALLERGY STATUS TO OTH DRUG/MEDS/BIOL SUB 12/17/2018 LANDON RIVAS MD Ot Z90.710 ACQUIRED ABSENCE OF BOTH CERVIX AND UTER 12/17/2018 LANDON RIVAS MD Ot Z95. 5 PRESENCE OF CORONARY ANGIOPLASTY IMPLANT 12/20/2018 LANDON RIVAS MD Ot E78. 5 HYPERLIPIDEMIA, UNSPECIFIED 12/20/2018 LANDON RIVAS MD Ot I10 ESSENTIAL (PRIMARY) HYPERTENSION 12/20/2018 LANDON RIVAS MD Ot I25. 10 ATHSCL HEART DISEASE OF [place] CORONARY 12/20/2018 LANDON RIVAS MD Ot I25. 2 OLD MYOCARDIAL INFARCTION 12/20/2018 LANDON RIVAS MD Ot I48. 0 PAROXYSMAL ATRIAL FIBRILLATION 12/20/2018 LANDON RIVAS MD Ot K21. 9 GASTRO-ESOPHAGEAL REFLUX DISEASE WITHOUT 12/20/2018 LANDON RIVAS MD Ot K29. 70 GASTRITIS, UNSPECIFIED, WITHOUT BLEEDING 12/20/2018 LANDON RIVAS MD Ot R10. 9 UNSPECIFIED ABDOMINAL PAIN 12/20/2018 LANDON RIVAS MD Ot Z79. 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 0 FAMILY HISTORY OF MALIGNANT NEOPLASM OF 12/20/2018 LANDON RIVAS MD, Ot Z82. 49 FAMILY HX OF ISCHEM HEART DIS AND OTH DI 12/20/2018 LANDON RIVAS MD Ot Z87. 01 PERSONAL HISTORY OF PNEUMONIA (RECURRENT 12/20/2018 LANDON RIVAS MD Ot Z88. 0 ALLERGY STATUS TO PENICILLIN 12/20/2018 LANDON RIVAS MD Ot Z88. 1 ALLERGY STATUS TO OTHER ANTIBIOTIC AGENT 12/20/2018 LANDON RIVAS MD Ot Z88. 5 ALLERGY STATUS TO NARCOTIC AGENT STATUS 12/20/2018 LANDON RIVAS MD Ot Z88. 8 ALLERGY STATUS TO OTH DRUG/MEDS/BIOL SUB 12/20/2018 LANDON RIVAS MD Ot Z90.710 ACQUIRED ABSENCE OF BOTH CERVIX AND UTER 12/20/2018 LANDON RIVAS MD Ot Z95. 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 12/28/2018 LTAOYA ALVARADO APRN Ot Z80 .0 FAMILY HISTORY OF MALIGNANT NEOPLASM OF 12/28/2018 LATOYA ALVARADO APRN Ot Z82.49 FAMILY HX OF ISCHEM HEART DIS AND OTH DI 12/28/2018 LATOYA ALVARADO APRN Ot Z87.01 PERSONAL HISTORY OF PNEUMONIA (RECURRENT 12/28/2018 LATOYA ALVARADO APRN Ot Z88 .0 ALLERGY STATUS TO PENICILLIN 12/28/2018 LATOYA ALVARADO APRN Ot Z88 .1 ALLERGY STATUS TO OTHER ANTIBIOTIC AGENT 12/28/2018 LATOYA ALVARADO APRN Ot Z88 .5 ALLERGY STATUS TO NARCOTIC AGENT STATUS 12/28/2018 LATOYA ALVARADO APRN Ot Z88 .8 ALLERGY STATUS TO OT DRUG/MEDS/BIOL SUB 12/28/2018 LATOYA ALVARADO APRN Ot Z90.710 ACQUIRED ABSENCE OF BOTH CERVIX AND UTER 12/28/2018 LATOYA ALVARADO APRN Ot Z95 .5 PRESENCE OF CORONARY ANGIOPLASTY IMPLANT 01/03/2019 OMAYRA BRANDON DO Ot I20.8 OTHER FORMS OF ANGINA PECTORIS 01/03/2019 OMAYRA BRANDON DO Ot I25.1 0 ATHSCL HEART DISEASE OF [place] CORONARY 01/03/2019 OMAYRA BRANDON DO Ot K21.0 GASTRO-ESOPHAGEAL REFLUX DISEASE WITH ES 01/03/2019 OMAYRA BRANDON DO Ot K29.5 0 UNSPECIFIED CHRONIC GASTRITIS WITHOUT BL 01/03/2019 OMAYRA BRANDON DO Ot K44.9 DIAPHRAGMATIC HERNIA WITHOUT OBSTRUCTION 01/03/2019 OMAYRA BRANDON DO Ot R63.4 ABNORMAL WEIGHT LOSS 01/03/2019 OMAYRA BRANDON DO Ot Z79.8 2 USP (CURRENT) USE OF ASPIRIN 01/03/2019 YESICA BRANDON DOIC B Ot Z79.8 99 OTHER 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 (CURRENT) DRUG THERAPY 01/03/2019 YESICA BRANDON DOIC B Ot Z88.1 ALLERGY STATUS TO OTHER ANTIBIOTIC AGENT 01/03/2019 YESICA BRANDON DOIC B Ot Z88.5 ALLERGY STATUS TO NARCOTIC AGENT STATUS 01/03/2019 YESICA BRANDON DOIC B Ot Z88.6 ALLERGY STATUS TO ANALGESIC AGENT STATUS 01/03/2019 YESICA BRANDON DOIC B Ot Z88.8 ALLERGY STATUS TO OTH DRUG/MEDS/BIOL SUB 01/03/2019 ROMA MARTE OMAYRA B Ot Z95.1 PRESENCE OF AORTOCORONARY BYPASS GRAFT 01/08/2019 YESICA BRANDON DOIC B Ot I20.8 OTHER FORMS OF ANGINA PECTORIS 01/08/2019 YESICA BRANDON DOIC B Ot I25.1 0 ATHSCL HEART DISEASE OF [place] CORONARY 01/08/2019 YESICA BRANDON DOIC B Ot K21.0 GASTRO-ESOPHAGEAL REFLUX DISEASE WITH ES 01/08/2019 YESICA BRANDON DOIC B Ot K29.5 0 UNSPECIFIED CHRONIC GASTRITIS WITHOUT BL 01/08/2019 YESICA BRANDON DOIC B Ot K44.9 DIAPHRAGMATIC HERNIA WITHOUT OBSTRUCTION 01/08/2019 YESICA BRANDON DOIC B Ot R63.4 ABNORMAL WEIGHT LOSS 01/08/2019 YESICA BRANDON DOIC B Ot Z79.8 2 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 (CURRENT) USE OF ASPIRIN 01/08/2019 YESICA BRANDON DOIC B Ot Z79.8 99 OTHER USP (CURRENT) DRUG THERAPY 01/08/2019 YESICA BRANDON DOIC B Ot Z88.1 ALLERGY STATUS TO OTHER ANTIBIOTIC AGENT 01/08/2019 ROMA MARTE OMAYRA B Ot Z88.5 ALLERGY STATUS TO NARCOTIC AGENT STATUS 01/08/2019 YESICA BRANDON DOIC B Ot Z88.6 ALLERGY STATUS TO ANALGESIC AGENT STATUS 01/08/2019 YESICA BRANDON DOIC B Ot Z88.8 ALLERGY STATUS TO OTH DRUG/MEDS/BIOL SUB 01/08/2019 ROMA MARTE OMAYRA B Ot Z95.1 PRESENCE OF AORTOCORONARY BYPASS GRAFT 01/10/2019 YESICA BRANDON DOIC B Ot I20.8 OTHER FORMS OF ANGINA PECTORIS 01/10/2019 YESICA BRANDON DOIC B Ot I25.1 0 ATHSCL HEART DISEASE OF [place] CORONARY 01/10/2019 ROMA MARTEYESICAIC B Ot K21.0 GASTRO-ESOPHAGEAL REFLUX DISEASE WITH ES 01/10/2019 ROMA MARTEOMAYRA B Ot K29.5 0 UNSPECIFIED CHRONIC GASTRITIS WITHOUT BL 01/10/2019 ROMA MARTEOMAYRA B Ot K44.9 DIAPHRAGMATIC HERNIA WITHOUT OBSTRUCTION 01/10/2019 ROMA OMAYRA MARTE Ot R63.4 ABNORMAL WEIGHT LOSS 01/10/2019 ROMA OMAYRA MARTE B Ot Z79.8 2 USP (CURRENT) USE OF ASPIRIN 01/10/2019 DAISHANEVIN OMAYRA MARTE Ot Z79.8 99 OTHER USP (CURRENT) DRUG THERAPY 01/10/2019 DAISHANEVIN OMAYRA MARTE B Ot Z88.1 ALLERGY STATUS TO OTHER ANTIBIOTIC AGENT 01/10/2019 DAISHANEVIN OMYARA MARTE B Ot Z88.5 ALLERGY STATUS TO NARCOTIC AGENT STATUS 01/10/2019 DAISHANEVIN OMAYRA MARTE Ot Z88.6 ALLERGY STATUS TO ANALGESIC AGENT STATUS 01/10/2019 DAISHANEVIN OMAYRA MARTE Ot Z88.8 ALLERGY STATUS TO OT DRUG/MEDS/BIOL SUB 01/10/2019 ROMA MARTEOMAYRA B Ot Z95.1 PRESENCE OF AORTOCORONARY BYPASS GRAFT 02/22/2019 DAISHANEVIN OMAYRA MARTE Ot B96.8 1 HELICOBACTER PYLORI THE CAUSE OF DISE 03/09/2019 MACARIO ORTIZ MD Ot E03 .9 HYPOTHYROIDISM, UNSPECIFIED 03/09/2019 MACARIO ORTIZ MD Ot E78 .5 HYPERLIPIDEMIA, UNSPECIFIED 03/09/2019 MACARIO ORTIZ MD Ot I10 ESSENTIAL (PRIMARY) HYPERTENSION 03/09/2019 MACARIO ORTIZ MD Ot I25.10 ATHSCL HEART DISEASE OF [place] CORONARY 03/09/2019 MACARIO ORTIZ MD Ot I48.91 UNSPECIFIED ATRIAL FIBRILLATION 03/09/2019 MACARIO ORTIZ MD Ot K21 .9 GASTRO-ESOPHAGEAL REFLUX DISEASE WITHOUT 03/09/2019 MACARIO ORTIZ MD Ot M19.90 UNSPECIFIED OSTEOARTHRITIS, UNSPECIFIED 03/09/2019 MACARIO ORTIZ MD Ot R07 .9 CHEST PAIN, UNSPECIFIED 03/09/2019 MACARIO ORTIZ MD Ot 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 03/09/2019 MACARIO ORTIZ MD, Ot Z79.82 USP (CURRENT) USE OF ASPIRIN 03/09/2019 MACARIO ORTIZ MD, Ot Z80 .0 FAMILY HISTORY OF MALIGNANT NEOPLASM OF 03/09/2019 MACARIO ORTIZ MD, Ot Z82.49 FAMILY HX OF ISCHEM HEART DIS AND OTH DI 03/09/2019 MACARIO ORTIZ MD, Ot Z83 .3 FAMILY HISTORY OF DIABETES MELLITUS 03/09/2019 MACARIO ORTIZ MD, Ot Z88 .0 ALLERGY STATUS TO PENICILLIN 03/09/2019 MACARIO ORTIZ MD, Ot Z88 .6 ALLERGY STATUS TO ANALGESIC AGENT STATUS 03/09/2019 MACARIO ROTIZ MD, Ot Z88 .8 ALLERGY STATUS TO OTH DRUG/MEDS/BIOL SUB 03/09/2019 MACARIO ORTIZ MD, Ot Z90.49 ACQUIRED ABSENCE OF OTHER SPECIFIED PART 03/09/2019 MACARIO ORTIZ MD, Ot Z95 .5 PRESENCE OF CORONARY ANGIOPLASTY IMPLANT 03/09/2019 MACARIO ORTIZ MD Ot E03 .9 HYPOTHYROIDISM, UNSPECIFIED 03/09/2019 MACARIO ORTIZ MD, Ot E78 .5 HYPERLIPIDEMIA, UNSPECIFIED 03/09/2019 MACARIO ORTIZ MD, Ot I10 ESSENTIAL (PRIMARY) HYPERTENSION 03/09/2019 MACARIO ORTIZ MD, Ot I25.10 ATHSCL HEART DISEASE OF [place] CORONARY 03/09/2019 MACARIO ORTIZ MD, Ot I48.91 UNSPECIFIED ATRIAL FIBRILLATION 03/09/2019 MACARIO ORTIZ MD, Ot K21 .9 GASTRO-ESOPHAGEAL REFLUX DISEASE WITHOUT 03/09/2019 MACARIO ORTIZ MD, Ot M19.90 UNSPECIFIED OSTEOARTHRITIS, UNSPECIFIED 03/09/2019 MACARIO ORTIZ MD, Ot R07 .9 CHEST PAIN, UNSPECIFIED 03/09/2019 MACARIO ORTIZ MD, Ot 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49 ACQUIRED ABSENCE OF OTHER SPECIFIED PART 03/09/2019 MACARIO ORTIZ MD Ot Z95 .5 PRESENCE OF CORONARY ANGIOPLASTY IMPLANT 03/16/2019 OMAYRA BRANDON DO Ot B96.8 1 HELICOBACTER PYLORI THE CAUSE OF DISE 05/16/2019 OMAYRA BRANDON DO, Ot B96.8 1 HELICOBACTER PYLORI THE CAUSE OF DISE 05/17/2019 OMAYRA BRANDON DO, Ot B96.8 1 HELICOBACTER PYLORI THE CAUSE OF DISE 05/17/2019 OMAYRA BRANDON DO Ot Z09 ENCNTR FOR F/U EXAM AFT TRTMT FOR COND O Procedures Code Description Performed By Per oliver On 00.41 PROC EDURE ON TWO VESSELS 07/01/2012 00.47 INSE RTION OF THREE VASCULAR STENTS 07/01/2012 00.66 PERC UTANEOUS TRANSLUMINAL CORONARY ANGIO 07/01/2012 36.07 INSR T OF DRUG-ELUTING CORON ARTERY STENT 07/01/2012 37.22 LEFT HEART CARDIAC CATH 07/01/2012 88.53 LT H EART ANGIOCARDIOGRAM 07/01/2012 88.56 BRANDON IBIS ARTERIOGR-2 CATH 07/01/2012 [id number] DI LATION OF 1 COR ART WITH DRUG-ELUT INT 07/14/2015 [id number] TIRPATION OF MATTER FROM 1 COR ART, PE 07/14/2015 [id number] FL UOROSCOPY OF SINGLE CORONARY ARTERY US 07/14/2015 [id number] FL UOROSCOPY OF MULT COR ART USING L OSM 07/14/2015 [id number] DI LATION OF CORONARY ARTERY, ONE SITE, P 07/20/2015 [id number] ME ASURE OF CARDIAC SAMPL PRESSURE, L H 07/20/2015 [id number] FL UOROSCOPY OF MULT COR ART USING L OSM 07/20/2015 [id number] FL UOROSCOPY OF LEFT HEART USING LOW OSMO 07/20/2015 [id number] DI LATION OF CORONARY ARTERY, ONE ARTERY, 08/10/2018 [id number] ME ASURE OF CARDIAC SAMPL PRESSURE, L H 08/10/2018 [id number] FL UOROSCOPY OF MULT COR ART USING L OSM 08/10/2018 [id number] FL UOROSCOPY OF LEFT HEART USING LOW OSMO 08/10/2018 Results Test Result Range Methicillin resistant Staphylococcus aur eus (MRSA) screening culture - 12/14/16 09:49 Methicillin resistant Staphylococcus aureus (MRSA) scr eening culture NEG NRG Automated blood complete blood count (he mogram) panel - 12/14/16 09:59 Blood leukocytes automated count (number/volume) 9.9 10*3/uL 4.3-11.0 Blood erythrocytes automated count (number/volume) 4.17 10*6/uL 4.35-5.85 Venous blood hemoglobin measurement (mass/volume) 13.1 g/dL 11.5-16.0 Blood hematocrit (volume fraction) 39 % 35-52 Automated erythrocyte mean corpuscular volume 93 [ foz_us] 80-99 Automated erythrocyte mean corpuscular h emoglobin (mass per erythrocyte) 31 pg 25-34 Automated erythrocyte mean corpuscular h emoglobin concentration measurement (mass/volume) 34 g/dL 32-36 Automated erythrocyte distribution width ratio 12. 4 % 10.0- 14.5 Automated blood platelet count (count/volume) 403 10*3/uL 130-400 Automated blood platelet mean volume measurement 9.9 [foz_us] 7.4-10.4 PT panel in platelet poor plasma by coag ulation assay - 12/14/16 09:59 Prothrombin time (PT) in platelet poor plasma by coagu lation assay 12.5 s 12.2-14.7 INR in platelet poor plasma or blood by coagulation as say 0.9 0.8-1.4 Activated partial thromboplastin time (a PTT) in platelet poor plasma bycoagulation assay - 12/14/16 09:59 Activated partial thromboplastin time (a PTT) in platelet poor plasma bycoagulation assay 34 s 24-35 Comprehensive metabolic panel - 12/14/16 09:59 Serum or plasma sodium measurement (moles/volume) 139 mmol/L 135-145 Serum or plasma potassium measurement (moles/volume) 4.0 mmol/L 3.6-5.0 Serum or plasma chloride measurement (moles/volume) 106 mmol/L 98-107 Carbon dioxide 22 mmol/L 21-32 Serum or plasma anion gap determination (moles/volume) 11 mmol/L 5-14 Serum or plasma urea nitrogen measurement (mass/volume ) 20 mg/dL 7-18 Serum or plasma creatinine measurement (mass/volume) 0.95 mg/dL 0.60-1.30 Serum or plasma urea nitrogen/creatinine mass ratio 21 NRG Serum or plasma creatinine measurement w ith calculation of estimated glomerular filtration rate 57 NRG Serum or plasma glucose measurement (mass/volume) 92 mg/dL 70-105 Serum or plasma calcium measurement (mass/volume) 9.9 mg/dL 8.5-10.1 Serum or plasma total bilirubin measurement (mass/volu me) 0.6 mg/dL 0.1-1.0 Serum or plasma alkaline phosphatase leo surement (enzymatic activity/volume) 47 U/L 40-136 Serum or plasma aspartate aminotransfera se measurement (enzymatic activity/volume) 20 U/L 5-34 Serum or plasma alanine aminotransferase measurement (enzymatic activity/volume) 13 U/L 0-55 Serum or plasma protein measurement (mass/volume) 8.0 g/dL 6.4-8.2 Serum or plasma albumin measurement (mass/volume) 4.3 g/dL 3.2-4.5 Lipid 1996 panel - 12/14/16 09:59 Serum or plasma triglyceride measurement (mass/volume) 273 mg/dL <150 Serum or plasma cholesterol measurement (mass/volume) 312 mg/dL < 200 Serum or plasma cholesterol in HDL measurement (mass/v olume) 54 mg/dL 40-60 Cholesterol in LDL [mass/volume] in serum or plasma by direct assay 196 mg/dL 1-129 Serum or plasma cholesterol in VLDL measurement (mass/ volume) 55 mg/dL 5-40 Automated blood complete blood count (he mogram) panel - 12/15/16 04:36 Blood leukocytes automated count (number/volume) 10.6 10*3/uL 4.3-11.0 Blood erythrocytes automated count (number/volume) 3.98 10*6/uL 4.35-5.85 Venous blood hemoglobin measurement (mass/volume) 12.5 g/dL 11.5-16.0 Blood hematocrit (volume fraction) 38 % 35-52 Automated erythrocyte mean corpuscular volume 94 [ foz_us] 80-99 Automated erythrocyte mean corpuscular h emoglobin (mass per erythrocyte) 31 pg 25-34 Automated erythrocyte mean corpuscular h emoglobin concentration measurement (mass/volume) 33 g/dL 32-36 Automated erythrocyte distribution width ratio 12. 6 % 10.0- 14.5 Automated blood platelet count (count/volume) 227 10*3/uL 130-400 Automated blood platelet mean volume measurement 10.6 [foz_us] 7.4-10.4 Whole blood basic metabolic panel - 11/24 07/09 04:36 Serum or plasma sodium measurement (moles/volume) 137 mmol/L 135-145 Serum or plasma potassium measurement (moles/volume) 4.1 mmol/L 3.6-5.0 Serum or plasma chloride measurement (moles/volume) 107 mmol/L 98-107 Carbon dioxide 18 mmol/L 21-32 Serum or plasma anion gap determination (moles/volume) 12 mmol/L 5-14 Serum or plasma urea nitrogen measurement (mass/volume ) 22 mg/dL 7-18 Serum or plasma creatinine measurement (mass/volume) 0.98 mg/dL 0.60-1.30 Serum or plasma urea nitrogen/creatinine mass ratio 22 NRG Serum or plasma creatinine measurement w ith calculation of estimated glomerular filtration rate 55 NRG Serum or plasma glucose measurement (mass/volume) 80 mg/dL 70-105 Serum or plasma calcium measurement (mass/volume) 8.9 mg/dL 8.5-10.1 Automated blood complete blood count (he mogram) panel - 07/04/18 11:25 Blood leukocytes automated count (number/volume) 9.9 10*3/uL 4.3-11.0 Blood erythrocytes automated count (number/volume) 3.88 10*6/uL 4.35-5.85 Venous blood hemoglobin measurement (mass/volume) 11.9 g/dL 11.5-16.0 Blood hematocrit (volume fraction) 37 % 35-52 Automated erythrocyte mean corpuscular volume 96 [ foz_us] 80-99 Automated erythrocyte mean corpuscular h emoglobin (mass per erythrocyte) 31 pg 25-34 Automated erythrocyte mean corpuscular h emoglobin concentration measurement (mass/volume) 32 g/dL 32-36 Automated erythrocyte distribution width ratio 12. 6 % 10.0- 14.5 Automated blood platelet count (count/volume) 402 10*3/uL 130-400 Automated blood platelet mean volume measurement 10.0 [foz_us] 7.4-10.4 PT panel in platelet poor plasma by coag ulation assay - 07/04/18 11:25 Prothrombin time (PT) in platelet poor plasma by coagu lation assay 12.8 s 12.2-14.7 INR in platelet poor plasma or blood by coagulation as say 1.0 0.8-1.4 Activated partial thromboplastin time (a PTT) in platelet poor plasma bycoagulation assay - 07/04/18 11:25 Activated partial thromboplastin time (a PTT) in platelet poor plasma bycoagulation assay 32 s 24-35 Comprehensive metabolic panel - 07/04/18 11:25 Serum or plasma sodium measurement (moles/volume) 141 mmol/L 135-145 Serum or plasma potassium measurement (moles/volume) 3.8 mmol/L 3.6-5.0 Serum or plasma chloride measurement (moles/volume) 109 mmol/L 98-107 Carbon dioxide 22 mmol/L 21-32 Serum or plasma anion gap determination (moles/volume) 10 mmol/L 5-14 Serum or plasma urea nitrogen measurement (mass/volume ) 27 mg/dL 7-18 Serum or plasma creatinine measurement (mass/volume) 1.06 mg/dL 0.60-1.30 Serum or plasma urea nitrogen/creatinine mass ratio 25 NRG Serum or plasma creatinine measurement w ith calculation of estimated glomerular filtration rate 50 NRG Serum or plasma glucose measurement (mass/volume) 92 mg/dL 70-105 Serum or plasma calcium measurement (mass/volume) 9.6 mg/dL 8.5-10.1 Serum or plasma total bilirubin measurement (mass/volu me) 0.4 mg/dL 0.1-1.0 Serum or plasma alkaline phosphatase leo surement (enzymatic activity/volume) 49 U/L 40-136 Serum or plasma aspartate aminotransfera se measurement (enzymatic activity/volume) 22 U/L 5-34 Serum or plasma alanine aminotransferase measurement (enzymatic activity/volume) 11 U/L 0-55 Serum or plasma protein measurement (mass/volume) 7.5 g/dL 6.4-8.2 Serum or plasma albumin measurement (mass/volume) 4.3 g/dL 3.2-4.5 CALCIUM CORRECTED 9.4 mg/dL 8.5-10.1 Lipid 1996 panel - 07/04/18 11:25 Serum or plasma triglyceride measurement (mass/volume) 275 mg/dL <150 Serum or plasma cholesterol measurement (mass/volume) 278 mg/dL < 200 Serum or plasma cholesterol in HDL measurement (mass/v olume) 52 mg/dL 40-60 Cholesterol in LDL [mass/volume] in serum or plasma by direct assay 170 mg/dL 1-129 Serum or plasma cholesterol in VLDL measurement (mass/ volume) 55 mg/dL 5-40 Methicillin resistant Staphylococcus aur eus (MRSA) screening culture - 07/04/18 11:25 Methicillin resistant Staphylococcus aureus (MRSA) scr eening culture NEG NRG [id number] - 08/01/18 09:00 Serum or plasma urea nitrogen measurement (mass/volume ) 22 mg/dL 7-18 Serum or plasma creatinine measurement (mass/volume) 0.97 mg/dL 0.60-1.30 Serum or plasma urea nitrogen/creatinine mass ratio 23 NRG Serum or plasma creatinine measurement w ith calculation of estimated glomerular filtration rate 55 NRG Complete blood count (CBC) with automate d white blood cell (WBC) differential - 08/09/18 10:50 Blood leukocytes automated count (number/volume) 12.1 10*3/uL 4.3-11.0 Blood erythrocytes automated count (number/volume) 3.73 10*6/uL 4.35-5.85 Venous blood hemoglobin measurement (mass/volume) 11.6 g/dL 11.5-16.0 Blood hematocrit (volume fraction) 35 % 35-52 Automated erythrocyte mean corpuscular volume 95 [ foz_us] 80-99 Automated erythrocyte mean corpuscular h emoglobin (mass per erythrocyte) 31 pg 25-34 Automated erythrocyte mean corpuscular h emoglobin concentration measurement (mass/volume) 33 g/dL 32-36 Automated erythrocyte distribution width ratio 13. 5 % 10.0- 14.5 Automated blood platelet count (count/volume) 369 10*3/uL 130-400 Automated blood platelet mean volume measurement 10.1 [foz_us] 7.4-10.4 Automated blood neutrophils/100 leukocytes 51 % 42-75 Automated blood lymphocytes/100 leukocytes 35 % 12-44 Blood monocytes/100 leukocytes 10 % 0-12 Automated blood eosinophils/100 leukocytes 3 % 0-10 Automated blood basophils/100 leukocytes 1 % 0-10 Blood neutrophils automated count (number/volume) 6.1 10*3 1.8-7.8 Blood lymphocytes automated count (number/volume) 4.3 10*3 1.0-4.0 Blood monocytes automated count (number/volume) 1. 2 10*3 0.0-1.0 Automated eosinophil count 0.3 10*3/uL 0 .0-0.3 Automated blood basophil count (count/volume) 0.1 10*3/uL 0.0-0.1 PT panel in platelet poor plasma by coag ulation assay - 08/09/18 10:50 Prothrombin time (PT) in platelet poor plasma by coagu lation assay 14.3 s 12.2-14.7 INR in platelet poor plasma or blood by coagulation as say 1.1 0.8-1.4 Activated partial thromboplastin time (a PTT) in platelet poor plasma bycoagulation assay - 08/09/18 10:50 Activated partial thromboplastin time (a PTT) in platelet poor plasma bycoagulation assay 35 s 24-35 TROPONIN T - 08/09/18 10:50 TROPONIN T 14 % <=10 PROBNP FS - 08/09/18 10:50 PROBNP FS 2957.0 pg/mL <75.0 Comprehensive metabolic panel - 08/09/18 10:50 Serum or plasma sodium measurement (moles/volume) 140 mmol/L 135-145 Serum or plasma potassium measurement (moles/volume) 3.9 mmol/L 3.6-5.0 Serum or plasma chloride measurement (moles/volume) 107 mmol/L 98-107 Carbon dioxide 21 mmol/L 21-32 Serum or plasma anion gap determination (moles/volume) 12 mmol/L 5-14 Serum or plasma urea nitrogen measurement (mass/volume ) 28 mg/dL 7-18 Serum or plasma creatinine measurement (mass/volume) 1.26 mg/dL 0.60-1.30 Serum or plasma urea nitrogen/creatinine mass ratio 22 NRG Serum or plasma creatinine measurement w ith calculation of estimated glomerular filtration rate 41 NRG Serum or plasma glucose measurement (mass/volume) 104 mg/dL 70-105 Serum or plasma calcium measurement (mass/volume) 9.6 mg/dL 8.5-10.1 Serum or plasma total bilirubin measurement (mass/volu me) 0.3 mg/dL 0.1-1.0 Serum or plasma alkaline phosphatase leo surement (enzymatic activity/volume) 59 U/L 40-136 Serum or plasma aspartate aminotransfera se measurement (enzymatic activity/volume) 18 U/L 5-34 Serum or plasma alanine aminotransferase measurement (enzymatic activity/volume) 10 U/L 0-55 Serum or plasma protein measurement (mass/volume) 7.6 g/dL 6.4-8.2 Serum or plasma albumin measurement (mass/volume) 4.2 g/dL 3.2-4.5 CALCIUM CORRECTED 9.4 mg/dL 8.5-10.1 Magnesium - 08/09/18 10:50 Magnesium 2.1 mg/dL 1.8-2.4 Myoglobin, serum - 08/09/18 10:50 Myoglobin, serum 36.0 ng/mL 10.0-92.0 Capillary blood glucose measurement by g lucometer (mass/volume) - 08/09/18 16:01 Capillary blood glucose measurement by glucometer (mas s/volume) 103 mg/dL 70-110 Serum or plasma troponin i.cardiac measu rement (mass/volume) - 08/09/18 18:04 Serum or plasma troponin i.cardiac measurement (mass/v olume) < ng/mL <0.028 Complete blood count (CBC) with automate d white blood cell (WBC) differential - 08/10/18 03:10 Blood leukocytes automated count (number/volume) 8.9 10*3/uL 4.3-11.0 Blood erythrocytes automated count (number/volume) 3.45 10*6/uL 4.35-5.85 Venous blood hemoglobin measurement (mass/volume) 10.4 g/dL 11.5-16.0 Blood hematocrit (volume fraction) 33 % 35-52 Automated erythrocyte mean corpuscular volume 94 [ foz_us] 80-99 Automated erythrocyte mean corpuscular h emoglobin (mass per erythrocyte) 30 pg 25-34 Automated erythrocyte mean corpuscular h emoglobin concentration measurement (mass/volume) 32 g/dL 32-36 Automated erythrocyte distribution width ratio 13. 8 % 10.0- 14.5 Automated blood platelet count (count/volume) 318 10*3/uL 130-400 Automated blood platelet mean volume measurement 10.5 [foz_us] 7.4-10.4 Automated blood neutrophils/100 leukocytes 41 % 42-75 Automated blood lymphocytes/100 leukocytes 42 % 12-44 Blood monocytes/100 leukocytes 13 % 0-12 Automated blood eosinophils/100 leukocytes 4 % 0-10 Automated blood basophils/100 leukocytes 1 % 0-10 Blood neutrophils automated count (number/volume) 3.6 10*3 1.8-7.8 Blood lymphocytes automated count (number/volume) 3.7 10*3 1.0-4.0 Blood monocytes automated count (number/volume) 1. 2 10*3 0.0-1.0 Automated eosinophil count 0.3 10*3/uL 0 .0-0.3 Automated blood basophil count (count/volume) 0.1 10*3/uL 0.0-0.1 Comprehensive metabolic panel - 08/10/18 03:10 Serum or plasma sodium measurement (moles/volume) 142 mmol/L 135-145 Serum or plasma potassium measurement (moles/volume) 3.4 mmol/L 3.6-5.0 Serum or plasma chloride measurement (moles/volume) 110 mmol/L 98-107 Carbon dioxide 18 mmol/L 21-32 Serum or plasma anion gap determination (moles/volume) 14 mmol/L 5-14 Serum or plasma urea nitrogen measurement (mass/volume ) 29 mg/dL 7-18 Serum or plasma creatinine measurement (mass/volume) 1.09 mg/dL 0.60-1.30 Serum or plasma urea nitrogen/creatinine mass ratio 27 NRG Serum or plasma creatinine measurement w ith calculation of estimated glomerular filtration rate 48 NRG Serum or plasma glucose measurement (mass/volume) 79 mg/dL 70-105 Serum or plasma calcium measurement (mass/volume) 9.2 mg/dL 8.5-10.1 Serum or plasma total bilirubin measurement (mass/volu me) 0.4 mg/dL 0.1-1.0 Serum or plasma alkaline phosphatase leo surement (enzymatic activity/volume) 43 U/L 40-136 Serum or plasma aspartate aminotransfera se measurement (enzymatic activity/volume) 17 U/L 5-34 Serum or plasma alanine aminotransferase measurement (enzymatic activity/volume) 9 U/L 0-55 Serum or plasma protein measurement (mass/volume) 6.6 g/dL 6.4-8.2 Serum or plasma albumin measurement (mass/volume) 3.8 g/dL 3.2-4.5 CALCIUM CORRECTED 9.4 mg/dL 8.5-10.1 Serum or plasma troponin i.cardiac measu rement (mass/volume) - 08/10/18 03:10 Serum or plasma troponin i.cardiac measurement (mass/v olume) < ng/mL <0.028 Lipid 1996 panel - 08/10/18 03:10 Serum or plasma triglyceride measurement (mass/volume) 306 mg/dL <150 Serum or plasma cholesterol measurement (mass/volume) 242 mg/dL < 200 Serum or plasma cholesterol in HDL measurement (mass/v olume) 43 mg/dL 40-60 Cholesterol in LDL [mass/volume] in serum or plasma by direct assay 151 mg/dL 1-129 Serum or plasma cholesterol in VLDL measurement (mass/ volume) 61 mg/dL 5-40 Automated blood complete blood count (he mogram) panel - 08/11/18 03:10 Blood leukocytes automated count (number/volume) 10.8 10*3/uL 4.3-11.0 Blood erythrocytes automated count (number/volume) 3.76 10*6/uL 4.35-5.85 Venous blood hemoglobin measurement (mass/volume) 11.7 g/dL 11.5-16.0 Blood hematocrit (volume fraction) 35 % 35-52 Automated erythrocyte mean corpuscular volume 94 [ foz_us] 80-99 Automated erythrocyte mean corpuscular h emoglobin (mass per erythrocyte) 31 pg 25-34 Automated erythrocyte mean corpuscular h emoglobin concentration measurement (mass/volume) 33 g/dL 32-36 Automated erythrocyte distribution width ratio 13. 8 % 10.0- 14.5 Automated blood platelet count (count/volume) 363 10*3/uL 130-400 Automated blood platelet mean volume measurement 10.5 [foz_us] 7.4-10.4 Whole blood basic metabolic panel - 07/24 01/11 03:10 Serum or plasma sodium measurement (moles/volume) 142 mmol/L 135-145 Serum or plasma potassium measurement (moles/volume) 3.4 mmol/L 3.6-5.0 Serum or plasma chloride measurement (moles/volume) 109 mmol/L 98-107 Carbon dioxide 16 mmol/L 21-32 Serum or plasma anion gap determination (moles/volume) 17 mmol/L 5-14 Serum or plasma urea nitrogen measurement (mass/volume ) 30 mg/dL 7-18 Serum or plasma creatinine measurement (mass/volume) 1.06 mg/dL 0.60-1.30 Serum or plasma urea nitrogen/creatinine mass ratio 28 NRG Serum or plasma creatinine measurement w ith calculation of estimated glomerular filtration rate 50 NRG Serum or plasma glucose measurement (mass/volume) 72 mg/dL 70-105 Serum or plasma calcium measurement (mass/volume) 9.0 mg/dL 8.5-10.1 Complete blood count (CBC) with automate d white blood cell (WBC) differential - 08/30/18 08:23 Blood leukocytes automated count (number/volume) 9.8 10*3/uL 4.3-11.0 Blood erythrocytes automated count (number/volume) 3.87 10*6/uL 4.35-5.85 Venous blood hemoglobin measurement (mass/volume) 12.0 g/dL 11.5-16.0 Blood hematocrit (volume fraction) 37 % 35-52 Automated erythrocyte mean corpuscular volume 96 [ foz_us] 80-99 Automated erythrocyte mean corpuscular h emoglobin (mass per erythrocyte) 31 pg 25-34 Automated erythrocyte mean corpuscular h emoglobin concentration measurement (mass/volume) 32 g/dL 32-36 Automated erythrocyte distribution width ratio 13. 4 % 10.0- 14.5 Automated blood platelet count (count/volume) 443 10*3/uL 130-400 Automated blood platelet mean volume measurement 9.9 [foz_us] 7.4-10.4 Automated blood neutrophils/100 leukocytes 43 % 42-75 Automated blood lymphocytes/100 leukocytes 42 % 12-44 Blood monocytes/100 leukocytes 11 % 0-12 Automated blood eosinophils/100 leukocytes 3 % 0-10 Automated blood basophils/100 leukocytes 1 % 0-10 Blood neutrophils automated count (number/volume) 4.3 10*3 1.8-7.8 Blood lymphocytes automated count (number/volume) 4.1 10*3 1.0-4.0 Blood monocytes automated count (number/volume) 1. 0 10*3 0.0-1.0 Automated eosinophil count 0.3 10*3/uL 0 .0-0.3 Automated blood basophil count (count/volume) 0.1 10*3/uL 0.0-0.1 Erythrocyte sedimentation rate by braeden gren method - 08/30/18 08:23 Erythrocyte sedimentation rate by westergren method 9 mm 0- 30 Comprehensive metabolic panel - 08/30/18 08:23 Serum or plasma sodium measurement (moles/volume) 143 mmol/L 135-145 Serum or plasma potassium measurement (moles/volume) 4.5 mmol/L 3.6-5.0 Serum or plasma chloride measurement (moles/volume) 106 mmol/L 98-107 Carbon dioxide 19 mmol/L 21-32 Serum or plasma anion gap determination (moles/volume) 18 mmol/L 5-14 Serum or plasma urea nitrogen measurement (mass/volume ) 34 mg/dL 7-18 Serum or plasma creatinine measurement (mass/volume) 1.18 mg/dL 0.60-1.30 Serum or plasma urea nitrogen/creatinine mass ratio 29 NRG Serum or plasma creatinine measurement w ith calculation of estimated glomerular filtration rate 44 NRG Serum or plasma glucose measurement (mass/volume) 105 mg/dL 70-105 Serum or plasma calcium measurement (mass/volume) 9.2 mg/dL 8.5-10.1 Serum or plasma total bilirubin measurement (mass/volu me) 0.3 mg/dL 0.1-1.0 Serum or plasma alkaline phosphatase leo surement (enzymatic activity/volume) 59 U/L 40-136 Serum or plasma aspartate aminotransfera se measurement (enzymatic activity/volume) 18 U/L 5-34 Serum or plasma alanine aminotransferase measurement (enzymatic activity/volume) 11 U/L 0-55 Serum or plasma protein measurement (mass/volume) 8.0 g/dL 6.4-8.2 Serum or plasma albumin measurement (mass/volume) 4.7 g/dL 3.2-4.5 Magnesium - 08/30/18 08:23 Magnesium 2.5 mg/dL 1.8-2.4 THYROID STIMULATING HORMONE - 08/30/18 0 8:23 THYROID STIMULATING HORMONE 1.89 u[iU]/mL 0.35-4.94 Complete blood count (CBC) with automate d white blood cell (WBC) differential - 12/06/18 14:47 Blood leukocytes automated count (number/volume) 10.3 10*3/uL 4.3-11.0 Blood erythrocytes automated count (number/volume) 3.94 10*6/uL 4.35-5.85 Venous blood hemoglobin measurement (mass/volume) 12.5 g/dL 11.5-16.0 Blood hematocrit (volume fraction) 39 % 35-52 Automated erythrocyte mean corpuscular volume 98 [ foz_us] 80-99 Automated erythrocyte mean corpuscular h emoglobin (mass per erythrocyte) 32 pg 25-34 Automated erythrocyte mean corpuscular h emoglobin concentration measurement (mass/volume) 33 g/dL 32-36 Automated erythrocyte distribution width ratio 12. 3 % 10.0- 14.5 Automated blood platelet count (count/volume) 429 10*3/uL 130-400 Automated blood platelet mean volume measurement 9.7 [foz_us] 7.4-10.4 Automated blood neutrophils/100 leukocytes 62 % 42-75 Automated blood lymphocytes/100 leukocytes 27 % 12-44 Blood monocytes/100 leukocytes 8 % 0-12 Automated blood eosinophils/100 leukocytes 2 % 0-10 Automated blood basophils/100 leukocytes 1 % 0-10 Blood neutrophils automated count (number/volume) 6.4 10*3 1.8-7.8 Blood lymphocytes automated count (number/volume) 2.8 10*3 1.0-4.0 Blood monocytes automated count (number/volume) 0. 8 10*3 0.0-1.0 Automated eosinophil count 0.2 10*3/uL 0 .0-0.3 Automated blood basophil count (count/volume) 0.1 10*3/uL 0.0-0.1 PT panel in platelet poor plasma by coag ulation assay - 12/06/18 14:47 Prothrombin time (PT) in platelet poor plasma by coagu lation assay 13.5 s 12.2-14.7 INR in platelet poor plasma or blood by coagulation as say 1.0 0.8-1.4 Activated partial thromboplastin time (a PTT) in platelet poor plasma bycoagulation assay - 12/06/18 14:47 Activated partial thromboplastin time (a PTT) in platelet poor plasma bycoagulation assay 34 s 24-35 Fibrin D-dimer FEU measurement in platel et poor plasma (mass/volume) - 12/06/18 14:47 Fibrin D-dimer FEU measurement in platelet poor plasma (mass/volume) 0.21 ug/mL 0.00-0.49 Comprehensive metabolic panel - 12/06/18 14:47 Serum or plasma sodium measurement (moles/volume) 140 mmol/L 135-145 Serum or plasma potassium measurement (moles/volume) 4.2 mmol/L 3.6-5.0 Serum or plasma chloride measurement (moles/volume) 101 mmol/L 98-107 Carbon dioxide 20 mmol/L 21-32 Serum or plasma anion gap determination (moles/volume) 19 mmol/L 5-14 Serum or plasma urea nitrogen measurement (mass/volume ) 39 mg/dL 7-18 Serum or plasma creatinine measurement (mass/volume) 1.56 mg/dL 0.60-1.30 Serum or plasma urea nitrogen/creatinine mass ratio 25 NRG Serum or plasma creatinine measurement w ith calculation of estimated glomerular filtration rate 32 NRG Serum or plasma glucose measurement (mass/volume) 105 mg/dL 70-105 Serum or plasma calcium measurement (mass/volume) 9.6 mg/dL 8.5-10.1 Serum or plasma total bilirubin measurement (mass/volu me) 0.2 mg/dL 0.1-1.0 Serum or plasma alkaline phosphatase leo surement (enzymatic activity/volume) 53 U/L 40-136 Serum or plasma aspartate aminotransfera se measurement (enzymatic activity/volume) 21 U/L 5-34 Serum or plasma alanine aminotransferase measurement (enzymatic activity/volume) 13 U/L 0-55 Serum or plasma protein measurement (mass/volume) 8.0 g/dL 6.4-8.2 Serum or plasma albumin measurement (mass/volume) 4.5 g/dL 3.2-4.5 CALCIUM CORRECTED 9.2 mg/dL 8.5-10.1 Magnesium - 12/06/18 14:47 Magnesium 2.2 mg/dL 1.6-2.4 Serum or plasma troponin i.cardiac measu rement (mass/volume) - 12/06/18 14:47 Serum or plasma troponin i.cardiac measurement (mass/v olume) < ng/mL <0.30 PROBNP FS - 12/06/18 14:47 PROBNP FS 276.9 pg/mL <75.0 Lipase - 12/06/18 14:47 Lipase 144 U/L 8-78 Complete urinalysis with reflex to cultu re - 12/06/18 15:00 Urine color determination YELLOW NRG Urine clarity determination CLEAR NR G Urine pH measurement by test strip 5.0 5-9 Specific gravity of urine by test strip 1.020 1.016-1.022 Urine protein assay by test strip, semi-quantitative NEGATIVE NEGATIVE Urine glucose detection by automated test strip NE GATIVE NEGATIVE Erythrocytes detection in urine sediment by light micr oscopy TRACE NEGATIVE Urine ketones detection by automated test strip NE GATIVE NEGATIVE Urine nitrite detection by test strip NEGATIVE NEGATIVE Urine total bilirubin detection by test strip NEGA TIVE NEGATIVE Urine urobilinogen measurement by automated test strip (mass/volume) 0.2 mg/dL NORMAL Urine leukocyte esterase detection by dipstick 2+ NEGATIVE Automated urine sediment erythrocyte cou nt by microscopy (number/high power field) [HPF] NRG Automated urine sediment leukocyte count by microscopy (number/high power field) [HPF] NRG Bacteria detection in urine sediment by light microsco py FEW NRG Squamous epithelial cells detection in u rine sediment by light microscopy 25-505 NRG Crystals detection in urine sediment by light microsco py NONE NRG Casts detection in urine sediment by light microscopy NONE NRG Mucus detection in urine sediment by light microscopy NEGATIVE NRG Complete urinalysis with reflex to culture YES NRG Bacterial urine culture - 12/06/18 15:00 Bacterial urine culture [id number] NRG COLONY COUNT 40,000 CFU/ML NRG FTX;REPORTABLE SUSCEPTIBILITY REPORTED 12/09 17:05 NRG Dirithromycin susceptibility test by dis k diffusion - 12/06/18 15:00 Gentamicin susceptibility test by minimum inhibitory c oncentration <= NRG Trimethoprim/sulfamethoxazole susceptibi lity test by minimum inhibitoryconcentration <= NRG Levofloxacin susceptibility test by minimum inhibitory concentration <= NRG Ampicillin susceptibility test by minimum inhibitory c oncentration <= NRG Cefazolin susceptibility test by minimum inhibitory co ncentration 2 NRG Ceftriaxone susceptibility test by minimum inhibitory concentration <= NRG Ciprofloxacin susceptibility test by minimum inhibitor y concentration <= NRG Meropenem susceptibility test by minimum inhibitory co ncentration <= NRG Nitrofurantoin susceptibility test by mi nimum inhibitory concentration <= NRG Amoxicillin and clavulanate potassium susc JESSY <= NRG Serum or plasma troponin i.cardiac measu rement (mass/volume) - 12/06/18 17:34 Serum or plasma troponin i.cardiac measurement (mass/v olume) < ng/mL <0.028 Complete blood count (CBC) with automate d white blood cell (WBC) differential - 12/07/18 03:01 Blood leukocytes automated count (number/volume) 9.4 10*3/uL 4.3-11.0 Blood erythrocytes automated count (number/volume) 3.21 10*6/uL 4.35-5.85 Venous blood hemoglobin measurement (mass/volume) 10.2 g/dL 11.5-16.0 Blood hematocrit (volume fraction) 32 % 35-52 Automated erythrocyte mean corpuscular volume 99 [ foz_us] 80-99 Automated erythrocyte mean corpuscular h emoglobin (mass per erythrocyte) 32 pg 25-34 Automated erythrocyte mean corpuscular h emoglobin concentration measurement (mass/volume) 32 g/dL 32-36 Automated erythrocyte distribution width ratio 12. 7 % 10.0- 14.5 Automated blood platelet count (count/volume) 297 10*3/uL 130-400 Automated blood platelet mean volume measurement 10.1 [foz_us] 7.4-10.4 Automated blood neutrophils/100 leukocytes 61 % 42-75 Automated blood lymphocytes/100 leukocytes 28 % 12-44 Blood monocytes/100 leukocytes 10 % 0-12 Automated blood eosinophils/100 leukocytes 1 % 0-10 Automated blood basophils/100 leukocytes 0 % 0-10 Blood neutrophils automated count (number/volume) 5.7 10*3 1.8-7.8 Blood lymphocytes automated count (number/volume) 2.7 10*3 1.0-4.0 Blood monocytes automated count (number/volume) 0. 9 10*3 0.0-1.0 Automated eosinophil count 0.1 10*3/uL 0 .0-0.3 Automated blood basophil count (count/volume) 0.0 10*3/uL 0.0-0.1 Comprehensive metabolic panel - 12/07/18 03:01 Serum or plasma sodium measurement (moles/volume) 142 mmol/L 135-145 Serum or plasma potassium measurement (moles/volume) 4.1 mmol/L 3.6-5.0 Serum or plasma chloride measurement (moles/volume) 113 mmol/L 98-107 Carbon dioxide 17 mmol/L 21-32 Serum or plasma anion gap determination (moles/volume) 12 mmol/L 5-14 Serum or plasma urea nitrogen measurement (mass/volume ) 34 mg/dL 7-18 Serum or plasma creatinine measurement (mass/volume) 1.32 mg/dL 0.60-1.30 Serum or plasma urea nitrogen/creatinine mass ratio 26 NRG Serum or plasma creatinine measurement w ith calculation of estimated glomerular filtration rate 39 NRG Serum or plasma glucose measurement (mass/volume) 83 mg/dL 70-105 Serum or plasma calcium measurement (mass/volume) 8.2 mg/dL 8.5-10.1 Serum or plasma total bilirubin measurement (mass/volu me) 0.4 mg/dL 0.1-1.0 Serum or plasma alkaline phosphatase leo surement (enzymatic activity/volume) 40 U/L 40-136 Serum or plasma aspartate aminotransfera se measurement (enzymatic activity/volume) 14 U/L 5-34 Serum or plasma alanine aminotransferase measurement (enzymatic activity/volume) 11 U/L 0-55 Serum or plasma protein measurement (mass/volume) 6.1 g/dL 6.4-8.2 Serum or plasma albumin measurement (mass/volume) 3.5 g/dL 3.2-4.5 CALCIUM CORRECTED 8.6 mg/dL 8.5-10.1 Serum or plasma amylase measurement (enz ymatic activity/volume) - 12/07/18 03:01 Serum or plasma amylase measurement (enzymatic activit y/volume) 64 U/L 25-125 Lipase - 12/07/18 03:01 Lipase 65 U/L 8-78 Comprehensive metabolic panel - 12/08/18 09:50 Serum or plasma sodium measurement (moles/volume) 143 mmol/L 135-145 Serum or plasma potassium measurement (moles/volume) 4.3 mmol/L 3.6-5.0 Serum or plasma chloride measurement (moles/volume) 113 mmol/L 98-107 Carbon dioxide 20 mmol/L 21-32 Serum or plasma anion gap determination (moles/volume) 10 mmol/L 5-14 Serum or plasma urea nitrogen measurement (mass/volume ) 23 mg/dL 7-18 Serum or plasma creatinine measurement (mass/volume) 1.26 mg/dL 0.60-1.30 Serum or plasma urea nitrogen/creatinine mass ratio 18 NRG Serum or plasma creatinine measurement w ith calculation of estimated glomerular filtration rate 41 NRG Serum or plasma glucose measurement (mass/volume) 78 mg/dL 70-105 Serum or plasma calcium measurement (mass/volume) 8.6 mg/dL 8.5-10.1 Serum or plasma total bilirubin measurement (mass/volu me) 0.4 mg/dL 0.1-1.0 Serum or plasma alkaline phosphatase leo surement (enzymatic activity/volume) 37 U/L 40-136 Serum or plasma aspartate aminotransfera se measurement (enzymatic activity/volume) 19 U/L 5-34 Serum or plasma alanine aminotransferase measurement (enzymatic activity/volume) 11 U/L 0-55 Serum or plasma protein measurement (mass/volume) 6.9 g/dL 6.4-8.2 Serum or plasma albumin measurement (mass/volume) 3.7 g/dL 3.2-4.5 CALCIUM CORRECTED 8.8 mg/dL 8.5-10.1 Magnesium - 12/08/18 09:50 Magnesium 1.8 mg/dL 1.6-2.4 Complete urinalysis with reflex to cultu re - 12/12/18 09:10 Urine color determination PALE YELLOW N RG Urine clarity determination CLEAR NR G Urine pH measurement by test strip 5.5 5-9 Specific gravity of urine by test strip <= 1.016-1.022 Urine protein assay by test strip, semi-quantitative NEGATIVE NEGATIVE Urine glucose detection by automated test strip NE GATIVE NEGATIVE Erythrocytes detection in urine sediment by light micr oscopy NEGATIVE NEGATIVE Urine ketones detection by automated test strip NE GATIVE NEGATIVE Urine nitrite detection by test strip NEGATIVE NEGATIVE Urine total bilirubin detection by test strip NEGA TIVE NEGATIVE Urine urobilinogen measurement by automated test strip (mass/volume) 0.2 mg/dL NORMAL Urine leukocyte esterase detection by dipstick 1+ NEGATIVE Automated urine sediment erythrocyte cou nt by microscopy (number/high power field) NONE NRG Automated urine sediment leukocyte count by microscopy (number/high power field) [HPF] NRG Bacteria detection in urine sediment by light microsco py TRACE NRG Squamous epithelial cells detection in u rine sediment by light microscopy 2-5 NRG Crystals detection in urine sediment by light microsco py NONE NRG Casts detection in urine sediment by light microscopy NONE NRG Mucus detection in urine sediment by light microscopy NONE NRG Complete urinalysis with reflex to culture YES NRG Bacterial urine culture - 12/12/18 09:10 Bacterial urine culture GRAM POS M NRG COLONY COUNT 40,000 CFU/ML NRG FTX;REPORTABLE ID/SUSCEPTIBILITY REPORTED 12/14/18 14:05 NRG Dirithromycin susceptibility test by dis k diffusion - 12/12/18 09:10 Gentamicin susceptibility test by minimum inhibitory c oncentration <= NRG Trimethoprim/sulfamethoxazole susceptibi lity test by minimum inhibitoryconcentration <= NRG Levofloxacin susceptibility test by minimum inhibitory concentration <= NRG Ampicillin susceptibility test by minimum inhibitory c oncentration <= NRG Cefazolin susceptibility test by minimum inhibitory co ncentration <= NRG Ceftriaxone susceptibility test by minimum inhibitory concentration <= NRG Ciprofloxacin susceptibility test by minimum inhibitor y concentration <= NRG Meropenem susceptibility test by minimum inhibitory co ncentration <= NRG Nitrofurantoin susceptibility test by mi nimum inhibitory concentration <= NRG Amoxicillin and clavulanate potassium susc JESSY <= NRG Complete blood count (CBC) with automate d white blood cell (WBC) differential - 12/12/18 09:35 Blood leukocytes automated count (number/volume) 10.9 10*3/uL 4.3-11.0 Blood erythrocytes automated count (number/volume) 3.71 10*6/uL 4.35-5.85 Venous blood hemoglobin measurement (mass/volume) 11.9 g/dL 11.5-16.0 Blood hematocrit (volume fraction) 36 % 35-52 Automated erythrocyte mean corpuscular volume 96 [ foz_us] 80-99 Automated erythrocyte mean corpuscular h emoglobin (mass per erythrocyte) 32 pg 25-34 Automated erythrocyte mean corpuscular h emoglobin concentration measurement (mass/volume) 33 g/dL 32-36 Automated erythrocyte distribution width ratio 12. 5 % 10.0- 14.5 Automated blood platelet count (count/volume) 256 10*3/uL 130-400 Automated blood platelet mean volume measurement 10.2 [foz_us] 7.4-10.4 Automated blood neutrophils/100 leukocytes 54 % 42-75 Automated blood lymphocytes/100 leukocytes 30 % 12-44 Blood monocytes/100 leukocytes 12 % 0-12 Automated blood eosinophils/100 leukocytes 2 % 0-10 Automated blood basophils/100 leukocytes 1 % 0-10 Blood neutrophils automated count (number/volume) 5.9 10*3 1.8-7.8 Blood lymphocytes automated count (number/volume) 3.3 10*3 1.0-4.0 Blood monocytes automated count (number/volume) 1. 3 10*3 0.0-1.0 Automated eosinophil count 0.3 10*3/uL 0 .0-0.3 Automated blood basophil count (count/volume) 0.1 10*3/uL 0.0-0.1 Comprehensive metabolic panel - 12/12/18 09:35 Serum or plasma sodium measurement (moles/volume) 139 mmol/L 135-145 Serum or plasma potassium measurement (moles/volume) 3.9 mmol/L 3.6-5.0 Serum or plasma chloride measurement (moles/volume) 101 mmol/L 98-107 Carbon dioxide 18 mmol/L 21-32 Serum or plasma anion gap determination (moles/volume) 20 mmol/L 5-14 Serum or plasma urea nitrogen measurement (mass/volume ) 15 mg/dL 7-18 Serum or plasma creatinine measurement (mass/volume) 1.26 mg/dL 0.60-1.30 Serum or plasma urea nitrogen/creatinine mass ratio 12 NRG Serum or plasma creatinine measurement w ith calculation of estimated glomerular filtration rate 41 NRG Serum or plasma glucose measurement (mass/volume) 93 mg/dL 70-105 Serum or plasma calcium measurement (mass/volume) 9.6 mg/dL 8.5-10.1 Serum or plasma total bilirubin measurement (mass/volu me) 0.2 mg/dL 0.1-1.0 Serum or plasma alkaline phosphatase leo surement (enzymatic activity/volume) 49 U/L 40-136 Serum or plasma aspartate aminotransfera se measurement (enzymatic activity/volume) 21 U/L 5-34 Serum or plasma alanine aminotransferase measurement (enzymatic activity/volume) 13 U/L 0-55 Serum or plasma protein measurement (mass/volume) 7.5 g/dL 6.4-8.2 Serum or plasma albumin measurement (mass/volume) 4.1 g/dL 3.2-4.5 CALCIUM CORRECTED 9.5 mg/dL 8.5-10.1 Serum or plasma troponin i.cardiac measu rement (mass/volume) - 12/12/18 09:35 Serum or plasma troponin i.cardiac measurement (mass/v olume) < ng/mL <0.30 Lipase - 12/12/18 09:35 Lipase 100 U/L 8-78 THYROID STIMULATING HORMONE - 12/12/18 0 9:35 THYROID STIMULATING HORMONE 1.84 u[iU]/mL 0.35-4.94 Complete blood count (CBC) with automate d white blood cell (WBC) differential - 12/17/18 11:15 Blood leukocytes automated count (number/volume) 8.1 10*3/uL 4.3-11.0 Blood erythrocytes automated count (number/volume) 3.80 10*6/uL 4.35-5.85 Venous blood hemoglobin measurement (mass/volume) 12.0 g/dL 11.5-16.0 Blood hematocrit (volume fraction) 37 % 35-52 Automated erythrocyte mean corpuscular volume 97 [ foz_us] 80-99 Automated erythrocyte mean corpuscular h emoglobin (mass per erythrocyte) 32 pg 25-34 Automated erythrocyte mean corpuscular h emoglobin concentration measurement (mass/volume) 32 g/dL 32-36 Automated erythrocyte distribution width ratio 12. 5 % 10.0- 14.5 Automated blood platelet count (count/volume) 277 10*3/uL 130-400 Automated blood platelet mean volume measurement 10.0 [foz_us] 7.4-10.4 Automated blood neutrophils/100 leukocytes 50 % 42-75 Automated blood lymphocytes/100 leukocytes 33 % 12-44 Blood monocytes/100 leukocytes 14 % 0-12 Automated blood eosinophils/100 leukocytes 2 % 0-10 Automated blood basophils/100 leukocytes 1 % 0-10 Blood neutrophils automated count (number/volume) 4.0 10*3 1.8-7.8 Blood lymphocytes automated count (number/volume) 2.6 10*3 1.0-4.0 Blood monocytes automated count (number/volume) 1. 8 10*3 0.0-1.0 Automated eosinophil count 0.2 10*3/uL 0 .0-0.3 Automated blood basophil count (count/volume) 0.1 10*3/uL 0.0-0.1 Comprehensive metabolic panel - 12/17/18 11:15 Serum or plasma sodium measurement (moles/volume) 141 mmol/L 135-145 Serum or plasma potassium measurement (moles/volume) 3.7 mmol/L 3.6-5.0 Serum or plasma chloride measurement (moles/volume) 104 mmol/L 98-107 Carbon dioxide 20 mmol/L 21-32 Serum or plasma anion gap determination (moles/volume) 17 mmol/L 5-14 Serum or plasma urea nitrogen measurement (mass/volume ) 14 mg/dL 7-18 Serum or plasma creatinine measurement (mass/volume) 1.06 mg/dL 0.60-1.30 Serum or plasma urea nitrogen/creatinine mass ratio 13 NRG Serum or plasma creatinine measurement w ith calculation of estimated glomerular filtration rate 50 NRG Serum or plasma glucose measurement (mass/volume) 125 mg/dL 70-105 Serum or plasma calcium measurement (mass/volume) 9.5 mg/dL 8.5-10.1 Serum or plasma total bilirubin measurement (mass/volu me) 0.2 mg/dL 0.1-1.0 Serum or plasma alkaline phosphatase leo surement (enzymatic activity/volume) 56 U/L 40-136 Serum or plasma aspartate aminotransfera se measurement (enzymatic activity/volume) 20 U/L 5-34 Serum or plasma alanine aminotransferase measurement (enzymatic activity/volume) 13 U/L 0-55 Serum or plasma protein measurement (mass/volume) 7.7 g/dL 6.4-8.2 Serum or plasma albumin measurement (mass/volume) 4.1 g/dL 3.2-4.5 CALCIUM CORRECTED 9.4 mg/dL 8.5-10.1 Serum or plasma troponin i.cardiac measu rement (mass/volume) - 12/17/18 11:15 Serum or plasma troponin i.cardiac measurement (mass/v olume) < ng/mL <0.30 Lipase - 12/17/18 11:15 Lipase 95 U/L 8-78 Complete urinalysis with reflex to cultu re - 12/17/18 11:38 Urine color determination YELLOW NRG Urine clarity determination SL CLOUDY N RG Urine pH measurement by test strip 5.5 5-9 Specific gravity of urine by test strip <= 1.016-1.022 Urine protein assay by test strip, semi-quantitative NEGATIVE NEGATIVE Urine glucose detection by automated test strip NE GATIVE NEGATIVE Erythrocytes detection in urine sediment by light micr oscopy NEGATIVE NEGATIVE Urine ketones detection by automated test strip NE GATIVE NEGATIVE Urine nitrite detection by test strip NEGATIVE NEGATIVE Urine total bilirubin detection by test strip NEGA TIVE NEGATIVE Urine urobilinogen measurement by automated test strip (mass/volume) 0.2 mg/dL NORMAL Urine leukocyte esterase detection by dipstick 2+ NEGATIVE Automated urine sediment erythrocyte cou nt by microscopy (number/high power field) NONE NRG Automated urine sediment leukocyte count by microscopy (number/high power field) [HPF] NRG Bacteria detection in urine sediment by light microsco py LARGE NRG Squamous epithelial cells detection in u rine sediment by light microscopy 5-10 NRG Crystals detection in urine sediment by light microsco py NONE NRG Casts detection in urine sediment by light microscopy NONE NRG Mucus detection in urine sediment by light microscopy NEGATIVE NRG Complete urinalysis with reflex to culture YES NRG Bacterial urine culture - 12/17/18 11:38 Bacterial urine culture [id number] NRG COLONY COUNT >100,000/ML NRG FTX;REPORTABLE SUSCEPTIBILITY REPORTED 12/19/18 11: 05 NRG Dirithromycin susceptibility test by dis k diffusion - 12/17/18 11:38 Gentamicin susceptibility test by minimum inhibitory c oncentration <= NRG Trimethoprim/sulfamethoxazole susceptibi lity test by minimum inhibitoryconcentration <= NRG Levofloxacin susceptibility test by minimum inhibitory concentration <= NRG Ampicillin susceptibility test by minimum inhibitory c oncentration <= NRG Cefazolin susceptibility test by minimum inhibitory co ncentration 2 NRG Ceftriaxone susceptibility test by minimum inhibitory concentration <= NRG Ciprofloxacin susceptibility test by minimum inhibitor y concentration <= NRG Meropenem susceptibility test by minimum inhibitory co ncentration <= NRG Nitrofurantoin susceptibility test by mi nimum inhibitory concentration <= NRG Amoxicillin and clavulanate potassium susc JESSY <= NRG Complete urinalysis with reflex to cultu re - 12/28/18 10:33 Urine color determination YELLOW NRG Urine clarity determination CLEAR NR G Urine pH measurement by test strip 5 5-9 Specific gravity of urine by test strip 1.015 1.016-1.022 Urine protein assay by test strip, semi-quantitative NEGATIVE NEGATIVE Urine glucose detection by automated test strip NE GATIVE NEGATIVE Erythrocytes detection in urine sediment by light micr oscopy NEGATIVE NEGATIVE Urine ketones detection by automated test strip NE GATIVE NEGATIVE Urine nitrite detection by test strip NEGATIVE NEGATIVE Urine total bilirubin detection by test strip NEGA TIVE NEGATIVE Urine urobilinogen measurement by automated test strip (mass/volume) NORMAL NORMAL Urine leukocyte esterase detection by dipstick 3+ NEGATIVE Automated urine sediment erythrocyte cou nt by microscopy (number/high power field) RARE NRG Automated urine sediment leukocyte count by microscopy (number/high power field) [HPF] NRG Bacteria detection in urine sediment by light microsco py TRACE NRG Squamous epithelial cells detection in u rine sediment by light microscopy 5-10 NRG Crystals detection in urine sediment by light microsco py NONE NRG Casts detection in urine sediment by light microscopy NONE NRG Mucus detection in urine sediment by light microscopy SMALL NRG Complete urinalysis with reflex to culture YES NRG Bacterial urine culture - 12/28/18 10:33 Bacterial urine culture [id number] NRG COLONY COUNT . NRG FTX;REPORTABLE NO SUSCEPTIBILITIES SET UP NRG Complete blood count (CBC) with automate d white blood cell (WBC) differential - 12/28/18 11:33 Blood leukocytes automated count (number/volume) 11.7 10*3/uL 4.3-11.0 Blood erythrocytes automated count (number/volume) 4.19 10*6/uL 4.35-5.85 Venous blood hemoglobin measurement (mass/volume) 13.1 g/dL 11.5-16.0 Blood hematocrit (volume fraction) 41 % 35-52 Automated erythrocyte mean corpuscular volume 97 [ foz_us] 80-99 Automated erythrocyte mean corpuscular h emoglobin (mass per erythrocyte) 31 pg 25-34 Automated erythrocyte mean corpuscular h emoglobin concentration measurement (mass/volume) 32 g/dL 32-36 Automated erythrocyte distribution width ratio 12. 5 % 10.0- 14.5 Automated blood platelet count (count/volume) 308 10*3/uL 130-400 Automated blood platelet mean volume measurement 10.1 [foz_us] 7.4-10.4 Automated blood neutrophils/100 leukocytes 58 % 42-75 Automated blood lymphocytes/100 leukocytes 28 % 12-44 Blood monocytes/100 leukocytes 12 % 0-12 Automated blood eosinophils/100 leukocytes 2 % 0-10 Automated blood basophils/100 leukocytes 1 % 0-10 Blood neutrophils automated count (number/volume) 6.7 10*3 1.8-7.8 Blood lymphocytes automated count (number/volume) 3.3 10*3 1.0-4.0 Blood monocytes automated count (number/volume) 1. 4 10*3 0.0-1.0 Automated eosinophil count 0.2 10*3/uL 0 .0-0.3 Automated blood basophil count (count/volume) 0.1 10*3/uL 0.0-0.1 Comprehensive metabolic panel - 12/28/18 11:33 Serum or plasma sodium measurement (moles/volume) 142 mmol/L 135-145 Serum or plasma potassium measurement (moles/volume) 3.9 mmol/L 3.6-5.0 Serum or plasma chloride measurement (moles/volume) 105 mmol/L 98-107 Carbon dioxide 27 mmol/L 21-32 Serum or plasma anion gap determination (moles/volume) 10 mmol/L 5-14 Serum or plasma urea nitrogen measurement (mass/volume ) 16 mg/dL 7-18 Serum or plasma creatinine measurement (mass/volume) 1.13 mg/dL 0.60-1.30 Serum or plasma urea nitrogen/creatinine mass ratio 14 NRG Serum or plasma creatinine measurement w ith calculation of estimated glomerular filtration rate 46 NRG Serum or plasma glucose measurement (mass/volume) 86 mg/dL 70-105 Serum or plasma calcium measurement (mass/volume) 9.7 mg/dL 8.5-10.1 Serum or plasma total bilirubin measurement (mass/volu me) 0.4 mg/dL 0.1-1.0 Serum or plasma alkaline phosphatase leo surement (enzymatic activity/volume) 58 U/L 40-136 Serum or plasma aspartate aminotransfera se measurement (enzymatic activity/volume) 21 U/L 5-34 Serum or plasma alanine aminotransferase measurement (enzymatic activity/volume) 18 U/L 0-55 Serum or plasma protein measurement (mass/volume) 7.8 g/dL 6.4-8.2 Serum or plasma albumin measurement (mass/volume) 4.4 g/dL 3.2-4.5 CALCIUM CORRECTED 9.4 mg/dL 8.5-10.1 Lipase - 12/28/18 11:33 Lipase 106 U/L 8-78 Stool Helicobacter pylori antigen detect ion - 02/15/19 11:54 H PYLORI ANTIGEN PT Negative Negative PT panel in platelet poor plasma by coag ulation assay - 03/07/19 16:05 Prothrombin time (PT) in platelet poor plasma by coagu lation assay 12.9 s 12.2-14.7 INR in platelet poor plasma or blood by coagulation as say 0.9 0.8-1.4 Activated partial thromboplastin time (a PTT) in platelet poor plasma bycoagulation assay - 03/07/19 16:05 Activated partial thromboplastin time (a PTT) in platelet poor plasma bycoagulation assay 35 s 24-35 Complete blood count (CBC) with automate d white blood cell (WBC) differential - 03/07/19 16:05 Blood leukocytes automated count (number/volume) 9.7 10*3/uL 4.3-11.0 Blood erythrocytes automated count (number/volume) 4.16 10*6/uL 4.35-5.85 Venous blood hemoglobin measurement (mass/volume) 12.9 g/dL 11.5-16.0 Blood hematocrit (volume fraction) 39 % 35-52 Automated erythrocyte mean corpuscular volume 95 [ foz_us] 80-99 Automated erythrocyte mean corpuscular h emoglobin (mass per erythrocyte) 31 pg 25-34 Automated erythrocyte mean corpuscular h emoglobin concentration measurement (mass/volume) 33 g/dL 32-36 Automated erythrocyte distribution width ratio 12. 8 % 10.0- 14.5 Automated blood platelet count (count/volume) 399 10*3/uL 130-400 Automated blood platelet mean volume measurement 9.9 [foz_us] 7.4-10.4 Automated blood neutrophils/100 leukocytes 43 % 42-75 Automated blood lymphocytes/100 leukocytes 40 % 12-44 Blood monocytes/100 leukocytes 13 % 0-12 Automated blood eosinophils/100 leukocytes 3 % 0-10 Automated blood basophils/100 leukocytes 1 % 0-10 Blood neutrophils automated count (number/volume) 4.2 10*3 1.8-7.8 Blood lymphocytes automated count (number/volume) 3.9 10*3 1.0-4.0 Blood monocytes automated count (number/volume) 1. 3 10*3 0.0-1.0 Automated eosinophil count 0.3 10*3/uL 0 .0-0.3 Automated blood basophil count (count/volume) 0.1 10*3/uL 0.0-0.1 Comprehensive metabolic panel - 03/07/19 16:05 Serum or plasma sodium measurement (moles/volume) 142 mmol/L 135-145 Serum or plasma potassium measurement (moles/volume) 4.0 mmol/L 3.6-5.0 Serum or plasma chloride measurement (moles/volume) 108 mmol/L 98-107 Carbon dioxide 23 mmol/L 21-32 Serum or plasma anion gap determination (moles/volume) 11 mmol/L 5-14 Serum or plasma urea nitrogen measurement (mass/volume ) 26 mg/dL 7-18 Serum or plasma creatinine measurement (mass/volume) 1.07 mg/dL 0.60-1.30 Serum or plasma urea nitrogen/creatinine mass ratio 24 NRG Serum or plasma creatinine measurement w ith calculation of estimated glomerular filtration rate 49 NRG Serum or plasma glucose measurement (mass/volume) 91 mg/dL 70-105 Serum or plasma calcium measurement (mass/volume) 9.5 mg/dL 8.5-10.1 Serum or plasma total bilirubin measurement (mass/volu me) 0.4 mg/dL 0.1-1.0 Serum or plasma alkaline phosphatase leo surement (enzymatic activity/volume) 60 U/L 40-136 Serum or plasma aspartate aminotransfera se measurement (enzymatic activity/volume) 20 U/L 5-34 Serum or plasma alanine aminotransferase measurement (enzymatic activity/volume) 15 U/L 0-55 Serum or plasma protein measurement (mass/volume) 7.3 g/dL 6.4-8.2 Serum or plasma albumin measurement (mass/volume) 4.2 g/dL 3.2-4.5 CALCIUM CORRECTED 9.3 mg/dL 8.5-10.1 Serum or plasma troponin i.cardiac measu rement (mass/volume) - 03/07/19 16:05 Serum or plasma troponin i.cardiac measurement (mass/v olume) < ng/mL <0.028 Serum or plasma lithium measurement (mol es/volume) - 03/07/19 16:05 BNP PT 138.5 pg/mL <100.0 Complete blood count (CBC) with automate d white blood cell (WBC) differential - 03/08/19 06:19 Blood leukocytes automated count (number/volume) 7.2 10*3/uL 4.3-11.0 Blood erythrocytes automated count (number/volume) 4.00 10*6/uL 4.35-5.85 Venous blood hemoglobin measurement (mass/volume) 12.3 g/dL 11.5-16.0 Blood hematocrit (volume fraction) 38 % 35-52 Automated erythrocyte mean corpuscular volume 95 [ foz_us] 80-99 Automated erythrocyte mean corpuscular h emoglobin (mass per erythrocyte) 31 pg 25-34 Automated erythrocyte mean corpuscular h emoglobin concentration measurement (mass/volume) 32 g/dL 32-36 Automated erythrocyte distribution width ratio 12. 9 % 10.0- 14.5 Automated blood platelet count (count/volume) 307 10*3/uL 130-400 Automated blood platelet mean volume measurement 10.1 [foz_us] 7.4-10.4 Automated blood neutrophils/100 leukocytes 45 % 42-75 Automated blood lymphocytes/100 leukocytes 37 % 12-44 Blood monocytes/100 leukocytes 13 % 0-12 Automated blood eosinophils/100 leukocytes 4 % 0-10 Automated blood basophils/100 leukocytes 1 % 0-10 Blood neutrophils automated count (number/volume) 3.3 10*3 1.8-7.8 Blood lymphocytes automated count (number/volume) 2.7 10*3 1.0-4.0 Blood monocytes automated count (number/volume) 1. 0 10*3 0.0-1.0 Automated eosinophil count 0.3 10*3/uL 0 .0-0.3 Automated blood basophil count (count/volume) 0.1 10*3/uL 0.0-0.1 Comprehensive metabolic panel - 03/08/19 06:19 Serum or plasma sodium measurement (moles/volume) 141 mmol/L 135-145 Serum or plasma potassium measurement (moles/volume) 4.1 mmol/L 3.6-5.0 Serum or plasma chloride measurement (moles/volume) 109 mmol/L 98-107 Carbon dioxide 21 mmol/L 21-32 Serum or plasma anion gap determination (moles/volume) 11 mmol/L 5-14 Serum or plasma urea nitrogen measurement (mass/volume ) 26 mg/dL 7-18 Serum or plasma creatinine measurement (mass/volume) 1.03 mg/dL 0.60-1.30 Serum or plasma urea nitrogen/creatinine mass ratio 25 NRG Serum or plasma creatinine measurement w ith calculation of estimated glomerular filtration rate 51 NRG Serum or plasma glucose measurement (mass/volume) 88 mg/dL 70-105 Serum or plasma calcium measurement (mass/volume) 9.0 mg/dL 8.5-10.1 Serum or plasma total bilirubin measurement (mass/volu me) 0.6 mg/dL 0.1-1.0 Serum or plasma alkaline phosphatase leo surement (enzymatic activity/volume) 53 U/L 40-136 Serum or plasma aspartate aminotransfera se measurement (enzymatic activity/volume) 19 U/L 5-34 Serum or plasma alanine aminotransferase measurement (enzymatic activity/volume) 13 U/L 0-55 Serum or plasma protein measurement (mass/volume) 6.6 g/dL 6.4-8.2 Serum or plasma albumin measurement (mass/volume) 3.8 g/dL 3.2-4.5 CALCIUM CORRECTED 9.2 mg/dL 8.5-10.1 Encounters ACCT No. Visit Date/Time Discharge Status Pt. Type Provider Facility Loc./Unit Complaint [id number] 02/15/2019 11:45:00 00:01:00 DIS Outpatient OMAYRA BRANDON DO [facility] LAB H-PYLORI [id number] 03/07/2019 15:25:00 15:32:00 DIS Inpatient MACARIO ORTIZ MD [facility] 4TH CHEST PAIN ACS R/O [id number] 01/03/2019 13:08:00 15:15:00 DIS Outpatient OMAYRA BRANDON DO [facility] ENDO ABD PAIN/BURNING [id number] 01/02/2019 14:00:00 23:59:59 CLS Preadmit WALTER GIL MD, FACC, FACP CCDS [facility] CARD CAD, CAROTID AR TERIAL DISEASE [id number] 01/02/2019 11:30:00 23:59:59 CLS PreadWALTER Felix MD, FACC, FACP CCDS [facility] CARD CAD, CAROTID AR TERIAL DISEASE [id number] 12/28/2018 10:10:00 13:51:00 DIS Emergency LATOYA ALVARADO APRN [facility] ER N/V [id number] 12/17/2018 10:24:00 13:50:00 DIS Emergency LANDON RIVAS MD [facility] ER FS HIGH BP [id number] 12/12/2018 08:31:00 11:01:00 DIS Emergency ALVAREZ ANAYA DO [facility] ER FS SOB; HIGH BP; DIZZINESS [id number] 12/06/2018 16:00:00 12:25:00 DIS Inpatient ARI MARTECRISTINA [facility] ICU INTRACTABLE N/V CP PANCREATITIS DEHYDRATION [id number] 11/20/2018 09:55:00 23:59:59 CLS Outpatient LUCERO HILL [facility] RAD FS M25.561 [id number] 08/30/2018 08:09:00 23:59:59 CLS Outpatient JEFFERY CRAIG FACC, WALTER VILLARREAL CC DS [facility] LAB FS I65.23 I25. 10 I10 Z98.890 I25.5 R55 R51 [id number] 08/09/2018 14:00:00 11:47:00 DIS Outpatient SINGH LUCAS MD [facility] CATH CHEST PAIN; SOB [id number] 08/01/2018 08:45:00 23:59:59 CLS Outpatient WALTER GIL MD, FACC, FACP CC DS [facility] RAD FS CAROTID ART ERIAL DISEASE [id number] 07/04/2018 10:38:00 11:01:00 DIS Outpatient JEFFERY CRAIG FACC, WALTER VILLARREAL CC DS [facility] CATH LEFT HEART CATH [id number] 12/14/2016 09:17:00 11:15:00 DIS Outpatient VERÓNICA DAY [facility] CATH CHEST PAIN,CAD, CAROTID ARTERIAL DISEASE,HL [id number] 06/03/2016 08:13:00 017 23:59:59 CLS Outpatient JEFFERY CRAIG FACC, WALTER PAZP CC DS [facility] CARD SYNCOPE,CAD ,LEG SWELLING,HLP [id number] 06/02/2016 11:12:00 017 23:59:59 CLS Outpatient JEFFERY CRAIG FACC, WALTER PAZP CC DS [facility] SYNCOPE,CAD ,LEG SWELLING [id number] 08/21/2015 08:25:00 016 23:59:59 CLS Outpatient JEFFERY CRAIG FACC, WALTER PAZP CC DS [facility] CAD,ESSENTI AL HTN,HLP,ISCHEMIC CARDIOMYOPATHY [id number] 07/20/2015 09:45:00 016 17:00:00 DIS Inpatient LASHELL CRAIG, LUISA Valladares [facility] ICU ACUTE [facility]TERIOR [facility] [place] [id number] 07/14/2015 06:38:00 016 14:30:00 DIS Inpatient HAYLEY SERVIN MD [facility] ICU CHEST PAIN [id number] 09/10/2014 06:44:00 015 10:12:00 DIS Outpatient JEFFERY CRAIG FACC, WALTER PAZP CC DS [facility] ABNORMAL ST RESS TEST [id number] 08/08/2014 08:10:00 015 23:59:59 CLS Outpatient VERÓNICA DAY [employer] [facility] CARD CP,CAD,HTN [id number] 07/24/2013 11:44:00 014 18:50:00 DIS Outpatient JEFFERY CRAIG FACC, WALTER PAZP CC DS [facility] CP,CAD,HTN, HLP [id number] 10/04/2012 12:31:00 013 23:59:59 CLS Outpatient VERÓNICA DAY [employer] [facility] RT DYSPNEA [id number] 07/31/2012 13:59:00 Document Registration [id number] 07/25/2012 11:12:00 Document Registration [id number] 07/01/2012 12:05:00 Document Registration
[2019-07-16] MEDS ORDERED: NS IV 500 ML 500 ML IV ONE (11:45)
[2019-07-16 12:09] LABS: BASOPHILS # (AUTO) 0.1 10^3/uL (0.0-0.1); BASOPHILS % (AUTO) 1 % (0-10); EOSINOPHILS # (AUTO) 0.3 10^3/uL (0.0-0.3); EOSINOPHILS % (AUTO) 2 % (0-10); HEMATOCRIT 39 % (35-52); HEMOGLOBIN 12.8 G/DL (11.5-16.0); LYMPHOCYTES # (AUTO) 5.1 X 10^3 (1.0-4.0); LYMPHOCYTES % (AUTO) 43 % (12-44); MEAN CORPUSCULAR HEMOGLOBIN 30 PG (25-34); MEAN CORPUSCULAR HGB CONC 33 G/DL (32-36); MEAN CORPUSCULAR VOLUME 91 FL (80-99); MONOCYTES # (AUTO) 1.4 X 10^3 (0.0-1.0); MONOCYTES % (AUTO) 12 % (0-12); NEUTROPHILS # (AUTO) 4.8 X 10^3 (1.8-7.8); NEUTROPHILS % (AUTO) 41 % (42-75); PLATELET COUNT 468 10^3/uL (130-400); RED CELL DISTRIBUTION WIDTH 14.7 % (10.0-14.5); WHITE BLOOD COUNT 11.7 10^3/uL (4.3-11.0)
--- NOTE | 2019-07-16 12:09 | Diagnostic Imaging Report ---
INDICATION: Chest pain. History of cardiovascular disease. COMPARISON: 03/07/2019. FINDINGS: Frontal and lateral views of the chest demonstrate normal heart size and pulmonary vascularity. The lungs are clear. There are no signs of infiltrate, pleural effusions, or pneumothoraces. The visualized osseous structures show no acute abnormalities. There is calcified aortic atherosclerosis. Indwelling coronary stents are also noted. IMPRESSION: No acute process. No signs of infiltrates, effusions, or pneumothoraces. Dictated by: Dictated on workstation # [id number]
[2019-07-16 12:24] LABS: ALANINE AMINOTRANSFERASE 13 U/L (0-55); ALBUMIN 4.5 GM/DL (3.2-4.5); ALKALINE PHOSPHATASE 78 U/L (40-136); BILIRUBIN,TOTAL 0.2 MG/DL (0.1-1.0); BUN/CREATININE RATIO 26; CALCIUM 9.7 MG/DL (8.5-10.1); CARBON DIOXIDE 21 MMOL/L (21-32); CHLORIDE 102 MMOL/L (98-107); CREATININE SERUM 1.45 MG/DL (0.60-1.30); GFR ESTIMATED 34; GLUCOSE 102 MG/DL (70-105); LIPASE 113 U/L (8-78); POTASSIUM 4.6 MMOL/L (3.6-5.0); SODIUM 138 MMOL/L (135-145); TOTAL PROTEIN 7.9 GM/DL (6.4-8.2)
--- NOTE | 2019-07-16 12:26 | ED Chest Pain ---
General Chief Complaint: Chest Pain Stated Complaint: CHEST PAIN Nursing Triage Note: LOWER LEFT SIDED CHEST PAIN THAT STARTED 1 HOUR PRIOR TO ARRIVAL. HX OF 10 STENTS. DID NOT TAKE NITRO PRIOR TO ARRIVAL Nursing Sepsis Screen: No Definite Risk Source: patient Exam Limitations: no limitations History of Present Illness Date Seen by Provider: Jul 16, 2019 Time Seen by Provider: 11:31 Initial Comments 84 yr old female presents with one hour of anterior chest pain and left breast heat. pt has ten stents and reports this is different than her other angina symptoms. Pt denies SOA. Pt has consented to diagnostic and therapeutic care. Pt is edentulous. She has R knee pain. Pain started when she was walking. No PUL or GI or Renal dx. Timing/Duration: 1 hour Severity/Quality: moderate Location: central, other (left breast heat) Radiation: back Activities at Onset: activity (walking) Prior CP/Workup: angina, cardiac cath (with ten stents) Modifying Factors: improves with breathing, improves with lying down, improves with rest Associated Symptoms: denies symptoms Allergies and Home Medications Allergies Coded Allergies: Penicillins (Verified Allergy, Intermediate, HIVES, 07/25/12) oxytetracycline (Verified Allergy, Intermediate, HIVES, 07/25/12) furosemide (Unverified Adverse Reaction, Mild, "MAKES ME SICK", 12/14/16) hydrocodone (Verified Adverse Reaction, Mild, MAKES ME SICK, 07/01/12) lisinopril (Verified Adverse Reaction, Mild, COUGH, 07/01/12) oxytetracycline HCl (Verified Adverse Reaction, Mild, HIVES, 07/01/12) tramadol (Verified Adverse Reaction, Mild, NAUSEA, "HEAVINESS", 07/01/12) Home Medications Acetaminophen 500 Mg Tablet, 1,000 MG PO HS, (Reported) Acetaminophen 500 Mg Tablet, 1,000 MG PO Q6H PRN for PAIN-MILD (1-4), (Reported) Amlodipine Besylate 5 Mg Tablet, 5 MG PO DAILY, (Reported) Apixaban 2.5 Mg Tablet, 2.5 MG PO BID, (Reported) Aspirin 81 Mg Tablet.dr, 81 MG PO DAILY, (Reported) Famotidine 20 Mg Tablet, 40 MG PO DAILY PRN for HEARTBURN, (Reported) IF STILL HAVING HEARTBURN AFTER RANITIDINE Furosemide 20 Mg Tablet, 20 MG PO DAILY PRN for SWELLING, (Reported) Levothyroxine Sodium 50 Mcg Tablet, 50 MCG PO DAILY, (Reported) Losartan Potassium 100 Mg Tablet, 100 MG PO DAILY, (Reported) Metoprolol Succinate 100 Mg Tab.er.24h, 100 MG PO DAILY, (Reported) Multivit-Min/FA/Lycopene/Lut 1 Each Tablet, 1 TAB PO DAILY, (Reported) Nitroglycerin 0.4 Mg Tab.subl, 0.4 MG SL UD PRN for CHEST PAIN, (Reported) [place] 3 Polyunsat Fatty Acids 1,000 Mg Cap, 1,000 MG PO DAILY, (Reported) Pantoprazole Sodium 40 Mg Tablet.dr, 40 MG PO DAILY@0700 Prescribed by: VERÓNICA DAY on 03/09/19 1521 Potassium Chloride 20 Meq Tab.er.prt, 20 MEQ PO DAILY, (Reported) Patient Home Medication List Home Medication List Reviewed: Yes Review of Systems Review of Systems Constitutional: weakness EENTM: No Symptoms Reported Respiratory: Shortness of Air (when walking) Cardiovascular: Chest Pain (left breast heat) Gastrointestinal: No Symptoms Reported Genitourinary: No Symptoms Reported Musculoskeletal: joint pain, other (R knee pain) Skin: no symptoms reported Psychiatric/Neurological: Anxiety Endocrine: No Symptoms Reported Hematologic/Lymphatic: No Symptoms Reported Past Rilqvle-Aogvuo-Nvjvzb Hx Past Med/Social Hx: Reviewed Nursing Past Med/Soc Hx Patient Social History Alcohol Use: Denies Use Recreational Drug Use: No Smoking Status: Never a Smoker 2nd Hand Smoke Exposure: No Recent Foreign Travel: No Contact w/Someone Who Travel: No Recent Infectious Disease Expo: No Recent Hopitalizations: Yes ([facility]ia [facility]) Immunizations Up To Date Date of Influenza Vaccine: Jan 07, 2019 Seasonal Allergies Seasonal Allergies: No Past Medical History Surgeries: Yes (RIGHT CAROTID ENDARTERECTOMY, BACK SURGERY) Coronary Stent, Gallbladder, Hysterectomy, Orthopedic Respiratory: Yes Pneumonia Currently Using CPAP: No Currently Using BIPAP: No Cardiac: Yes Coronary Artery Disease, Heart Attack, Hypertension Neurological: No Genitourinary: Yes (pessary ) Bladder Infection Gastrointestinal: No Gastroesophageal Reflux Musculoskeletal: Yes Arthritis, Chronic Back Pain Endocrine: No HEENT: No Cancer: No Psychosocial: No Integumentary: No Blood Disorders: No Family Medical History Diabetes mellitus 19 FATHER FH: liver cancer 19 MOTHER Myocardial infarction G8 BROTHER G8 SISTER Cancer, CAD Over 55 Years Old, Diabetes Physical Exam Vital Signs Vital Signs - First Documented 07/16/19 07/16/19 11:42 11:46 Temp 36.6 Pulse 66 Resp 19 B/P (MAP) 150/68 (95) Pulse Ox 96 O2 Delivery Room Air Capillary Refill : Less Than 3 Seconds Height, Weight, BMI Height: 5'2.00" Weight: 136lbs. 4.0oz. 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4-10.4 FL Neutrophils (%) (Auto) 41 L 42-75 % Lymphocytes (%) (Auto) 43 12-44 % Monocytes (%) (Auto) 12 0-12 % Eosinophils (%) (Auto) 2 0-10 % Basophils (%) (Auto) 1 0-10 % Neutrophils # (Auto) 4.8 1.8-7.8 X 10^3 Lymphocytes # (Auto) 5.1 H 1.0-4.0 X 10^3 Monocytes # (Auto) 1.4 H 0.0-1.0 X 10^3 Eosinophils # (Auto) 0.3 0.0-0.3 10^3/uL Basophils # (Auto) 0.1 0.0-0.1 10^3/uL Neutrophils % (Manual) 39 % Lymphocytes % (Manual) 43 % Monocytes % (Manual) 15 % Eosinophils % (Manual) 1 % Basophils % (Manual) 1 % Band Neutrophils 1 % Blood Morphology Comment NORMAL Sodium Level 138 135-145 MMOL/L Potassium Level 4.6 3.6-5.0 MMOL/L Chloride Level 102 98-107 MMOL/L Carbon Dioxide Level 21 21-32 MMOL/L Anion Gap 15 H 5-14 MMOL/L Blood Urea Nitrogen 37 H 7-18 MG/DL Creatinine 1.45 H 0.60-1.30 MG/DL Estimat Glomerular Filtration Rate 34 BUN/Creatinine Ratio 26 Glucose Level 102 70-105 MG/DL Calcium Level 9.7 8.5-10.1 MG/DL Corrected Calcium 9.3 8.5-10.1 MG/DL Total Bilirubin 0.2 0.1-1.0 MG/DL Aspartate Amino Transf (AST/SGOT) 21 5-34 U/L Alanine Aminotransferase (ALT/SGPT) 13 0-55 U/L Alkaline Phosphatase 78 40-136 U/L Troponin I < 0.30 < 0.30 <0.30 NG/ML Total Protein 7.9 6.4-8.2 GM/DL Albumin 4.5 3.2-4.5 GM/DL Lipase 113 H 8-78 U/L Urine Color YELLOW Urine Clarity CLEAR Urine pH 6.0 5-9 Urine Specific [place] 1.015 L 1.016-1.022 Urine Protein NEGATIVE NEGATIVE Urine Glucose (UA) NEGATIVE NEGATIVE Urine Ketones NEGATIVE NEGATIVE Urine Nitrite NEGATIVE NEGATIVE Urine Bilirubin NEGATIVE NEGATIVE Urine Urobilinogen 0.2 < = 1.0 MG/DL Urine Leukocyte Esterase 2+ H NEGATIVE Urine RBC (Auto) NEGATIVE NEGATIVE Urine RBC NONE /HPF Urine WBC 5-10 H /HPF Urine Squamous Epithelial Cells 0-2 /HPF Urine Crystals NONE /LPF Urine Bacteria FEW H /HPF Urine Casts NONE /LPF Urine Mucus NEGATIVE /LPF Urine Culture Indicated YES My Orders Orders - JOLANTA NG DO Cbc And Manual Diff (07/16/19 11:32) Troponin I Fs (07/16/19 11:32) Comprehensive Metabolic Panel (07/16/19 11:32) Lipase (07/16/19 11:32) Ns Iv 500 Ml (Sodium Chloride 0.9%) (07/16/19 11:45) Ekg Tracing (07/16/19 11:32) Continuous Ekg Monitoring (07/16/19 11:32) Chest Pa/Lat (2 View) (07/16/19 11:32) Urinalysis (07/16/19 11:32) Troponin I Fs (07/16/19 13:21) Urine Culture (07/16/19 13:12) Medications Given in ED Current Medications Medications Dose Ordered Sig/Aury Route Start Time Stop Time Status Last Admin Dose Admin Sodium Chloride 500 ml @ 30 mls/hr [id number] ONCE IV 07/16/19 11:45 07/17/19 04:24 07/16/19 12:26 30 MLS/HR Vital Signs/I&O 07/16/19 07/16/19 11:42 11:46 Temp 36.6 Pulse 66 Resp 19 B/P (MAP) 150/68 (95) Pulse Ox 96 O2 Delivery Room Air Blood Pressure Mean: 95 Progress Progress Note : Time: 13:40 Progress Note Pt feels well and denies any SOA or chest pain. Pt was in the left breast. Second troponin drawn at two hours and if negative will send home. Minimal leukocytosis of 11.7, HB 12.8, Cr 1.45 and lipase of 113. CXR only stents. Trop less than 0.30. and second trop is also negative. Pt to see Dr Jaramillo on . Pt to rest and take fluids. Initial ECG Impression Date: Jul 16, 2019 Initial ECG Impression Time: 11:28 Initial ECG Rate: 63 Initial ECG Rhythm: Normal Sinus Initial ECG Intervals: Normal (with old anterior wall infarct and has ten stents) Initial ECG Impression: Normal (with old anterior wall changes with ten stents) Departure Impression Primary Impression: Chest wall pain Additional Impression: CAD (coronary artery disease) Disposition: HOME, SELF-CARE Condition: Improved Departure-Patient Inst. Referrals: MARLYN DERAS MD (PCP/Family) Primary Care Physician WALTER MAYER MD FACP FACC CCDS Patient Instructions: Chest Pain That Is Not Caused by the Heart (DC), Coronary Heart Disease, Costochondritis Add. Discharge Instructions: Pt will see Dr Mayer on and [facility] doctor also. Pt has no evidence of ischemic heart but has ten stents and is at risk. Reviewed CAD symptoms and COVID 19 symptoms. Pt has no symptoms of COVID 19 or fever pneumonia or contact risks. All discharge instructions reviewed with patient and/or family. Voiced understanding. Copy Copies To 1: MARLYN DERAS MD; WALTER MAYER MD FACP FACC [facility] JOLANTA NG DO Jul 16, 2019 12:25
[2019-07-16 12:54] LABS: BAND NEUTROPHILS 1 %; BASOPHILS % (MANUAL) 1 %; EOSINOPHILS % (MANUAL) 1 %; LYMPHOCYTES % (MANUAL) 43 %; MONOCYTES % (MANUAL) 15 %; NEUTROPHILS % (MANUAL) 39 %; RBC MORPH NORMAL
[2019-07-16 13:37] LABS: CLARITY,URINE CLEAR; COLOR,URINE YELLOW
[2019-07-16 13:38] LABS: BACTERIA,URINE FEW /HPF; BILIRUBIN,URINE NEGATIVE (NEGATIVE); GLUCOSE, URINE (UA) NEGATIVE (NEGATIVE); KETONES,URINE NEGATIVE (NEGATIVE); LEUKOCYTE ESTERASE ,URINE 2+ (NEGATIVE); NITRITE,URINE NEGATIVE (NEGATIVE); PROTEIN,URINE NEGATIVE (NEGATIVE); SQUAMOUS EPITHELIAL CELL,UR 0-2 /HPF
[2019-07-16 14:58] VITALS: BP 147/61
== END 2019-07-16 14:58 | disposition home or self-care (01) ==
LOC: EDUNIT# 11:27 → ER FS 11:31
DX: I25.10 Atherosclerotic heart disease of native coronary artery without angina pectoris (principal); I10 Essential (primary) hypertension; M25.561 Pain in right knee; K21.9 Gastro-esophageal reflux disease without esophagitis; I25.2 Old myocardial infarction; M19.91 Primary osteoarthritis, unspecified site; M54.9 Dorsalgia, unspecified; Z95.5 Presence of coronary angioplasty implant and graft; Z88.0 Allergy status to penicillin; Z88.8 Allergy status to other drugs, medicaments and biological substances; Z79.899 Other long term (current) drug therapy; Z79.82 Long term (current) use of aspirin
CPT/HCPCS: 36415; 71046; 80053; 81000; 83690; 84484; 85007; 85027; 87077; 87088; 87186; 93005

== ENCOUNTER 2019-10-23 07:10 | Day surgery (SDC) | payer MEDICARE ==
[2019-10-23] VITALS (14 sets, daily range): BP systolic 113–169; BP diastolic 50–103
[~2019-10-23] VITALS: Ht 157 cm; Wt 63.6 kg
[2019-10-23] MEDS ORDERED: LIDOCAINE 1% INJ 20 ML 20 ML VIAL ONE (07:18)
[2019-10-23] MEDS ORDERED: HEParin (CATH LAB) 2,000 ML IV ONE (07:18)
[2019-10-23] MEDS ORDERED: NS IV 1000 ML 1,000 ML ONE (07:18)
[2019-10-23] MEDS ORDERED: NS IV 1000 ML 1,000 ML IV SCH (07:30)
[2019-10-23 07:51] LABS: HEMOGLOBIN 12.8 G/DL (11.5-16.0); MEAN PLATELET VOLUME 9.9 FL (7.4-10.4); RED CELL DISTRIBUTION WIDTH 12.6 % (10.0-14.5); WHITE BLOOD COUNT 9.5 10^3/uL (4.3-11.0)
[2019-10-23 08:01] LABS: INR 0.9 (0.8-1.4); PROTHROMBIN TIME PATIENT 12.9 SEC (12.2-14.7)
[2019-10-23 08:11] LABS: ALBUMIN 4.3 GM/DL (3.2-4.5); BILIRUBIN,TOTAL 0.4 MG/DL (0.1-1.0); CALCIUM 9.8 MG/DL (8.5-10.1); CREATININE SERUM 1.11 MG/DL (0.60-1.30); POTASSIUM 3.9 MMOL/L (3.6-5.0); TOTAL PROTEIN 7.7 GM/DL (6.4-8.2)
[2019-10-23] MEDS ORDERED: MIDAZOLAM 5 MG/5 ML (VERSED) VIAL ONE (08:59)
[2019-10-23] MEDS ORDERED: fentaNYL INJECTION 100 MCG/2 ML AMP ONE ×2 (08:59→14:59)
[2019-10-23] MEDS ORDERED: HEParin 1000 UNIT/ML (10ML VIAL) FOR BOLUS ONE (09:43)
[2019-10-23] MEDS ORDERED: EPTIFIBATIDE BOLUS 20 ML IV ONE (09:43)
[2019-10-23] MEDS ORDERED: NITRO DRIP 25000 MCG/D5W 0 ML IV ONE (09:43)
[2019-10-23] MEDS ORDERED: diphenhydrAMINE 50 MG/ML INJ (BENADRYL) ONE (09:55)
[2019-10-23] MEDS ORDERED: ASPIRIN 81 MG CHEW (CHILDREN'S ASA) ONE (10:19)
[2019-10-23] MEDS ORDERED: CLOPIDOGREL 300 MG (PLAVIX) TABLET PO ONE (10:19)
--- NOTE | 2019-10-23 11:06 | Cardiac Procedure Note-CS/ASA ---
Pre-Procedure Note Pre-Op Procedure Note H&P Reviewed The H&P was reviewed, patient examined and no changes noted. Date H&P Reviewed: Oct 23, 2019 Time H&P Reviewed: 09:30 Conscious Sedation Pre-Proced Time 09:30 ASA Score 3 For ASA 3 and 4: Consider anesthesia and medical clearance. Also, for patients with a history of failed moderate sedation consider anesthesia. Airway Lungs Heart ASA score ASA 1: a normal healthy patient ASA 2: a patient with a mild systemic disease (mid diabetes, controlled hypertension, obesity ASA 3: a patient with a severe systemic disease that limits activity (angina, COPD, prior Myocardial infarction) ASA 4: a patient with an incapacitating disease that is a constant threat to life (CHF, renal failure) ASA 5: a moribund patient not expected to survive 24 hrs. (ruptured aneurysm) ASA 6: a declared brain- patient whose organs are being harvested. For emergent operations, add the letter E after the classification Mallampati Classification Grade 2 Sedation Plan Analgesia, Amnesia, Plan communicated to team members, Discussed options with patient/fam, Discussed risks with patient/fam The patient is an appropriate candidate to undergo the planned procedure, sedation, and anesthesia. The patient immediately re-assessed prior to indication. WALTER GIL MD FACP FAC CCDS Oct 23, 2019 11:06
[2019-10-23] MEDS ORDERED: NITROGLYCERIN 0.4 MG SL TABS BTL 25'S SL PRN (11:15)
[2019-10-23] MEDS ORDERED: ACETAMINOPHEN 500 MG TAB (TYLENOL) PO PRN (11:15)
[2019-10-23] MEDS ORDERED: FUROSEMIDE 20 MG (LASIX) TAB PO PRN (11:15)
[2019-10-23] MEDS ORDERED: FAMOTIDINE 20 MG (PEPCID) TABLET PO PRN (11:15)
[2019-10-23] MEDS ORDERED: PATIENT MAY USE OWN MEDS, ALL PO SCH (11:15)
[2019-10-23] MEDS: NS IV 1000 ML 1,000 ML IV SCH ×2 (11:23→21:21)
[2019-10-23] MEDS ORDERED: ATROPINE 1.2 MG/3 ML (0.4 MG/ML) SYR ONE (15:00)
[2019-10-23] MEDS ORDERED: fentaNYL INJECTION 100 MCG/2 ML AMP IVP ONE (16:15)
--- NOTE | 2019-10-23 17:21 | CARDIAC CATHETERIZATION ---
DATE OF SERVICE: 10/23/2019 CARDIAC CATHETERIZATION AND CORONARY INTERVENTION The patient is an 84-year-old lady with a history of coronary artery disease, previously had stenting of the left anterior descending and left circumflex arteries and who has been experiencing symptoms of unstable angina. Cardiac catheterization was carried out after having obtained an informed consent for cardiac catheterization and possible ad hoc coronary intervention. DESCRIPTION OF PROCEDURE: She was brought to the cardiac catheterization laboratory in a fasting state. Right groin was prepared and draped in the usual sterile fashion. Lidocaine 1% was used for local anesthesia. Modified Seldinger technique was used to advance a 5-St Helenian sheath in the right femoral artery, 5-St Helenian JL4 catheter for left coronary angiography, 5-St Helenian JR4 catheter for right coronary angiography, 5-St Helenian pigtail catheter was used for left heart catheterization. Left ventricular angiography was not performed. This was to save contrast because the patient had an estimated GFR of 47. Following completion of the diagnostic procedure, percutaneous intervention was carried out to the right coronary artery that is described below. PERCUTANEOUS INTERVENTION TO THE RIGHT CORONARY ARTERY: We exchanged the sheath over a wire for a 7-St Helenian sheath. We tried to engage the right coronary artery with a 7-St Helenian JR4 short tip sidehole catheter, but were not able to engage it adequately to advance wire. We removed this guide catheter and used a 6-St Helenian JR4 guide catheter with side holes. We were able to advance a BMW wire across the 90% ostial lesion in the right coronary and the tip was placed in the distal vessel. We carried out balloon angioplasty with Emerge 2.0 x 20 mm balloon. We then stented the ostial part of the right coronary with Xience Michelle 2.25 x 15 mm stent. Subsequent angiography reveals no significant residual stenosis at the previous site of 90% ostial stenosis in the right coronary and flow throughout the right coronary is normal. The angioplasty equipment was removed. The sheath was sutured in place and the patient was transferred to the floor for manual sheath removal. She received 4000 units of intravenous heparin and double bolus Integrilin during the procedure and 600 mg of oral Plavix and 162 mg of oral aspirin following the completion of the procedure. HEMODYNAMICS: Left ventricular end-diastolic pressure following coronary angiography was 15 mmHg. There was approximately 6 mm pressure gradient on pullback across the aortic valve. Ascending aortic pressure was 114/43 with a mean of 70 mmHg. CORONARY ANGIOGRAPHY: There is coronary calcification. Left main coronary artery does not exhibit significant disease. Left anterior descending artery has a patent stent in its proximal and mid portions. The left anterior descending artery exhibits moderate diffuse disease. Left circumflex artery has a patent stent in its mid portion. The first obtuse marginal branch arises from the stented segment and has approximately 80% ostial stenosis. The vessel is of a small caliber and does not appear amenable to intervention. The right coronary artery is dominant. It is of a relatively small caliber. The ostium was exhibiting 90% stenosis. This was successfully stented with Xience Michelle 2.25 x 15 mm stent with reduction of stenosis to 0% residual. CONCLUSIONS: 1. Patent stents in the proximal and mid left anterior descending and left circumflex arteries. The first obtuse marginal branch is of a small caliber and arises from the stented segment of the left circumflex and has 80% ostial stenosis. The rest of left coronary system has diffuse moderate disease. Right coronary artery had 90% ostial stenosis and diffuse moderate disease. The ostial stenosis was stented with Xience Michelle 2.25 x 15 mm stent with reduction of stenosis to 0% residual. 2. Mild elevation of left ventricular end-diastolic pressure. DISCUSSION AND RECOMMENDATIONS: Dual antiplatelet therapy is being continued. She is being hospitalized for overnight observation. Job ID: [id number] DocumentID: [id number] Dictated Date: 10/23/2019 10:36:46 Embedded Firmware Developer Date: 10/23/2019 17:20:47 Dictated By: WALTER GIL MD, MA, FACP, FACC,
[2019-10-23] MEDS: APIXABAN 2.5 MG (ELIQUIS) TABLET PO SCH (22:00)
[2019-10-24] VITALS (12 sets, daily range): BP systolic 99–162; BP diastolic 49–128
[2019-10-24 03:53] LABS: HEMOGLOBIN 11.3 G/DL (11.5-16.0); MEAN PLATELET VOLUME 10.4 FL (7.4-10.4); RED CELL DISTRIBUTION WIDTH 12.9 % (10.0-14.5); WHITE BLOOD COUNT 10.5 10^3/uL (4.3-11.0)
[2019-10-24 04:10] LABS: CHLORIDE 109 MMOL/L (98-107); POTASSIUM 3.7 MMOL/L (3.6-5.0); SODIUM 139 MMOL/L (135-145)
[2019-10-24 04:11] LABS: CALCIUM 8.4 MG/DL (8.5-10.1)
[2019-10-24 04:12] LABS: GLUCOSE 70 MG/DL (70-105)
[2019-10-24 04:13] LABS: CARBON DIOXIDE 19 MMOL/L (21-32)
[2019-10-24 04:16] LABS: GFR ESTIMATED > 60
[2019-10-24 04:17] LABS: BUN/CREATININE RATIO 19
[2019-10-24] MEDS ORDERED: LEVOTHYROXINE 50 MCG (LEVOTHROID) TAB PO SCH (06:30)
[2019-10-24] MEDS ORDERED: PANTOPRAZOLE 40 MG (PROTONIX) TAB PO SCH (07:00)
[2019-10-24] MEDS ORDERED: MULTIVIT W/MINERALS TAB (THERAGRAN M) PO SCH (07:00)
--- NOTE | 2019-10-24 07:53 | Progress Note - Cardiology ---
Cardiology SOAP Progress Note Subjective: Sitting up in bed. No c/o CP, palpitations, syncope, dyspnea or near syncope. No c/o right groin discomfort Objective: I&O/Vital Signs Weight (Pounds): 136 Weight (Ounces): 4.0 Weight (Calculated Kilograms): 61.046614 Side: right Groin site without hematoma: Yes Condition: DP/PT pulses palpable, extremity w/d/p Bruising: mild bruising Constitutional: AAO x 3, well-developed, well-nourished Respiratory: accessory muscle use, respiratory distress, chest expansion is symmetric, chest is bilaterally symmetric Cardiovascular: regular rate-rhythm; No JVD; S1 and S2 Gastrointestional: No tender; soft, round, audible bowel sounds Extremities: no lower extremity edema bilateral Neurologic/Psychiatric: grossly intact (moves all extremities) Skin: No rash on exposed areas, No ulcerations on exposed areas Results/Procedures: Labs Microbiology 10/23/19 MRSA Screen - Final, Complete MRSA not isolated Procedures S/P cardiac cath with intervention on October 23, 2019. Please refer to the cardiac cath report for details. A/P: Assessment: Coronary artery disease multiple intervention in the past, most recent cath was done September: Patent stents in the proximal and mid left anterior descending and left circumflex arteries. The first obtuse marginal branch is of a small caliber and arises from the stented segment of the left circumflex and has 80% ostial stenosis. The rest of left coronary system has diffuse moderate disease. Right coronary artery had 90% ostial stenosis and diffuse moderate disease. The ostial stenosis was stented with Xience Michelle 2.25 x 15 mm stent with reduction of stenosis to 0% residual. Mild elevation of left ventricular end-diastolic pressure. H/o CVA. CT head of Jul 2018 showed old CVAs. Had 10-min amaurosis on 05/14/19 and her eye doc on subsequent exam told her she had had a TIA Episodes of intermittent hematuria Paroxysmal atrial fibrillation and sinus node dysfunction H/o sinus bradycardia on beta-vlad, but able to take current dose Hyperlipidemia. Refuses statin or any chol med because she feels she is highly intolerant to such meds Chronic anticoagulation with Eliquis H/o CEA. Carotid u/s of 05/17/19: less than 40% R KESHAV and 60-79% L ICA stenosis MPI of 06/03/16: small apical infarction w/o ischemia; LVEF 60% Multiple medication intolerances Echo of 06/22/15: distal septal and anteroapical hypokinesis, LVEF 45-50%, mild to mod MR & TR, AoV sclerosis and MAC w/o stenoses Abdominal pain and N/V, improved. Endoscopy of Dec 2018 (Dr Caballero) showed large HH and H. Pylori gastritis Dizziness and fatigue and exertional shortness of breath Labile hypertension and white-coat hypertension, currently better controlled Plan: OK to discharge home today Continue Eliquis for stroke prophylaxis Continue ASA and Plavix d/t recent stent placement F/U next week at which time we will plan on stopping ASA, continuing Plavix and Eliquis VERÓNICA DAY Oct 24, 2019 07:53
[2019-10-24] MEDS: APIXABAN 2.5 MG (ELIQUIS) TABLET PO SCH (08:07)
[2019-10-24] MEDS ORDERED: meTOprolol SUCCINATE 100 MG (TOPROL XL) TAB PO SCH (09:00)
[2019-10-24] MEDS ORDERED: amLODIPine 5 MG (NORVASC) TAB PO SCH (09:00)
[2019-10-24] MEDS ORDERED: LOSARTAN 100 MG (COZAAR) TABLET PO SCH (09:00)
[2019-10-24] MEDS ORDERED: ASPIRIN E.C. 81 MG (ECOTRIN) TAB PO SCH (09:00)
[2019-10-24] MEDS ORDERED: KCL 20 MEQ TAB (K-DUR) PO SCH (09:00)
[2019-10-24] MEDS ORDERED: CLOPIDOGREL 75 MG (PLAVIX) TABLET PO SCH (09:00)
[2019-10-24] MEDS ORDERED: CLOP75TA28 PO (09:06)
--- NOTE | 2019-10-24 09:06 | Discharge Inst-Cardiology ---
Discharge Inst-Cardiac Discharge Medications New Medications: Clopidogrel Bisulfate (Clopidogrel) 75 Mg Tablet 75 MG PO DAILY, #30 TAB 5 Refills Continued Medications: Acetaminophen (Tylenol Extra Strength) 500 Mg Tablet 1000 MG PO Q6H PRN for PAIN-MILD (1-4), TAB Amlodipine Besylate (Amlodipine Besylate) 5 Mg Tablet 5 MG PO DAILY, TAB Apixaban (Eliquis) 2.5 Mg Tablet 2.5 MG PO BID, TAB Aspirin (Aspirin EC) 81 Mg Tablet.dr 81 MG PO DAILY, TAB Famotidine (Acid Educational Assistant Teacher (FAMOTIDINE)) 20 Mg Tablet 40 MG PO DAILY PRN for HEARTBURN, TAB IF STILL HAVING HEARTBURN AFTER RANITIDINE Furosemide (Furosemide) 20 Mg Tablet 20 MG PO DAILY PRN for SWELLING, TAB Levothyroxine Sodium (Levothyroxine Sodium) 50 Mcg Tablet 50 MCG PO DAILY, TAB Losartan Potassium (Losartan Potassium) 100 Mg Tablet 100 MG PO DAILY, TAB Metoprolol Succinate (Metoprolol Succinate) 100 Mg Tab.er.24h 100 MG PO DAILY, TAB Multivit-Min/FA/Lycopene/Lut (Centrum Silver Tablet) 1 Each Tablet 1 TAB PO DAILY, TAB Nitroglycerin (Nitroglycerin) 0.4 Mg Tab.subl 0.4 MG SL UD PRN for CHEST PAIN, TAB [place] 3 Polyunsat Fatty Acids (Fish Oil 1,000 mg Capsule) 1,000 Mg Cap 1000 MG PO DAILY, CAP Pantoprazole Sodium (Pantoprazole Sodium) 40 Mg Tablet.dr 40 MG PO DAILY@0700, #30 TAB 2 Refills Potassium Chloride (Potassium Chloride) 20 Meq Tab.er.prt 20 MEQ PO DAILY, TAB New, Converted or Re-Newed RX: Transmitted to Pharmacy Patient Instructions Patient Instructions: Please schedule follow up appointment to see Dr. Mayer next week VERÓNICA DAY Oct 24, 2019 09:06
--- NOTE | 2019-10-24 11:07 | NUR ---
provided prayer and Communion.
--- NOTE | 2019-10-24 11:44 | Progress Note - Cardiology ---
Cardiology SOAP Progress Note Subjective: No cp or palp or syncope or shortness of breath at rest No groin or leg discomfort No n/v/d Wishes to go home Objective: I&O/Vital Signs 10/24/19 10/24/19 10/24/19 10/24/19 00:00 01:00 01:00 02:00 Pulse 49 70 70 45 Resp 14 34 14 B/P (MAP) 121/53 (75) 123/49 (73) 99/54 (69) Pulse Ox 93 91 93 O2 Delivery Room Air Room Air Room Air 10/24/19 10/24/19 10/24/19 10/24/19 03:00 03:49 04:00 05:00 Pulse 48 47 56 Resp 13 13 12 B/P (MAP) 108/56 (73) 136/60 (85) 143/51 (81) Pulse Ox 93 94 96 94 O2 Delivery Room Air Room Air Room Air Room Air 10/24/19 10/24/19 10/24/19 10/24/19 06:00 07:00 07:00 07:14 Temp 36.0 Pulse 56 73 67 Resp 13 11 B/P (MAP) 148/61 (90) 158/70 (99) Pulse Ox 96 96 O2 Delivery Room Air Room Air 10/24/19 10/24/19 10/24/19 10/24/19 08:00 08:00 09:00 10:00 Pulse 66 61 70 Resp 16 10 22 B/P (MAP) 162/69 (100) 151/74 (99) 145/128 (134) Pulse Ox 93 95 95 O2 Delivery Room Air Room Air Room Air Room Air 10/24/19 10/24/19 10:17 11:01 Temp 36.0 Pulse 67 67 Resp 22 B/P (MAP) 145/128 Pulse Ox 95 O2 Delivery Room Air 10/24/19 00:00 Intake Total 250 ml Output Total 900 ml Balance -650 ml Weight (Pounds): 136 Weight (Ounces): 4.0 Weight (Calculated Kilograms): 61.230750 Side: right Groin site without hematoma: Yes Condition: DP/PT pulses palpable, extremity w/d/p Bruising: mild bruising Constitutional: AAO x 3, well-developed, well-nourished Respiratory: accessory muscle use, respiratory distress, chest expansion is symmetric, chest is bilaterally symmetric Cardiovascular: regular rate-rhythm; No JVD; S1 and S2 Gastrointestional: No tender; soft, round, audible bowel sounds Extremities: no lower extremity edema bilateral Neurologic/Psychiatric: grossly intact (moves all extremities) Skin: No rash on exposed areas, No ulcerations on exposed areas Results/Procedures: Labs Laboratory Tests 10/23/19 12:35: Activated Partial Thromboplast Time 118*H 10/23/19 14:31: Activated Partial Thromboplast Time 50H 10/24/19 03:05: White Blood Count 10.5, Red Blood Count 3.59L, Hemoglobin 11.3L, Hematocrit 34L, Mean Corpuscular Volume 95, Mean Corpuscular Hemoglobin 31, Mean Corpuscular Hemoglobin Concent 33, Red Cell Distribution Width 12.9, Platelet Count 291, Mean Platelet Volume 10.4, Sodium Level 139, Potassium Level 3.7, Chloride Level 109H, Carbon Dioxide Level 19L, Anion Gap 11, Blood Urea Nitrogen 15, Creatinine 0.80, Estimat Glomerular Filtration Rate > 60, BUN/Creatinine Ratio 19, Glucose Level 70, Calcium Level 8.4L Microbiology 10/23/19 MRSA Screen - Final, Complete MRSA not isolated Laboratory Tests 10/23/19 07:40 10/24/19 03:05 A/P: Assessment: Coronary artery disease multiple intervention in the past, most recent cath was done September: Patent stents in the proximal and mid left anterior descending and left circumflex arteries. The first obtuse marginal branch is of a small caliber and arises from the stented segment of the left circumflex and has 80% ostial stenosis. The rest of left coronary system has diffuse moderate disease. Right coronary artery had 90% ostial stenosis and diffuse moderate disease. The ostial stenosis was stented with Xience Michelle 2.25 x 15 mm stent with reduction of stenosis to 0% residual. Mild elevation of left ventricular end-diastolic pressure. H/o CVA. CT head of Jul 2018 showed old CVAs. Had 10-min amaurosis on 05/14/19 and her eye doc on subsequent exam told her she had had a TIA Episodes of intermittent hematuria Paroxysmal atrial fibrillation and sinus node dysfunction H/o sinus bradycardia on beta-vlad, but able to take current dose Hyperlipidemia. Refuses statin or any chol med because she feels she is highly intolerant to such meds Chronic anticoagulation with Eliquis H/o CEA. Carotid u/s of 05/17/19: less than 40% R KESHAV and 60-79% L ICA stenosis MPI of 06/03/16: small apical infarction w/o ischemia; LVEF 60% Multiple medication intolerances Echo of 06/22/15: distal septal and anteroapical hypokinesis, LVEF 45-50%, mild to mod MR & TR, AoV sclerosis and MAC w/o stenoses Abdominal pain and N/V, improved. Endoscopy of Dec 2018 (Dr Caballero) showed large HH and H. Pylori gastritis Dizziness and fatigue and exertional shortness of breath Labile hypertension and white-coat hypertension, currently better controlled Plan: I had a detailed discussion with her regarding findings of cath, interventions, and after care. I answered questions in detail Continue Eliquis for stroke prophylaxis Continue ASA and Plavix d/t recent stent placement F/U next week at which time we will plan on stopping ASA, continuing Plavix and Eliquis WALTER GIL MD FACP FAC CCDS Oct 24, 2019 11:44
== END 2019-10-24 11:00 | disposition home or self-care (01) ==
LOC: CATH 07:10 → ICU 10:56 → CATH 10-24 11:00
PROVIDERS: ATTEND Internal Medicine Cardiovascular Disease
DX: I25.10 Atherosclerotic heart disease of native coronary artery without angina pectoris (principal); I10 Essential (primary) hypertension; E78.5 Hyperlipidemia, unspecified; I48.0 Paroxysmal atrial fibrillation; Z88.8 Allergy status to other drugs, medicaments and biological substances; Z88.0 Allergy status to penicillin; Z88.6 Allergy status to analgesic agent; Z79.82 Long term (current) use of aspirin; Z79.02 Long term (current) use of antithrombotics/antiplatelets; Z79.01 Long term (current) use of anticoagulants; Z86.73 Personal history of transient ischemic attack (TIA), and cerebral infarction without residual deficits
CPT/HCPCS: 80048; 80053; 80061; 85027 ×2; 85610; 85730; 87081; 93005; 93458; C1725; C1769; C1874; C1887 ×2; C1894 ×2; C9600; 36415

== ENCOUNTER → 2020-01-10 | Outpatient (CLI) | payer MEDICARE ==
[~2020-01-10] MED LIST changes: +ASPI-1238 PO; -ASPI-983 PO; -PANT40TA3 PO; +PANT40TA52 PO
--- NOTE | 2020-01-10 12:24 | Diagnostic Imaging Report ---
PROCEDURE: CT head without contrast. TECHNIQUE: Multiple contiguous axial images were obtained through the brain without the use of intravenous contrast. Auto Exposure Controls were utilized during the CT exam to meet ALARA standards for radiation dose reduction. INDICATION: Vertigo. Comparison is made with prior head CT from 08/01/2018. FINDINGS: There is an area of encephalomalacia in the right posterior parietal-occipital lobe consistent with prior infarct. Periventricular hypodensities are also seen consistent with senescent change. No sulcal effacement or midline shift is identified. No acute intra-axial or extra-axial hemorrhage is detected. Cisterns are patent. Visualized paranasal sinuses are clear. IMPRESSION: Chronic and senescent changes. No acute intracranial process is detected. Dictated by: Dictated on workstation # [id number]
== END ==
LOC: RAD 11:26
PROVIDERS: ATTEND Nurse Practitioner Family
DX: I48.0 Paroxysmal atrial fibrillation (principal); I10 Essential (primary) hypertension; H81.4 Vertigo of central origin; G31.89 Other specified degenerative diseases of nervous system
CPT/HCPCS: 70450; 93225; 93226

== ENCOUNTER 2020-06-21 11:26 | Emergency (ER) | payer MEDICARE ==
[~2020-06-21] VITALS: Ht 157 cm; Wt 62.0 kg
[~2020-06-21 11:26] MED LIST changes: +AMLO-250 PO; +AMLO-251 PO; -AMLO10TA7 PO; -AMLO5TAB9 PO
--- NOTE | 2020-06-21 11:35 | ED Chest Pain ---
General Chief Complaint: Chest Pain Stated Complaint: CHEST PAIN History of Present Illness Date Seen by Provider: Jun 21, 2020 Time Seen by Provider: 11:35 Initial Comments 85-year-old female presents with chest pain. She reports that she has had ant erior chest wall pain has been on the right and left for about a day and 1/2 to 2 days. Patient states he gets worse with arm movement. Patient states she has shortness of breath but she has chronic shortness of breath and is short of breath with exertion all the time. Patient very vague about any new symptoms that have not been going on for quite a while. Patient just states that she just wants her chest pain checked out but does not think it is her heart. Allergies and Home Medications Allergies Coded Allergies: Penicillins (Verified Allergy, Intermediate, HIVES, 07/25/12) oxytetracycline (Verified Allergy, Intermediate, HIVES, 07/25/12) furosemide (Unverified Adverse Reaction, Mild, "MAKES ME SICK", 12/14/16) hydrocodone (Verified Adverse Reaction, Mild, MAKES ME SICK, 07/01/12) lisinopril (Verified Adverse Reaction, Mild, COUGH, 07/01/12) oxytetracycline HCl (Verified Adverse Reaction, Mild, HIVES, 07/01/12) tramadol (Verified Adverse Reaction, Mild, NAUSEA, "HEAVINESS", 07/01/12) Home Medications Acetaminophen 500 Mg Tablet, 1,000 MG PO Q6H PRN for PAIN-MILD (1-4), (Reported) Amlodipine Besylate 5 Mg Tablet, 5 MG PO DAILY, (Reported) Apixaban 2.5 Mg Tablet, 2.5 MG PO BID, (Reported) Aspirin 81 Mg Tablet.dr, 81 MG PO DAILY, (Reported) Clopidogrel Bisulfate 75 Mg Tablet, 75 MG PO DAILY Prescribed by: VERÓNICA DAY on 10/24/19 0906 Famotidine 20 Mg Tablet, 40 MG PO DAILY PRN for HEARTBURN, (Reported) IF STILL HAVING HEARTBURN AFTER RANITIDINE Furosemide 20 Mg Tablet, 20 MG PO DAILY PRN for SWELLING, (Reported) Levothyroxine Sodium 50 Mcg Tablet, 50 MCG PO DAILY, (Reported) Losartan Potassium 100 Mg Tablet, 100 MG PO DAILY, (Reported) Metoprolol Succinate 100 Mg Tab.er.24h, 100 MG PO DAILY, (Reported) Multivit-Min/FA/Lycopene/Lut 1 Each Tablet, 1 TAB PO DAILY, (Reported) Nitroglycerin 0.4 Mg Tab.subl, 0.4 MG SL UD PRN for CHEST PAIN, (Reported) Romance 3 Polyunsat Fatty Acids 1,000 Mg Cap, 1,000 MG PO DAILY, (Reported) Pantoprazole Sodium 40 Mg Tablet.dr, 40 MG PO DAILY@0700 Prescribed by: VERÓNICA DAY on 03/09/19 1521 Potassium Chloride 20 Meq Tab.er.prt, 20 MEQ PO DAILY, (Reported) Patient Home Medication List Home Medication List Reviewed: Yes Review of Systems Review of Systems Constitutional: No chills, No fever Respiratory: See HPI Cardiovascular: Chest Pain; Denies Edema, Denies Irregular Heart Rate, Denies Lightheadedness Gastrointestinal: No Symptoms Reported Genitourinary: No Symptoms Reported Musculoskeletal: see HPI Skin: no symptoms reported Psychiatric/Neurological: No Symptoms Reported Endocrine: No Symptoms Reported Hematologic/Lymphatic: No Symptoms Reported Past [id number]-Wzyggn Hx Past Med/Social Hx: Reviewed Nursing Past Med/Soc Hx Patient Social History 2nd Hand Smoke Exposure: No Recent Hopitalizations: Yes ([facility]ia [facility]) Immunizations Up To Date Tetanus Booster (TDap): Unknown Date of Influenza Vaccine: Jan 07, 2019 Seasonal Allergies Seasonal Allergies: No Past Medical History Surgeries: Yes (RIGHT CAROTID ENDARTERECTOMY, BACK SURGERY) Coronary Stent, Gallbladder, Hysterectomy, Orthopedic Respiratory: Yes Pneumonia Currently Using CPAP: No Currently Using BIPAP: No Cardiac: Yes Coronary Artery Disease, Heart Attack, Hypertension Neurological: Yes TIA Genitourinary: Yes (pessary ) Bladder Infection Gastrointestinal: No Gastroesophageal Reflux Musculoskeletal: Yes Arthritis, Chronic Back Pain Endocrine: No HEENT: No Cancer: No Psychosocial: No Integumentary: No Blood Disorders: No Family Medical History Diabetes mellitus 19 FATHER FH: liver cancer 19 MOTHER Myocardial infarction G8 BROTHER G8 SISTER Cancer, CAD Over 55 Years Old, Diabetes Physical Exam Vital Signs Vital Signs - First Documented 06/21/20 11:30 Temp 36.6 Pulse 63 Resp 18 B/P (MAP) 163/59 (93) Pulse Ox 98 O2 Delivery Room Air Capillary Refill : Height, Weight, BMI Height: 5'2.00" Weight: 136lbs. 4.0oz. 61.746367dh; 25.80 BMI Method:Stated General Appearance: No Apparent Distress, WD/WN Neck: Full Range of Motion, Normal Inspection Respiratory: Lungs Clear, Normal Breath Sounds Cardiovascular: Regular Rate, Rhythm, No Edema, Other (tenderness to chest wall, pain reproducible with movement ) Gastrointestinal: Non Tender, Soft Extremity: Normal Capillary Refill, Normal Inspection Neurologic/Psychiatric: Alert, Normal Mood/Affect, battery charger tester II-XII Norm as Tested Skin: Normal Color, Warm/Dry Progress/Results/Core Measures Results/Orders Lab Results Laboratory Tests Test 06/21/20 11:35 06/21/20 11:40 Range/Units Prothrombin Time 14.4 12.2-14.7 SEC INR Comment 1.1 0.8-1.4 Activated Partial Thromboplast Time 32 24-35 SEC White Blood Count 12.3 H 4.3-11.0 10^3/uL Red Blood Count 4.42 4.35-5.85 10^6/uL Hemoglobin 13.8 11.5-16.0 G/DL Hematocrit 41 35-52 % Mean Corpuscular Volume 94 80-99 FL Mean Corpuscular Hemoglobin 31 25-34 PG Mean Corpuscular Hemoglobin Concent 33 32-36 G/DL Red Cell Distribution Width 11.9 10.0-14.5 % Platelet Count 438 H 130-400 10^3/uL Mean Platelet Volume 10.0 7.4-10.4 FL Immature Granulocyte % (Auto) 0 % Neutrophils (%) (Auto) 30 L 42-75 % Lymphocytes (%) (Auto) 54 H 12-44 % Monocytes (%) (Auto) 12 0-12 % Eosinophils (%) (Auto) 3 0-10 % Basophils (%) (Auto) 1 0-10 % Neutrophils # (Auto) 3.7 1.8-7.8 X 10^3 Lymphocytes # (Auto) 6.6 H 1.0-4.0 X 10^3 Monocytes # (Auto) 1.4 H 0.0-1.0 X 10^3 Eosinophils # (Auto) 0.4 H 0.0-0.3 10^3/uL Basophils # (Auto) 0.1 0.0-0.1 10^3/uL Immature Granulocyte # (Auto) 0.0 0.0-0.1 10^3/uL Sodium Level 139 135-145 MMOL/L Potassium Level 3.8 3.6-5.0 MMOL/L Chloride Level 105 98-107 MMOL/L Carbon Dioxide Level 19 L 21-32 MMOL/L Anion Gap 15 H 5-14 MMOL/L Blood Urea Nitrogen 27 H 7-18 MG/DL Creatinine 1.26 0.60-1.30 MG/DL Estimat Glomerular Filtration Rate 40 BUN/Creatinine Ratio 21 Glucose Level 113 H 70-105 MG/DL Calcium Level 9.9 8.5-10.1 MG/DL Corrected Calcium 9.6 8.5-10.1 MG/DL Magnesium Level 2.2 1.6-2.4 MG/DL Total Bilirubin 0.2 0.1-1.0 MG/DL Aspartate Amino Transf (AST/SGOT) 21 5-34 U/L Alanine Aminotransferase (ALT/SGPT) 12 0-55 U/L Alkaline Phosphatase 80 40-136 U/L Myoglobin 32.8 10.0-92.0 NG/ML Troponin I < 0.30 <0.30 NG/ML C-Reactive Protein 0.10 <0.50 MG/DL Pro-B-Type Natriuretic Peptide 353.8 H <75.0 PG/ML Total Protein 7.9 6.4-8.2 GM/DL Albumin 4.4 3.2-4.5 GM/DL My Orders Orders - CARRINGTON,MADDI L DO Cbc With Automated Diff (06/21/20 11:35) Magnesium (06/21/20 11:35) Chest 1 View Ap/Pa Only (06/21/20 11:35) Ekg Tracing (06/21/20 11:35) Comprehensive Metabolic Panel (06/21/20 11:35) Myoglobin Serum (06/21/20 11:35) Protime With Inr (06/21/20 11:35) Partial Thromboplastin Time (06/21/20 11:35) Monitor-Rhythm Ecg Trace Only (06/21/20 11:35) Lipid Panel (06/22/20 06:00) Aspirin Chewable Tablet (Baby Aspirin Ch (06/21/20 11:45) Ed Iv/Invasive Line Start (06/21/20 11:35) Troponin I Fs (06/21/20 11:35) Probnp Fs (06/21/20 11:35) Crp Fs (06/21/20 11:35) Ketorolac Injection (Toradol Injection) (06/21/20 12:23) Medications Given in ED Current Medications Medications Dose Ordered Sig/Aury Route Start Time Stop Time Status Last Admin Dose Admin Aspirin 324 mg ONCE ONCE PO 06/21/20 11:45 06/21/20 11:46 DC 06/21/20 11:56 324 MG Vital Signs/I&O 06/21/20 11:30 Temp 36.6 Pulse 63 Resp 18 B/P (MAP) 163/59 (93) Pulse Ox 98 O2 Delivery Room Air Progress Progress Note : Time: 12:32 Progress Note Patient's chest pain has been going on for 2 days. Her troponin and EKG are both negative. Pain seems to worsen with activity of her arms and muscle use. Is also reproducible. Patient does have a slight elevation of white count as well as increase in lymphocytes. I discussed with her possible early viral illness or infectious process. She states that she is not having any type of cold or other symptoms that would cause that. Discussed with her that is likely musculoskeletal. I gave her a small dose of Toradol. She is use ibuprofen and topical lidocaine. She has an appointment with her community liaison officer next which I encouraged her to keep. Departure Impression Primary Impression: Chest wall pain Disposition: HOME, SELF-CARE Condition: Stable Departure-Patient Inst. Referrals: MARLYN DERAS MD (PCP/Family) Primary Care Physician Patient Instructions: Chest Pain That Is Not Caused by the Heart (DC), Chest Pain (DC) Add. Discharge Instructions: Tylenol or ibuprofen as needed for pain 4% topical lidocaine with menthol use as directed on package Keep your appointment with your community liaison officer next week, follow-up with your primary care provider as needed Return to the ER if symptoms worsen or with any other concerns All discharge instructions reviewed with patient and/or family. Voiced understanding. MADDI CARRINGTON DO Jun 21, 2020 11:35
[2020-06-21] MEDS ORDERED: ASPIRIN 81 MG CHEW (CHILDREN'S ASA) PO ONE (11:45)
[2020-06-21 11:46] LABS: HEMATOCRIT 41 % (35-52); HEMOGLOBIN 13.8 G/DL (11.5-16.0); MEAN CORPUSCULAR HEMOGLOBIN 31 PG (25-34); WHITE BLOOD COUNT 12.3 10^3/uL (4.3-11.0)
[2020-06-21 11:47] LABS: BASOPHILS # (AUTO) 0.1 10^3/uL (0.0-0.1); BASOPHILS % (AUTO) 1 % (0-10); EOSINOPHILS # (AUTO) 0.4 10^3/uL (0.0-0.3); EOSINOPHILS % (AUTO) 3 % (0-10); LYMPHOCYTES # (AUTO) 6.6 X 10^3 (1.0-4.0); LYMPHOCYTES % (AUTO) 54 % (12-44); MEAN CORPUSCULAR HGB CONC 33 G/DL (32-36); MEAN CORPUSCULAR VOLUME 94 FL (80-99); MONOCYTES # (AUTO) 1.4 X 10^3 (0.0-1.0); MONOCYTES % (AUTO) 12 % (0-12); NEUTROPHILS # (AUTO) 3.7 X 10^3 (1.8-7.8); NEUTROPHILS % (AUTO) 30 % (42-75); PLATELET COUNT 438 10^3/uL (130-400)
[2020-06-21 12:00] LABS: INR 1.1 (0.8-1.4); PROTHROMBIN TIME PATIENT 14.4 SEC (12.2-14.7)
[2020-06-21 12:07] LABS: ALBUMIN 4.4 GM/DL (3.2-4.5); BILIRUBIN,TOTAL 0.2 MG/DL (0.1-1.0); CALCIUM 9.9 MG/DL (8.5-10.1); CREATININE SERUM 1.26 MG/DL (0.60-1.30); MAGNESIUM 2.2 MG/DL (1.6-2.4); POTASSIUM 3.8 MMOL/L (3.6-5.0); TOTAL PROTEIN 7.9 GM/DL (6.4-8.2)
[2020-06-21] MEDS ORDERED: KETOROLAC 30 MG/ML VIAL IVP STA (12:23)
[2020-06-21 12:34] VITALS: BP 145/58
--- NOTE | 2020-06-21 12:41 | Diagnostic Imaging Report ---
EXAMINATION: Chest radiograph, portable AP view. DATE: 06/21/2020 12:17 PM INDICATION: 85-year-old female, chest pain. COMPARISON: July 16, 2019. FINDINGS: Heart size and mediastinal contours are unchanged. There is no identified pneumothorax. There is no large pleural effusion. There is no identified interval focal airspace consolidation. IMPRESSION: 1. No identified acute cardiopulmonary abnormality. Dictated by: Dictated on workstation # [id number]
== END 2020-06-21 12:39 | disposition home or self-care (01) ==
LOC: EDUNIT# 11:26 → ER FS 11:28
DX: R07.89 Other chest pain (principal); I25.2 Old myocardial infarction; I10 Essential (primary) hypertension; I25.10 Atherosclerotic heart disease of native coronary artery without angina pectoris; K21.9 Gastro-esophageal reflux disease without esophagitis; Z88.0 Allergy status to penicillin; Z88.5 Allergy status to narcotic agent; Z88.1 Allergy status to other antibiotic agents; Z88.8 Allergy status to other drugs, medicaments and biological substances; Z86.73 Personal history of transient ischemic attack (TIA), and cerebral infarction without residual deficits; Z95.5 Presence of coronary angioplasty implant and graft; Z82.49 Family history of ischemic heart disease and other diseases of the circulatory system; Z83.3 Family history of diabetes mellitus; Z80.0 Family history of malignant neoplasm of digestive organs; Z79.01 Long term (current) use of anticoagulants; Z79.82 Long term (current) use of aspirin
CPT/HCPCS: 36415; 71045; 80053; 83735; 83874; 83880; 84484; 85025; 85610; 85730; 86141; 93005; 93041

== ENCOUNTER 2020-08-12 13:00 | Day surgery (SDC) | payer MEDICARE ==
[~2020-08-12] VITALS: Ht 157 cm; Wt 62.0 kg
[2020-08-12] VITALS (9 sets, daily range): BP systolic 135–175; BP diastolic 62–91
[2020-08-12 11:10] LABS: HEMOGLOBIN 13.7 g/dL (11.5-16.0); MEAN PLATELET VOLUME 9.8 fL (9.0-12.2); WHITE BLOOD COUNT 8.6 10^3/uL (4.3-11.0)
[2020-08-12 11:24] LABS: PROTHROMBIN TIME PATIENT 13.5 SEC (12.2-14.7)
[2020-08-12 11:28] LABS: ALBUMIN 4.2 GM/DL (3.2-4.5); BILIRUBIN,TOTAL 0.5 MG/DL (0.1-1.0); CALCIUM 9.6 MG/DL (8.5-10.1); CREATININE SERUM 1.16 MG/DL (0.60-1.30); POTASSIUM 3.6 MMOL/L (3.6-5.0); TOTAL PROTEIN 7.8 GM/DL (6.4-8.2)
[~2020-08-12 13:00] MED LIST changes: +HEParin (CATH LAB) 2,000 ML IV ONE; +LIDOCAINE 1% INJ 20 ML 20 ML VIAL ONE; +NS IV 1000 ML 1,000 ML IV SCH; +NS IV 1000 ML 1,000 ML ONE
[2020-08-12] MEDS ORDERED: MIDAZOLAM 5 MG/5 ML (VERSED) VIAL ONE (13:30)
[2020-08-12] MEDS ORDERED: fentaNYL INJ 100 MCG/2 ML AMP ONE (13:30)
--- NOTE | 2020-08-12 14:49 | Cardiac Procedure Note-CS/ASA ---
Pre-Procedure Note Pre-Op Procedure Note H&P Reviewed The H&P was reviewed, patient examined and no changes noted. Date H&P Reviewed: Aug 12, 2020 Time H&P Reviewed: 13:50 Conscious Sedation Pre-Proced Time 13:50 ASA Score 3 For ASA 3 and 4: Consider anesthesia and medical clearance. Also, for patients with a history of failed moderate sedation consider anesthesia. Airway Lungs Heart ASA score ASA 1: a normal healthy patient ASA 2: a patient with a mild systemic disease (mid diabetes, controlled hypertension, obesity ASA 3: a patient with a severe systemic disease that limits activity (angina, COPD, prior Myocardial infarction) ASA 4: a patient with an incapacitating disease that is a constant threat to life (CHF, renal failure) ASA 5: a moribund patient not expected to survive 24 hrs. (ruptured aneurysm) ASA 6: a declared brain- patient whose organs are being harvested. For emergent operations, add the letter E after the classification Mallampati Classification Grade 2 Sedation Plan Analgesia, Amnesia, Plan communicated to team members, Discussed options with patient/fam, Discussed risks with patient/fam The patient is an appropriate candidate to undergo the planned procedure, sedation, and anesthesia. The patient immediately re-assessed prior to indication. WALTER GIL MD FACP FAC CCDS Aug 12, 2020 14:49
--- NOTE | 2020-08-12 14:57 | Discharge Inst-Cardiology ---
Discharge Inst-Cardiac Discharge Medications Continued Medications: Acetaminophen (Tylenol Extra Strength) 500 Mg Tablet 1000 MG PO Q6H PRN for PAIN-MILD (1-4), TAB Amlodipine Besylate (Amlodipine Besylate) 5 Mg Tablet 5 MG PO DAILY, TAB Apixaban (Eliquis) 2.5 Mg Tablet 2.5 MG PO BID, TAB Clopidogrel Bisulfate (Clopidogrel) 75 Mg Tablet 75 MG PO DAILY, #30 TAB 5 Refills Famotidine (Acid Facility Operations Manager (FAMOTIDINE)) 20 Mg Tablet 40 MG PO DAILY PRN for HEARTBURN, TAB IF STILL HAVING HEARTBURN AFTER RANITIDINE Furosemide (Furosemide) 20 Mg Tablet 20 MG PO DAILY PRN for SWELLING, TAB Levothyroxine Sodium (Levothyroxine Sodium) 50 Mcg Tablet 50 MCG PO DAILY, TAB Losartan Potassium (Losartan Potassium) 100 Mg Tablet 100 MG PO DAILY, TAB Metoprolol Succinate (Metoprolol Succinate) 100 Mg Tab.er.24h 100 MG PO DAILY, TAB Multivit-Min/FA/Lycopene/Lut (Centrum Silver Tablet) 1 Each Tablet 1 TAB PO DAILY, TAB Nitroglycerin (Nitroglycerin) 0.4 Mg Tab.subl 0.4 MG SL UD PRN for CHEST PAIN, TAB [place] 3 Polyunsat Fatty Acids (Fish Oil 1,000 mg Capsule) 1,000 Mg Cap 1000 MG PO DAILY, CAP Pantoprazole Sodium (Pantoprazole Sodium) 40 Mg Tablet.dr 40 MG PO DAILY@0700, #30 TAB 2 Refills Potassium Chloride (Potassium Chloride) 20 Meq Tab.er.prt 20 MEQ PO DAILY, TAB WALTER GIL MD [facility] CCDS Aug 12, 2020 14:57
[2020-08-12] MEDS ORDERED: PATIENT MAY USE OWN MEDS, ALL PO SCH (15:00)
[2020-08-12] MEDS ORDERED: NS IV 1000 ML 1,000 ML IV SCH (15:00)
--- NOTE | 2020-08-12 15:01 | Discharge Inst-Post CATH ---
Discharge Inst-CATH/EP Post Cardiac Cath/EP D/C Inst Follow Up/Plan F/u with Dr Mayer in 2 weeks ACTIVITY * Go Home directly and rest. * Limit activity of the leg (or wrist if it was used) for 7 days including aerobics, swimming, jogging, bicycling, etc. * Restrict stair-climbing for 7 days if possible, if not, climb up with your n on-cath leg, then bring together on the same step. * Avoid lifting, pushing, pulling or excessive movement of the affected ex tremity for 7 days. * Customary sexual activity may be resumed after 2 days-use caution not to use a position that strains or causes pain to the affected extremity. * No driving for 24 hours. * NO SMOKING. * Avoid straining for bowel movements for 7 days. * Gentle walking on level ground is allowed. * Returning to work will depend on the type of procedure and the results. Your doctor will discuss this with you. CALL YOUR DOCTOR FOR ANY OF THE FOLLOWING: *If bleeding from the puncture site occurs- Apply gentle pressure to site with clean cloth and call your doctor or EMS. * If a knot or lump forms under the skin, increases in size, or causes pain. * If bruising appears to be worsening or moving further down your leg instead of disappearing. * Temperature above 101 F. CARE OF YOUR GROIN INCISION; * Bruising or purple discoloration of the skin near the puncture site is common. * You may shower only, no bathtub bathing for 5 days. Be careful to avoid slipping as your leg may feel stiff. * If a closure device was used on your femoral artery, please see the attached guide regarding care of the device and your leg. * Leave dressing on FOR 24 hours. CARE OF YOUR WRIST INCISION; * Bruising or purple discoloration of the skin near the puncture site is common. * You may shower. * DO NOT submerge wrist. * Leave dressing on FOR 24 hours. WALTER MAYER MD FACP FAC CCDS Aug 12, 2020 15:01
--- NOTE | 2020-08-12 20:17 | CARDIAC CATHETERIZATION ---
DATE OF SERVICE: 08/12/2020 CARDIAC CATHETERIZATION REPORT INDICATION FOR PROCEDURE: The patient is an 85-year-old lady, who is known to have coronary artery disease and who has recently been having intermittent chest discomfort and has been worried that she may be having heart attacks. Cardiac catheterization was carried out today after having obtained an informed consent. DESCRIPTION OF PROCEDURE: She was brought to the cardiac catheterization laboratory in a fasting state. The right groin was prepared and draped in the usual sterile fashion. Lidocaine 1% was used for local anesthesia. Modified Seldinger technique was used to advance a 5-Malaysian sheath in the right femoral artery. A 5-Malaysian JL4 catheter for left coronary angiography. For angiography of the right coronary artery, we tried multiple catheters, but were not able to selectively engage it. We were able to adequately visualize the right coronary artery through a subselective injections and through an aortic root injection that was performed with the pigtail catheter. We used the pigtail catheter to carry out left heart catheterization, left ventricular angiography and it was then pulled back to the aortic root and aortic root angiography was performed. After removal of the diagnostic catheters, angiography of the right femoral artery was carried out through the sheath and Mynx was used to achieve hemostasis. She tolerated the procedure well. HEMODYNAMICS: Left ventricular end-diastolic pressure following coronary angiography was 20 mmHg. There was no significant pressure gradient on pullback across the aortic valve. LEFT VENTRICULAR ANGIOGRAPHY: Left ventricular angiography was carried out in the right anterior oblique projection. There is anteroapical hypokinesis. Left ventricular ejection fraction is approximately 45% to 50%. CORONARY ANGIOGRAPHY: Diffuse coronary calcification is seen. Left main coronary artery does not exhibit significant disease. Left anterior descending artery has patent stents in its proximal and mid portions. Left circumflex artery has a patent stent in its proximal and mid portions. The first obtuse marginal branch of the left circumflex artery arises from the stented segment and chronically has 80% ostial stenosis and is of a small caliber. The ostium of the right coronary artery was stented in 09/2019 with a Xience Michelle 2.25 x 15 mm stent. This artery is intact and the stent does not exhibit significant in-stent restenosis. There is mild to moderate diffuse disease of the right coronary. CONCLUSIONS: 1. Diffuse moderate coronary artery disease as detailed above. There are patent stents in the proximal and mid left anterior descending and the left circumflex arteries and the first obtuse marginal branch is of a small caliber and arises from the stented segment of the left circumflex and chronically has 80% ostial stenosis. The ostial right coronary artery is known to have Xience Michelle 2.25 x 15 mm stent (placed in 09/2019) and the stent is patent and the right coronary artery has diffuse mild to moderate disease. 2. Elevated left ventricular end-diastolic pressure. 3. Mild impairment of global left ventricular systolic function with an ejection fraction of 45% to 50% and with anteroapical hypokinesis. DISCUSSION AND RECOMMENDATIONS: Compared to previous studies, there does not appear to have been much interim change. The most recent stent that was placed in 09/2019 is widely patent. Thus, coronary status appears stable. Ejection fraction is also stable. It appears reasonable to continue her current regimen. Risk factor modification has again been reviewed with her. Outpatient followup is advised. Job ID: [id number] DocumentID: [id number] Dictated Date: 08/12/2020 15:47:18 Clinical Systems Educator Date: 08/12/2020 20:17:23 Dictated By: WALTER GIL MD, MA, FACP, FACC,
== END 2020-08-12 18:00 | disposition home or self-care (01) ==
LOC: SDC 15:30 → CATH 18:00
PROVIDERS: ATTEND Internal Medicine Cardiovascular Disease
DX: I25.119 Atherosclerotic heart disease of native coronary artery with unspecified angina pectoris (principal); E78.5 Hyperlipidemia, unspecified; I65.29 Occlusion and stenosis of unspecified carotid artery; I48.0 Paroxysmal atrial fibrillation; I25.9 Chronic ischemic heart disease, unspecified; K29.50 Unspecified chronic gastritis without bleeding; M19.90 Unspecified osteoarthritis, unspecified site; Z88.8 Allergy status to other drugs, medicaments and biological substances; Z88.6 Allergy status to analgesic agent; Z88.5 Allergy status to narcotic agent; Z88.0 Allergy status to penicillin; Z88.1 Allergy status to other antibiotic agents; Z79.899 Other long term (current) drug therapy; Z79.01 Long term (current) use of anticoagulants; Z79.890 Hormone replacement therapy; Z83.3 Family history of diabetes mellitus
CPT/HCPCS: 80053; 80061; 85027; 85610; 85730; 87081; 93458; 93567; C1760; C1894; 36415

== ENCOUNTER 2021-03-30 10:39 | Emergency (ER) | payer MEDICARE ==
[~2021-03-30] VITALS: Ht 157 cm; Wt 60.0 kg
[~2021-03-30 10:39] MED LIST changes: -HEParin (CATH LAB) 2,000 ML IV ONE; -LEVO250T46 PO; -LIDOCAINE 1% INJ 20 ML 20 ML VIAL ONE; +LVF250T PO; -NS IV 1000 ML 1,000 ML IV SCH; -NS IV 1000 ML 1,000 ML ONE; +POTA-179 PO; -POTA20TA15 PO
[2021-03-30] MEDS ORDERED: ONDANSETRON 4 MG/2 ML (SDV) Z0FRAN IVP ONE (11:45)
[2021-03-30] MEDS ORDERED: BSS 15 ML IR ONE (11:45)
[2021-03-30] MEDS ORDERED: TETRACAINE 0.5% OPHTH SOLN 4 ML BTL (SINGLE DOSE ONLY) OU ONE (11:45)
[2021-03-30] MEDS ORDERED: FLUORESCEIN (FLUOR-I-STRIPS) 1 MG STRP OU ONE (11:45)
[2021-03-30] MEDS ORDERED: TETRACAINE 0.5% OPHTH SOLN 4 ML BTL (SINGLE DOSE ONLY) ONE (11:54)
[2021-03-30] MEDS ORDERED: IOHEXOL 350 MG/ML 100 ML (OMNIPAQUE 350) VIAL IV ONE (12:00)
[2021-03-30] MEDS ORDERED: HOLD METFORMIN - RECEIVED CONTRAST 20 ML VIAL IV SCH (12:00)
[2021-03-30] MEDS ORDERED: NS 100 ML (IVPB) BAG IV ONE ×2 (12:00→14:15)
[2021-03-30 12:18] LABS: BILIRUBIN,URINE NEGATIVE (NEGATIVE); CLARITY,URINE CLEAR; COLOR,URINE YELLOW; GLUCOSE, URINE (UA) NEGATIVE (NEGATIVE); KETONES,URINE 1+ (NEGATIVE); LEUKOCYTE ESTERASE ,URINE 2+ (NEGATIVE); NITRITE,URINE NEGATIVE (NEGATIVE); PROTEIN,URINE NEGATIVE (NEGATIVE)
--- NOTE | 2021-03-30 12:26 | Diagnostic Imaging Report ---
INDICATION: Fall with left hand pain and injury. TIME OF EXAM: 12:17 p.m. FINDINGS: Three views of the left hand were obtained. The distal radius and ulna appear to be intact. Carpus is intact. Metacarpals are intact. The phalanges are intact. No fractures are seen. IMPRESSION: No acute bony abnormality is detected. Dictated by: Dictated on workstation # [id number]
[2021-03-30 12:32] LABS: RBC,URINE 25-50 /HPF; WBC,URINE 25-50 /HPF
[2021-03-30 12:33] LABS: BACTERIA,URINE MODERATE /HPF
[2021-03-30 12:37] LABS: BASOPHILS # (AUTO) 0.1 10^3/uL (0.0-0.1); BASOPHILS % (AUTO) 1 % (0-10); EOSINOPHILS # (AUTO) 0.2 10^3/uL (0.0-0.3); EOSINOPHILS % (AUTO) 2 % (0-10); HEMATOCRIT 38 % (35-52); HEMOGLOBIN 12.4 g/dL (11.5-16.0); LYMPHOCYTES # (AUTO) 2.2 10^3/uL (1.0-4.0); LYMPHOCYTES % (AUTO) 27 % (12-44); MEAN CORPUSCULAR HEMOGLOBIN 31 pg (25-34); MEAN CORPUSCULAR HGB CONC 33 g/dL (32-36); MEAN CORPUSCULAR VOLUME 94 fL (80-99); MONOCYTES # (AUTO) 0.8 10^3/uL (0.0-1.0); MONOCYTES % (AUTO) 10 % (0-12); NEUTROPHILS # (AUTO) 4.8 10^3/uL (1.8-7.8); NEUTROPHILS % (AUTO) 60 % (42-75); PLATELET COUNT 355 10^3/uL (130-400); WHITE BLOOD COUNT 8.1 10^3/uL (4.3-11.0)
[2021-03-30 12:46] LABS: ALBUMIN 3.9 GM/DL (3.2-4.5); POTASSIUM 3.4 MMOL/L (3.6-5.0)
[2021-03-30 12:47] LABS: CALCIUM 9.2 MG/DL (8.5-10.1)
[2021-03-30 12:48] LABS: TOTAL PROTEIN 7.1 GM/DL (6.4-8.2)
[2021-03-30 12:50] LABS: BILIRUBIN,TOTAL 0.4 MG/DL (0.1-1.0)
[2021-03-30 12:52] LABS: CREATININE SERUM 1.03 MG/DL (0.60-1.30)
[2021-03-30 12:55] LABS: MAGNESIUM 1.9 MG/DL (1.6-2.4)
[2021-03-30 13:15] LABS: FREE T4 (FREE THYROXINE) 0.95 NG/DL (0.70-1.48)
--- NOTE | 2021-03-30 13:44 | Diagnostic Imaging Report ---
PROCEDURE: CT head, face, and cervical spine without contrast. TECHNIQUE: Multiple contiguous axial images were obtained through the head, neck, and facial bones without the use of intravenous contrast. Sagittal and coronal reformations through the cervical spine and facial bones were also performed. Auto Exposure Controls were utilized during the CT exam to meet ALARA standards for radiation dose reduction. INDICATION: Fall with head and facial injuries. COMPARISON: Correlation is made with prior head CT from 01/10/2020. 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 Ventricular size is stable. There is some somewhat prominent CSF space along the right cerebral convexity. 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 There is a large area of soft tissue swelling in the right frontal scalp. There is no midline shift. No sulcal effacement is seen. No acute intra-axial or extra-axial hemorrhage is detected. Cisterns are patent. Visualized paranasal sinuses are clear. IMPRESSION: 1. A right frontal scalp hematoma. There are chronic changes intracranially. No acute intracranial process is detected. CT CERVICAL SPINE: Curvature and alignment of the cervical spine is normal. There is multilevel degenerative disc disease and facet arthropathy. There is variable disc space narrowing and marginal spurring, greatest at the C4-C5 and C5-C6 levels. No fractures are seen. Prevertebral tissues are within normal limits. Odontoid is intact. IMPRESSION: Cervical spondylosis. No acute bony abnormality is detected. CT FACE: The mandible is intact. The zygomatic arches are intact. There is a small amount of gas noted adjacent to the lateral wall of the left maxillary sinus, tracking cephalad along the lateral wall of the left orbit. No obvious or displaced fractures of the sinuses or orbits are seen. The nasal bones are intact. The frontal, ethmoid, sphenoid, and bilateral maxillary sinuses are clear. There are no air-fluid levels. The mastoids are well aerated. There does appear to be some mild soft tissue swelling in the right periorbital and right premaxillary tissues. IMPRESSION: 1. Right facial swelling. 2. There is a small amount of gas adjacent to the lateral wall of the left orbit and left maxillary sinus. The possibility of a nondisplaced fracture of the left maxillary sinus lateral wall cannot be entirely excluded, although no definite air-fluid level is seen. No other facial fractures are identified. Dictated by: Dictated on workstation # [id number]
[2021-03-30] MEDS ORDERED: IOHEXOL 300 MG/ML 50 ML (OMNIPAQUE 300) VIAL IV ONE (14:15)
[2021-03-30] MEDS ORDERED: CATHETER FLUSH 10 ML SYR IV PRN (14:15)
[2021-03-30] MEDS ORDERED: ONDANSETRON 4 MG (ZOFRAN) ORAL DISSOLVE TAB SL ONE (15:00)
--- NOTE | 2021-03-30 15:29 | Diagnostic Imaging Report ---
PROCEDURE: CT chest, abdomen, and pelvis without contrast. TECHNIQUE: Multiple contiguous axial images were obtained through the chest, abdomen, and pelvis without the use of intravenous contrast. Auto Exposure Controls were utilized during the CT exam to meet ALARA standards for radiation dose reduction. INDICATION: Chest and abdominal pain after injury. COMPARISON: None available. FINDINGS: CHEST: No supraclavicular or axillary lymphadenopathy. No features of mediastinal hemorrhage. Heart is mildly enlarged without pericardial effusion. Severe coronary artery calcifications. Moderate-sized hiatal hernia. No mediastinal lymphadenopathy. Normal-caliber thoracic aorta with mild atherosclerotic plaquing. Calcified right hilar lymph nodes compatible with old granulomatous infection. No pleural effusion or pneumothorax. Thyroid is normal. No consolidation to suggest pulmonary contusion or laceration. No fracture in the clavicles or ribs. No sternal fracture. No fracture or traumatic malalignment in the thoracic spine. ABDOMEN AND PELVIS: Assessment of visceral injury is suboptimal without IV contrast. Allowing for this, the unenhanced liver, spleen, and pancreas have no features of acute traumatic injury. Calcified splenic granulomas are present. No adrenal mass. No perinephric fluid collection. No features of renal laceration. No bladder rupture. A pessary device is present within the vagina. No pericolonic inflammatory change associated with the colonic diverticulosis. No bowel obstruction. No retroperitoneal hemorrhage. Normal-caliber abdominal aorta. Subcutaneous calcifications in the bilateral gluteal region are most compatible with injection granulomas. No acute fracture within the lumbar spine or pelvis. Proximal femurs are intact. IMPRESSION: 1. No features of acute traumatic injury in the chest, abdomen, or pelvis. Dictated by: Dictated on workstation # [id number]
[2021-03-30] MEDS ORDERED: TRAM-42 PO (16:02)
[2021-03-30] MEDS ORDERED: SULF1TAB38 PO (16:02)
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
[2021-03-30 16:17] VITALS: BP 132/85
== END 2021-03-30 16:17 | disposition home or self-care (01) ==
LOC: EDUNIT# 10:39 → ER 10:41
DX: S00.03XA Contusion of scalp, initial encounter (principal); S60.222A Contusion of left hand, initial encounter; H53.8 Other visual disturbances; N39.0 Urinary tract infection, site not specified; G44.319 Acute post-traumatic headache, not intractable; H61.21 Impacted cerumen, right ear; I25.2 Old myocardial infarction; I10 Essential (primary) hypertension; K21.9 Gastro-esophageal reflux disease without esophagitis; E03.9 Hypothyroidism, unspecified; I48.0 Paroxysmal atrial fibrillation; R40.2410 Glasgow coma scale score 13-15, unspecified time; Z86.73 Personal history of transient ischemic attack (TIA), and cerebral infarction without residual deficits; Z79.890 Hormone replacement therapy; Z79.01 Long term (current) use of anticoagulants; Z79.899 Other long term (current) drug therapy; W18.30XA Fall on same level, unspecified, initial encounter
CPT/HCPCS: 36415; 70450; 70486; 71250; 72125; 73130; 74176; 80053; 81000; 83735; 84439; 84443; 85025; 87077; 87088; 87186; 99283

== ENCOUNTER 2021-04-01 11:37 | Observation (INO) | payer MEDICARE ==
[~2021-04-01] VITALS: Ht 157 cm; Wt 63.2 kg
[~2021-04-01 11:37] MED LIST changes: +SULF1TAB38 PO; +TRAM-42 PO
[2021-04-01] MEDS ORDERED: ACETAMINOPHEN 325 MG TABLET PO STA (12:00)
[2021-04-01] MEDS ORDERED: ONDANSETRON 4 MG/2 ML (SDV) Z0FRAN IVP ONE (12:00)
[2021-04-01] MEDS ORDERED: NS IV 1000 ML 1,000 ML IV SCH (12:15)
--- NOTE | 2021-04-01 12:27 | ED GI ---
General Chief Complaint: Abdominal/GI Problems Stated Complaint: N/V,FELL Nursing Triage Note: PT ARRIVED PER [facility] PT CO OF N/V THAT STARTED LAST PM. PT STATES IS VERY NAUSEATED, PT WAS SEEN IN ED ON TUESDAY FOR HEAD INJURY, HAS BILATERAL BLACK EYES AND LUMP ON R SIDE OF HEAD, FALL ON TUESDAY. History of Present Illness Date Seen by Provider: Apr 01, 2021 Time Seen by Provider: 11:45 Initial Comments 85 year old female presents after a fall on 03/28/21 in [place] while with her son. She was evaluated at an ED there and found to have a possible sinus fracture. She came to this ED on 03/30/21 for continued pain, she had multiple CTs and x- rays with no acute findings. She has a history of A. fib for which she takes Eliquis and Coumadin. She was told to hold the Eliquis for a few days related to the fall. She was started on Omnicef for UTI, however she has not been taking it because of nausea and vomiting. She has a long standing history of poor appetite, no change since the fall. Patient reports last evening becoming nauseated and occasional vomiting. She does not have any medications for nausea and vomiting. She attempted to take Tylenol for a headache with no improvement, but she vomited shortly after taking the medications. She denies any new falls, seizure activity, vision changes, balance disturbances, or fevers. She has not received the COVID vaccine, due to multiple drug allergies. Ecchymosis noted to both periorbital regions and right forehead with contusion noted. No active bleeding or abrasions. Patient reports falling last evening, when ambulating to bathroom. Her legs became weak and she was able to lower herself to the ground. She denies any injuries. Timing/Duration: 3-4 Days Severity/Quality: Moderate Radiation: No Radiation Modifying Factors: Improves With Lying down, Improves With Resting Associated Symptoms: No Back Pain, No Chest Pain, No Diaphoresis, No Fever/Chills, No Fatigue; Headache; No Heartburn; Nausea/Vomiting; No Shortness of Air, No Swelling/Mass in Abdomen, No Syncope, No Weakness Allergies and Home Medications Allergies Coded Allergies: Penicillins (Verified Allergy, Intermediate, HIVES, 07/25/12) oxytetracycline (Verified Allergy, Intermediate, HIVES, 07/25/12) furosemide (Unverified Adverse Reaction, Mild, "MAKES ME SICK", 12/14/16) hydrocodone (Verified Adverse Reaction, Mild, MAKES ME SICK, 07/01/12) lisinopril (Verified Adverse Reaction, Mild, COUGH, 07/01/12) oxytetracycline HCl (Verified Adverse Reaction, Mild, HIVES, 07/01/12) tramadol (Verified Adverse Reaction, Mild, NAUSEA, "HEAVINESS", 07/01/12) Patient Home Medication List Home Medication List Reviewed: Yes Acetaminophen (Tylenol Extra Strength) 500 Mg Tablet, 1,000 MG PO Q6H PRN for PAIN-MILD (1-4), (Reported) Entered as Reported by: LILI RESENDIZ on 03/07/19 1609 Amlodipine Besylate (Amlodipine Besylate) 5 Mg Tablet, 5 MG PO DAILY, (Reported) Entered as Reported by: LILI RESENDIZ on 03/07/19 1609 Apixaban (Eliquis) 2.5 Mg Tablet, 2.5 MG PO BID, (Reported) Entered as Reported by: LILI RESENDIZ on 08/09/18 1431 Clopidogrel Bisulfate (Clopidogrel) 75 Mg Tablet, 75 MG PO DAILY Prescribed by: VERÓNICA DAY on 10/24/19 0906 Famotidine (Acid [place] (FAMOTIDINE)) 20 Mg Tablet, 40 MG PO DAILY PRN for HEARTBURN, (Reported) Entered as Reported by: LILI RESENDIZ on 03/07/19 1609 Furosemide (Furosemide) 20 Mg Tablet, 20 MG PO DAILY PRN for SWELLING, (Reported) Entered as Reported by: LILI RESENDIZ on 12/07/18 1016 Levothyroxine Sodium (Levothyroxine Sodium) 50 Mcg Tablet, 50 MCG PO DAILY, (Reported) Entered as Reported by: LILI RESENDIZ on 12/14/16 1103 Losartan Potassium (Losartan Potassium) 100 Mg Tablet, 100 MG PO DAILY, (Report ed) Entered as Reported by: YANY SCHNEIDER on 07/14/15 0924 Metoprolol Succinate (Metoprolol Succinate) 100 Mg Tab.er.24h, 100 MG PO DAILY, (Reported) Entered as Reported by: LILI RESENDIZ on 03/07/19 1609 Multivit-Min/FA/Lycopene/Lut (Centrum Silver Tablet) 1 Each Tablet, 1 TAB PO DAILY, (Reported) Entered as Reported by: LILI RESENDIZ on 07/04/18 1154 Nitroglycerin (Nitroglycerin) 0.4 Mg Tab.subl, 0.4 MG SL UD PRN for CHEST PAIN, (Reported) Entered as Reported by: LILI RESENDIZ on 07/04/18 1154 [place] 3 Polyunsat Fatty Acids (Fish Oil 1,000 mg Capsule) 1,000 Mg Cap, 1,000 MG PO DAILY, (Reported) Entered as Reported by: LILI RESENDIZ on 12/07/18 1016 Pantoprazole Sodium (Pantoprazole Sodium) 40 Mg Tablet.dr, 40 MG PO DAILY@0700 Prescribed by: VERÓNICA DAY on 03/09/19 1521 Potassium Chloride (Potassium Chloride) 20 Meq Tab.er.prt, 20 MEQ PO DAILY, (Reported) Entered as Reported by: LILI RESEDNIZ on 12/07/18 1016 Sulfamethoxazole/Trimethoprim (Bactrim Ds Tablet) 1 Each Tablet, 1 EACH PO BID Prescribed by: DALLAS SULTANA on 03/30/21 1602 Tramadol HCl (Ultram) 50 Mg Tablet, 0.5-1 TAB PO Q6H PRN for PAIN-BREAKTHROUGH Prescribed by: DALLAS SULTANA on 03/30/21 1603 Review of Systems Review of Systems Constitutional: no symptoms reported, see HPI EENTM: No Symptoms Reported, See HPI; No Blurred Vision, No Double Vision, No Eye Pain, No Ear Pain, No Mouth Pain, No Nose Congestion, No Nose Pain Respiratory: No Symptoms Reported, See HPI; Denies Cough Cardiovascular: No Symptoms Reported, See HPI; Denies Chest Pain Gastrointestinal: See HPI; Denies Abdominal Pain, Denies Constipated, Denies Diarrhea; Nausea, Poor Appetite, Poor Fluid Intake; Denies Rectal Bleeding; Vomiting Musculoskeletal: no symptoms reported, see HPI Skin: no symptoms reported, other (Ecchymosis related to trauma from fall.) Psychiatric/Neurological: Headache All Other Systems Reviewed Negative Unless Noted: Yes Past Yjebzfb-Ntkhom-Etdoch Hx Patient Social History Tobacco Use?: No Substance use?: No Alcohol Use?: No Pt feels they are or have been: Yes Immunizations Up To Date Tetanus Booster (TDap): Unknown Seasonal Allergies Seasonal Allergies: No Past Medical History Surgeries: Yes (RIGHT CAROTID ENDARTERECTOMY, BACK SURGERY) Coronary Stent, Gallbladder, Hysterectomy, Orthopedic, Vascular Surgery Respiratory: Yes Pneumonia Currently Using CPAP: No Currently Using BIPAP: No Cardiac: Yes Atrial Fibrillation, Coronary Artery Disease, Heart Attack, Hypertension Neurological: Yes Stroke, TIA Genitourinary: Yes (pessary ) Bladder Infection Gastrointestinal: Yes Gastroesophageal Reflux Musculoskeletal: Yes Arthritis, Chronic Back Pain Endocrine: Yes Hypothyroidsim HEENT: No Cancer: No Psychosocial: No Integumentary: No Blood Disorders: No Family Medical History Reviewed Nursing Family Hx Diabetes mellitus 19 FATHER FH: liver cancer 19 MOTHER Myocardial infarction G8 BROTHER G8 SISTER Cancer, CAD Over 55 Years Old, Diabetes Physical Exam Vital Signs Vital Signs - First Documented 04/01/21 11:45 Temp 36.1 Pulse 66 Resp 18 B/P (MAP) 134/66 (88) Pulse Ox 97 Capillary Refill : Less Than 3 Seconds Height/Weight/BMI Height: 5'2.00" Weight: 136lbs. 4.0oz. 61.689560zs; 24.00 BMI Method:Stated General Appearance: WD/WN, mild distress HEENT: PERRL/EOMI, TMs normal, pharynx normal Neck: non-tender, full range of motion, supple, normal inspection Respiratory: chest non-tender, lungs clear, normal breath sounds Cardiovascular: normal peripheral pulses, regular rate, rhythm, no edema, no murmur Gastrointestinal: normal bowel sounds, soft; No distended, No guarding, No rebound; tenderness (Generalized); No hernia, No mass Extremities: normal range of motion, non-tender, normal inspection, normal capillary refill, pelvis stable; No calf tenderness Back: normal inspection, no CVA tenderness, no vertebral tenderness Neurologic/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: 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, no motor/sensory deficits, alert, normal mood/affect, oriented x 3 Skin: ecchymosis (To face) Progress/Results/Core Measures Results/Orders Lab Results Laboratory Tests Test 04/01/21 12:21 04/01/21 12:30 Range/Units White Blood Count 13.1 H 4.3-11.0 10^3/uL Red Blood Count 4.38 3.80-5.11 10^6/uL Hemoglobin 13.6 11.5-16.0 g/dL Hematocrit 42 35-52 % Mean Corpuscular Volume 95 80-99 fL Mean Corpuscular Hemoglobin 31 25-34 pg Mean Corpuscular Hemoglobin Concent 33 32-36 g/dL Red Cell Distribution Width 12.6 10.0-14.5 % Platelet Count 230 130-400 10^3/uL Mean Platelet Volume 10.7 9.0-12.2 fL Immature Granulocyte % (Auto) 0 % Neutrophils (%) (Auto) 57 42-75 % Lymphocytes (%) (Auto) 28 12-44 % Monocytes (%) (Auto) 13 H 0-12 % Eosinophils (%) (Auto) 1 0-10 % Basophils (%) (Auto) 1 0-10 % Neutrophils # (Auto) 7.4 1.8-7.8 10^3/uL Lymphocytes # (Auto) 3.6 1.0-4.0 10^3/uL Monocytes # (Auto) 1.7 H 0.0-1.0 10^3/uL Eosinophils # (Auto) 0.2 0.0-0.3 10^3/uL Basophils # (Auto) 0.1 0.0-0.1 10^3/uL Immature Granulocyte # (Auto) 0.1 0.0-0.1 10^3/uL Percent Immature Platelet Fraction 7.1 0.0-7.6 % Sodium Level 138 135-145 MMOL/L Potassium Level 3.9 3.6-5.0 MMOL/L Chloride Level 107 98-107 MMOL/L Carbon Dioxide Level 15 L 21-32 MMOL/L Anion Gap 16 H 5-14 MMOL/L Blood Urea Nitrogen 17 7-18 MG/DL Creatinine 1.75 H 0.60-1.30 MG/DL Estimat Glomerular Filtration Rate 28 BUN/Creatinine Ratio 10 Glucose Level 83 70-105 MG/DL Calcium Level 9.5 8.5-10.1 MG/DL Corrected Calcium 9.4 8.5-10.1 MG/DL Total Bilirubin 0.5 0.1-1.0 MG/DL Aspartate Amino Transf (AST/SGOT) 26 5-34 U/L Alanine Aminotransferase (ALT/SGPT) 20 0-55 U/L Alkaline Phosphatase 66 40-136 U/L Total Protein 7.8 6.4-8.2 GM/DL Albumin 4.1 3.2-4.5 GM/DL Urine Color YELLOW Urine Clarity CLEAR Urine pH 6.0 5-9 Urine Specific Lynn 1.020 1.016-1.022 Urine Protein NEGATIVE NEGATIVE Urine Glucose (UA) NEGATIVE NEGATIVE Urine Ketones NEGATIVE NEGATIVE Urine Nitrite NEGATIVE NEGATIVE Urine Bilirubin NEGATIVE NEGATIVE Urine Urobilinogen 0.2 < = 1.0 MG/DL Urine Leukocyte Esterase 3+ H NEGATIVE Urine RBC (Auto) 2+ H NEGATIVE Urine RBC 0-2 /HPF Urine WBC 25-50 H /HPF Urine Squamous Epithelial Cells 0-2 /HPF Urine Crystals NONE /LPF Urine Bacteria FEW H /HPF Urine Casts NONE /LPF Urine Mucus NEGATIVE /LPF Urine Culture Indicated YES My Orders Orders - ATUL TSE Cbc With Automated Diff (04/01/21 12:00) Comprehensive Metabolic Panel (04/01/21 12:00) Ua Culture If Indicated (04/01/21 12:00) Acetaminophen Tablet/Caplet (Tylenol T (04/01/21 12:00) Ondansetron Injection (Zofran Injectio (04/01/21 12:00) Ed Iv/Invasive Line Start (04/01/21 12:02) Ns Iv 1000 Ml (Sodium Chloride 0.9%) (04/01/21 12:15) Urine Culture (04/01/21 12:30) Vancomycin Injection (Vancomycin Injecti (04/01/21 13:39) Medications Given in ED Current Medications Medications Dose Ordered Sig/Aury Route Start Time Stop Time Status Last Admin Dose Admin Ondansetron HCl 8 mg ONCE ONCE IVP 04/01/21 12:00 04/01/21 12:02 DC 04/01/21 12:30 8 MG Vital Signs/I&O 04/01/21 11:45 Temp 36.1 Pulse 66 Resp 18 B/P (MAP) 134/66 (88) Pulse Ox 97 Blood Pressure Mean: 88 Progress Progress Note : Time: 11:45 Progress Note Patient seen and evaluated, will obtain labs, Tylenol 650 mg orally for pain, normal saline 1 L per IV, and Zofran 8 mg for nausea and vomiting. 1230 friend here with patient, reports they are concerned about her home alone but patient is adamant that she does not want to go to LTC or Assisted Living. 1300 reviewed Urine Culture from 03/30, will start Vanc. [address] Griffin, agreed with plan to admit patient. Will have PT and Golf Ball Cover Treater see patient. Departure Impression Primary Impression: Fall on same level Qualified Codes: W18.30XD - Fall on same level, unspecified, subsequent encounter Additional Impressions: Facial contusion Qualified Codes: S00.83XD - Contusion of other part of head, subsequent encounter Concussion Qualified Codes: S06.0X0D - Concussion without loss of consciousness, subsequent encounter UTI (urinary tract infection) Qualified Codes: N30.01 - Acute cystitis with hematuria A-fib Qualified Codes: I48.20 - Chronic atrial fibrillation, unspecified Disposition: ADMITTED INPATIENT Condition: Stable Admissions Decision to Admit Reason: Admit from ER (General) Decision to Admit/Date: Apr 01, 2021 Time/Decision to Admit Time: 13:00 Departure-Patient Inst. Referrals: MARLYN DERAS MD (PCP/Family) Primary Care Physician Copy Copies To 1: MARLYN DERAS MD, [facility] Apr 01, 2021 12:27
[2021-04-01 12:34] LABS: EOSINOPHILS # (AUTO) 0.2 10^3/uL (0.0-0.3); EOSINOPHILS % (AUTO) 1 % (0-10); LYMPHOCYTES % (AUTO) 28 % (12-44)
[2021-04-01 12:36] LABS: BASOPHILS # (AUTO) 0.1 10^3/uL (0.0-0.1); BASOPHILS % (AUTO) 1 % (0-10); HEMATOCRIT 42 % (35-52); HEMOGLOBIN 13.6 g/dL (11.5-16.0); LYMPHOCYTES # (AUTO) 3.6 10^3/uL (1.0-4.0); MEAN CORPUSCULAR HEMOGLOBIN 31 pg (25-34); MEAN CORPUSCULAR HGB CONC 33 g/dL (32-36); MEAN CORPUSCULAR VOLUME 95 fL (80-99); MEAN PLATELET VOLUME 10.7 fL (9.0-12.2); MONOCYTES # (AUTO) 1.7 10^3/uL (0.0-1.0); MONOCYTES % (AUTO) 13 % (0-12); NEUTROPHILS # (AUTO) 7.4 10^3/uL (1.8-7.8); NEUTROPHILS % (AUTO) 57 % (42-75); PLATELET COUNT 230 10^3/uL (130-400); WHITE BLOOD COUNT 13.1 10^3/uL (4.3-11.0)
[2021-04-01 12:40] LABS: BILIRUBIN,URINE NEGATIVE (NEGATIVE); CLARITY,URINE CLEAR; COLOR,URINE YELLOW; GLUCOSE, URINE (UA) NEGATIVE (NEGATIVE); KETONES,URINE NEGATIVE (NEGATIVE); LEUKOCYTE ESTERASE ,URINE 3+ (NEGATIVE); NITRITE,URINE NEGATIVE (NEGATIVE); PROTEIN,URINE NEGATIVE (NEGATIVE)
[2021-04-01 12:41] LABS: ALBUMIN 4.1 GM/DL (3.2-4.5); POTASSIUM 3.9 MMOL/L (3.6-5.0)
[2021-04-01 12:42] LABS: CALCIUM 9.5 MG/DL (8.5-10.1)
[2021-04-01 12:44] LABS: TOTAL PROTEIN 7.8 GM/DL (6.4-8.2)
[2021-04-01 12:45] LABS: BILIRUBIN,TOTAL 0.5 MG/DL (0.1-1.0)
[2021-04-01 12:47] LABS: CREATININE SERUM 1.75 MG/DL (0.60-1.30)
[2021-04-01 12:55] LABS: BACTERIA,URINE FEW /HPF; RBC,URINE 0-2 /HPF; WBC,URINE 25-50 /HPF
[2021-04-01 12:56] LABS: SQUAMOUS EPITHELIAL CELL,UR 0-2 /HPF
[2021-04-01] MEDS ORDERED: VANCOMYCIN INJECTION 1,000 MG in NS (IVPB) 250 ML IV STA (13:39)
[2021-04-01] MEDS ORDERED: VANCOMYCIN INJECTION 1,250 MG in NS (IVPB) 250 ML IV ONE (14:30)
[2021-04-01 15:05] VITALS: BP 117/57
[2021-04-01] MEDS ORDERED: CATHETER FLUSH 10 ML SYR IV PRN (15:45)
[2021-04-01] MEDS ORDERED: ACETAMINOPHEN 325 MG TABLET PO PRN (15:45)
[2021-04-01] MEDS: NS IV 1000 ML 1,000 ML IV SCH (17:26)
[2021-04-01 19:13] VITALS: BP 130/69
[2021-04-01] MEDS: fentaNYL INJ 100 MCG/2 ML AMP IVP PRN (22:11)
[2021-04-01 23:00] VITALS: BP 92/56
[2021-04-02 04:59] VITALS: BP 122/73
[2021-04-02] MEDS: NS IV 1000 ML 1,000 ML IV SCH ×2 (05:19→17:47)
[2021-04-02] MEDS: fentaNYL INJ 100 MCG/2 ML AMP IVP PRN ×2 (05:22→10:15)
[2021-04-02 05:46] LABS: BASOPHILS # (AUTO) 0.1 10^3/uL (0.0-0.1); BASOPHILS % (AUTO) 1 % (0-10); EOSINOPHILS # (AUTO) 0.4 10^3/uL (0.0-0.3); EOSINOPHILS % (AUTO) 4 % (0-10); HEMATOCRIT 34 % (35-52); LYMPHOCYTES # (AUTO) 2.6 10^3/uL (1.0-4.0); LYMPHOCYTES % (AUTO) 29 % (12-44); MEAN CORPUSCULAR HEMOGLOBIN 31 pg (25-34); MEAN CORPUSCULAR HGB CONC 33 g/dL (32-36); MEAN CORPUSCULAR VOLUME 95 fL (80-99); MEAN PLATELET VOLUME 10.2 fL (9.0-12.2); MONOCYTES # (AUTO) 1.1 10^3/uL (0.0-1.0); MONOCYTES % (AUTO) 12 % (0-12); NEUTROPHILS % (AUTO) 54 % (42-75); PLATELET COUNT 317 10^3/uL (130-400); WHITE BLOOD COUNT 9.2 10^3/uL (4.3-11.0)
[2021-04-02 05:59] LABS: POTASSIUM 3.8 MMOL/L (3.6-5.0)
[2021-04-02 06:00] LABS: CALCIUM 8.3 MG/DL (8.5-10.1)
[2021-04-02 06:05] LABS: CREATININE SERUM 1.42 MG/DL (0.60-1.30)
[2021-04-02 08:00] VITALS: BP 143/72
--- NOTE | 2021-04-02 09:09 | Physical Therapy Evaluation ---
PT Evaluation-General Medical Diagnosis Admission Date Apr 01, 2021 at 14:15 Medical Diagnosis: N/V, fall Onset Date: Apr 01, 2021 Therapy Diagnosis Therapy Diagnosis: impaired mobility, strength, endurance Height/Weight Height (Feet): 5 Height (Inches): 2.00 Weight (Pounds): 136 Weight (Ounces): 4.0 Precautions Precautions/Isolations: Fall Prevention, Standard Precautions Weight Bear Status Right Lower Extremity: Right Weight Bearing/Tolerated Left Lower Extremity: Left Weight Bearing/Tolerated Referral Physician: Gaby Reason for Referral: Evaluation/Treatment Medical History Pertinent Medical History: Arthritis, CAD Additional Medical History Past Medical History Surgeries: Yes (RIGHT CAROTID ENDARTERECTOMY, BACK SURGERY) Coronary Stent, Gallbladder, Hysterectomy, Orthopedic, Vascular Surgery Respiratory: Yes Pneumonia Currently Using CPAP: No Currently Using BIPAP: No Cardiac: Yes Atrial Fibrillation, Coronary Artery Disease, Heart Attack, Hypertension Neurological: Yes Stroke, TIA Genitourinary: Yes (pessary ) Bladder Infection Gastrointestinal: Yes Gastroesophageal Reflux Musculoskeletal: Yes Arthritis, Chronic Back Pain Endocrine: Yes Hypothyroidsim Reviewed History: Yes Social History Current Living Status: Alone Entry Into Home: Level Entry Prior Prior Level of Function SCALE: Activities may be completed with or without assistive devices. 4-Eliqrqhfty-unbmyur completes the activity by him/herself with no assistance from a helper. 5-Set-up or Clean-up Assistance-helper sets up or cleans up; patient completes activity. [place] assists only prior to or following the activity. 4-Supervision or Touching Assistance-helper provides verbal cues and/or touching/steadying and/or contact guard assistance as patient completes activity. Assistance may be provided throughout the activity or intermittently. 3-Partial/Moderate Assistance-helper does LESS THAN HALF the effort. [place] l ifts, holds or supports trunk or limbs, but provides less than half the effort. 2-Substantial/Maximal Assistance-helper does MORE THAN HALF the effort. [place] lifts or holds trunk or limbs and provides more than half the effort. 7-Crvndoyxu-tegoon does ALL the effort. Patient does none of the effort to complete the activity. Or, the assistance of 2 or more helpers is required for t he patient to complete the activity. If activity was not attempted, code reason: 7-Patient Refused. 9-Not Applicable-not attempted and the patient did not perform the activity before the current illness, exacerbation or injury. 10-Not Attempted due to Environmental Limitations-(lack of equipment, weather restraints, etc.). 88-Not Attempted due to Medical Conditions or Safety Concerns. Bed Mobility: 6 Transfers (B,C,W/C): 6 Gait: 6 Indoor Mobility (Ambulation): Independent PT Evaluation-Current Subjective Patient in bed pre tx, agrees to PT but states she has severe pain in her head, she moans with pain and rates it at 7/10. Pt/Family Goals "to decrease pain" Objective Patient Orientation: Person, Place, Situation ROM/Strength ROM Lower Extremities WNL Strength Lower Extremities BLE grossly 4/5 Assessment/Needs Patient refuses to get out of bed due to pain, she has trouble following directions because of the pain. Patient will probably not be able to participate much until her pain decreases. She mostly just moans and writhes in bed, has basin ready to vomit into. Nurse notified of pain. However she did state that she ambulated to the restroom with nursing and it was pretty easy. Rehab Potential: Guarded PT Halfway Goals Intelligence Operations Goals PT Halfway Goals Time Frame: Apr 09, 2021 Roll Left & Right (QC): 4 Sit to Lying (QC): 4 Lying-Sitting on Side/Bed(QC): 4 Sit to Stand (QC): 4 Chair/Zkl-zs-Hgvrf Xfer(QC): 4 Walk 10 feet (QC): 4 Walk 50ft with 2 Turns (QC): 4 PT Plan Problem List Problem List: Activity Tolerance, Functional Strength, Safety, Balance, Gait, Transfer, Bed Mobility, ROM Treatment/Plan Treatment Plan: Continue Plan of Care Treatment Plan: Bed Mobility, Education, Functional Activity Felisha, Functional Strength, Gait, Safety, Therapeutic Exercise, Transfers Treatment Duration: Apr 09, 2021 Frequency: 6 times per week Estimated Hrs Per Day: .25 hour per day Patient and/or Family Agrees t: Yes Safety Risks/Education Patient Education: Correct Positioning, Safety Issues Teaching Recipient: Patient Teaching Methods: Demonstration, Discussion Response to Teaching: Reinforcement Needed Discharge Recommendations Plan Patient will perform bed mobility and transfer training, balance and endurance training, functional strengthening, stair training, gait training, and education, to improve functional mobility and independence at home. Therapy Discharge Recommendati: Scheduled Assistance, Home & Family, Post Acute PT Time/GCodes Time In: 0816 Time Out: 825 Total Billed Treatment Time: 10 Total Billed Treatment 1 visit BRYSON VILLA PT Apr 02, 2021 09:09
[2021-04-02] MEDS ORDERED: CLOP75TA28 PO ×2 (10:28)
[2021-04-02] MEDS ORDERED: PANT40TA52 PO ×2 (10:28)
[2021-04-02] MEDS ORDERED: TRAM50TA3 PO ×2 (10:28)
[2021-04-02] MEDS ORDERED: SULF1TAB38 PO ×2 (10:28)
[2021-04-02] MEDS ORDERED: AMLO-251 PO ×2 (10:28)
[2021-04-02] MEDS ORDERED: OMEP20TA7 PO ×2 (10:28)
[2021-04-02] MEDS ORDERED: IBUP-2185 PO ×2 (10:28)
[2021-04-02] MEDS ORDERED: APIX5TAB PO (10:28)
[2021-04-02] MEDS ORDERED: FAMO40TA6 PO ×2 (10:30)
[2021-04-02] MEDS ORDERED: ACETAMINOPHEN 325 MG TABLET PO PRN (11:45)
[2021-04-02 12:00] VITALS: BP 137/73
[2021-04-02] MEDS: TRIM/SULFAMETH 160/800 (SEPTRA DS) TAB PO SCH ×2 (13:44→17:07)
[2021-04-02] MEDS ORDERED: VANCOMYCIN 1 GM/NS 250 ML IVPB IV SCH ×2 (14:30)
--- NOTE | 2021-04-02 15:24 | History & Physical ---
HPI History of Present Illness: 85 yo F that presents with worsening nausea and vomiting. Patient recently had a fall in which she fell off the running boards of her sons car and has a concussion and facial bone fractures. She was seen in the ER in [place] and had normal scans as well as repeat scans when she got home. Patient was previously on OAC but was told to hold it for several days until she saw her PCP. Patient has had a long h/o low appetite and that has not changed. She was recently diagnosed with UTI and that is why she came to ER because she was unable to keep the antibiotic down and was vomiting them up. Patient desires to go home. Source: patient Exam Limitations: no limitations Date seen by provider: Apr 02, 2021 Time Seen by Provider: 10:05 Attending Physician Carly Griffin MD PCP Regulo Márquez MD Consult Date of Admission Apr 01, 2021 at 14:15 Home Medications Home Medications Reviewed patient Home Medication Reconciliation performed by pharmacy medication reconciliations tool repair technician and/or nursing. Patients Allergies have been reviewed. Allergies Coded Allergies: Penicillins (Verified Allergy, Intermediate, HIVES, 07/25/12) oxytetracycline (Verified Allergy, Intermediate, HIVES, 07/25/12) cefdinir (Verified Allergy, Unknown, Rash, 04/02/21) hydrocodone (Verified Adverse Reaction, Mild, MAKES ME SICK, 07/01/12) lisinopril (Verified Adverse Reaction, Mild, COUGH, 07/01/12) oxytetracycline HCl (Verified Adverse Reaction, Mild, HIVES, 07/01/12) tramadol (Verified Adverse Reaction, Mild, NAUSEA, "HEAVINESS", 07/01/12) PTH-Vrcrza-Fcpbaw Hx Patient Social History Smoking Status: Never a Smoker 2nd Hand Smoke Exposure: No Recent Hopitalizations: No Alcohol Use?: No Have you traveled recently?: No Immunizations Up To Date Tetanus Booster (TDap): Unknown Influenza Vaccine Up-to-Date: No; Not Current First/Initial COVID19 Vaccinat: declined Second COVID19 Vaccination Jamir: declined Third COVID19 Vaccination Date: declined Past Medical History PMHx: CAD with 10 stents HTN HLD A fib Stress incontinence, with pessary use Osteoarthritis Hypothyroidism GERD SurgHx: Coronary artery stenting Partial hysterectomy Cholecystectomy Appendectomy Family Medical History Significant Family History: Cancer, CAD Over 55 Years Old, Diabetes Family History: Diabetes mellitus 19 FATHER FH: liver cancer 19 MOTHER Myocardial infarction G8 BROTHER G8 SISTER Review of Systems ([facility]) Constitutional: no symptoms reported EENTM: other (Brusing around both eyes) Respiratory: No cough, No dyspnea on exertion Cardiovascular: no symptoms reported; No chest pain, No edema, No palpitations Gastrointestinal: No abdominal pain, No constipation, No diarrhea, No dysphagia; loss of appetite, nausea, vomiting Genitourinary: no symptoms reported; No dysuria, No frequency, No hematuria : No Musculoskeletal: no symptoms reported Skin: no symptoms reported; No lesions, No rash Psychiatric/Neurological: No Symptoms Reported Reviewed Test Results Reviewed Test Results Lab Laboratory Tests Test 04/02/21 05:34 Range/Units White Blood Count 9.2 4.3-11.0 10^3/uL Red Blood Count 3.56 L 3.80-5.11 10^6/uL Hemoglobin 11.0 L 11.5-16.0 g/dL Hematocrit 34 L 35-52 % Mean Corpuscular Volume 95 80-99 fL Mean Corpuscular Hemoglobin 31 25-34 pg Mean Corpuscular Hemoglobin Concent 33 32-36 g/dL Red Cell Distribution Width 12.6 10.0-14.5 % Platelet Count 317 130-400 10^3/uL Mean Platelet Volume 10.2 9.0-12.2 fL Immature Granulocyte % (Auto) 0 % Neutrophils (%) (Auto) 54 42-75 % Lymphocytes (%) (Auto) 29 12-44 % Monocytes (%) (Auto) 12 0-12 % Eosinophils (%) (Auto) 4 0-10 % Basophils (%) (Auto) 1 0-10 % Neutrophils # (Auto) 5.0 1.8-7.8 10^3/uL Lymphocytes # (Auto) 2.6 1.0-4.0 10^3/uL Monocytes # (Auto) 1.1 H 0.0-1.0 10^3/uL Eosinophils # (Auto) 0.4 H 0.0-0.3 10^3/uL Basophils # (Auto) 0.1 0.0-0.1 10^3/uL Immature Granulocyte # (Auto) 0.0 0.0-0.1 10^3/uL Sodium Level 140 135-145 MMOL/L Potassium Level 3.8 3.6-5.0 MMOL/L Chloride Level 112 H 98-107 MMOL/L Carbon Dioxide Level 15 L 21-32 MMOL/L Anion Gap 13 5-14 MMOL/L Blood Urea Nitrogen 15 7-18 MG/DL Creatinine 1.42 H 0.60-1.30 MG/DL Estimat Glomerular Filtration Rate 35 BUN/Creatinine Ratio 11 Glucose Level 71 70-105 MG/DL Calcium Level 8.3 L 8.5-10.1 MG/DL Physical Exam-([facility]) Physical Exam Vital Signs VS - Last 72 Hours, by Label 04/01/21 04/01/21 04/01/21 04/01/21 11:45 14:29 15:00 15:05 Temp 36.1 36.6 Pulse 66 56 67 Resp 18 18 18 B/P (MAP) 134/66 (88) 127/48 117/57 (77) Pulse Ox 97 96 95 O2 Delivery Room Air Room Air 04/01/21 04/01/21 04/01/21 04/02/21 19:13 20:20 23:00 04:59 Temp 36.6 37.0 36.6 Pulse 67 66 60 Resp 18 22 18 B/P (MAP) 130/69 (89) 92/56 (68) 122/73 (89) Pulse Ox 93 95 91 91 O2 Delivery Room Air Room Air Room Air Room Air 04/02/21 04/02/21 04/02/21 08:00 08:00 12:00 Temp 36.4 36.1 Pulse 66 76 Resp 18 20 B/P (MAP) 143/72 (95) 137/73 (94) Pulse Ox 96 93 O2 Delivery Room Air Room Air Room Air Capillary Refill : Less Than 3 Seconds General Appearance: WD/WN, no apparent distress HEENT: PERRL/EOMI, other (orbital brusing) Neck: non-tender, full range of motion, supple Respiratory: chest non-tender, lungs clear, normal breath sounds, no respiratory distress, no accessory muscle use Cardiovascular: normal peripheral pulses, regular rate, rhythm, no edema, no murmur Gastrointestinal: normal bowel sounds, non tender, soft Back: no CVA tenderness, no vertebral tenderness Extremities: normal range of motion, non-tender, normal inspection, no pedal edema, no calf tenderness, normal capillary refill 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, no motor/sensory deficits, alert, normal mood/affect, oriented x 3 Skin: ecchymosis Lymphatic: no adenopathy Assessment/Plan Assessment/Plan Admission Status: Observation (1) UTI (urinary tract infection) Status: Acute Assessment & Plan: - N/V with antibiotics, will continue IV antibiotics Qualifiers: Qualified Codes: N30.01 - Acute cystitis with hematuria (2) Atrial fibrillation Status: Chronic Assessment & Plan: - Eliquis holding due to severe brusing Qualifiers: Qualified Codes: I48.0 - Paroxysmal atrial fibrillation (3) Facial contusion Status: Acute Qualifiers: Qualified Codes: S00.83XD - Contusion of other part of head, subsequent encounter (4) Concussion Status: Acute Qualifiers: Qualified Codes: S06.0X0D - Concussion without loss of consciousness, subsequent encounter CARLY GRIFFIN MD Apr 02, 2021 15:24
[2021-04-02] MEDS: ONDANSETRON 4 MG/2 ML (SDV) Z0FRAN IV PRN (15:55)
[2021-04-02 16:09] VITALS: BP 127/60
[2021-04-02 19:44] VITALS: BP 123/69
[2021-04-02] MEDS ORDERED: NON-FORMULARY MEDICATION 1 EA EA (Famotidine 40 MG) PO SCH (21:00)
[2021-04-02] MEDS: FAMOTIDINE 20 MG (PEPCID) TABLET PO SCH (21:34)
[2021-04-03 04:30] VITALS: BP 149/65
[2021-04-03] MEDS: NS IV 1000 ML 1,000 ML IV SCH ×2 (05:09→21:41)
[2021-04-03 06:08] LABS: BASOPHILS # (AUTO) 0.1 10^3/uL (0.0-0.1); BASOPHILS % (AUTO) 1 % (0-10); EOSINOPHILS # (AUTO) 0.4 10^3/uL (0.0-0.3); EOSINOPHILS % (AUTO) 5 % (0-10); HEMATOCRIT 34 % (35-52); HEMOGLOBIN 11.4 g/dL (11.5-16.0); LYMPHOCYTES # (AUTO) 2.1 10^3/uL (1.0-4.0); LYMPHOCYTES % (AUTO) 23 % (12-44); MEAN CORPUSCULAR HEMOGLOBIN 31 pg (25-34); MEAN CORPUSCULAR HGB CONC 34 g/dL (32-36); MEAN CORPUSCULAR VOLUME 92 fL (80-99); MEAN PLATELET VOLUME 10.5 fL (9.0-12.2); MONOCYTES # (AUTO) 1.2 10^3/uL (0.0-1.0); MONOCYTES % (AUTO) 13 % (0-12); NEUTROPHILS # (AUTO) 5.3 10^3/uL (1.8-7.8); NEUTROPHILS % (AUTO) 58 % (42-75); PLATELET COUNT 306 10^3/uL (130-400); WHITE BLOOD COUNT 9.2 10^3/uL (4.3-11.0)
[2021-04-03 06:17] LABS: POTASSIUM 3.2 MMOL/L (3.6-5.0)
[2021-04-03 06:18] LABS: CALCIUM 8.4 MG/DL (8.5-10.1)
[2021-04-03 06:22] LABS: CREATININE SERUM 0.9 MG/DL (0.60-1.30)
[2021-04-03] MEDS: LEVOTHYROXINE 50 MCG (LEVOTHROID) TAB PO SCH (06:30)
[2021-04-03 08:00] VITALS: BP 149/61
[2021-04-03] MEDS: LOSARTAN 100 MG (COZAAR) TABLET PO SCH (09:48)
[2021-04-03] MEDS: amLODIPine 10 MG (NORVASC) TAB PO SCH (09:48)
[2021-04-03] MEDS: meTOprolol SUCCINATE 100 MG (TOPROL XL) TAB PO SCH (09:48)
[2021-04-03] MEDS: ONDANSETRON 4 MG/2 ML (SDV) Z0FRAN IV PRN ×2 (09:57→18:24)
[2021-04-03] MEDS: TRIM/SULFAMETH 160/800 (SEPTRA DS) TAB PO SCH ×2 (10:00→18:24)
[2021-04-03] MEDS ORDERED: KCL 20 MEQ TAB (K-DUR) PO NR (10:26)
[2021-04-03 12:00] VITALS: BP 163/70
--- NOTE | 2021-04-03 12:20 | Physical Therapy Daily Note ---
PT Daily Note-Current Subjective Pt in bed upon arrival and agrees to perform bed exs w/ PT. Reports she is really nauseous and it hurts to move her head at all. Declines ambulation. Pain Numeric Pain Scale: 10-Worst Possible Pain Location Body Site: Head Mental Status Patient Orientation: Person, Confused, Place Transfers SCALE: Activities may be completed with or without assistive devices. 2-Zqofjjnnzr-yqlsgzf completes the activity by him/herself with no assistance from a helper. 5-Set-up or Clean-up Assistance-helper sets up or cleans up; patient completes activity. [place] assists only prior to or following the activity. 4-Supervision or Touching Assistance-helper provides verbal cues and/or touching/steadying and/or contact guard assistance as patient completes activity. Assistance may be provided throughout the activity or intermittently. 3-Partial/Moderate Assistance-helper does LESS THAN HALF the effort. [place] lifts, holds or supports trunk or limbs, but provides less than half the effort. 2-Substantial/Maximal Assistance-helper does MORE THAN HALF the effort. [place] lifts or holds trunk or limbs and provides more than half the effort. 6-Fplsrxkkr-ldlyfv does ALL the effort. Patient does none of the effort to complete the activity. Or, the assistance of 2 or more helpers is required for the patient to complete the activity. If activity was not attempted, code reason: 7-Patient Refused. 9-Not Applicable-not attempted and the patient did not perform the activity before the current illness, exacerbation or injury. 10-Not Attempted due to Environmental Limitations-(lack of equipment, weather restraints, etc.). 88-Not Attempted due to Medical Conditions or Safety Concerns. Weight Bearing Right Lower Extremity: Right Weight Bearing/Tolerated Left Lower Extremity: Left Weight Bearing/Tolerated Exercises Supine Ex: Ankle pumps, Quad Set, Glut sets, Heel Slides, Short Arc Quads, Scooting, Hip abd/add Supine Reps: 12 Treatments Pt in bed upon arrival and agrees to supine exs. Pt able to perform exs and but spits up once in [place] following hip add/abd. Pt requests for nurse to take her to BR following exs. PT departs and all needs met and call light activated for nurse. Assessment Current Status: Fair Progress Pt requires skilled verbal cues about hand and foot placement during bed mobility and TherEx. PT Machine Filler Servicer Goals Intermediate Goals PT Intermediate Goals Time Frame: Apr 09, 2021 Roll Left & Right (QC): 4 Sit to Lying (QC): 4 Lying-Sitting on Side/Bed(QC): 4 Sit to Stand (QC): 4 Chair/Smh-jy-Snhiz Xfer(QC): 4 Walk 10 feet (QC): 4 Walk 50ft with 2 Turns (QC): 4 PT Plan Problem List Problem List: Activity Tolerance, Functional Strength Treatment/Plan Treatment Plan: Continue Plan of Care Treatment Plan: Bed Mobility, Education, Functional Activity Felisha, Functional Strength, Gait, Safety, Therapeutic Exercise, Transfers Treatment Duration: Apr 09, 2021 Frequency: 6 times per week Estimated Hrs Per Day: .25 hour per day Patient and/or Family Agrees t: Yes Safety Risks/Education Patient Education: Correct Positioning Teaching Recipient: Patient Teaching Methods: Discussion Response to Teaching: Return Demonstration Time/GCodes Time In: 1109 Time Out: 1119 Total Billed Treatment Time: 10 Total Billed Treatment 1, Ex JAMSHID TURCIOS MOTOR VEHICLES SUPERVISOR Apr 03, 2021 12:20
[2021-04-03] MEDS ORDERED: TROUGH ORDER-PHARMACY XX NR (13:30)
[2021-04-03 15:57] VITALS: BP 150/71
--- NOTE | 2021-04-03 16:46 | Discharge Summary ---
Diagnosis/Chief Complaint Date of Admission Apr 01, 2021 at 14:15 Date of Discharge 04/03/21 Admission Diagnosis Admission Diagnosis See problem list Discharge Diagnosis See below Problems/Diagnosis: (1) UTI (urinary tract infection) Assessment & Plan: - N/V with antibiotics, will continue IV antibiotics 04/03: Refused PO antibiotics, culture is negative, received 3 days of antibiotics Qualifiers: Qualified Codes: N30.01 - Acute cystitis with hematuria Status: Acute (2) Atrial fibrillation Assessment & Plan: - Eliquis holding due to severe brusing Qualifiers: Qualified Codes: I48.0 - Paroxysmal atrial fibrillation Status: Chronic (3) Facial contusion Qualifiers: Qualified Codes: S00.83XD - Contusion of other part of head, subsequent encounter Status: Acute (4) Concussion Qualifiers: Qualified Codes: S06.0X0D - Concussion without loss of consciousness, subsequent encounter Status: Acute Chief Complaint/HPI Chief Complaint/HPI 85 yo F that presents with worsening nausea and vomiting. Patient recently had a fall in which she fell off the running boards of her sons car and has a concussion and facial bone fractures. She was seen in the ER in [place] and had normal scans as well as repeat scans when she got home. Patient was previously on OAC but was told to hold it for several days until she saw her PCP. Patient has had a long h/o low appetite and that has not changed. She was recently diagnosed with UTI and that is why she came to ER because she was unable to keep the antibiotic down and was vomiting them up. Patient desires to go home. Discharge Summary-Simple/Stand Consultations Discharge Physical Examination Allergies: Coded Allergies: Penicillins (Verified Allergy, Intermediate, HIVES, 07/25/12) oxytetracycline (Verified Allergy, Intermediate, HIVES, 07/25/12) cefdinir (Verified Allergy, Unknown, Rash, 04/02/21) hydrocodone (Verified Adverse Reaction, Mild, MAKES ME SICK, 07/01/12) lisinopril (Verified Adverse Reaction, Mild, COUGH, 07/01/12) oxytetracycline HCl (Verified Adverse Reaction, Mild, HIVES, 07/01/12) tramadol (Verified Adverse Reaction, Mild, NAUSEA, "HEAVINESS", 07/01/12) Vitals & I&Os Vital Sign - Last 12Hours Date Time Temp Pulse Resp B/P (MAP) Pulse Ox O2 Delivery O2 Flow Rate FiO2 04/03/21 15:57 37.0 82 18 150/71 (97) 93 Room Air Intake and Output 04/03/21 00:00 Intake Total 320 ml Balance 320 ml General Appearance: Alert, Oriented X3, Cooperative HEENT: Other (facial brusing and orbital bruising) Respiratory: Clear to Auscultation Cardiovascular: Regular Rate, No Murmurs Abdominal: Normal Bowel Sounds, Soft, No Tenderness, No Masses Neuro: Normal Speech, Strength at 5/5 X4 Ext, Cranial Nerves 3-12 NL Hospital Course Was the Problem List Reviewed?: Yes See final discharge diagnosis. Discharge Instructions to patient/family Please see electronic discharge instructions given to patient. Discharge Medications Reviewed and agree with Discharge Medication list on patient's Discharge Instruction sheet SINGH LUCAS MD Apr 03, 2021 16:46
[2021-04-03] MEDS ORDERED: APIX5TAB PO ×2 (16:47)
--- NOTE | 2021-04-03 16:48 | Discharge Summary ---
Discharge [facility] Reconcile Patient Problems Problems Reviewed?: Yes Discharge Medications New, Converted or Re-Newed RX: Other (No new meds) Changed Medications: Apixaban (Eliquis) 5 Mg Tablet 5 MG PO BID for 7 Days, TAB (Medication details modified) hold until seen by PCP Continued Medications: Amlodipine Besylate (Amlodipine Besylate) 10 Mg Tablet 10 MG PO DAILY, TAB Clopidogrel Bisulfate (Clopidogrel) 75 Mg Tablet 75 MG PO DAILY, TAB Famotidine (Famotidine) 40 Mg Tablet 40 MG PO HS, TAB Furosemide (Furosemide) 20 Mg Tablet 20 MG PO DAILY PRN for FLUID RETENTION, TAB Ibuprofen (Ibuprofen) 200 Mg Capsule 400 MG PO Q8H PRN for PAIN-MILD (1-4), CAP Levothyroxine Sodium (Levothyroxine Sodium) 50 Mcg Tablet 50 MCG PO DAILY, TAB Losartan Potassium (Losartan Potassium) 100 Mg Tablet 100 MG PO DAILY, TAB Metoprolol Succinate (Metoprolol Succinate) 100 Mg Tab.er.24h 100 MG PO DAILY, TAB Multivit-Min/FA/Lycopene/Lut (Centrum Silver Tablet) 1 Each Tablet 1 TAB PO DAILY, TAB [place] 3 Polyunsat Fatty Acids (Fish Oil 1,000 mg Capsule) 1,000 Mg Cap 1000 MG PO 1200, CAP Pantoprazole Sodium (Pantoprazole Sodium) 40 Mg Tablet.dr 40 MG PO DAILY, TAB Tramadol HCl (Tramadol HCl) 50 Mg Tablet 50 MG PO Q6H PRN for PAIN-MODERATE (5-7), TAB Discontinued Medications: Omeprazole (Omeprazole) 20 Mg Tablet.dr 20 MG PO HS, TAB Sulfamethoxazole/Trimethoprim (Bactrim Ds Tablet) 1 Each Tablet 1 EACH PO BID, TAB FILLED 03-30-2021 #14/7 DAY SUPPLY Patient Instructions Goal/Follow Up Appt: Early next week with PCP, holding eliquis due to fall Activity & Diet Discharge Diet: No Restrictions Activity as Tolerated: Yes SINGH LUCAS MD Apr 03, 2021 16:48
[2021-04-03] MEDS: fentaNYL INJ 100 MCG/2 ML AMP IVP PRN (18:24)
[2021-04-03 20:24] VITALS: BP 131/71
[2021-04-03] MEDS: FAMOTIDINE 20 MG (PEPCID) TABLET PO SCH (21:41)
[2021-04-03 23:31] VITALS: BP 132/69
[2021-04-04 04:00] VITALS: BP 143/71
[2021-04-04] MEDS: LEVOTHYROXINE 50 MCG (LEVOTHROID) TAB PO SCH (05:49)
[2021-04-04 07:50] VITALS: BP 137/67
[2021-04-04] MEDS: LOSARTAN 100 MG (COZAAR) TABLET PO SCH (08:39)
[2021-04-04] MEDS: NS IV 1000 ML 1,000 ML IV SCH (08:39)
[2021-04-04] MEDS: TRIM/SULFAMETH 160/800 (SEPTRA DS) TAB PO SCH ×2 (08:39→09:54)
[2021-04-04] MEDS: amLODIPine 10 MG (NORVASC) TAB PO SCH (08:39)
[2021-04-04] MEDS: meTOprolol SUCCINATE 100 MG (TOPROL XL) TAB PO SCH (08:39)
[2021-04-04] MEDS ORDERED: NF-CIPDEC OT ×2 (11:28)
--- NOTE | 2021-04-04 13:06 | Physical Therapy Progress Note ---
Therapy Progress Note Pt dressed and sitting in bedside chair. She reports she is preparing to go home and does not wish to do therapy. ROSAURA PARK PT Apr 04, 2021 13:06
== END 2021-04-04 11:45 | disposition home or self-care (01) ==
LOC: EDUNIT# 11:37 → ER 11:44 → 4TH 14:15
PROVIDERS: ADMIT Family Medicine; ATTEND Internal Medicine
DX: N30.01 Acute cystitis with hematuria (principal); I48.0 Paroxysmal atrial fibrillation; S00.83XA Contusion of other part of head, initial encounter; S06.0X0A Concussion without loss of consciousness, initial encounter; I10 Essential (primary) hypertension; I25.2 Old myocardial infarction; I25.10 Atherosclerotic heart disease of native coronary artery without angina pectoris; K21.9 Gastro-esophageal reflux disease without esophagitis; E03.9 Hypothyroidism, unspecified; M19.90 Unspecified osteoarthritis, unspecified site; E78.5 Hyperlipidemia, unspecified; G89.29 Other chronic pain; M54.9 Dorsalgia, unspecified; W18.30XA Fall on same level, unspecified, initial encounter; Z86.73 Personal history of transient ischemic attack (TIA), and cerebral infarction without residual deficits; Z79.890 Hormone replacement therapy; Z80.0 Family history of malignant neoplasm of digestive organs; Z79.891 Long term (current) use of opiate analgesic; Z79.01 Long term (current) use of anticoagulants; Z79.02 Long term (current) use of antithrombotics/antiplatelets; Z90.710 Acquired absence of both cervix and uterus; Z83.3 Family history of diabetes mellitus; Z90.49 Acquired absence of other specified parts of digestive tract; Z90.89 Acquired absence of other organs
CPT/HCPCS: 36415; 80048; 80053; 81000; 85025; 87088; 96361; 96374; 96375; G0378

== ENCOUNTER → 2021-05-13 | Outpatient (CLI) | payer MEDICARE ==
[~2021-05-13] MED LIST changes: +APIX5TAB PO; +FAMO40TA6 PO; +IBUP-2185 PO; +NF-CIPDEC OT; +OMEP20TA7 PO; +TRAM50TA3 PO
--- NOTE | 2021-05-13 10:21 | Diagnostic Imaging Report ---
INDICATION: Left hand injury. TIME OF EXAM: 9:45 AM 3 views of the left hand were obtained. There is generalized demineralization noted. Carpus is unremarkable. Metacarpals and phalanges appear to be intact. No fractures are seen. IMPRESSION: No acute abnormality is detected. Dictated by: Dictated on workstation # [id number]
== END ==
LOC: RAD FS 09:32
PROVIDERS: ATTEND Family Medicine
DX: S69.92XA Unspecified injury of left wrist, hand and finger(s), initial encounter (principal); X58.XXXA Exposure to other specified factors, initial encounter
CPT/HCPCS: 73130

== ENCOUNTER 2021-05-19 01:24 | Inpatient (IN) | payer MEDICARE ==
[~2021-05-19] VITALS: Ht 157.5 cm; Wt 62.5 kg
--- NOTE | 2021-05-19 01:42 | ED Chest Pain ---
General Stated Complaint: CHESWT PAIN/COVID + Source: patient, EMS Exam Limitations: no limitations History of Present Illness Date Seen by Provider: May 19, 2021 Time Seen by Provider: 01:27 Initial Comments 86-year-old female with past medical history of CAD with stenting, hypertension, hyperlipidemia, A. fib on Eliquis, hypothyroidism coming in via EMS from home initially for vomiting and diarrhea and later complaining of chest pain. She says she is Covid positive as of Tuesday and she initially didn't have symptoms. She tested because multiple people in her living complex were positive. Tonight she developed vomiting and diarrhea. She says she feels warm but has not had any fevers that she knows of. Began having very mild chest pain 2 hours ago in the center of her chest and does not radiate anywhere, and is a pressure type discomfort. Denies feeling short of breath, abdominal pain, weakness, numbness, dysuria, or any other concerns. Has been eating and drinking slightly less given the vomiting. Is otherwise denying any other acute complaints. EMS gave full dose aspirin and nitro prior to arrival. Allergies and Home Medications Allergies Coded Allergies: Penicillins (Verified Allergy, Intermediate, HIVES, 07/25/12) oxytetracycline (Verified Allergy, Intermediate, HIVES, 07/25/12) cefdinir (Verified Allergy, Unknown, Rash, 04/02/21) hydrocodone (Verified Adverse Reaction, Mild, MAKES ME SICK, 07/01/12) lisinopril (Verified Adverse Reaction, Mild, COUGH, 07/01/12) oxytetracycline HCl (Verified Adverse Reaction, Mild, HIVES, 07/01/12) tramadol (Verified Adverse Reaction, Mild, NAUSEA, "HEAVINESS", 07/01/12) Patient Home Medication List Home Medication List Reviewed: Yes Amlodipine Besylate (Amlodipine Besylate) 10 Mg Tablet, 10 MG PO DAILY, (Reported) Entered as Reported by: TODD WORTHY on 04/02/21 1028 Apixaban (Eliquis) 5 Mg Tablet, 5 MG PO BID Prescribed by: SINGH LUCAS on 04/03/21 1647 Ciprofloxacin HCl/Dexameth (Ciprodex Otic Suspension) 7.5 Ml Soln, 7.5 ML OT BID Prescribed by: SANCHEZ SCHMITT on 04/04/21 1128 Clopidogrel Bisulfate (Clopidogrel) 75 Mg Tablet, 75 MG PO DAILY, (Reported) Entered as Reported by: TODD WORTHY on 04/02/21 1028 Famotidine (Famotidine) 40 Mg Tablet, 40 MG PO HS, (Reported) Entered as Reported by: TODD WORTHY on 04/02/21 1030 Furosemide (Furosemide) 20 Mg Tablet, 20 MG PO DAILY PRN for FLUID RETENTION, (Reported) Entered as Reported by: LILI RESENDIZ on 12/07/18 1016 Ibuprofen (Ibuprofen) 200 Mg Capsule, 400 MG PO Q8H PRN for PAIN-MILD (1-4), (Reported) Entered as Reported by: TODD WORTHY on 04/02/21 1028 Levothyroxine Sodium (Levothyroxine Sodium) 50 Mcg Tablet, 50 MCG PO DAILY, (Reported) Entered as Reported by: LILI RESENDIZ on 12/14/16 1103 Losartan Potassium (Losartan Potassium) 100 Mg Tablet, 100 MG PO DAILY, (Reported) Entered as Reported by: YANY SCHNEIDER on 07/14/15 0924 Metoprolol Succinate (Metoprolol Succinate) 100 Mg Tab.er.24h, 100 MG PO DAILY, (Reported) Entered as Reported by: LILI RESENDIZ on 03/07/19 1609 Multivit-Min/FA/Lycopene/Lut (Centrum Silver Tablet) 1 Each Tablet, 1 TAB PO DAILY, (Reported) Entered as Reported by: LILI RESENDIZ on 07/04/18 1154 [place] 3 Polyunsat Fatty Acids (Fish Oil 1,000 mg Capsule) 1,000 Mg Cap, 1,000 MG PO 1200, (Reported) Entered as Reported by: LILI RESENDIZ on 12/07/18 1016 Pantoprazole Sodium (Pantoprazole Sodium) 40 Mg Tablet.dr, 40 MG PO DAILY, (Reported) Entered as Reported by: TODD WORTHY on 04/02/21 1028 Tramadol HCl (Tramadol HCl) 50 Mg Tablet, 50 MG PO Q6H PRN for PAIN-MODERATE (5- 7), (Reported) Entered as Reported by: TODD WORTHY on 04/02/21 1028 Review of Systems Review of Systems Constitutional: No chills, No fever EENTM: No Blurred Vision Respiratory: Denies Cough, Denies Shortness of Air Cardiovascular: Chest Pain Gastrointestinal: Denies Abdominal Pain; Diarrhea, Nausea, Vomiting Genitourinary: Denies Burning Musculoskeletal: no symptoms reported Skin: no symptoms reported Psychiatric/Neurological: No Symptoms Reported Endocrine: No Symptoms Reported Hematologic/Lymphatic: No Symptoms Reported All Other Systems Reviewed Negative Unless Noted: Yes Past Nngjxmu-Zsqbji-Zcioux Hx Patient Social History Substance use?: No Immunizations Up To Date Tetanus Booster (TDap): Unknown First/Initial COVID19 Vaccinat: declined Second COVID19 Vaccination Jamir: declined Third COVID19 Vaccination Date: declined Seasonal Allergies Seasonal Allergies: No Past Medical History Surgeries: Yes (RIGHT CAROTID ENDARTERECTOMY, BACK SURGERY) Coronary Stent, Gallbladder, Hysterectomy, Orthopedic, Vascular Surgery Respiratory: Yes Pneumonia Currently Using CPAP: No Currently Using BIPAP: No Cardiac: Yes Atrial Fibrillation, Coronary Artery Disease, Heart Attack, Hypertension Neurological: Yes Stroke, TIA Genitourinary: Yes (pessary ) Bladder Infection Gastrointestinal: Yes Gastroesophageal Reflux Musculoskeletal: Yes Arthritis, Chronic Back Pain Endocrine: Yes Hypothyroidsim HEENT: No Cancer: No Psychosocial: No Integumentary: No Blood Disorders: No Family Medical History Diabetes mellitus 19 FATHER FH: liver cancer 19 MOTHER Myocardial infarction G8 BROTHER G8 SISTER Cancer, CAD Over 55 Years Old, Diabetes Physical Exam Vital Signs Vital Signs - First Documented 05/19/21 01:25 Temp 36.6 Pulse 56 Resp 17 B/P (MAP) 103/56 (72) Pulse Ox 97 O2 Delivery Room Air Capillary Refill : Height, Weight, BMI Height: 5'2.00" Weight: 136lbs. 4.0oz. 61.080547ld; 25.63 BMI Method:Stated General Appearance: No Apparent Distress, WD/WN HEENT: PERRL/EOMI, Normal ENT Inspection, Pharynx Normal Neck: Full Range of Motion, Normal Inspection, Non Tender, Supple Respiratory: Chest Non Tender, Lungs Clear, Normal Breath Sounds, No Accessory Muscle Use, No Respiratory Distress Cardiovascular: Regular Rate, Rhythm, No Edema, Normal Peripheral Pulses Gastrointestinal: Normal Bowel Sounds, Non Tender, Soft; No Distended, No Guarding Extremity: Normal Capillary Refill, Normal Inspection, Normal Range of Motion, Non Tender, No Calf Tenderness, No Pedal Edema Neurologic/Psychiatric: Alert, No Motor/Sensory Deficits, Normal Mood/Affect Skin: Normal Color, Warm/Dry Lymphatic: No Adenopathy Focused Exam Lactate Level 05/19/21 01:55: Lactic Acid Level 1.01 Lactic Acid Level Laboratory Tests Test 05/19/21 01:55 Lactic Acid Level 1.01 MMOL/L (0.50-2.00) Procedures/Interventions IV : Location: Right Site: Upper arm IV Catheter Type: Peripheral IV IV Catheter Gauge: 18 Progress Ultrasound guidance was used with one attempt without complications placing it in the basilic vein. Progress/Results/Core Measures Results/Orders Lab Results Laboratory Tests Test 05/19/21 01:30 05/19/21 01:55 Range/Units White Blood Count 5.6 4.3-11.0 10^3/uL Red Blood Count 4.32 3.80-5.11 10^6/uL Hemoglobin 13.1 11.5-16.0 g/dL Hematocrit 40 35-52 % Mean Corpuscular Volume 93 80-99 fL Mean Corpuscular Hemoglobin 30 25-34 pg Mean Corpuscular Hemoglobin Concent 33 32-36 g/dL Red Cell Distribution Width 13.2 10.0-14.5 % Platelet Count 324 130-400 10^3/uL Mean Platelet Volume 10.0 9.0-12.2 fL Immature Granulocyte % (Auto) 0 % Neutrophils (%) (Auto) 21 L 42-75 % Lymphocytes (%) (Auto) 62 H 12-44 % Monocytes (%) (Auto) 16 H 0-12 % Eosinophils (%) (Auto) 1 0-10 % Basophils (%) (Auto) 1 0-10 % Neutrophils # (Auto) 1.2 L 1.8-7.8 X 10^3 Lymphocytes # (Auto) 3.4 1.0-4.0 X 10^3 Monocytes # (Auto) 0.9 0.0-1.0 X 10^3 Eosinophils # (Auto) 0.1 0.0-0.3 10^3/uL Basophils # (Auto) 0.0 0.0-0.1 10^3/uL Immature Granulocyte # (Auto) 0.0 0.0-0.1 10^3/uL Prothrombin Time 13.5 12.2-14.7 SEC INR Comment 1.0 0.8-1.4 Activated Partial Thromboplast Time 31 24-35 SEC Sodium Level 140 135-145 MMOL/L Potassium Level 3.5 L 3.6-5.0 MMOL/L Chloride Level 107 98-107 MMOL/L Carbon Dioxide Level 17 L 21-32 MMOL/L Anion Gap 16 H 5-14 MMOL/L Blood Urea Nitrogen 28 H 7-18 MG/DL Creatinine 1.46 H 0.60-1.30 MG/DL Estimat Glomerular Filtration Rate 35 BUN/Creatinine Ratio 19 Glucose Level 114 H 70-105 MG/DL Calcium Level 8.8 8.5-10.1 MG/DL Corrected Calcium 8.8 8.5-10.1 MG/DL Magnesium Level 2.0 1.6-2.4 MG/DL Total Bilirubin 0.3 0.1-1.0 MG/DL Aspartate Amino Transf (AST/SGOT) 23 5-34 U/L Alanine Aminotransferase (ALT/SGPT) 14 0-55 U/L Alkaline Phosphatase 71 40-136 U/L Troponin I < 0.30 <0.30 NG/ML Pro-B-Type Natriuretic Peptide 555.3 H <75.0 PG/ML Total Protein 7.2 6.4-8.2 GM/DL Albumin 4.0 3.2-4.5 GM/DL Lactic Acid Level 1.01 0.50-2.00 MMOL/L My Orders Orders - ANETTE STEWART MD Covid-19 External Lab Results (05/19/21) Cbc With Automated Diff (05/19/21:) Magnesium (05/19/21:) Chest 1 View Ap/Pa Only (05/19/21:) Ekg Tracing (05/19/21) Comprehensive Metabolic Panel (05/19/21:) Protime With Inr (05/19/21:) Partial Thromboplastin Time (05/19/21:) O2 (05/19/21:) Monitor-Rhythm Ecg Trace Only (05/19/21) Ed Iv/Invasive Line Start (05/19/21:) Troponin I Fs (05/19/21:) Probnp Fs (05/19/21:) Blood Culture (05/19/21:34) Urinalysis (05/19/21:34) Urine Culture (1/25/22 01:34) Ondansetron Injection (Zofran Injectio (05/19/21 01:45) Lactic Acid Analyzer (05/19/21 01:34) Lactated Ringers (Lr 1000 Ml Iv Solution (05/19/21 01:45) Meropenem (Merrem 500 Mg) (05/19/21 01:45) Medications Given in ED Current Medications Medications Dose Ordered Sig/Aury Route Start Time Stop Time Status Last Admin Dose Admin Lactated Ringer's 1,896 ml @ 1,896 mls/hr PRN PRN IV 05/19/21 01:45 05/19/21 02:02 1,896 MLS/HR Meropenem 500 mg/ Sodium Chloride 100 ml @ 200 mls/hr ONCE ONCE IV 05/19/21 01:45 05/19/21 02:14 DC 05/19/21 02:03 200 MLS/HR Vital Signs/I&O 05/19/21 01:25 Temp 36.6 Pulse 56 Resp 17 B/P (MAP) 103/56 (72) Pulse Ox 97 O2 Delivery Room Air Progress Progress Note : Progress Note 86-year-old female with above history coming in due to vomiting, diarrhea, and chest discomfort in the setting of being Covid positive for 3 days. Heart rate was in the 50s to 60s on arrival which on review of her chart is her baseline. EKG with some T wave inversions and ST depressions in the lateral leads which is consistent with old EKGs as well. Initial blood pressure in the 70s systolic for which an IV was placed and she was given a bolus of IV fluids. Given concerns for possible severe sepsis cultures were drawn and she was given IV meropenem because of her listed allergy to penicillins and cephalosporins. White blood cell count is normal, initial troponin is negative, proBNP around 500, creatinine around 1.4 which is near her baseline, urinalysis pending. I called and discussed the case with Dr. Pina given my concerns for potential sepsis with her hypotension and infectious symptoms including vomiting and diarrhea. It is also possible she was just profoundly dehydrated. He will admit the patient to the intensive care unit for further evaluation and management. I then contacted the eICU doctor on-call and gave them verbal signout. We will continue the meropenem until her culture data comes back. Her chest x-ray does not show any significant infiltrates or abnormality. Initial ECG Impression Date: May 19, 2021 Initial ECG Impression Time: :25 Initial ECG Rate: 52 Initial ECG Rhythm: S.Carlyle Comment Narrow QRS, normal axis, T wave inversions with some ST depressions in the lateral leads which appears similar to prior EKG Departure Impression Primary Impression: COVID-19 Additional Impressions: Vomiting Qualified Codes: R11.10 - Vomiting, unspecified Diarrhea Qualified Codes: R19.7 - Diarrhea, unspecified Transient hypotension Chest pain Qualified Codes: R07.9 - Chest pain, unspecified Disposition: 30 STILL A PATIENT Condition: Stable Admissions Decision to Admit Reason: Admit from ER (General) Decision to Admit/Date: May 19, 2021 Time/Decision to Admit Time: 02:10 Transfer Transfer Facility: [facility] Method of Transfer: EMS Departure-Patient Inst. Referrals: MARLYN DERAS MD (PCP/Family) Primary Care Physician ANETTE STEWART MD May 19, 2021 01:42
[2021-05-19] MEDS ORDERED: ONDANSETRON 4 MG/2 ML (SDV) Z0FRAN IV PRN ×2 (01:45→04:30)
[2021-05-19] MEDS ORDERED: MEROPENEM 500 MG in NS (IVPB) 100 ML IV ONE (01:45)
[2021-05-19] MEDS ORDERED: LACTATED RINGERS IV PRN (01:45)
[2021-05-19 01:55] LABS: PROTHROMBIN TIME PATIENT 13.5 SEC (12.2-14.7)
[2021-05-19 01:59] LABS: BASOPHILS % (AUTO) 1 % (0-10); EOSINOPHILS % (AUTO) 1 % (0-10); HEMATOCRIT 40 % (35-52); HEMOGLOBIN 13.1 g/dL (11.5-16.0); LYMPHOCYTES % (AUTO) 62 % (12-44); MEAN CORPUSCULAR HEMOGLOBIN 30 pg (25-34); MEAN CORPUSCULAR HGB CONC 33 g/dL (32-36); MEAN CORPUSCULAR VOLUME 93 fL (80-99); MONOCYTES % (AUTO) 16 % (0-12); NEUTROPHILS % (AUTO) 21 % (42-75); PLATELET COUNT 324 10^3/uL (130-400); WHITE BLOOD COUNT 5.6 10^3/uL (4.3-11.0)
[2021-05-19 02:00] LABS: EOSINOPHILS # (AUTO) 0.1 10^3/uL (0.0-0.3); LYMPHOCYTES # (AUTO) 3.4 X 10^3 (1.0-4.0); MONOCYTES # (AUTO) 0.9 X 10^3 (0.0-1.0); NEUTROPHILS # (AUTO) 1.2 X 10^3 (1.8-7.8)
[2021-05-19 02:18] LABS: BILIRUBIN,TOTAL 0.3 MG/DL (0.1-1.0); CALCIUM 8.8 MG/DL (8.5-10.1); CREATININE SERUM 1.46 MG/DL (0.60-1.30); POTASSIUM 3.5 MMOL/L (3.6-5.0); TOTAL PROTEIN 7.2 GM/DL (6.4-8.2)
[2021-05-19 03:14] LABS: BILIRUBIN,URINE NEGATIVE (NEGATIVE); CLARITY,URINE CLEAR; COLOR,URINE YELLOW; GLUCOSE, URINE (UA) NEGATIVE (NEGATIVE); KETONES,URINE NEGATIVE (NEGATIVE); LEUKOCYTE ESTERASE ,URINE NEGATIVE (NEGATIVE); NITRITE,URINE NEGATIVE (NEGATIVE); PROTEIN,URINE NEGATIVE (NEGATIVE)
[2021-05-19 03:21] LABS: BACTERIA,URINE NEGATIVE /HPF; RBC,URINE RARE /HPF; SQUAMOUS EPITHELIAL CELL,UR RARE /HPF; WBC,URINE 0-2 /HPF
[2021-05-19] MEDS ORDERED: CATHETER FLUSH 10 ML SYR IV PRN (04:30)
[2021-05-19 04:41] VITALS: BP 123/54
[2021-05-19] MEDS ORDERED: RT-ALBUTEROL HFA 8.5 GM INHALER IH PRN (04:45)
[2021-05-19 06:03] LABS: BASOPHILS % (AUTO) 1 % (0-10); EOSINOPHILS % (AUTO) 1 % (0-10); HEMATOCRIT 38 % (35-52); HEMOGLOBIN 12.3 g/dL (11.5-16.0); LYMPHOCYTES # (AUTO) 2.8 10^3/uL (1.0-4.0); LYMPHOCYTES % (AUTO) 45 % (12-44); MEAN CORPUSCULAR HEMOGLOBIN 30 pg (25-34); MEAN CORPUSCULAR HGB CONC 32 g/dL (32-36); MEAN CORPUSCULAR VOLUME 94 fL (80-99); MONOCYTES # (AUTO) 0.7 10^3/uL (0.0-1.0); MONOCYTES % (AUTO) 11 % (0-12); NEUTROPHILS # (AUTO) 2.8 10^3/uL (1.8-7.8); NEUTROPHILS % (AUTO) 44 % (42-75); PLATELET COUNT 277 10^3/uL (130-400); WHITE BLOOD COUNT 6.4 10^3/uL (4.3-11.0)
[2021-05-19 06:15] LABS: ALBUMIN 3.5 GM/DL (3.2-4.5)
[2021-05-19 06:16] LABS: POTASSIUM 3.9 MMOL/L (3.6-5.0)
[2021-05-19 06:17] LABS: CALCIUM 8.4 MG/DL (8.5-10.1)
[2021-05-19] MEDS: CATHETER FLUSH 10 ML SYR IV SCH ×3 (06:17→22:46)
[2021-05-19 06:18] LABS: TOTAL PROTEIN 6.5 GM/DL (6.4-8.2)
[2021-05-19 06:20] LABS: BILIRUBIN,TOTAL 0.3 MG/DL (0.1-1.0)
[2021-05-19 06:21] LABS: PHOSPHORUS 3.1 MG/DL (2.3-4.7)
[2021-05-19] MEDS: MAGNESIUM 1 GM/100 ML IVPB 100 ML IV SCH (06:21)
[2021-05-19] MEDS: POTASSIUM CL 10MEQ/50ML IVPB 50 ML IV SCH (06:21)
[2021-05-19] MEDS: KCL 20 MEQ TAB (K-DUR) PO SCH (06:21)
[2021-05-19 06:22] LABS: CREATININE SERUM 1.31 MG/DL (0.60-1.30)
--- NOTE | 2021-05-19 07:04 | Diagnostic Imaging Report ---
INDICATION: chest pain. TECHNIQUE: Single view chest 1:43 AM. CORRELATION STUDY: 06/21/2020 FINDINGS: Heart size and vasculature stable. Coronary artery stents left heart border. Calcification of the aortic arch. Prominent interstitial markings throughout both lung gloria. No definitive consolidating infiltrate. No significant effusion. IMPRESSION: 1. Negative for acute abnormality of the chest. Dictated by: Dictated on workstation # [id number]
[2021-05-19] MEDS: APIXABAN 5 MG (ELIQUIS) TABLET PO SCH ×2 (07:58→09:00)
--- NOTE | 2021-05-19 08:30 | Consultation-Cardiology ---
HPI-Cardiology Cardiology Consultation: Date of Consultation 05/19/21 Time Seen by a Provider: 09:10 Date of Admission 05-18-21 Attending Physician Kamala Pina DO Admitting Physician Regulo Márquez MD Consulting Physician Gabriel Mayer MD HPI: Chief Complaint: Chest pain Ms. Cardenas is an 86 yr old female admitted to ICU 10 from the ED. She reports that approx 1 week ago she developed pain in her hands for which she went to her PCP and was given a new medication. She reports she then developed nausea and diarrhea. She reports the diarrhea continued to worsen and she was feeling weak. She states she called her PCP and was instructed to come for a COVID test. She reports she was called and told she tested positive for COVID (which she does not believe she has contracted COVID). She states she called a friend to bring her OTC medication for diarrhea which she took. She reports it did not help and her diarrhea continued to worsen. She reports occ left sided, non- radiating chest pain which she describes as an ache that comes and goes lasting only a few seconds and resolves on its own. She states this is unchanged from her chronic chest discomfort which she has had for several years. She denies any c/o SOB, cough, palpitations, syncope, near syncope or LE swelling. She reports her neighbor called EMS for her d/t her continued weakness. She states she is feeling better this morning, but refusing to eat anything at this time out of fear of having diarrhea. She reports no chest pain this morning other than when you touch her chest. Review of Systems-Cardiology Review of Systems Constitutional: No chills; malaise, tiredness Eyes: No vision change Ears/Nose/Throat: No epistaxis, No recent hearing loss Respiratory: As described under HPI Cardiovascular: As described under HPI Gastrointestinal: As described under HPI Genitourinary: No dysuria, No hematuria Musculoskeletal: no symptoms reported Skin: No rash on exposed areas, No ulcerations on exposed areas Psychiatric/Neurological: No anxiety, No depression, No seizure, No focal weakness, No syncope Hematologic: No bleeding abnormalities All Other Systems Reviewed Negative Unless Noted: Yes [id number] Hx Patient Social History Smoking Status: Never a Smoker 2nd Hand Smoke Exposure: No Have you traveled recently?: No Alcohol Use?: No Pt feels they are or have been: No Immunizations Up To Date Tetanus Booster (TDap): Unknown Date of Influenza Vaccine: Dec 25, 2019 Past Medical History PMH As described under Assessment. Family Medical History Family Medical History: She reports a brother and sister both with h/o CAD and KS. Family History: Diabetes mellitus 19 FATHER FH: liver cancer 19 MOTHER Myocardial infarction G8 BROTHER G8 SISTER Allergies and Home Medications Allergies Coded Allergies: Penicillins (Verified Allergy, Intermediate, HIVES, 07/25/12) oxytetracycline (Verified Allergy, Intermediate, HIVES, 07/25/12) cefdinir (Verified Allergy, Unknown, Rash, 04/02/21) hydrocodone (Verified Adverse Reaction, Mild, MAKES ME SICK, 07/01/12) lisinopril (Verified Adverse Reaction, Mild, COUGH, 07/01/12) oxytetracycline HCl (Verified Adverse Reaction, Mild, HIVES, 07/01/12) tramadol (Verified Adverse Reaction, Mild, NAUSEA, "HEAVINESS", 07/01/12) Patient Home Medication List Home Medication List Reviewed: Yes Amlodipine Besylate (Amlodipine Besylate) 5 Mg Tablet, 5 MG PO DAILY, (Reported) Entered as Reported by: TODD WORTHY on 05/19/21 1425 Last Action: Reviewed Apixaban (Eliquis) 5 Mg Tablet, 5 MG PO BID, (Reported) Entered as Reported by: TODD WORTHY on 05/19/21 142 Last Action: Reviewed Clopidogrel Bisulfate (Clopidogrel) 75 Mg Tablet, 75 MG PO DAILY, (Reported) Entered as Reported by: TODD WORTHY on 04/02/21 1028 Last Action: Reviewed Famotidine (Famotidine) 40 Mg Tablet, 40 MG PO HS, (Reported) Entered as Reported by: TODD WORTHY on 04/02/21 1030 Last Action: Reviewed Furosemide (Furosemide) 20 Mg Tablet, 20 MG PO DAILY PRN for FLUID RETENTION, (Reported) Entered as Reported by: LILI RESENDIZ on 12/07/18 1016 Last Action: Reviewed Ibuprofen (Ibuprofen) 200 Mg Capsule, 400 MG PO Q8H PRN for PAIN-MILD (1-4), (Reported) Entered as Reported by: TODD WORTHY on 04/02/21 1028 Last Action: Reviewed Levothyroxine Sodium (Levothyroxine Sodium) 50 Mcg Tablet, 50 MCG PO DAILY, (Reported) Entered as Reported by: LILI RESENDIZ on 12/14/16 1103 Last Action: Reviewed Losartan Potassium (Losartan Potassium) 100 Mg Tablet, 100 MG PO DAILY, (Reported) Entered as Reported by: YANY SCHNEIDER on 07/14/15 0924 Last Action: Reviewed Metoprolol Succinate (Metoprolol Succinate) 100 Mg Tab.er.24h, 100 MG PO DAILY, (Reported) Entered as Reported by: LILI RESENDIZ on 03/07/19 1609 Last Action: Reviewed Multivit-Min/FA/Lycopene/Lut (Centrum Silver Tablet) 1 Each Tablet, 1 TAB PO DAILY, (Reported) Entered as Reported by: LILI RESENDIZ on 07/04/18 1154 Last Action: Reviewed [place] 3 Polyunsat Fatty Acids (Fish Oil 1,000 mg Capsule) 1,000 Mg Cap, 1,000 MG PO 1200, (Reported) Entered as Reported by: LILI RESENDIZ on 12/07/18 1016 Last Action: Reviewed Pantoprazole Sodium (Pantoprazole Sodium) 40 Mg Tablet.dr, 40 MG PO DAILY, (Rep orted) Entered as Reported by: TODD WORTHY on 04/02/21 1028 Last Action: Reviewed Zolpidem Tartrate (Zolpidem Tartrate) 5 Mg Tablet, 5 MG PO HS PRN for SLEEP, (Reported) Entered as Reported by: TODD WORTHY on 05/19/21 1425 Last Action: Reviewed Discontinued Medications Amlodipine Besylate (Amlodipine Besylate) 10 Mg Tablet, 10 MG PO DAILY, (Reported) Discontinued Reason: Duplicate Order Entered as Reported by: TODD WORTHY on 04/02/21 1028 Last Action: Discontinued Apixaban (Eliquis) 5 Mg Tablet, 5 MG PO BID Discontinued Reason: Duplicate Order Prescribed by: SINGH LUCAS on 04/03/21 1647 Last Action: Discontinued Ciprofloxacin HCl/Dexameth (Ciprodex Otic Suspension) 7.5 Ml Soln, 7.5 ML OT BID Discontinued Reason: No Longer Taking Prescribed by: SANCHEZ SCHMITT on 04/04/21 1128 Last Action: Discontinued Tramadol HCl (Tramadol HCl) 50 Mg Tablet, 50 MG PO Q6H PRN for PAIN-MODERATE (5- 7), (Reported) Discontinued Reason: No Longer Taking Entered as Reported by: TODD WORTHY on 04/02/21 1028 Last Action: Discontinued Physical Exam-Cardiology Physical Exam Vital Signs/I&O 05/19/21 05/19/21 05/19/21 05/19/21 03:55 04:00 04:41 04:45 Temp 35.6 Pulse 58 57 58 Resp 17 B/P (MAP) 123/54 Pulse Ox 95 95 95 O2 Delivery Room Air Room Air FiO2 21 05/19/21 05/19/21 05/19/21 05/19/21 05:00 06:00 07:00 07:00 Pulse 41 53 53 63 Resp 16 14 10 B/P (MAP) 114/66 119/57 124/56 Pulse Ox 95 95 95 O2 Delivery Room Air Room Air Room Air 05/19/21 05/19/21 05/19/21 05/19/21 07:51 07:57 08:00 09:00 Temp 36.4 Pulse 62 49 Resp 20 15 B/P (MAP) 124/59 111/53 Pulse Ox 95 96 96 O2 Delivery Room Air Room Air Room Air 05/19/21 05/19/21 05/19/21 05/19/21 10:00 11:00 11:50 12:00 Pulse 50 49 47 Resp 10 9 21 B/P (MAP) 116/59 119/63 111/59 Pulse Ox 94 96 94 O2 Delivery Room Air Room Air Room Air Room Air 05/19/21 05/19/21 05/19/21 05/19/21 12:47 13:00 14:00 15:00 Pulse 48 47 64 52 Resp 16 13 16 B/P (MAP) 113/66 134/67 99/47 Pulse Ox 95 94 91 O2 Delivery Room Air Room Air Room Air Capillary Refill : Less Than 3 Seconds Constitutional: AAO x 3, well-developed, well-nourished HEENT: PERRL, hearing is well preserved, oral hygience is good Neck: No carotid bruit; carotid pulses are 2 + bilaterally Respiratory: No accessory muscle use, No respiratory distress; chest expansion is symmetric, chest is bilaterally symmetric, lungs clear to auscultation Cardiovascular: regular rate-rhythm; No JVD; S1 and S2 Gastrointestinal: soft; No guarding; audible bowel sounds Extremities: no lower extremity edema bilateral Neurologic/Psychiatric: grossly intact (moves all extremities) Skin: No rash on exposed areas, No ulcerations on exposed areas Data Review Labs Laboratory Tests 05/19/21 01:30: White Blood Count 5.6, Red Blood Count 4.32, Hemoglobin 13.1, Hematocrit 40, Mean Corpuscular Volume 93, Mean Corpuscular Hemoglobin 30, Mean Corpuscular Hemoglobin Concent 33, Red Cell Distribution Width 13.2, Platelet Count 324, Mean Platelet Volume 10.0, Immature Granulocyte % (Auto) 0, Neutrophils (%) (Auto) 21L, Lymphocytes (%) (Auto) 62H, Monocytes (%) (Auto) 16H, Eosinophils (%) (Auto) 1, Basophils (%) (Auto) 1, Neutrophils # (Auto) 1.2L, Lymphocytes # (Auto) 3.4, Monocytes # (Auto) 0.9, Eosinophils # (Auto) 0.1, Basophils # (Auto) 0.0, Immature Granulocyte # (Auto) 0.0, Prothrombin Time 13.5, INR Comment 1.0, Activated Partial Thromboplast Time 31, Sodium Level 140, Potassium Level 3.5L, Chloride Level 107, Carbon Dioxide Level 17L, Anion Gap 16H, Blood Urea Nitrogen 28H, Creatinine 1.46H, Estimat Glomerular Filtration Rate 35, BUN/Creatinine Rat io 19, Glucose Level 114H, Calcium Level 8.8, Corrected Calcium 8.8, Magnesium Level 2.0, Total Bilirubin 0.3, Aspartate Amino Transf (AST/SGOT) 23, Alanine Aminotransferase (ALT/SGPT) 14, Alkaline Phosphatase 71, Troponin I < 0.30, Pro-B-Type Natriuretic Peptide 555.3H, Total Protein 7.2, Albumin 4.0 05/19/21 01:55: Lactic Acid Level 1.01 05/19/21 02:50: Urine Color YELLOW, Urine Clarity CLEAR, Urine pH 6.0, Urine Specific [place] 1.010L, Urine Protein NEGATIVE, Urine Glucose (UA) NEGATIVE, Urine Ketones NEGATIVE, Urine Nitrite NEGATIVE, Urine Bilirubin NEGATIVE, Urine Urobilinogen 0.2, Urine Leukocyte Esterase NEGATIVE, Urine RBC (Auto) NEGATIVE, Urine RBC RARE, Urine WBC 0-2, Urine Squamous Epithelial Cells RARE, Urine Crystals NONE, Urine Bacteria NEGATIVE, Urine Casts PRESENT, Urine Hyaline Casts 5-10H, Urine Mucus SMALLH, Urine Culture Indicated NO 05/19/21 05:53: White Blood Count 6.4, Red Blood Count 4.09, Hemoglobin 12.3, Hematocrit 38, Mean Corpuscular Volume 94, Mean Corpuscular Hemoglobin 30, Mean Corpuscular Hemoglobin Concent 32, Red Cell Distribution Width 13.1, Platelet Count 277, Mean Platelet Volume 10.0, Immature Granulocyte % (Auto) 0, Neutrophils (%) (Auto) 44, Lymphocytes (%) (Auto) 45H, Monocytes (%) (Auto) 11, Eosinophils (%) (Auto) 1, Basophils (%) (Auto) 1, Neutrophils # (Auto) 2.8, Lymphocytes # (Auto) 2.8, Monocytes # (Auto) 0.7, Eosinophils # (Auto) 0.0, Basophils # (Auto) 0.0, Immature Granulocyte # (Auto) 0.0, Sodium Level 140, Potassium Level 3.9, Chloride Level 112H, Carbon Dioxide Level 15L, Anion Gap 13, Blood Urea Nitrogen 26H, Creatinine 1.31H, Estimat Glomerular Filtration Rate 40, BUN/Creatinine Ratio 20, Glucose Level 112H, Calcium Level 8.4L, Corrected Calcium 8.8, Magnesium Level 2.0, Total Bilirubin 0.3, Aspartate Amino Transf (AST/SGOT) 25, Alanine Aminotransferase (ALT/SGPT) 14, Alkaline Phosphatase 55, Troponin I 0.396*H, Total Protein 6.5, Albumin 3.5, Phosphorus Level 3.1 Radiology NAME: KAHLIL CARDENAS [facility] REC#: [id number] PT STATUS: ADM IN : 1935 PHYSICIAN: ANETTE STEWART MD ADMIT DATE: 05/19/21/ICU Draft Date of Exam:05/19/21 CHEST 1 VIEW AP/PA ONLY INDICATION: chest pain. TECHNIQUE: Single view chest 1:43 AM. CORRELATION STUDY: 06/21/2020 FINDINGS: Heart size and vasculature stable. Coronary artery stents left heart border. Calcification of the aortic arch. Prominent interstitial markings throughout both lung gloria. No definitive consolidating infiltrate. No significant effusion. IMPRESSION: 1. Negative for acute abnormality of the chest. Dictated on workstation # [id number] Dict: 01/25/22 0700 Trans: 05/19/21 0703 IRISH [id number] Interpreted by: RAZIA LINDER DO Electronically signed by: ECG Impression ECG Initial ECG Rhythm: Normal Sinus A/P-Cardiology Assessment/Admission Diagnosis COVID (+) with hypotension - management per medical/eICU services NSTEMI vs Type 2 KS secondary to hypotension Dizziness and near-syncope and June/July 2020. Also chronic dizziness and exertional shortness of breath - H/o sinus bradycardia on beta-vlad, but able to take current dose - 24 HR Holter of Jan 10, 2020 showed SR with avg HR of 56 bpm; rare PVC; no SVT or VT or pauses seen PAD - Bilat lower extremity segmental pressures of Jan 23, 2020 showed mod impairment of distal arterial circulation of left leg and severe impairment of distal arterial circulation of right leg - no reports of claudication, continue conservative management Coronary artery disease multiple intervention in the past - Echo of 06/22/15: distal septal and anteroapical hypokinesis, LVEF 45-50%, mild to mod MR & TR, AoV sclerosis and MAC w/o stenoses - Cardiac cath of 08-12-20: Diffuse moderate coronary artery disease as detailed above. There are patent stents in the proximal and mid left anterior descending and the left circumflex arteries and the first obtuse marginal branch is of a small caliber and arises from the stented segment of the left circumflex and chronically has 80% ostial stenosis. The ostial right coronary artery is known to have Xience Michelle 2.25 x 15 mm stent (placed in 09/2019) and the stent is patent and the right coronary artery has diffuse mild to moderate disease. Elevated left ventricular end-diastolic pressure. Mild impairment of global left ventricular systolic function with an ejection fraction of 45% to 50% and with anteroapical hypokinesis. H/o CVA and chronic headaches - CT head of Jul 2018 showed old CVAs. Had 10-min amaurosis on 05/14/19 and her eye doc on subsequent exam told her she had had a TIA - CT of the head Jan 10, 2020 showed chronic and senescent changes; no acute intracranial process Episodes of intermittent hematuria - managed by PCP Paroxysmal atrial fibrillation and sinus node dysfunction - Chronic anticoagulation with Eliquis Hyperlipidemia. - Refuses statin or any chol med because she feels she is highly intolerant to such meds H/o CEA. - Carotid u/s of 01-01-2021: less than 40% R ICA stenosis, 60-70% L ICA stenosis Multiple medication intolerances - ASA, furosemide, Lisinopril, statins GI - Abdominal pain and N/V, improved. - Endoscopy of Dec 2018 (Dr Caballero) showed large HH and H. Pylori gastritis Discussion and Recomendations NSTEMI vs Type 2 KS secondary to transient hypotension d/t COVID and vol depletion d/t frequent diarrhea Continue OAC with Eliquis for stroke prophylaxis Start Lovenox treatment dosing Hold anti-hypertensives for now Monitor lab closely Replace electrolytes as indicated Further recs will be based on her hospital course We would like to thank medical services for this consult Physician Assessment Physician Assessment The Cardiology team evaluated the patient collaboratively. To limit COVID exposure for the team, only one member examined the patient (hCucho Watson APRN). Our Assessment and Plan are noted above VERÓNICA WATSON May 19, 2021 08:30 GABRIEL MAYER MD FACP FAC CCDS May 19, 2021 15:18
--- NOTE | 2021-05-19 10:52 | Tele-ICU Consult ---
History of Present Illness History of Present Illness Date Seen by Provider: May 19, 2021 Time Seen by Provider: 10:51 Date of Admission Allergies and Home Medications Allergies Coded Allergies: Penicillins (Verified Allergy, Intermediate, HIVES, 07/25/12) oxytetracycline (Verified Allergy, Intermediate, HIVES, 07/25/12) cefdinir (Verified Allergy, Unknown, Rash, 04/02/21) hydrocodone (Verified Adverse Reaction, Mild, MAKES ME SICK, 07/01/12) lisinopril (Verified Adverse Reaction, Mild, COUGH, 07/01/12) oxytetracycline HCl (Verified Adverse Reaction, Mild, HIVES, 07/01/12) tramadol (Verified Adverse Reaction, Mild, NAUSEA, "HEAVINESS", 07/01/12) Home Medications Amlodipine Besylate 10 Mg Tablet, 10 MG PO DAILY, (Reported) Apixaban 5 Mg Tablet, 5 MG PO BID hold until seen by PCP Prescribed by: SINGH LUCAS on 04/03/21 1647 Ciprofloxacin HCl/Dexameth 7.5 Ml Soln, 7.5 ML OT BID 4 drops affected ear bid for 7 days Prescribed by: SANCHEZ SCHMITT on 04/04/21 1128 Clopidogrel Bisulfate 75 Mg Tablet, 75 MG PO DAILY, (Reported) Famotidine 40 Mg Tablet, 40 MG PO HS, (Reported) Furosemide 20 Mg Tablet, 20 MG PO DAILY PRN for FLUID RETENTION, (Reported) Ibuprofen 200 Mg Capsule, 400 MG PO Q8H PRN for PAIN-MILD (1-4), (Reported) Levothyroxine Sodium 50 Mcg Tablet, 50 MCG PO DAILY, (Reported) Losartan Potassium 100 Mg Tablet, 100 MG PO DAILY, (Reported) Metoprolol Succinate 100 Mg Tab.er.24h, 100 MG PO DAILY, (Reported) Multivit-Min/FA/Lycopene/Lut 1 Each Tablet, 1 TAB PO DAILY, (Reported) [place] 3 Polyunsat Fatty Acids 1,000 Mg Cap, 1,000 MG PO 1200, (Reported) Pantoprazole Sodium 40 Mg Tablet.dr, 40 MG PO DAILY, (Reported) Tramadol HCl 50 Mg Tablet, 50 MG PO Q6H PRN for PAIN-MODERATE (5-7), (Reported) Past Medical/Social/Family Hx Patient Social History Tobacco Use?: No Smoking Status: Never a Smoker Use of E-Cig and/or Vaping dev: No Substance use?: No Alcohol Use?: No Pt stated abuse/neglect: No Immunizations Up To Date Influenza Vaccine Up-to-Date: No; Not Current First/Initial COVID19 Vaccinat: declined Second COVID19 Vaccination Jamir: declined Tetanus Booster (TDap): More Than 5 Years Hepatitis A: No Hepatitis B: No TB Skin Test: None Current Status status: No Communicates: Verbally Primary Language: Kazakh Preferred Spoken Language: Kazakh Is interpretation needed?: No Sensory deficits: Hearing impairment Implanted or Applied Medical D: None Past Medical History PMHx: CAD with 10 stents HTN HLD A fib Stress incontinence, with pessary use Osteoarthritis Hypothyroidism GERD SurgHx: Coronary artery stenting Partial hysterectomy Cholecystectomy Appendectomy Review of Systems Constitutional: see HPI Focused Exam Lactate Level 05/19/21 01:55: Lactic Acid Level 1.01 Height, Weight, BMI Height: 5'2.00" Weight: 136lbs. 4.0oz. 61.570568pf; 25.43 BMI Method:Stated Exam Exam Patient acknowledged, consented, and participated in this virtual visit which was conducted using real time audio/video Vital Signs Date Time Temp Pulse Resp B/P (MAP) Pulse Ox O2 Delivery O2 Flow Rate FiO2 05/19/21 10:00 50 10 116/59 94 Room Air 05/19/21 09:00 49 15 111/53 96 Room Air 05/19/21 08:00 62 20 124/59 96 Room Air 05/19/21 07:57 36.4 05/19/21 07:51 95 Room Air 05/19/21 07:00 63 05/19/21 07:00 53 10 124/56 95 Room Air 05/19/21 06:00 53 14 119/57 95 Room Air 05/19/21 05:00 41 16 114/66 95 Room Air 05/19/21 04:45 95 Room Air 05/19/21 04:41 58 95 21 05/19/21 04:00 35.6 57 17 123/54 95 Room Air 05/19/21 03:55 58 05/19/21 03:00 58 18 103/68 98 Room Air 05/19/21 02:30 62 17 117/77 95 Room Air 05/19/21 02:00 61 18 119/66 97 Room Air 05/19/21 01:45 17 79/44 97 Room Air 05/19/21 01:25 36.6 56 17 103/56 (72) 97 Room Air I & O 05/19/21 06:59 Intake Total 350 ml Output Total 175 ml Balance 175 ml Height & Weight Height: 5'2.00" Weight: 136lbs. 4.0oz. 61.295112le; 25.43 BMI Method:Stated General Appearance: No Apparent Distress, WD/WN HEENT: PERRL/EOMI, Normal ENT Inspection, Pharynx Normal Neck: Full Range of Motion, Normal Inspection, Non Tender, Supple Respiratory: Chest Non Tender, Lungs Clear, Normal Breath Sounds, No Accessory Muscle Use, No Respiratory Distress Cardiovascular: Regular Rate, Rhythm, No Edema, Normal Peripheral Pulses Capillary Refill: Less Than 3 Seconds Extremity: Normal Capillary Refill, Normal Inspection, Normal Range of Motion, Non Tender, No Calf Tenderness, No Pedal Edema Neurologic/Psychiatric: Alert, No Motor/Sensory Deficits, Normal Mood/Affect Skin: Normal Color, Warm/Dry Lymphatic: No Adenopathy Results Lab Laboratory Tests 05/19/21 01:30 05/19/21 05:53 Assessment/Plan Assessment/Plan (Tele-ICU Physician , consultation) Available chart/ vitals / labs / Images reviewed H&P is from ER notes Patient's information available about PMH, Shx, Fhx allergy reviewed in EMR. ROS as per chart and RN report Now in ICU, hemodynamically stable Video assessment done using teleICU camera, rest of exam as per RN Discussed with RN. Consultants: ani Hospital course: 05/18- NSTEMI , recent COVID - on ra , mild hypotension A/P Hypotension in ER - volume depletion tested positive for COVID 1 week ago - not needing O2 - probably late for RDSV - aspecially since patient do not believe she has COVID Diarrhea - ? related to covid ROMARIO - most lilely due to dehydration NSTEMI vs Type 2 NM secondary to hypotension - as per cards - EF 40 % , h/o CAD PAF - on Eliquis- on lovenox noq ( refusinmg PO meds and food Lines : (Central Line Necessity Reviewed) Naav: OG: Nutrition: Analgesia: Anxiety/ dlirium VTE Prophylaxis: Stress Ulcer Prophylaxis: Glycemic Control: Plans in collaboration with bedside consultants and IM MDs. Discussed with RN to reach out if any questions or concerns A total of 20 minutes of critical care time was devoted to this patient today, required to treat and/or prevent further deterioration of critical care condition ( as above ) . SHAYLA PEREZ MD May 19, 2021 10:52
--- NOTE | 2021-05-19 10:57 | History & Physical-Hospitalist ---
[facility] / [facility] 05/19/21 1057: History of Present Illness HPI/Chief Complaint CC: Chest Pain HPI: 86-year-old female with past medical history of CAD with stenting, hypertension, hyperlipidemia, A. fib on Eliquis, presented to the ED for nausea, vomiting, diarrhea, and chest pain. While she does not believe she has contr acted COVID, she recently tested positive. She reports that the new medication for her hand pain is what caused her symptoms of diarrhea, and her post nasal drip is causing her to be nauseous and vomit. These symptoms have decreased her appetite and oral intake resulting in possible dehydration. Last night, after the onset of symptoms, she began developing mid-sternal chest pain that radiates to the left arm. States the chest pain is better with rest but becomes worse with exertion. While in the ED, she received a CBC, CXR, CMP, ECG, and Troponins. No leukocytosis was seen on CBC, creatinine was elevated, EKG revealed T wave inversions and ST depressions in the lateral leads which is consistent with old EKGs as well. Troponins were intitally negative as well, but have since increased to 0.396. Patient is currently admitted to ICU and cardiology is consulted Date Seen 05/19/21 Time Seen by a Provider: 08:15 Attending Physician Kamala Chapman Pankaj K MD Referring Physician Date of Admission May 19, 2021 at 03:48 Home Medications & Allergies Home Medications Reviewed patient Home Medication Reconciliation performed by pharmacy medication reconciliations school bus technician and/or nursing. Patients Allergies have been reviewed. Allergies Allergies Coded Allergies Penicillins (Verified Allergy, Intermediate, HIVES, 07/25/12) oxytetracycline (Verified Allergy, Intermediate, HIVES, 07/25/12) cefdinir (Verified Allergy, Unknown, Rash, 04/02/21) hydrocodone (Verified Adverse Reaction, Mild, MAKES ME SICK, 07/01/12) lisinopril (Verified Adverse Reaction, Mild, COUGH, 07/01/12) oxytetracycline HCl (Verified Adverse Reaction, Mild, HIVES, 07/01/12) tramadol (Verified Adverse Reaction, Mild, NAUSEA, "HEAVINESS", 07/01/12) Past Vjrbefw-Rpoqkm-Selupf Hx Patient Social History Tobacco Use?: No Smoking Status: Never a Smoker Use of E-Cig and/or Vaping dev: No Substance use?: No Alcohol Use?: No Pt feels they are or have been: No Immunizations Up To Date Date of Influenza Vaccine: Dec 25, 2019 First/Initial COVID19 Vaccinat: declined Second COVID19 Vaccination Jamir: declined Tetanus Booster (TDap): More Than 5 Years Hepatitis A: No Hepatitis B: No Seasonal Allergies Seasonal Allergies: No Current Status status: No Communicates: Verbally Primary Language: Egyptian Preferred Spoken Language: Egyptian Is interpretation needed?: No Sensory deficits: Hearing impairment Implanted or Applied Medical D: None Past Medical History Surgeries: Coronary Stent, Gallbladder, Hysterectomy, Orthopedic, Vascular Surgery Pneumonia Currently Using CPAP: No Currently Using BIPAP: No Atrial Fibrillation, Coronary Artery Disease, Heart Attack, Hypertension Stroke, TIA Bladder Infection Gastroesophageal Reflux Arthritis, Chronic Back Pain Hypothyroidsim Blood Disorders: No PMHx: CAD with 10 stents HTN HLD A fib Stress incontinence, with pessary use Osteoarthritis Hypothyroidism GERD SurgHx: Coronary artery stenting Partial hysterectomy Cholecystectomy Appendectomy Family Medical History Diabetes mellitus 19 FATHER FH: liver cancer 19 MOTHER Myocardial infarction G8 BROTHER G8 SISTER Cancer, CAD Over 55 Years Old, Diabetes Review of Systems Constitutional: No chills, No fever Respiratory: cough (Reports due to Post nasal drip), other (Requiring O2) Cardiovascular: chest pain, vascular heart diseas Gastrointestinal: diarrhea, nausea Musculoskeletal: back pain (Chronic), neck pain (Chronic) Psychiatric/Neurological: Denies Headache, Denies Numbness Other HEME/Lymph: Was receiving Eliquis Physical Exam Physical Exam Vital Signs Vital Signs - First Documented 05/19/21 05/19/21 01:25 04:41 Temp 36.6 Pulse 56 Resp 17 B/P (MAP) 103/56 (72) Pulse Ox 97 O2 Delivery Room Air FiO2 21 Capillary Refill : Less Than 3 Seconds Height, Weight, BMI Height: 5'2.00" Weight: 136lbs. 4.0oz. [id number]; 25.43 BMI Method:Stated General Appearance: No Apparent Distress, WD/WN HEENT: PERRL/EOMI, Normal ENT Inspection (No gross deformities) Neck: Supple, Tender Midline (At C7) Respiratory: Chest Non Tender, Normal Breath Sounds, No Accessory Muscle Use, No Respiratory Distress Cardiovascular: Normal Peripheral Pulses, Bradycardia, Irregularly Irregular Gastrointestinal: Non Tender, Soft Extremity: Non Tender, No Calf Tenderness, Swelling (Minimal in Lower Extremities) Neurologic/Psychiatric: Alert, Oriented x3 Skin: Warm/Dry Results Results/Procedures Labs Laboratory Tests 05/19/21 01:30 05/19/21 05:53 Patient resulted labs reviewed. Assessment/Plan Admission Diagnosis Elevated Troponins, Chest Pain Admission Status: Inpatient Order (span 2 midnights) Reason for Inpatient Admission: Elevated Troponins, Chest Pain Assessment and Plan Assessment Chest Pain Elevated Troponins (0.396) CAD HTN Afib ROMARIO COVID (+) Nausea Vomting Diarrhea Dehydration hypothyrodism Plan: Continue IV fluids Continue Eliquis and begin lovenox Appreciate cardiology Hold hypertensive Meds Zofran for nausea Encourage oral intake KAMALA CHAPMAN DO 05/20/21 0540: History of Present Illness HPI/Chief Complaint CC: Hypotension due to Covid-19 HPI: 86 yr old WF unvaccinated pt of Dr. Márquez. Who presented to the [place] ER with weakness found to be hypotensive. Systolic blood pressure is 70. She has been having diarrhea, ultimately became very dehydrated. Her troponin was elevated at 0.396 this morning. I did consult cardiology. Dr. Mayer's service saw her. Chest x-ray remains negative. She will be restratified by cardiology. Supported and continued on IV fluids. Source: patient Past Ouavvgv-Qiskgm-Axpsxe Hx Patient Social History Marrital Status: single Employed/Student: retired Smoking Status: Never a Smoker Past Medical History High Cholesterol, Hypertension Family Medical History Diabetes mellitus 19 FATHER FH: liver cancer 19 MOTHER Myocardial infarction G8 BROTHER G8 SISTER Review of Systems Constitutional: see HPI Respiratory: dyspnea on exertion Cardiovascular: chest pain Physical Exam Physical Exam General Appearance: No Apparent Distress, Chronically ill Respiratory: No Accessory Muscle Use, No Respiratory Distress, Decreased Breath Sounds Cardiovascular: Bradycardia, Irregularly Irregular Neurologic/Psychiatric: Alert, Oriented x3 Assessment/Plan Admission Diagnosis Assessment: Hypotension Chest pain Elevated troponin COVID-19 Plan: Cardiology consult Monitor lung function Admission Status: Inpatient Order (span 2 midnights) Reason for Inpatient Admission: elevated trop Supervisory-Addendum Brief Verification & Attestation Participated in pt care: history, MDM, physical Personally performed: exam, history, MDM, supervision of care Care discussed with: Medical Student Procedures: n/a Results interpretation: Verified all documentation Verification and Attestation of Medical Student E/M Service A medical student performed and documented this service in my presence. I reviewed and verified all information documented by the medical student and made modifications to such information, when appropriate. I personally performed the physical exam and medical decision making. Kamala Chapman, May 20, 2021,05:38 [facility] May 19, 2021 10:57 KAMALA CHAPMAN DO May 20, 2021 05:40
[2021-05-19] MEDS ORDERED: ENOXAPARIN 120 MG/0.8 ML (LOVENOX) ONE (11:29)
[2021-05-19] MEDS ORDERED: ENOXAPARIN 60 MG/0.6 ML (LOVENOX) SYR SC SCH ×2 (11:30→12:00)
[2021-05-19] MEDS ORDERED: APIX5TAB PO (14:25)
[2021-05-19] MEDS ORDERED: ZOLP5TAB7 PO (14:25)
[2021-05-19] MEDS ORDERED: AMLO-250 PO (14:25)
[2021-05-19] MEDS: MEROPENEM 500 MG/NS 100 ML IVPB IV SCH ×2 (14:36)
[2021-05-19] MEDS ORDERED: ATROPINE INJ 0.4 MG/ML SDV ONE (19:41)
[2021-05-20] MEDS: MEROPENEM 500 MG/NS 100 ML IVPB IV SCH ×6 (02:20→20:26)
[2021-05-20 04:43] LABS: BASOPHILS % (AUTO) 0 % (0-10); EOSINOPHILS # (AUTO) 0.1 10^3/uL (0.0-0.3); EOSINOPHILS % (AUTO) 2 % (0-10); HEMATOCRIT 39 % (35-52); HEMOGLOBIN 12.4 g/dL (11.5-16.0); LYMPHOCYTES # (AUTO) 2.5 10^3/uL (1.0-4.0); LYMPHOCYTES % (AUTO) 48 % (12-44); MEAN CORPUSCULAR HEMOGLOBIN 30 pg (25-34); MEAN CORPUSCULAR HGB CONC 32 g/dL (32-36); MEAN CORPUSCULAR VOLUME 95 fL (80-99); MEAN PLATELET VOLUME 10.4 fL (9.0-12.2); MONOCYTES # (AUTO) 0.8 10^3/uL (0.0-1.0); MONOCYTES % (AUTO) 15 % (0-12); NEUTROPHILS # (AUTO) 1.8 10^3/uL (1.8-7.8); NEUTROPHILS % (AUTO) 34 % (42-75); PLATELET COUNT 255 10^3/uL (130-400); WHITE BLOOD COUNT 5.2 10^3/uL (4.3-11.0)
[2021-05-20 05:02] LABS: ALBUMIN 3.5 GM/DL (3.2-4.5)
[2021-05-20 05:03] LABS: POTASSIUM 3.4 MMOL/L (3.6-5.0)
[2021-05-20 05:04] LABS: CALCIUM 8.4 MG/DL (8.5-10.1)
[2021-05-20 05:05] LABS: TOTAL PROTEIN 6.5 GM/DL (6.4-8.2)
[2021-05-20 05:07] LABS: BILIRUBIN,TOTAL 0.4 MG/DL (0.1-1.0)
[2021-05-20 05:08] LABS: PHOSPHORUS 2.7 MG/DL (2.3-4.7)
[2021-05-20 05:09] LABS: CREATININE SERUM 0.96 MG/DL (0.60-1.30)
[2021-05-20 05:11] LABS: MAGNESIUM 1.9 MG/DL (1.6-2.4)
[2021-05-20] MEDS: KCL 20 MEQ TAB (K-DUR) PO SCH (05:17)
[2021-05-20] MEDS: POTASSIUM CL 10MEQ/50ML IVPB 50 ML IV SCH (05:17)
[2021-05-20] MEDS: MAGNESIUM 1 GM/100 ML IVPB 100 ML IV SCH (05:17)
[2021-05-20] MEDS: CATHETER FLUSH 10 ML SYR IV SCH ×3 (06:29→20:25)
[2021-05-20] MEDS ORDERED: KCL 20 MEQ TAB (K-DUR) PO ONE (09:00)
[2021-05-20] MEDS ORDERED: FUROSEMIDE 20 MG (LASIX) TAB PO PRN (09:30)
[2021-05-20] MEDS ORDERED: ZOLPIDEM 5 MG (AMBIEN) TAB PO PRN (09:30)
--- NOTE | 2021-05-20 11:25 | Occupational Therapy Eval ---
OT Evaluation-General/PLF Medical Diagnosis Admission Date May 19, 2021 at 03:48 Medical Diagnosis: Elevated troponins, Chest pain, Covid 19 + Onset Date: May 19, 2021 Therapy Diagnosis Therapy Diagnosis: Impaired safety, balance, adls, cognition Height/Weight Height (Feet): 5 Height (Inches): 2.00 Weight (Pounds): 136 Weight (Ounces): 4.0 Precautions Precautions/Isolations: Airborne Isolation, Fall Prevention Referral Referral Reason: Evaluation/Treatment Medical History Pertinent Medical History: Atrial Fib, Arthritis, CAD, CVA, HTN Current History Pt presents to ER with nausea, vomiting, diarrhea, and chest pain. Covid 19 positive Pt reports that she lives alone in a 2nd floor apartment; elevator access. She verbalizes being indep with all adls and iadls. Laundry located outside of apartment. Pt still drives. She states she was using a walker up until 2 weeks ago when her son took it away from her. Pt appears to be a poor historian. No family present to verify accuracy of responses. Reviewed History: Yes Social History Home: Apartment Current Living Status: Alone Entry Into Home: Elevator ADL-Prior Level of Function SCALE: Activities may be completed with or without assistive devices. 6-Quoduabnee-avjqvto completes the activity by him/herself with no assistance from a helper. 5-Set-up or Clean-up Assistance-helper sets up or cleans up; patient completes activity. [place] assists only prior to or following the activity. 4-Supervision or Touching Assistance-helper provides verbal cues and/or touching/steadying and/or contact guard assistance as patient completes activity. Assistance may be provided throughout the activity or intermittently. 3-Partial/Moderate Assistance-helper does LESS THAN HALF the effort. [place] lifts, holds or supports trunk or limbs, but provides less than half the effort. 2-Substantial/Maximal Assistance-helper does MORE THAN HALF the effort. [place] lifts or holds trunk or limbs and provides more than half the effort. 7-Xdqkmrlyo-ifeota does ALL the effort. Patient does none of the effort to complete the activity. Or, the assistance of 2 or more helpers is required for the patient to complete the activity. If activity was not attempted, code reason: 7-Patient Refused. 9-Not Applicable-not attempted and the patient did not perform the activity before the current illness, exacerbation or injury. 10-Not Attempted due to Environmental Limitations-(lack of equipment, weather restraints, etc.). 88-Not Attempted due to Medical Conditions or Safety Concerns. Self Care: Independent Functional Cognition: Independent Drive Self: Yes OT Current Status Subjective Denies pain, appears to have poor insight/denial into performance ability. Appearance Returned to sitting in recliner, nurse in room at therapy departure. Mental Status/Objective Patient Orientation: Person, Confused, Place Attachments: Nava Catheter, IV Current Glasses/Contacts: Yes Upper Extremity ROM Poor direction following. Upper Extremity Strength 3/5 throughout. Unsure of accuracy as pt had difficulty following commands. ADL-Treatment Lower Body Dressing (QC): 3 (per clinical judgment ) On/Off Footwear (QC): 4 Toileting Hygiene (QC): 3 Pt sitting in chair. She refuses to use walker as she reports she "doesn't need it." Impulsive to stand before therapist is ready. LOB laterally needing assist to recover. Cues to wait until gait belt is donned. Pt ambulated short distance within room with min-mod a. 2-3 lateral losses of balance needing assist to recover. Pt immediately stating 'I'm ok, I'm ok, I do this all the time." OT discusses with pt on recommendation of using walker, pt refuses. At this time, pt would require balance assist with all functional tasks including clothing management pre/post toileting. Education OT Patient Education: Correct positioning, Purpose of tx/functional activities, Safety issues, Transfer techniques Teaching Recipient: Patient Teaching Methods: Discussion Response to Teaching: Reinforcement Needed OT Pantry Attendant Goals Halfway Goals Time Frame: Jun 05, 2021 Oral Hygiene (QC): 4 Toileting Hygiene (QC): 4 Upper Body Dressing (QC): 4 Lower Body Dressing (QC): 4 On/Off Footwear (QC): 5 1=Demonstrate adherence to instructed precautions during ADL tasks. 2=Patient will verbalize/demonstrate understanding of assistive devices/modifications for ADL. 3=Patient will improve strength/tolerance for activity to enable patient to perform ADL's. OT Education/Plan Problem List/Assessment Assessment: Decreased Activ Tolerance, Decreased Safety Aware, Decreased UE Strength, Impaired Cognition, Impaired Funct Balance, Impaired I ADL's, Impaired Self-Care Skills, Restricted Funct UE ROM Discharge Recommendations Plan/Recommendations: Continue POC Therapy Discharge Recommendati: Post Acute OT Comment At this time, pt is not safe to return home alone. Treatment Plan/Plan of Care Treatment,Training & Education: Yes Patient would benefit from OT for education, treatment and training to promote independence in ADL's, mobility, safety and/or upper extremity function for ADL's. Plan of Care: ADL Retraining, Cognitive Retraining, Functional Mobility, Group Exercise/Act as Ind, UE Funct Exercise/Act Treatment Duration: Jun 05, 2021 Frequency: 3 times per week (3-5x/week) Estimated Hrs Per Day: .25 hour per day Time/GCodes Start Time: 11:05 Stop Time: 11:16 Total Time Billed (hr/min): 11 Billed Treatment Time 1 visit Mindy Randolph OT May 20, 2021 11:25
--- NOTE | 2021-05-20 11:25 | Physical Therapy Evaluation ---
PT Evaluation-General Medical Diagnosis Admission Date May 19, 2021 at 03:48 Medical Diagnosis: covid 19, debility Onset Date: May 19, 2021 Therapy Diagnosis Therapy Diagnosis: impaired mobility, strength Height/Weight Height (Feet): 5 Height (Inches): 2.00 Weight (Pounds): 136 Weight (Ounces): 4.0 Precautions Precautions/Isolations: Airborne Isolation, Fall Prevention Referral Physician: Kamala Pina DO Reason for Referral: Evaluation/Treatment Medical History Pertinent Medical History: Arthritis, CAD Additional Medical History PMHx: CAD with 10 stents HTN HLD A fib Stress incontinence, with pessary use Osteoarthritis Hypothyroidism GERD SurgHx: Coronary artery stenting Partial hysterectomy Cholecystectomy Appendectomy Reviewed History: Yes Social History Home: Apartment (2nd level) Current Living Status: Alone Entry Into Home: Elevator Prior Prior Level of Function SCALE: Activities may be completed with or without assistive devices. 1-Yyfnjumhbv-calyykd completes the activity by him/herself with no assistance from a helper. 5-Set-up or Clean-up Assistance-helper sets up or cleans up; patient completes activity. [place] assists only prior to or following the activity. 4-Supervision or Touching Assistance-helper provides verbal cues and/or touching/steadying and/or contact guard assistance as patient completes activity. Assistance may be provided throughout the activity or intermittently. 3-Partial/Moderate Assistance-helper does LESS THAN HALF the effort. [place] lifts, holds or supports trunk or limbs, but provides less than half the effort. 2-Substantial/Maximal Assistance-helper does MORE THAN HALF the effort. [place] lifts or holds trunk or limbs and provides more than half the effort. 9-Gxbeyixcj-egyiyn does ALL the effort. Patient does none of the effort to complete the activity. Or, the assistance of 2 or more helpers is required for the patient to complete the activity. If activity was not attempted, code reason: 7-Patient Refused. 9-Not Applicable-not attempted and the patient did not perform the activity before the current illness, exacerbation or injury. 10-Not Attempted due to Environmental Limitations-(lack of equipment, weather restraints, etc.). 88-Not Attempted due to Medical Conditions or Safety Concerns. Bed Mobility: 6 Transfers (B,C,W/C): 6 Gait: 6 Indoor Mobility (Ambulation): Independent Patient states she has a walker but her son took it from her home a couple of weeks ago. Patient states she ambulates without one. PT Evaluation-Current Subjective Patient in recliner pre tx, agrees to PT, has no complaints of pain. Pt/Family Goals to be independent at home Objective Patient Orientation: Person, Place, Situation Attachments: Nava Catheter ROM/Strength ROM Lower Extremities WNL Strength Lower Extremities grossly 4/5 BLE but right knee not tested because she says it will hurt due to her arthritis Sensory Hearing: Impaired Sensation Right Lower Extremit: Impaired Sensation Left Lower Extremity: Impaired Transfers Sit to Stand (QC): 4 Chair/Xaq-fd-Dfcaq Xfer(QC): 4 CGA for sit to stand and transfers, cues for safety, patient is very impulsive Gait Does the Patient Walk?: Yes Mode of Locomotion: Walk Anticipated Mode of Locomotion: Walk Walk 10 feet (QC): 3 Distance: 40' Gait Assistive Device: None Comments/Gait Description Patient insists on not using the rolling walker and she will not do DIRECTOR CLINICAL DATA. She has two losses of balance during ambulation that require therapist assist to maintain balance. When she loses her balance she says "I'm ok" and continues on. Assessment/Needs Patient in recliner post tx, nurse in room getting her ready to head to a room downstairs. Patient has impaired mobility, strength, balance, and endurance. Patient is impulsive and needs assist during ambulation or she will certainly fall. Rehab Potential: Fair PT Clearing Inspector Goals Clearing Inspector Goals PT Snf Goals Time Frame: May 27, 2021 Roll Left & Right (QC): 6 Sit to Lying (QC): 6 Lying-Sitting on Side/Bed(QC): 6 Sit to Stand (QC): 4 Chair/Sxi-qq-Wfpob Xfer(QC): 4 Walk 10 feet (QC): 4 Walk 50ft with 2 Turns (QC): 4 PT Plan Problem List Problem List: Activity Tolerance, Functional Strength, Safety, Balance, Gait, Transfer, Bed Mobility, ROM Treatment/Plan Treatment Plan: Continue Plan of Care Treatment Plan: Bed Mobility, Education, Functional Activity Felisha, Functional Strength, Gait, Safety, Therapeutic Exercise, Transfers Treatment Duration: May 27, 2021 Frequency: 6 times per week Estimated Hrs Per Day: .25 hour per day Patient and/or Family Agrees t: Yes Safety Risks/Education Patient Education: Gait Training, Transfer Techniques, Correct Positioning, Safety Issues Teaching Recipient: Patient Teaching Methods: Demonstration, Discussion Response to Teaching: Reinforcement Needed Discharge Recommendations Plan Patient will perform bed mobility and transfer training, balance and endurance training, functional strengthening, gait training, and education, to improve functional mobility and independence at home. Therapy Discharge Recommendati: Scheduled Assistance, Post Acute PT Time/GCodes Time In: 1104 Time Out: 1115 Total Billed Treatment Time: 11 Total Billed Treatment 1 visit RANGEL 11' BRYSON VAN PT May 20, 2021 11:25
--- NOTE | 2021-05-20 11:46 | Progress Note - Hospitalist ---
[facility] 05/20/21 1146: Subjective HPI/CC On Admission Date Seen by Provider: May 20, 2021 Time Seen by Provider: 08:40 CC: Hypotension due to Covid-19 HPI: 86 yr old WF unvaccinated pt of Dr. Márquez. Who presented to the [place] ER with weakness found to be hypotensive. Systolic blood pressure is 70. She has been having diarrhea, ultimately became very dehydrated. Her troponin was elevated at 0.396 this morning. I did consult cardiology. Dr. Mayer's service saw her. Chest x-ray remains negative. She will be restratified by cardiology. Supported and continued on IV fluids. Subjective/Events-last exam Patient states she continues to have off and on chest pain States she has never been nauseous when asked ROS questions Difficult to assess Examination for edema of LE, patient complained of pain to anterior tibia Does not appear to be DVT or traumatic cause Pain appears to be possible anxiety in origin Patient is not eating Wants to get out of bed Review of Systems General: No Chills, No Other (fevers) Pulmonary: Dyspnea (requiring O2); No Cough Cardiovascular: Chest Pain; No: Palpitations Gastrointestinal: No: Nausea, Vomiting Focused Exam Lactate Level 05/19/21 01:55: Lactic Acid Level 1.01 Objective Exam Vital Signs Vital Signs Date Time Temp Pulse Resp B/P (MAP) Pulse Ox O2 Delivery O2 Flow Rate FiO2 05/20/21 11:48 36.0 05/20/21 11:46 70 20 135/64 97 Room Air 05/19/21 04:41 21 Capillary Refill : Less Than 3 Seconds General Appearance: No Apparent Distress, WD/WN HEENT: PERRL/EOMI, Normal ENT Inspection (No gross deformities) Neck: Supple, Tender Midline (at C7, is chronic) Respiratory: Chest Non Tender, Normal Breath Sounds, No Accessory Muscle Use, No Respiratory Distress Cardiovascular: No Murmur, Normal Peripheral Pulses (2+ radial pulses bilaterally), Bradycardia Gastrointestinal: Non Tender, Soft Extremity: Pedal Edema (minimal), Other (As mentioned in HPI, anterior tibia tenderness. ) Neurologic/Psychiatric: Alert, Oriented x3, Normal Mood/Affect Results/Procedures Lab Laboratory Tests 05/20/21 04:23 Patient resulted labs reviewed. Assessment/Plan Assessment and Plan Assess & Plan/Chief Complaint Assessment Chest Pain Elevated Troponins (0.396) CAD HTN Afib ROMARIO COVID (+) Nausea Vomting Diarrhea Dehydration hypothyrodism Plan: Transfer to floor with telemetry Consult PT/OT Checked meds Continue IV fluids Restart Eliquis Appreciate cardiology Hold hypertensive Meds Zofran for nausea Encourage oral intake KAMALA CHAPMAN DO 05/21/21 0537: Subjective Subjective/Events-last exam Pt doing pretty well BP 120/65 Creatinine is now normal Transferring to 4th floor Wants to go home soon Review of Systems General: Fatigue, Malaise Objective Exam General Appearance: No Apparent Distress, WD/WN, Chronically ill Respiratory: Lungs Clear, Normal Breath Sounds Cardiovascular: Bradycardia Neurologic/Psychiatric: Alert, Oriented x3 Assessment/Plan Assessment and Plan Assess & Plan/Chief Complaint Transfer to fourth floor Hold blood pressure meds Supervisory-Addendum Brief Verification & Attestation Participated in pt care: history, MDM, physical Personally performed: exam, history, MDM, supervision of care Care discussed with: Medical Student Procedures: n/a Results interpretation: Verified all documentation Verification and Attestation of Medical Student E/M Service A medical student performed and documented this service in my presence. I revie wed and verified all information documented by the medical student and made modifications to such information, when appropriate. I personally performed the physical exam and medical decision making. Kamala Chapman, May 21, 2021,05:37 [facility] May 20, 2021 11:46 KAMALA CHAPMAN DO May 21, 2021 05:37
[2021-05-20] MEDS: OMEGA 3 (FISH OIL) 1000 MG CAP PO SCH (11:57)
--- NOTE | 2021-05-20 16:25 | Progress Note - Cardiology ---
Cardiology SOAP Progress Note Subjective: Gen weakness and malaise No cp or palp or syncope No shortness of breath No n/v/d Objective: I&O/Vital Signs 05/20/21 05/20/21 05/20/21 05/20/21 05:00 06:00 07:00 07:15 Pulse 58 59 61 71 Resp 18 19 19 B/P (MAP) 121/55 120/65 119/66 Pulse Ox 93 94 94 O2 Delivery Room Air Room Air Room Air 05/20/21 05/20/21 05/20/21 05/20/21 07:55 08:00 08:00 08:52 Temp 36.7 Pulse 76 Resp 20 B/P (MAP) 138/77 Pulse Ox 93 97 97 O2 Delivery Room Air Room Air 05/20/21 05/20/21 05/20/21 05/20/21 09:00 11:46 11:48 13:14 Temp 35.9 36.0 Pulse 61 70 78 Resp 20 20 B/P (MAP) 147/84 135/64 Pulse Ox 97 97 O2 Delivery Room Air 05/20/21 15:41 Temp 35.9 Pulse 81 Resp 20 B/P (MAP) 114/69 Pulse Ox 97 O2 Delivery Room Air 05/20/21 00:00 Intake Total 550 ml Output Total 445 ml Balance 105 ml Weight (Pounds): 136 Weight (Ounces): 4.0 Weight (Calculated Kilograms): 61.825807 Constitutional: AAO x 3, well-developed, well-nourished Respiratory: No accessory muscle use, No respiratory distress; chest expansion is symmetric, chest is bilaterally symmetric, lungs clear to auscultation Cardiovascular: regular rate-rhythm; No JVD; S1 and S2 Gastrointestional: soft; No guarding; audible bowel sounds Extremities: no lower extremity edema bilateral Neurologic/Psychiatric: grossly intact (moves all extremities) Skin: No rash on exposed areas, No ulcerations on exposed areas Results/Procedures: Labs Laboratory Tests 05/20/21 04:23: White Blood Count 5.2, Red Blood Count 4.08, Hemoglobin 12.4, Hematocrit 39, Mean Corpuscular Volume 95, Mean Corpuscular Hemoglobin 30, Mean Corpuscular Hemoglobin Concent 32, Red Cell Distribution Width 13.2, Platelet Count 255, Mean Platelet Volume 10.4, Immature Granulocyte % (Auto) 0, Neutrophils (%) (Auto) 34L, Lymphocytes (%) (Auto) 48H, Monocytes (%) (Auto) 15H, Eosinophils (%) (Auto) 2, Basophils (%) (Auto) 0, Neutrophils # (Auto) 1.8, Lymphocytes # (Auto) 2.5, Monocytes # (Auto) 0.8, Eosinophils # (Auto) 0.1, Basophils # (Auto) 0.0, Immature Granulocyte # (Auto) 0.0, Sodium Level 141, Potassium Level 3.4L, Chloride Level 112H, Carbon Dioxide Level 18L, Anion Gap 11, Blood Urea Nitrogen 16, Creatinine 0.96, Estimat Glomerular Filtration Rate 58, BUN/Creatinine Ratio 17, Glucose Level 83, Calcium Level 8.4L, Corrected Calcium 8.8, Phosphorus Level 2.7, Magnesium Level 1.9, Total Bilirubin 0.4, Aspartate Amino Transf (AST/SGOT) 40H, Alanine Aminotransferase (ALT/SGPT) 15, Alkaline Phosphatase 53, Total Protein 6.5, Albumin 3.5 Microbiology 05/19/21 Urine Culture - Final, Complete NO GROWTH 05/19/21 Blood Culture - Preliminary, Resulted No growth Laboratory Tests 05/19/21 01:30 05/19/21 05:53 05/20/21 04:23 A/P: Assessment: COVID (+) with hypotension - management per medical/eICU services Type 2 [place] secondary to hypotension Dizziness and near-syncope and June/July 2020. Also chronic dizziness and exertional shortness of breath - H/o sinus bradycardia on beta-vlad, but able to take current dose - 24 HR Holter of Jan 10, 2020 showed SR with avg HR of 56 bpm; rare PVC; no SVT or VT or pauses seen PAD - Bilat lower extremity segmental pressures of Jan 23, 2020 showed mod impairment of distal arterial circulation of left leg and severe impairment of distal arterial circulation of right leg - no reports of claudication, continue conservative management Coronary artery disease multiple intervention in the past - Echo of 06/22/15: distal septal and anteroapical hypokinesis, LVEF 45-50%, mild to mod MR & TR, AoV sclerosis and MAC w/o stenoses - Cardiac cath of 08-12-20: Diffuse moderate coronary artery disease as detailed above. There are patent stents in the proximal and mid left anterior descending and the left circumflex arteries and the first obtuse marginal branch is of a small caliber and arises from the stented segment of the left circumflex and chronically has 80% ostial stenosis. The ostial right coronary artery is known to have Xience Michelle 2.25 x 15 mm stent (placed in 09/2019) and the stent is patent and the right coronary artery has diffuse mild to moderate disease. Elevated left ventricular end-diastolic pressure. Mild impairment of global left ventricular systolic function with an ejection fraction of 45% to 50% and with anteroapical hypokinesis. H/o CVA and chronic headaches - CT head of Jul 2018 showed old CVAs. Had 10-min amaurosis on 05/14/19 and her eye doc on subsequent exam told her she had had a TIA - CT of the head Jan 10, 2020 showed chronic and senescent changes; no acute intracranial process Episodes of intermittent hematuria - managed by PCP Paroxysmal atrial fibrillation and sinus node dysfunction - Chronic anticoagulation with Eliquis Hyperlipidemia. - Refuses statin or any chol med because she feels she is highly intolerant to such meds H/o CEA. - Carotid u/s of 01-01-2021: less than 40% R ICA stenosis, 60-70% L ICA stenosis Multiple medication intolerances - ASA, furosemide, Lisinopril, statins GI - Abdominal pain and N/V, improved. - Endoscopy of Dec 2018 (Dr Caballero) showed large HH and H. Pylori gastritis Plan: No evidence of ACS Continue OAC with Eliquis for stroke prophylaxis. Lovenox d/c'd Monitor lab closely Replace electrolytes as indicated WALTER GIL MD FACP FAC CCDS May 20, 2021 16:25
[2021-05-20] MEDS: APIXABAN 5 MG (ELIQUIS) TABLET PO SCH (20:25)
[2021-05-20] MEDS ORDERED: FAMOTIDINE 20 MG (PEPCID) TABLET PO SCH (21:00)
[2021-05-21] MEDS: MEROPENEM 500 MG/NS 100 ML IVPB IV SCH ×4 (05:44→12:53)
[2021-05-21] MEDS: CATHETER FLUSH 10 ML SYR IV SCH ×2 (05:45→12:54)
[2021-05-21 05:59] LABS: BASOPHILS % (AUTO) 0 % (0-10); EOSINOPHILS % (AUTO) 0 % (0-10); HEMATOCRIT 38 % (35-52); HEMOGLOBIN 12.3 g/dL (11.5-16.0); LYMPHOCYTES # (AUTO) 2.1 10^3/uL (1.0-4.0); LYMPHOCYTES % (AUTO) 40 % (12-44); MEAN CORPUSCULAR HEMOGLOBIN 31 pg (25-34); MEAN CORPUSCULAR HGB CONC 32 g/dL (32-36); MEAN CORPUSCULAR VOLUME 95 fL (80-99); MEAN PLATELET VOLUME 10.7 fL (9.0-12.2); MONOCYTES # (AUTO) 0.9 10^3/uL (0.0-1.0); MONOCYTES % (AUTO) 17 % (0-12); NEUTROPHILS # (AUTO) 2.2 10^3/uL (1.8-7.8); NEUTROPHILS % (AUTO) 42 % (42-75); PLATELET COUNT 245 10^3/uL (130-400); WHITE BLOOD COUNT 5.3 10^3/uL (4.3-11.0)
[2021-05-21 06:15] LABS: ALBUMIN 3.6 GM/DL (3.2-4.5)
[2021-05-21 06:16] LABS: CALCIUM 8.6 MG/DL (8.5-10.1)
[2021-05-21 06:17] LABS: TOTAL PROTEIN 6.7 GM/DL (6.4-8.2)
[2021-05-21 06:19] LABS: BILIRUBIN,TOTAL 0.4 MG/DL (0.1-1.0)
[2021-05-21 06:21] LABS: CREATININE SERUM 0.8 MG/DL (0.60-1.30)
[2021-05-21 06:24] LABS: MAGNESIUM 1.9 MG/DL (1.6-2.4)
[2021-05-21] MEDS ORDERED: LEVOTHYROXINE 50 MCG (LEVOTHROID) TAB PO SCH (06:30)
[2021-05-21] MEDS: APIXABAN 5 MG (ELIQUIS) TABLET PO SCH (08:33)
--- NOTE | 2021-05-21 08:37 | Progress Note - Cardiology ---
Cardiology SOAP Progress Note Subjective: Lying in bed States she is feeling better than before No c/o CP or SOB No further episodes of diarrhea Objective: I&O/Vital Signs 05/21/21 05/21/21 05/21/21 05/21/21 00:00 01:00 04:00 07:00 Temp 37.4 37.0 Pulse 78 73 74 58 Resp 20 20 B/P (MAP) 114/64 143/83 Pulse Ox 92 93 O2 Delivery Room Air Room Air 05/21/21 07:40 Temp 37.0 Pulse 74 Resp 22 B/P (MAP) 124/69 Pulse Ox 95 O2 Delivery Room Air 05/21/21 00:00 Intake Total 300 ml Output Total 525 ml Balance -225 ml Weight (Pounds): 136 Weight (Ounces): 4.0 Weight (Calculated Kilograms): 61.262995 Constitutional: AAO x 3, well-developed, well-nourished Respiratory: No accessory muscle use, No respiratory distress; chest expansion is symmetric, chest is bilaterally symmetric, lungs clear to auscultation Cardiovascular: regular rate-rhythm; No JVD; S1 and S2 Gastrointestional: soft; No guarding; audible bowel sounds Extremities: no lower extremity edema bilateral Neurologic/Psychiatric: grossly intact (moves all extremities) Skin: No rash on exposed areas, No ulcerations on exposed areas Results/Procedures: Labs Laboratory Tests 05/21/21 05:13: White Blood Count 5.3, Red Blood Count 4.00, Hemoglobin 12.3, Hematocrit 38, Mean Corpuscular Volume 95, Mean Corpuscular Hemoglobin 31, Mean Corpuscular Hemoglobin Concent 32, Red Cell Distribution Width 13.2, Platelet Count 245, Mean Platelet Volume 10.7, Immature Granulocyte % (Auto) 0, Neutrophils (%) (Auto) 42, Lymphocytes (%) (Auto) 40, Monocytes (%) (Auto) 17H, Eosinophils (%) (Auto) 0, Basophils (%) (Auto) 0, Neutrophils # (Auto) 2.2, Lymphocytes # (Auto) 2.1, Monocytes # (Auto) 0.9, Eosinophils # (Auto) 0.0, Basophils # (Auto) 0.0, Immature Granulocyte # (Auto) 0.0, Sodium Level 141, Potassium Level 4.0, Chloride Level 111H, Carbon Dioxide Level 16L, Anion Gap 14, Blood Urea Nitrogen 10, Creatinine 0.80, Estimat Glomerular Filtration Rate 72, BUN/Creatinine Ratio 13, Glucose Level 89, Calcium Level 8.6, Corrected Calcium 8.9, Magnesium Level 1.9, Total Bilirubin 0.4, Aspartate Amino Transf (AST/SGOT) 53H, Alanine Aminotransferase (ALT/SGPT) 18, Alkaline Phosphatase 54, Total Protein 6.7, Albumin 3.6 Microbiology 05/19/21 Urine Culture - Final, Complete NO GROWTH 05/19/21 Blood Culture - Preliminary, Resulted No growth Laboratory Tests 05/20/21 04:23 05/21/21 05:13 A/P: Assessment: COVID (+) with hypotension - management per medical/eICU services - hypotension resolved Type 2 [place] secondary to hypotension Dizziness and near-syncope and July 2020. Also chronic dizziness and exertional shortness of breath - H/o sinus bradycardia on beta-vlad, but able to take current dose - 24 HR Holter of Jan 10, 2020 showed SR with avg HR of 56 bpm; rare PVC; no SVT or VT or pauses seen PAD - Bilat lower extremity segmental pressures of Jan 23, 2020 showed mod i mpairment of distal arterial circulation of left leg and severe impairment of distal arterial circulation of right leg - no reports of claudication, continue conservative management Coronary artery disease multiple intervention in the past - Echo of 06/22/15: distal septal and anteroapical hypokinesis, LVEF 45-50%, mild to mod MR & TR, AoV sclerosis and MAC w/o stenoses - Cardiac cath of 08-12-20: Diffuse moderate coronary artery disease as detailed above. There are patent stents in the proximal and mid left anterior descending and the left circumflex arteries and the first obtuse marginal branch is of a small caliber and arises from the stented segment of the left circumflex and chronically has 80% ostial stenosis. The ostial right coronary artery is known to have Xience Michelle 2.25 x 15 mm stent (placed in 09/2019) and the stent is patent and the right coronary artery has diffuse mild to moderate disease. Elevated left ventricular end-diastolic pressure. Mild impairment of global left ventricular systolic function with an ejection fraction of 45% to 50% and with anteroapical hypokinesis. H/o CVA and chronic headaches - CT head of Jul 2018 showed old CVAs. Had 10-min amaurosis on 05/14/19 and her eye doc on subsequent exam told her she had had a TIA - CT of the head Jan 10, 2020 showed chronic and senescent changes; no acute intracranial process Episodes of intermittent hematuria - managed by PCP Paroxysmal atrial fibrillation and sinus node dysfunction - Chronic anticoagulation with Eliquis Hyperlipidemia. - Refuses statin or any chol med because she feels she is highly intolerant to such meds H/o CEA. - Carotid u/s of 01-01-2021: less than 40% R ICA stenosis, 60-70% L ICA stenosis Multiple medication intolerances - ASA, furosemide, Lisinopril, statins GI - Abdominal pain and N/V, improved. - Endoscopy of Dec 2018 (Dr Caballero) showed large HH and H. Pylori gastritis Plan: No evidence of ACS Continue OAC with Eliquis for stroke prophylaxis Continue current medication regimen Ok to discharge home from cardiac stand point VERÓNICA DAY May 21, 2021 08:37
[2021-05-21] MEDS ORDERED: METO-351 PO (08:41)
[2021-05-21] MEDS ORDERED: MULTIVIT W/MINERALS TAB (THERAGRAN M) PO SCH (09:00)
[2021-05-21] MEDS ORDERED: PANTOPRAZOLE 40 MG (PROTONIX) TAB PO SCH (09:00)
[2021-05-21] MEDS ORDERED: CLOPIDOGREL 75 MG (PLAVIX) TABLET PO SCH (09:00)
--- NOTE | 2021-05-21 10:24 | Physical Therapy Daily Note ---
PT Daily Note-Current Subjective Patient in recliner pre tx, agrees to PT, has no complaints of pain. Appearance Patient in recliner post tx with nurse call, phone, tray, all needs met. Mental Status Patient Orientation: Person, Place, Situation Transfers SCALE: Activities may be completed with or without assistive devices. 3-Wureigplbw-zhndiue completes the activity by him/herself with no assistance from a helper. 5-Set-up or Clean-up Assistance-helper sets up or cleans up; patient completes activity. [place] assists only prior to or following the activity. 4-Supervision or Touching Assistance-helper provides verbal cues and/or shai avel/steadying and/or contact guard assistance as patient completes activity. Assistance may be provided throughout the activity or intermittently. 3-Partial/Moderate Assistance-helper does LESS THAN HALF the effort. [place] lifts, holds or supports trunk or limbs, but provides less than half the effort. 2-Substantial/Maximal Assistance-helper does MORE THAN HALF the effort. [place] lifts or holds trunk or limbs and provides more than half the effort. 2-Qcksfagbo-kpeqsn does ALL the effort. Patient does none of the effort to complete the activity. Or, the assistance of 2 or more helpers is required for the patient to complete the activity. If activity was not attempted, code reason: 7-Patient Refused. 9-Not Applicable-not attempted and the patient did not perform the activity before the current illness, exacerbation or injury. 10-Not Attempted due to Environmental Limitations-(lack of equipment, weather restraints, etc.). 88-Not Attempted due to Medical Conditions or Safety Concerns. Sit to Stand (QC): 4 Chair/Lms-kk-Rzlza Xfer(QC): 4 Gait Training Distance: 80' Walk 10 feet (QC): 4 Walk 50 ft with 2 Turns(QC): 4 Gait Persons Needed: 1 Gait Assistive Device: None Patient will not use a walker and doesn't want therapist to touch her. She ambulation is unsteady and she loses her balance a couple of times but is able to recover on her own, therapist provides close SBA, ready to assist if needed. She is slightly SOB after ambulation but recovers quickly after sitting down. Exercises Seated Therapy Exercises: Ankle pumps, Long arc quads Seated Reps: 10 (Encouraged patient to do 20 reps but she says 10 is enough and stops.) Treatments transfers, ambulation, LE strengthening Assessment Current Status: Fair Progress improved endurance, less impulsive but has poor balance during ambulation and poor safety awareness PT Physician Scientist Goals Physician Scientist Goals PT Custodial Goals Time Frame: May 27, 2021 Roll Left & Right (QC): 6 Sit to Lying (QC): 6 Lying-Sitting on Side/Bed(QC): 6 Sit to Stand (QC): 4 Chair/Hmp-ha-Xfhsz Xfer(QC): 4 Walk 10 feet (QC): 4 Walk 50ft with 2 Turns (QC): 4 PT Plan Problem List Problem List: Activity Tolerance, Functional Strength, Safety, Balance, Gait, Transfer, Bed Mobility, ROM Treatment/Plan Treatment Plan: Continue Plan of Care Treatment Plan: Bed Mobility, Education, Functional Activity Felisha, Functional Strength, Gait, Safety, Therapeutic Exercise, Transfers Treatment Duration: May 27, 2021 Frequency: 6 times per week Estimated Hrs Per Day: .25 hour per day Patient and/or Family Agrees t: Yes Safety Risks/Education Patient Education: Gait Training, Transfer Techniques, Correct Positioning, Safety Issues Teaching Recipient: Patient Teaching Methods: Demonstration, Discussion Response to Teaching: Reinforcement Needed Time/GCodes Time In: 946 Time Out: 956 Total Billed Treatment Time: 10 Total Billed Treatment 1 visit FA BRYSON SEPULVEDA PT May 21, 2021 10:24
--- NOTE | 2021-05-21 10:25 | Occupational Ther Daily Note ---
OT Current Status-Daily Note Subjective Pt up in recliner, agreeable to OT tx. Mental Status/Objective Patient Orientation: Person, Place, Situation ADL-Treatment Therapy Code Descriptions/Definitions Functional [place] Measure: 0=Not Assessed/NA 4=Minimal Assistance 1=Total Assistance 5=Supervision or Setup 2=Maximal Assistance 6=Modified [place] 3=Moderate Assistance 7=Complete IndependenceSCALE: Activities may be completed with or without assistive devices. 4-Koagbjwbsh-mehldlu completes the activity by him/herself with no assistance from a helper. 5-Set-up or Clean-up Assistance-helper sets up or cleans up; patient completes activity. [place] assists only prior to or following the activity. 4-Supervision or Touching Assistance-helper provides verbal cues and/or touching/steadying and/or contact guard assistance as patient completes activity. Assistance may be provided throughout the activity or intermittently. 3-Partial/Moderate Assistance-helper does LESS THAN HALF the effort. [place] lifts, holds or supports trunk or limbs, but provides less than half the effort. 2-Substantial/Maximal Assistance-helper does MORE THAN HALF the effort. [place] lifts or holds trunk or limbs and provides more than half the effort. 0-Jpgtkitss-frvurm does ALL the effort. Patient does none of the effort to complete the activity. Or, the assistance of 2 or more helpers is required for the patient to complete the activity. If activity was not attempted, code reason: 7-Patient Refused. 9-Not Applicable-not attempted and the patient did not perform the activity before the current illness, exacerbation or injury. 10-Not Attempted due to Environmental Limitations-(lack of equipment, weather restraints, etc.). 88-Not Attempted due to Medical Conditions or Safety Concerns. Other Treatment Pt up in recliner, performed functional mobility from chair to door in room and back to chair, x2. Pt unsteady throughout mobility, but refuses to use walker and refuses assistance to correct balance. Close SBA. Pt returned to recliner, completed x10 reps each of the following BUE exercises in order to increase strength and activity tolerance: shoulder flexion and front punch. Post tx, pt up in recliner, call light in reach and all needs met. Education OT Patient Education: Correct positioning, Modified ADL techniques, Progress toward Goal/Update tx plan, Purpose of tx/functional activities Teaching Recipient: Patient Teaching Methods: Discussion Response to Teaching: Verbalize Understanding OT Longterm Goals Longterm Goals Time Frame: Jun 05, 2021 Oral Hygiene (QC): 4 Toileting Hygiene (QC): 4 Upper Body Dressing (QC): 4 Lower Body Dressing (QC): 4 On/Off Footwear (QC): 5 1=Demonstrate adherence to instructed precautions during ADL tasks. 2=Patient will verbalize/demonstrate understanding of assistive devices/modifications for ADL. 3=Patient will improve strength/tolerance for activity to enable patient to perform ADL's. OT Education/Plan Problem List/Assessment Assessment: Decreased Activ Tolerance, Decreased UE Strength, Impaired Funct Balance, Impaired I ADL's, Impaired Self-Care Skills Discharge Recommendations Plan/Recommendations: Continue POC Treatment Plan/Plan of Care Patient would benefit from OT for education, treatment and training to promote independence in ADL's, mobility, safety and/or upper extremity function for ADL's. Plan of Care: ADL Retraining, Cognitive Retraining, Functional Mobility, Group Exercise/Act as Ind, UE Funct Exercise/Act Treatment Duration: Jun 05, 2021 Frequency: 3 times per week (3-5x/week) Estimated Hrs Per Day: .25 hour per day Rehab Potential: Fair Time/GCodes Start Time: 09:50 Stop Time: 09:58 Total Time Billed (hr/min): 8 Billed Treatment Time 1, EX LYNSEY CARVER OT May 21, 2021 10:25
--- NOTE | 2021-05-21 10:57 | Discharge Summary ---
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 Patient was admitted from the ED to the ICU. While in the ED, she received a CBC, CXR, CMP, ECG, and Troponins. No leukocytosis was seen on CBC, creatinine was elevated, EKG revealed T wave inversions and ST depressions in the lateral leads which is consistent with old EKGs as well. Troponins were intitally negative as well, but increased 0.396. Patient was admitted to ICU and cardiology was consulted. Patient blood pressure medications were held as she was hypotensive on arrival to the ED. She was then transferred to the floor on 05/20. On discharge, patient was sent home. Patient will not be restarted on all of her home blood pressure medications, but can resume all other home medications. This summary does not include the entirety of the patient's visit and is only a short description of pertinent lab values and information. For the complete hospital course, please refer to the patient's chart. Date of Admission: 05/19/2021 Date of Discharge: 05/20/2021 Attending Physician: Dr. Kamala Pina DO Admission Diagnosis: Type 2 [place] Discharge Diagnosis: COVID+ Consultations: Cardiology Procedures: none HPI: 86-year-old female with past medical history of CAD with stenting, hypertension, hyperlipidemia, A. fib on Eliquis, presented to the ED for nausea, vomiting, diarrhea, and chest pain. While she does not believe she has contracted COVID, she recently tested positive. She reports that the new medication for her hand pain is what caused her symptoms of diarrhea, and her post nasal drip is causing her to be nauseous and vomit. These symptoms have decreased her appetite and oral intake resulting in possible dehydration. Last night, after the onset of symptoms, she began developing mid-sternal chest pain that radiates to the left arm. States the chest pain is better with rest but becomes worse with exertion. While in the ED, she received a CBC, CXR, CMP, ECG, and Troponins. No leukocytosis was seen on CBC, creatinine was elevated, EKG revealed T wave inversions and ST depressions in the lateral leads which is consistent with old EKGs as well. Troponins were initially negative as well, but have since increased to 0.396. Patient is currently admitted to ICU and cardiology is consulted ADRIANO MORALES May 21, 2021 12:30 <Created by ADRIANO AUGUSTINE [facility] Labs and Pending Lab Test: Laboratory Tests 05/21/21 05:13: White Blood Count 5.3, Red Blood Count 4.00, Hemoglobin 12.3, Hematocrit 38, Mean Corpuscular Volume 95, Mean Corpuscular Hemoglobin 31, Mean Corpuscular Hemoglobin Concent 32, Red Cell Distribution Width 13.2, Platelet Count 245, Mean Platelet Volume 10.7, Immature Granulocyte % (Auto) 0, Neutrophils (%) (Auto) 42, Lymphocytes (%) (Auto) 40, Monocytes (%) (Auto) 17H, Eosinophils (%) (Auto) 0, Basophils (%) (Auto) 0, Neutrophils # (Auto) 2.2, Lymphocytes # (Auto) 2.1, Monocytes # (Auto) 0.9, Eosinophils # (Auto) 0.0, Basophils # (Auto) 0.0, Immature Granulocyte # (Auto) 0.0, Sodium Level 141, Potassium Level 4.0, Chloride Level 111H, Carbon Dioxide Level 16L, Anion Gap 14, Blood Urea Nitrogen 10, Creatinine 0.80, Estimat Glomerular Filtration Rate 72, BUN/Creatinine Ratio 13, Glucose Level 89, Calcium Level 8.6, Corrected Calcium 8.9, Magnesium Level 1.9, Total Bilirubin 0.4, Aspartate Amino Transf (AST/SGOT) 53H, Alanine Aminotransferase (ALT/SGPT) 18, Alkaline Phosphatase 54, Total Protein 6.7, Albumin 3.6 Microbiology 05/19/21 Urine Culture - Final, Complete NO GROWTH 05/19/21 Blood Culture - Preliminary, Resulted No growth Home Meds Active Toprol Xl (Metoprolol Succinate) 25 Mg Tab.er.24h 25 Mg PO DAILY Reported Eliquis (Apixaban) 5 Mg Tablet 5 Mg PO BID Zolpidem Tartrate 5 Mg Tablet 5 Mg PO HS PRN Amlodipine Besylate 5 Mg Tablet 5 Mg PO DAILY Famotidine 40 Mg Tablet 40 Mg PO HS Ibuprofen 200 Mg Capsule 400 Mg PO Q8H PRN Clopidogrel (Clopidogrel Bisulfate) 75 Mg Tablet 75 Mg PO DAILY Pantoprazole Sodium 40 Mg Tablet.dr 40 Mg PO DAILY Metoprolol Succinate 100 Mg Tab.er.24h 100 Mg PO DAILY Furosemide 20 Mg Tablet 20 Mg PO DAILY PRN Fish Oil 1,000 mg Capsule (Mccoll 3 Polyunsat Fatty Acids) 1,000 Mg Cap 1,000 Mg PO 1200 Centrum Silver Tablet (Multivit-Min/FA/Lycopene/Lut) 1 Each Tablet 1 Tab PO DAILY Levothyroxine Sodium 50 Mcg Tablet 50 Mcg PO DAILY Losartan Potassium 100 Mg Tablet 100 Mg PO DAILY Assessment/Pt Instructions PCP in 1 week Discharge Planning: <30 minutes discharge planning Discharge Instructions Discharge Diet: No Restrictions Discharge Physical Examination Vital Signs Vital Signs Date Time Temp Pulse Resp B/P (MAP) Pulse Ox O2 Delivery O2 Flow Rate FiO2 05/21/21 08:38 92 Room Air 05/21/21 07:40 37.0 74 22 124/69 05/19/21 04:41 21 General Appearance: No Apparent Distress, WD/WN, Chronically ill Allergies: Coded Allergies: Penicillins (Verified Allergy, Intermediate, HIVES, 07/25/12) oxytetracycline (Verified Allergy, Intermediate, HIVES, 07/25/12) cefdinir (Verified Allergy, Unknown, Rash, 04/02/21) hydrocodone (Verified Adverse Reaction, Mild, MAKES ME SICK, 07/01/12) lisinopril (Verified Adverse Reaction, Mild, COUGH, 07/01/12) oxytetracycline HCl (Verified Adverse Reaction, Mild, HIVES, 07/01/12) tramadol (Verified Adverse Reaction, Mild, NAUSEA, "HEAVINESS", 07/01/12) Discharge Summary Date of Admission May 19, 2021 at 03:48 Date of Discharge Discharge Date: May 21, 2021 Admission Diagnosis Assessment: Hypotension Chest pain Elevated troponin COVID-19 Plan: Cardiology consult Monitor lung function Discharge Diagnosis Transfer to fourth floor Hold blood pressure KAMALA Holm DO May 21, 2021 10:57
--- NOTE | 2021-05-21 12:20 | Progress Note - Hospitalist ---
ADRIANO MORALES [facility] 05/21/21 1220: Subjective HPI/CC On Admission Date Seen by Provider: May 21, 2021 Time Seen by Provider: 08:30 CC: Hypotension due to Covid-19 HPI: 86 yr old [place] unvaccinated pt of Dr. Márquez. Who presented to the [place] ER with weakness found to be hypotensive. Systolic blood pressure is 70. She has been having diarrhea, ultimately became very dehydrated. Her troponin was elevated at 0.396 this morning. I did consult cardiology. Dr. Mayer's service saw her. Chest x-ray remains negative. She will be restratified by cardiology. Supported and continued on IV fluids. Subjective/Events-last exam 24 Hour Events: Patient denies any symptoms, No growth was detected on UA BP increased to 143/80 Patient stated she will try to consume a meal Brief Hospital Course: Patient was admitted on 05/19/2021 and discharged 05/20/2021. Patient was admitted from the ED to the ICU. While in the ED, she received a CBC, CXR, CMP, ECG, and Troponins. No leukocytosis was seen on CBC, creatinine was elevated, EKG revealed T wave inversions and ST depressions in the lateral leads which is consistent with old EKGs as well. Troponins were intitally negative as well, but increased 0.396. Patient was admitted to ICU and cardiology was consulted. Patient blood pressure medications were held as she was hypotensive on arrival to the ED, but was restarted on home medications including Eliquis. She was then transferred to the floor on 05/20. On discharge, patient was sent home. Patient will not be restarted on all of her home blood pressure medications, but can resume all other home medications. This summary does not include the entirety of the patient's visit and is only a short description of pertinent lab values and information. For the complete hospital course, please refer to the patient's chart. Date of Admission: 05/19/2021 Date of Discharge: 05/20/2021 Attending Physician: Dr. Kamala Chapman DO Admission Diagnosis: Type 2 [place] Discharge Diagnosis: COVID+ Consultations: Cardiology Procedures: none HPI: 86-year-old female with past medical history of CAD with stenting, hypertension, hyperlipidemia, A. fib on Eliquis, presented to the ED for nausea, vomiting, diarrhea, and chest pain. While she does not believe she has contracted COVID, she recently tested positive. She reports that the new medication for her hand pain is what caused her symptoms of diarrhea, and her post nasal drip is causing her to be nauseous and vomit. These symptoms have decreased her appetite and oral intake resulting in possible dehydration. Last night, after the onset of symptoms, she began developing mid-sternal chest pain that radiates to the left arm. States the chest pain is better with rest but becomes worse with exertion. While in the ED, she received a CBC, CXR, CMP, ECG, and Troponins. No leukocytosis was seen on CBC, creatinine was elevated, EKG revealed T wave inversions and ST depressions in the lateral leads which is consistent with old EKGs as well. Troponins were initially negative as well, but have since increased to 0.396. Patient is currently admitted to ICU and cardiology is consulted Review of Systems General: No Chills, No Other (fevers) Pulmonary: No Dyspnea, No Cough Cardiovascular: No: Chest Pain, Palpitations Gastrointestinal: No: Nausea, Vomiting, Abdominal Pain Focused Exam Lactate Level 05/19/21 01:55: Lactic Acid Level 1.01 Objective Exam Vital Signs Vital Signs Date Time Temp Pulse Resp B/P (MAP) Pulse Ox O2 Delivery O2 Flow Rate FiO2 05/21/21 11:40 36.3 69 20 142/72 96 Room Air 05/19/21 04:41 21 Capillary Refill : Less Than 3 Seconds General Appearance: No Apparent Distress, WD/WN HEENT: PERRL/EOMI, Normal ENT Inspection (No gross deformities) Respiratory: Chest Non Tender, Normal Breath Sounds, No Accessory Muscle Use, No Respiratory Distress Cardiovascular: Regular Rate, Rhythm, Normal Peripheral Pulses (2+ radial pul ses bilaterally) Gastrointestinal: Non Tender, Soft Extremity: Non Tender (LE bilaterally), No Calf Tenderness Neurologic/Psychiatric: Alert, Oriented x3 Results/Procedures Lab Laboratory Tests 05/21/21 05:13 Patient resulted labs reviewed. Assessment/Plan Assessment and Plan Assess & Plan/Chief Complaint Assessment Chest Pain Elevated Troponins (0.396) CAD HTN Afib ROMARIO COVID (+) Nausea Vomting Diarrhea Dehydration hypothyrodism Plan: Remove godinez DC antibiotics Will resume 1 or 2 BP medications Checked meds Restart Eliquis Appreciate cardiology Zofran for nausea Encourage oral intake KAMALA CHAPMAN DO 05/22/21 0521: Supervisory-Addendum Brief Verification & Attestation Participated in pt care: history, MDM, physical Personally performed: exam, history, MDM, supervision of care Care discussed with: Medical Student Procedures: n/a Results interpretation: Verified all documentation Verification and Attestation of Medical Student E/M Service A medical student performed and documented this service in my presence. I reviewed and verified all information documented by the medical student and made modifications to such information, when appropriate. I personally performed the physical exam and medical decision making. Kamala Chapman, May 22, 2021,05:21 ADRIANO MORALES [facility] May 21, 2021 12:20 KAMALA CHAPMAN DO May 22, 2021 05:21
--- NOTE | 2021-05-21 12:30 | Progress Note ---
ADRIANO MORALES [facility] 05/21/21 1230: Progress Note Brief Hospital Course: Patient was admitted on 05/19/2021 and discharged 05/20/2021. Patient was admitted from the ED to the ICU. While in the ED, she received a CBC, CXR, CMP, ECG, and Troponins. No leukocytosis was seen on CBC, creatinine was elevated, EKG revealed T wave inversions and ST depressions in the lateral leads which is consistent with old EKGs as well. Troponins were intitally negative as well, but increased 0.396. Patient was admitted to ICU and cardiology was consulted. Patient blood pressure medications were held as she was hypotensive on arrival to the ED. She was then transferred to the floor on 05/20. On discharge, patient was sent home. Patient will not be restarted on all of her home blood pressure medications, but can resume all other home medications. This summary does not include the entirety of the patient's visit and is only a short description of pertinent lab values and information. For the complete hospital course, please refer to the patient's chart. Date of Admission: 05/19/2021 Date of Discharge: 05/20/2021 Attending Physician: Dr. Kamala Pina DO Admission Diagnosis: Type 2 [place] Discharge Diagnosis: COVID+ Consultations: Cardiology Procedures: none HPI: 86-year-old female with past medical history of CAD with stenting, hypertension, hyperlipidemia, A. fib on Eliquis, presented to the ED for nausea, vomiting, diarrhea, and chest pain. While she does not believe she has contracted COVID, she recently tested positive. She reports that the new medication for her hand pain is what caused her symptoms of diarrhea, and her post nasal drip is causing her to be nauseous and vomit. These symptoms have decreased her appetite and oral intake resulting in possible dehydration. Last night, after the onset of symptoms, she began developing mid-sternal chest pain that radiates to the left arm. States the chest pain is better with rest but becomes worse with exertion. While in the ED, she received a CBC, CXR, CMP, ECG, and Troponins. No leukocytosis was seen on CBC, creatinine was elevated, EKG revealed T wave inversions and ST depressions in the lateral leads which is consistent with old EKGs as well. Troponins were initially negative as well, but have since increased to 0.396. Patient is currently admitted to ICU and cardiology is consulted KAMALA PINA DO 05/22/21 0521: Supervisory-Addendum Brief Verification & Attestation Participated in pt care: history, MDM, physical Personally performed: exam, history, MDM, supervision of care Care discussed with: Medical Student Procedures: n/a Results interpretation: Verified all documentation Verification and Attestation of Medical Student E/M Service A medical student performed and documented this service in my presence. I reviewed and verified all information documented by the medical student and made modifications to such information, when appropriate. I personally performed the physical exam and medical decision making. Kamala Pina, May 22, 2021,05:21 ADRIANO MORALES [facility] May 21, 2021 12:30 KAMALA PINA DO May 22, 2021 05:21
[2021-05-21] MEDS: OMEGA 3 (FISH OIL) 1000 MG CAP PO SCH (12:53)
[2021-05-21 15:05] VITALS: BP 142/72
--- NOTE | 2021-05-21 17:29 | Physician Query Clarification ---
Physician Query-General Query to Physician: The medical record reflects the following clinical scenario: The patient, in the setting of History/Risk factors, Extensive Cardiac Hx, Hypotension Clinical Findings Chest pain, BP decreased to 70 Systolic, Troponin I 0.396, Treatment plan Cardiology consult, IV fluids 1896ML over 1 hour, enoxaparin, skyla vix, Eliquis, Question: Do you agree with the impression of Type II TN (secondary to Hypotension) per Dr. Nell Mayer? 1. Yes; will document Type II TN, present on admission in the Progress Notes 2. No; will continue current documentation in the Progress Notes 3. Other; will document explanation of clinical findings 4. Clinically undetermined; no explanation for clinical findings Please clarify and document your clinical opinion in the Progress Notes and Discharge Summary including the definitive and/or presumptive diagnosis, (suspected or probable), related to the above clinical findings. Please include clinical findings supporting your diagnosis. In responding to this query, please exercise your independent professional judgment. The purpose of this communication is to more accurately reflect the complexity of your patients condition. The fact that a question is asked does not imply that any particular answer is desired or expected. Please remember a lack of response to the above will prompt a phone page by CDI/coding staff Thank you for timely response to this clarification. Amira Webster MSN, RN Clinical Operations Support Analyst [phone] [email or web address] PHYSICIAN RESPONSE: Based on the clinical findings in the record, please respond to the query above on this document as an addendum. Physician Response: Physician Response 1 If you have questions please contact: Synchro Assembler: Ext: Thank you for your time and cooperation. Clinical Operations Support Analyst/Synchro Assembler This is a permanent part of the medical record AMIRA WEBSTER May 21, 2021 17:29 CRISTINA CHAPMAN DO May 22, 2021 05:04
[2021-05-22] MEDS ORDERED: amLODIPine 5 MG (NORVASC) TAB PO SCH (09:00)
== END 2021-05-21 15:13 | disposition home or self-care (01) | DRG 177 ==
LOC: EDUNIT# 01:24 → ER FS 01:27 → ICU 03:48 → 4TH 05-20 11:30
PROVIDERS: ADMIT Internal Medicine; ATTEND Internal Medicine
DX: U07.1 COVID-19 (principal); I21.A1 Myocardial infarction type 2; N17.9 Acute kidney failure, unspecified; I95.9 Hypotension, unspecified; I48.0 Paroxysmal atrial fibrillation; R07.9 Chest pain, unspecified; R11.10 Vomiting, unspecified; R19.7 Diarrhea, unspecified; R31.9 Hematuria, unspecified; I49.5 Sick sinus syndrome; N39.3 Stress incontinence (female) (male); I25.10 Atherosclerotic heart disease of native coronary artery without angina pectoris; E86.0 Dehydration; I10 Essential (primary) hypertension; E78.5 Hyperlipidemia, unspecified; K21.9 Gastro-esophageal reflux disease without esophagitis; M19.91 Primary osteoarthritis, unspecified site; E03.9 Hypothyroidism, unspecified; I73.9 Peripheral vascular disease, unspecified; Z95.5 Presence of coronary angioplasty implant and graft; Z87.01 Personal history of pneumonia (recurrent); I25.2 Old myocardial infarction; Z86.73 Personal history of transient ischemic attack (TIA), and cerebral infarction without residual deficits; Z82.49 Family history of ischemic heart disease and other diseases of the circulatory system; Z79.01 Long term (current) use of anticoagulants; Z79.1 Long term (current) use of non-steroidal anti-inflammatories (NSAID); Z88.1 Allergy status to other antibiotic agents; Z88.5 Allergy status to narcotic agent; Z88.0 Allergy status to penicillin; Z88.8 Allergy status to other drugs, medicaments and biological substances; Z73.0 Burn-out
CPT/HCPCS: 36415; 51702; 71045; 80053; 81000; 83605; 83735; 83880; 84100; 84484; 85025; 85610; 85730; 87040; 87088; 93005; 93041; 94760

== ENCOUNTER 2021-11-22 10:03 | Inpatient (IN) | payer MEDICARE ==
[~2021-11-22] VITALS: Ht 157.5 cm; Wt 60.7 kg
[~2021-11-22 10:03] MED LIST changes: +ISOS30TA82 PO; +METO-351 PO; +MTP25TSR PO; +OMEP20TA56 PO; -OMEP20TA7 PO; +RANO500T3 PO
[2021-11-22 10:33] LABS: BASOPHILS % (AUTO) 0 % (0-10); EOSINOPHILS % (AUTO) 0 % (0-10); HEMATOCRIT 39 % (35-52); HEMOGLOBIN 13.2 g/dL (11.5-16.0); LYMPHOCYTES # (AUTO) 2.8 10^3/uL (1.0-4.0); LYMPHOCYTES % (AUTO) 19 % (12-44); MEAN CORPUSCULAR HEMOGLOBIN 31 pg (25-34); MEAN CORPUSCULAR HGB CONC 34 g/dL (32-36); MEAN CORPUSCULAR VOLUME 91 fL (80-99); MEAN PLATELET VOLUME 9.8 fL (9.0-12.2); MONOCYTES # (AUTO) 1.9 10^3/uL (0.0-1.0); MONOCYTES % (AUTO) 13 % (0-12); NEUTROPHILS # (AUTO) 9.9 10^3/uL (1.8-7.8); NEUTROPHILS % (AUTO) 67 % (42-75); PLATELET COUNT 419 10^3/uL (130-400); WHITE BLOOD COUNT 14.8 10^3/uL (4.3-11.0)
--- NOTE | 2021-11-22 10:33 | ED Cardiac General ---
History of Present Illness General Chief Complaint: Chest Pain Stated Complaint: CHEST PAIN Nursing Triage Note: PT REPORTS SHE HAD CHEST PAIN YESTERDAY AND IT STOPPED BUT IT STARTED AGAIN EARLY THIS AM AT HER NORMAL TIME SHE WAKES UP AT 0200. SHE WENT TO [facility] BUT FELT SHORT OF BREATH. Source: patient Exam Limitations: no limitations History of Present Illness Date Seen by Provider: Nov 22, 2021 Time Seen by Provider: 10:05 Initial Comments 86-year-old female with past medical history of CAD with numerous stents, paroxysmal A. fib on Eliquis, hypertension, hyperlipidemia, HFpEF coming in due to chest pain and heart palpitations. She says this was been ongoing off and on since yesterday, became constant at 2 AM this morning. She says she feels short of breath with ambulation as well. The pain is moderate, constant, throbbing. Denies any fever, but endorses diarrhea, no vomiting, no abdominal pain, weakness, numbness, headache, vision changes, or any other concerns. Has taken all of her medications as prescribed including her Eliquis this morning. She says she is unable to take aspirin as she does not tolerate it. ASA po HSE ADVISOR: No Allergies and Home Medications Allergies Coded Allergies: Penicillins (Verified Allergy, Intermediate, HIVES, 07/25/12) oxytetracycline (Verified Allergy, Intermediate, HIVES, 07/25/12) cefdinir (Verified Allergy, Unknown, Rash, 04/02/21) hydrocodone (Verified Adverse Reaction, Mild, MAKES ME SICK, 07/01/12) lisinopril (Verified Adverse Reaction, Mild, COUGH, 07/01/12) oxytetracycline HCl (Verified Adverse Reaction, Mild, HIVES, 07/01/12) tramadol (Verified Adverse Reaction, Mild, NAUSEA, "HEAVINESS", 07/01/12) Patient Home Medication List Home Medication List Reviewed: Yes Apixaban (Eliquis) 5 Mg Tablet, 5 MG PO BID, (Reported) Entered as Reported by: TODD WORTHY on 05/19/21 1425 Clopidogrel Bisulfate (Clopidogrel) 75 Mg Tablet, 75 MG PO DAILY, (Reported) Entered as Reported by: TODD WORTHY on 04/02/21 1028 Famotidine (Famotidine) 40 Mg Tablet, 40 MG PO HS, (Reported) Entered as Reported by: TODD WORTHY on 04/02/21 1030 Furosemide (Furosemide) 20 Mg Tablet, 20 MG PO DAILY PRN for FLUID RETENTION, (Reported) Entered as Reported by: LILI RESENDIZ on 12/07/18 1016 Isosorbide Mononitrate (Isosorbide Mononitrate ER) 30 Mg Tab.er.24h, 30 MG PO DAILY Prescribed by: CRISTINA CHAPMAN on 06/15/21 1031 Levothyroxine Sodium (Levothyroxine Sodium) 50 Mcg Tablet, 50 MCG PO DAILY, (Reported) Entered as Reported by: LILI RESENDIZ on 12/14/16 1103 Metoprolol Succinate (Metoprolol Succinate) 25 Mg Tab.er.24h, 25 MG PO DAILY, (Reported) Entered as Reported by: TODD WORTHY on 06/10/21 1615 Multivit-Min/FA/Lycopene/Lut (Centrum Silver Tablet) 1 Each Tablet, 1 TAB PO DAILY, (Reported) Entered as Reported by: LILI RESENDIZ on 07/04/18 1154 [place] 3 Polyunsat Fatty Acids (Fish Oil 1,000 mg Capsule) 1,000 Mg Cap, 1,000 MG PO 1200, (Reported) Entered as Reported by: LILI RESENDIZ on 12/07/18 1016 Pantoprazole Sodium (Pantoprazole Sodium) 40 Mg Tablet.dr, 40 MG PO DAILY, (Reported) Entered as Reported by: TODD WORTHY on 04/02/21 1028 Ranolazine (Ranexa) 500 Mg Tab.er.12h, 500 MG PO BID Prescribed by: CRISTINA CHAPMAN on 06/15/21 1031 Zolpidem Tartrate (Zolpidem Tartrate) 5 Mg Tablet, 5 MG PO HS PRN for SLEEP, (Reported) Entered as Reported by: TODD WORTHY on 05/19/21 1425 Review of Systems Review of Systems Constitutional: No fever EENTM: No Blurred Vision Respiratory: Denies Cough; Shortness of Air Cardiovascular: Chest Pain Gastrointestinal: Denies Abdominal Pain; Diarrhea Genitourinary: No Symptoms Reported Musculoskeletal: no symptoms reported Skin: no symptoms reported Psychiatric/Neurological: No Symptoms Reported Endocrine: No Symptoms Reported Hematologic/Lymphatic: No Symptoms Reported All Other Systems Reviewed Negative Unless Noted: Yes Past Cimtzap-Geuhqy-Orkrfe Hx Patient Social History Tobacco Use?: No Use of E-Cig and/or Vaping dev: No Substance use?: No Alcohol Use?: No Pt feels they are or have been: No Immunizations Up To Date Tetanus Booster (TDap): Unknown First/Initial COVID19 Vaccinat: declined Second COVID19 Vaccination Jamir: declined Third COVID19 Vaccination Date: declined Seasonal Allergies Seasonal Allergies: No Past Medical History Surgery/Hospitalization HX: COVID 13 May 2021, CAD with stents, Hysterectomy, Cholecystectomy, HTN, Hypercholesterolemia, Hypothyroid, GERD, CVA and TIA taking Eliquis as of Apr 2021 Surgeries: Yes (RIGHT CAROTID ENDARTERECTOMY, BACK SURGERY) Coronary Stent, Gallbladder, Hysterectomy, Orthopedic, Vascular Surgery Respiratory: Yes Pneumonia Currently Using CPAP: No Currently Using BIPAP: No Cardiac: Yes Chronic Edema/Swelling, High Cholesterol, Hypertension Neurological: Yes Stroke, TIA Genitourinary: Yes (pessary ) Bladder Infection Gastrointestinal: Yes Gastroesophageal Reflux Musculoskeletal: Yes Arthritis, Chronic Back Pain Endocrine: Yes Hypothyroidsim HEENT: No Cancer: No Psychosocial: No Integumentary: No Blood Disorders: No Family Medical History Diabetes mellitus 19 FATHER FH: liver cancer 19 MOTHER Myocardial infarction G8 BROTHER G8 SISTER Cancer, CAD Over 55 Years Old, Diabetes Physical Exam Vital Signs Vital Signs - First Documented 11/22/21 10:03 Temp 36.6 Pulse 128 Resp 24 B/P (MAP) 180/115 (136) Pulse Ox 98 O2 Delivery Room Air Capillary Refill : Less Than 3 Seconds Height, Weight, BMI Height: 5'2.00" Weight: 136lbs. 4.0oz. 61.304065fg; 24.14 BMI Method:Stated General Appearance: No Apparent Distress, WD/WN HEENT: PERRL/EOMI, Normal ENT Inspection, Pharynx Normal Neck: Full Range of Motion, Normal Inspection, Non Tender, Supple Respiratory: Chest Non Tender, Lungs Clear, Normal Breath Sounds, No Accessory Muscle Use, No Respiratory Distress Cardiovascular: Normal Peripheral Pulses, Irregularly Irregular, Tachycardia Gastrointestinal: Normal Bowel Sounds, Non Tender, Soft; No Distended, No Guarding Extremity: Normal Capillary Refill, Normal Inspection, Normal Range of Motion, Non Tender, No Calf Tenderness, Pedal Edema Neurologic/Psychiatric: Alert, No Motor/Sensory Deficits, Normal Mood/Affect Skin: Normal Color, Warm/Dry Lymphatic: No Adenopathy Progress/Results/Core Measures Results/Orders Lab Results Laboratory Tests Test 11/22/21 10:10 Range/Units White Blood Count 14.8 H 4.3-11.0 10^3/uL Red Blood Count 4.23 3.80-5.11 10^6/uL Hemoglobin 13.2 11.5-16.0 g/dL Hematocrit 39 35-52 % Mean Corpuscular Volume 91 80-99 fL Mean Corpuscular Hemoglobin 31 25-34 pg Mean Corpuscular Hemoglobin Concent 34 32-36 g/dL Red Cell Distribution Width 13.4 10.0-14.5 % Platelet Count 419 H 130-400 10^3/uL Mean Platelet Volume 9.8 9.0-12.2 fL Immature Granulocyte % (Auto) 1 % Neutrophils (%) (Auto) 67 42-75 % Lymphocytes (%) (Auto) 19 12-44 % Monocytes (%) (Auto) 13 H 0-12 % Eosinophils (%) (Auto) 0 0-10 % Basophils (%) (Auto) 0 0-10 % Neutrophils # (Auto) 9.9 H 1.8-7.8 10^3/uL Lymphocytes # (Auto) 2.8 1.0-4.0 10^3/uL Monocytes # (Auto) 1.9 H 0.0-1.0 10^3/uL Eosinophils # (Auto) 0.0 0.0-0.3 10^3/uL Basophils # (Auto) 0.0 0.0-0.1 10^3/uL Immature Granulocyte # (Auto) 0.2 H 0.0-0.1 10^3/uL Neutrophils % (Manual) 72 % Lymphocytes % (Manual) 20 % Monocytes % (Manual) 7 % Eosinophils % (Manual) 1 % Prothrombin Time 15.6 H 12.2-14.7 SEC INR Comment 1.2 0.8-1.4 Activated Partial Thromboplast Time 37 H 24-35 SEC Sodium Level 137 135-145 MMOL/L Potassium Level 3.5 L 3.6-5.0 MMOL/L Chloride Level 104 98-107 MMOL/L Carbon Dioxide Level 19 L 21-32 MMOL/L Anion Gap 14 5-14 MMOL/L Blood Urea Nitrogen 27 H 7-18 MG/DL Creatinine 0.97 0.60-1.30 MG/DL Estimat Glomerular Filtration Rate 57 BUN/Creatinine Ratio 28 Glucose Level 159 H 70-105 MG/DL Calcium Level 9.2 8.5-10.1 MG/DL Corrected Calcium 9.0 8.5-10.1 MG/DL Magnesium Level 1.8 1.6-2.4 MG/DL Total Bilirubin 0.7 0.1-1.0 MG/DL Aspartate Amino Transf (AST/SGOT) 15 5-34 U/L Alanine Aminotransferase (ALT/SGPT) 16 0-55 U/L Alkaline Phosphatase 71 40-136 U/L Troponin I < 0.30 <0.30 NG/ML Pro-B-Type Natriuretic Peptide 4867.0 H <450.0 PG/ML Total Protein 7.8 6.4-8.2 GM/DL Albumin 4.2 3.2-4.5 GM/DL Lipase 48 8-78 U/L Influenza Type A (RT-PCR) Not Detected Not Detecte Influenza Type B (RT-PCR) Not Detected Not Detecte SARS-CoV-2 RNA (RT-PCR) Not Detected Not Detecte My Orders Orders - ANETTE STEWART MD Cbc With Automated Diff (11/22/21 10:28) Magnesium (11/22/21 10:28) Chest 1 View Ap/Pa Only (11/22/21 10:28) Ekg Tracing (11/22/21 10:28) Comprehensive Metabolic Panel (11/22/21 10:28) Protime With Inr (11/22/21 10:28) Partial Thromboplastin Time (11/22/21 10:28) O2 (11/22/21 10:28) Monitor-Rhythm Ecg Trace Only (11/22/21 10:28) Ed Iv/Invasive Line Start (11/22/21 10:28) Lipase (11/22/21 10:28) Troponin I Fs (11/22/21 10:28) Probnp Fs (11/22/21 10:28) Influenza A And B By Pcr (11/22/21 10:28) Covid 19 Inhouse Test (11/22/21 10:28) Manual Differential (11/22/21 10:10) Diltiazem Drip Pre-Mix (Cardizem Drip Pr (11/22/21 10:34) Ed Admission (Communication) (11/22/21 11:16) Vital Signs/I&O 11/22/21 10:03 Temp 36.6 Pulse 128 Resp 24 B/P (MAP) 180/115 (136) Pulse Ox 98 O2 Delivery Room Air 2 Blood Pressure Mean: 136 Progress Progress Note : Progress Note 86-year-old female with above history coming in due to chest discomfort, shortness of breath, palpitations. Heart rate was in the 150s and irregular, A. fib with RVR on arrival. Blood pressure was actually hypertensive. An EKG was obtained showing A. fib with RVR but no new ischemic changes. An IV was placed and basic labs were obtained including cardiac biomarkers. proBNP elevated greater than 4000, troponin undetectable. Patient says she does not tolerate aspirin so she was not given it. She is on anticoagulation already daily, and she has already taken it today. I think the risk of blood clot at this point would be unlikely. She has not taken her Lasix in a couple days, and I suspect she is volume overloaded somewhat, so do not want to give her a bolus of fluids for her A. fib. She was started on a diltiazem drip. I contacted Dr. Deal in consultation. I then contacted Dr. Chapman, and the patient will be admitted as an inpatient to the ICU for further evaluation and management. Initial ECG Impression Date: Nov 22, 2021 Initial ECG Impression Time: 10:12 Initial ECG Rate: 150 Initial ECG Rhythm: A Fib/Flutter Comment A. fib with RVR, narrow QRS, normal axis, T wave inversions in the lateral leads with some depressions in the inferior leads, no STEMI Departure Impression Primary Impression: Atrial fibrillation with rapid ventricular response Additional Impressions: Chest pain Qualified Codes: R07.82 - Intercostal pain CAD (coronary artery disease) Qualified Codes: I25.118 - Atherosclerotic heart disease of [place] coronary artery with other forms of angina pectoris Disposition: 30 STILL A PATIENT Condition: Stable Admissions Decision to Admit Reason: Admit from ER (General) Decision to Admit/Date: Nov 22, 2021 Time/Decision to Admit Time: 11:10 Transfer Transfer Facility: [facility] Method of Transfer: EMS Departure-Patient Inst. Referrals: MARLYN DERAS MD (PCP/Family) Primary Care Physician ANETTE STEWART MD Nov 22, 2021 10:33
[2021-11-22] MEDS ORDERED: dilTIAZem DRIP PRE-MIX 125 ML IV STA (10:34)
[2021-11-22 10:42] LABS: INR 1.2 (0.8-1.4); PROTHROMBIN TIME PATIENT 15.6 SEC (12.2-14.7)
[2021-11-22 10:46] LABS: ALBUMIN 4.2 GM/DL (3.2-4.5); BILIRUBIN,TOTAL 0.7 MG/DL (0.1-1.0); CALCIUM 9.2 MG/DL (8.5-10.1); CREATININE SERUM 0.97 MG/DL (0.60-1.30); MAGNESIUM 1.8 MG/DL (1.6-2.4); POTASSIUM 3.5 MMOL/L (3.6-5.0); TOTAL PROTEIN 7.8 GM/DL (6.4-8.2)
[2021-11-22 11:01] LABS: EOSINOPHILS % (MANUAL) 1 %; LYMPHOCYTES % (MANUAL) 20 %; MONOCYTES % (MANUAL) 7 %; NEUTROPHILS % (MANUAL) 72 %
--- NOTE | 2021-11-22 11:08 | Diagnostic Imaging Report ---
EXAMINATION: Chest 1 view HISTORY: chest pain COMPARISON: 06/10/2021 FINDINGS: Heart size and pulmonary vasculature are normal. Mild interstitial opacities within the lower lungs. No pleural effusion or pneumothorax. The osseous structures are intact. IMPRESSION: 1. Mild interstitial opacities of the lung bases could be seen with atelectasis, edema, or atypical infection. Dictated by: Dictated on workstation # [id number]
[2021-11-22] MEDS ORDERED: ONDANSETRON 4 MG (ZOFRAN) ORAL DISSOLVE TAB PO PRN ×2 (12:30→13:30)
[2021-11-22] MEDS ORDERED: ALPRAZolam 0.25 MG (XANAX) TAB PO PRN ×2 (12:30→13:15)
[2021-11-22] MEDS ORDERED: BISACODYL 10 MG SUPP (DULCOLAX) PR PRN ×2 (12:30→13:30)
[2021-11-22] MEDS ORDERED: morphine INJ 4 MG/ML 1 ML (VIAL/SYRINGE) IV PRN (12:30)
[2021-11-22] MEDS ORDERED: MELATONIN 3 MG TABLET PO PRN (12:30)
[2021-11-22] MEDS ORDERED: ANTACID SUSP 30 ML UDC (MYLANTA) PO PRN ×2 (12:30→13:15)
[2021-11-22] MEDS ORDERED: ONDANSETRON 4 MG/2 ML (SDV) Z0FRAN IV PRN ×2 (12:30→13:30)
[2021-11-22] MEDS ORDERED: ACETAMINOPHEN 325 MG TABLET PO PRN (12:30)
[2021-11-22] MEDS ORDERED: polyethylene glycoL POWDER 17 GM (MIRALAX) PACK PO PRN ×2 (12:30→13:15)
[2021-11-22] MEDS ORDERED: NS IV 500 ML 500 ML IV PRN ×2 (12:30→13:15)
[2021-11-22] MEDS ORDERED: diphenhydrAMINE 25 MG TAB (BENADRYL) PO PRN (12:30)
[2021-11-22] MEDS ORDERED: diphenhydrAMINE 50 MG/ML INJ (BENADRYL) IVP PRN (12:30)
[2021-11-22] MEDS ORDERED: dilTIAZem DRIP PRE-MIX 125 ML IV SCH (12:30)
[2021-11-22] MEDS: dilTIAZem DRIP PRE-MIX 125 ML IV SCH (13:30)
[2021-11-22 13:32] VITALS: BP 180/115
[2021-11-22] MEDS ORDERED: RT-ALBUTEROL SULF 2.5 MG/3 ML PRE-MIX VIAL INH PRN (14:00)
--- NOTE | 2021-11-22 14:09 | Tele-ICU Consult ---
Progress Note 86 y/o female with ahx of af ib on eliquis presents to ED with CP Found to be in a fib with rvr. Diltiazem drip started. PLAN: ICU admission for diltiazem drip and cardiology consulttaion Focused Exam Height, Weight, BMI Height: 5'2.00" Weight: 136lbs. 4.0oz. 61.025188gq; 26.20 BMI Method:Stated Labs Laboratory Tests 11/22/21 10:10 Results Results/Procedures Labs Laboratory Tests 11/22/21 10:10 Patient resulted labs reviewed. Results Labs Labs Laboratory Tests 11/22/21 10:10: White Blood Count 14.8H, Red Blood Count 4.23, Hemoglobin 13.2, Hematocrit 39, Mean Corpuscular Volume 91, Mean Corpuscular Hemoglobin 31, Mean Corpuscular Hemoglobin Concent 34, Red Cell Distribution Width 13.4, Platelet Count 419H, Mean Platelet Volume 9.8, Immature Granulocyte % (Auto) 1, Neutrophils (%) (Auto) 67, Lymphocytes (%) (Auto) 19, Monocytes (%) (Auto) 13H, Eosinophils (%) (Auto) 0, Basophils (%) (Auto) 0, Neutrophils # (Auto) 9.9H, Lymphocytes # (Auto) 2.8, Monocytes # (Auto) 1.9H, Eosinophils # (Auto) 0.0, Basophils # (Auto) 0.0, Immature Granulocyte # (Auto) 0.2H, Neutrophils % (Manual) 72, Lymphocytes % (Manual) 20, Monocytes % (Manual) 7, Eosinophils % (Manual) 1, Prothrombin Time 15.6H, INR Comment 1.2, Activated Partial Thromboplast Time 37H , Sodium Level 137, Potassium Level 3.5L, Chloride Level 104, Carbon Dioxide Level 19L, Anion Gap 14, Blood Urea Nitrogen 27H, Creatinine 0.97, Estimat Glomerular Filtration Rate 57, BUN/Creatinine Ratio 28, Glucose Level 159H, Calcium Level 9.2, Corrected Calcium 9.0, Magnesium Level 1.8, Total Bilirubin 0.7, Aspartate Amino Transf (AST/SGOT) 15, Alanine Aminotransferase (ALT/SGPT) 16, Alkaline Phosphatase 71, Troponin I < 0.30, Pro-B-Type Natriuretic Peptide 4867.0H, Total Protein 7.8, Albumin 4.2, Lipase 48, Influenza Type A (RT-PCR) Not Detected, Influenza Type B (RT-PCR) Not Detected, SARS-CoV-2 RNA (RT-PCR) Not Detected RAYMON [place] MD Nov 22, 2021 14:09
--- NOTE | 2021-11-22 14:41 | Consultation-Cardiology ---
HPI-Cardiology Cardiology Consultation Date of Consultation 11/22/21 Date of Admission Time Seen by Provider: 14:34 Indication: Atrial fibrillation HPI 86-year-old lady with history of paroxysmal atrial fibrillation, coronary artery disease, hypertension hyperlipidemia. Presented to the emergency room in [place] with palpitation, reported that suddenly started to have palpitation. Reported that she has been having increasing dyspnea on exertion over the past 24 to 48 hours. Generalized fatigue, loss of energy. Came into the emergency room and noted to be in atrial fibrillation with rapid ventricular response. Currently on Cardizem drip. Heart rate is better. Denied any active pain. No chest pain, breathing is better. Home Medications & Allergies Allergies: Coded Allergies: Penicillins (Verified Allergy, Intermediate, HIVES, 07/25/12) oxytetracycline (Verified Allergy, Intermediate, HIVES, 07/25/12) cefdinir (Verified Allergy, Unknown, Rash, 04/02/21) hydrocodone (Verified Adverse Reaction, Mild, MAKES ME SICK, 07/01/12) lisinopril (Verified Adverse Reaction, Mild, COUGH, 07/01/12) oxytetracycline HCl (Verified Adverse Reaction, Mild, HIVES, 07/01/12) tramadol (Verified Adverse Reaction, Mild, NAUSEA, "HEAVINESS", 07/01/12) Home Medication List Reviewed: Yes WEF-Tvanqt-Pybrwf Hx Patient Social History Marital Status: Employed/Student: retired [employer] Smoke Exposure: No Recent Hopitalizations: No Have you traveled recently?: No Alcohol Use?: No Immunizations Up To Date Tetanus Booster (TDap): Unknown Date of Influenza Vaccine: Jan 08, 2021 Past Medical History Discussed below Family Medical History Significant Family History: Cancer, CAD Over 55 Years Old, Diabetes Family History: Diabetes mellitus 19 FATHER FH: liver cancer 19 MOTHER Myocardial infarction G8 BROTHER G8 SISTER Review of Systems-General Review of Systems Constitutional: see HPI; No fever; malaise, weakness EENTM: see HPI, no symptoms reported Respiratory: see HPI, short of breath Cardiovascular: see HPI; No chest pain, No edema, No Hx of Intervention; palpitations; No syncope, No vascular heart diseas, No other Gastrointestinal: no symptoms reported, see HPI Genitourinary: no symptoms reported, see HPI Musculoskeletal: no symptoms reported Skin: no symptoms reported Psychiatric/Neurological: No Symptoms Reported All Other Systems Reviewed Negative Unless Noted: Yes Reviewed Test Results Reviewed Test Results Lab Laboratory Tests Test 11/22/21 10:10 Range/Units White Blood Count 14.8 H 4.3-11.0 10^3/uL Red Blood Count 4.23 3.80-5.11 10^6/uL Hemoglobin 13.2 11.5-16.0 g/dL Hematocrit 39 35-52 % Mean Corpuscular Volume 91 80-99 fL Mean Corpuscular Hemoglobin 31 25-34 pg Mean Corpuscular Hemoglobin Concent 34 32-36 g/dL Red Cell Distribution Width 13.4 10.0-14.5 % Platelet Count 419 H 130-400 10^3/uL Mean Platelet Volume 9.8 9.0-12.2 fL Immature Granulocyte % (Auto) 1 % Neutrophils (%) (Auto) 67 42-75 % Lymphocytes (%) (Auto) 19 12-44 % Monocytes (%) (Auto) 13 H 0-12 % Eosinophils (%) (Auto) 0 0-10 % Basophils (%) (Auto) 0 0-10 % Neutrophils # (Auto) 9.9 H 1.8-7.8 10^3/uL Lymphocytes # (Auto) 2.8 1.0-4.0 10^3/uL Monocytes # (Auto) 1.9 H 0.0-1.0 10^3/uL Eosinophils # (Auto) 0.0 0.0-0.3 10^3/uL Basophils # (Auto) 0.0 0.0-0.1 10^3/uL Immature Granulocyte # (Auto) 0.2 H 0.0-0.1 10^3/uL Neutrophils % (Manual) 72 % Lymphocytes % (Manual) 20 % Monocytes % (Manual) 7 % Eosinophils % (Manual) 1 % Prothrombin Time 15.6 H 12.2-14.7 SEC INR Comment 1.2 0.8-1.4 Activated Partial Thromboplast Time 37 H 24-35 SEC Sodium Level 137 135-145 MMOL/L Potassium Level 3.5 L 3.6-5.0 MMOL/L Chloride Level 104 98-107 MMOL/L Carbon Dioxide Level 19 L 21-32 MMOL/L Anion Gap 14 5-14 MMOL/L Blood Urea Nitrogen 27 H 7-18 MG/DL Creatinine 0.97 0.60-1.30 MG/DL Estimat Glomerular Filtration Rate 57 BUN/Creatinine Ratio 28 Glucose Level 159 H 70-105 MG/DL Calcium Level 9.2 8.5-10.1 MG/DL Corrected Calcium 9.0 8.5-10.1 MG/DL Magnesium Level 1.8 1.6-2.4 MG/DL Total Bilirubin 0.7 0.1-1.0 MG/DL Aspartate Amino Transf (AST/SGOT) 15 5-34 U/L Alanine Aminotransferase (ALT/SGPT) 16 0-55 U/L Alkaline Phosphatase 71 40-136 U/L Troponin I < 0.30 <0.30 NG/ML Pro-B-Type Natriuretic Peptide 4867.0 H <450.0 PG/ML Total Protein 7.8 6.4-8.2 GM/DL Albumin 4.2 3.2-4.5 GM/DL Lipase 48 8-78 U/L Influenza Type A (RT-PCR) Not Detected Not Detecte Influenza Type B (RT-PCR) Not Detected Not Detecte SARS-CoV-2 RNA (RT-PCR) Not Detected Not Detecte Physical Exam Physical Exam Vital Signs Vital Signs - First Documented 11/22/21 11/22/21 11/22/21 10:03 13:07 13:32 Temp 36.6 Pulse 128 Resp 24 B/P (MAP) 180/115 (136) Pulse Ox 98 O2 Delivery Room Air O2 Flow Rate 2.00 FiO2 21 Capillary Refill : Less Than 3 Seconds Height, Weight, BMI Height: 5'2.00" Weight: 136lbs. 4.0oz. 61.546310ta; 26.20 BMI Method:Stated General Appearance: No Apparent Distress, WD/WN HEENT: PERRL/EOMI, Normal ENT Inspection, Pharynx Normal Neck: Full Range of Motion, Normal Inspection, Non Tender, Supple Respiratory: Chest Non Tender, Lungs Clear, Normal Breath Sounds, No Accessory Muscle Use, No Respiratory Distress Cardiovascular: Normal Peripheral Pulses, Systolic Murmur, Irregularly Irregular, Tachycardia Gastrointestinal: Normal Bowel Sounds, Non Tender, Soft; No Distended, No Guar ding Extremity: Normal Capillary Refill, Normal Inspection, Normal Range of Motion, Non Tender, No Calf Tenderness, Pedal Edema Neurologic/Psychiatric: Alert, No Motor/Sensory Deficits, Normal Mood/Affect Skin: Normal Color, Warm/Dry Lymphatic: No Adenopathy A/P-Cardiology Admission Diagnosis Paroxysmal atrial fibrillation Hypertension Coronary artery disease Hyperlipidemia Assessment/Plan Paroxysmal atrial fibrillation, back in atrial fibrillation with rapid ventricular response Patient was admitted to ICU, started on Cardizem drip, I will restart beta- blockers, monitor heart rate and blood pressure closely Has been maintained on Eliquis as an outpatient in addition to Plavix. Maintained on metoprolol 25 mg. Unable to tolerate higher dose of beta-vlad due to episode of bradycardia with sinus node dysfunction Continue current medication. Continue to monitor heart rate on Cardizem drip and will consider cardioversion in the morning if she did not convert on her own Elevated BNP, history of congestive heart failure, chronic compensated left ventricular diastolic dysfunction. Normal systolic function. Echocardiogram done in May 2021 showing ejection fraction 55 to 65%. History of chest pain, currently no active chest pain, troponin level is normal. Patient has been maintained on Ranexa and isosorbide as an outpatient. Congestive heart failure, chronic compensated left ventricular diastolic dysfunction, 2D Echo done showing ejection fraction 55-65%. Continue with diuretics, monitor tolerance and response Coronary artery disease, multiple interventions in the past, reporting a total of 12 stents. Cardiac catheterization was done in July [address] Mayer reporting diffuse moderate disease, patent stents in the proximal and mid LAD and circumflex arteries. The first obtuse marginal branch is a small artery originating from the middle of a stenting area with 80% ostial stenosis treated medically. The right coronary artery has a patent stent with diffuse mild to moderate disease. Left ventricular systolic function was mildly reduced with anteroapical hypokinesis. Cardiac catheterization was carried out on June 12, 2021 showing patent stent in the LAD and stents in the circumflex artery, patent ostial right coronary artery stent with occluded right coronary artery distally receiving collaterals from the left system. The artery is very small and tortuous. Treated medically. Currently asymptomatic. History of peripheral arterial disease, had segmental pressures done in December [address] Mayer showing moderate abnormality. Does not have claudication at that time. Continue to monitor History of carotid stenosis, had carotid endarterectomy done in the past, last ultrasound was done in December 2020 showing moderate disease on the left and mild on the right. History of CVA with chronic headache, [id number] score of 6, maintained on Eliquis Intolerant to multiple medication including aspirin, lisinopril and statin History of gastroesophageal reflux disease, abdominal pain, nausea and vomiting, had endoscopy done with Dr. Caballero in 2019 reporting large hiatal hernia and H. pylori gastritis. History of hypothyroidism, maintained on levothyroxine Clinical Quality Measures AMI/AHF: ASA po Prior to arrival: No DOMINIC HOOVER MD Nov 22, 2021 14:41
--- NOTE | 2021-11-22 15:03 | History & Physical-Hospitalist ---
History of Present Illness HPI/Chief Complaint Chief complaint: Atrial fibrillation with rapid ventricular response History of present illness: This is an 86-year-old female who presented to the [place] ER with chest pain with history of CAD and stents in the past. She also has a history of atrial fibrillation. She was found to have elevated heart rate consistent with A. fib with RVR. She was placed on Cardizem drip and cardiology has been consulted. Source: patient Exam Limitations: no limitations Date Seen 11/22/21 Time Seen by a Provider: 15:00 Attending Physician Regulo Márquez MD PCP Admitting Physician: Kamala Pina DO Attending Physician: Kamala Pina DO Referring Physician Date of Admission Nov 22, 2021 at 12:41 Home Medications & Allergies Home Medications Reviewed patient Home Medication Reconciliation performed by pharmacy medication reconciliations missile tracking technician and/or nursing. Patients Allergies have been reviewed. Allergies Allergies Coded Allergies Penicillins (Verified Allergy, Intermediate, HIVES, 07/25/12) oxytetracycline (Verified Allergy, Intermediate, HIVES, 07/25/12) cefdinir (Verified Allergy, Unknown, Rash, 04/02/21) hydrocodone (Verified Adverse Reaction, Mild, MAKES ME SICK, 07/01/12) lisinopril (Verified Adverse Reaction, Mild, COUGH, 07/01/12) oxytetracycline HCl (Verified Adverse Reaction, Mild, HIVES, 07/01/12) tramadol (Verified Adverse Reaction, Mild, NAUSEA, "HEAVINESS", 07/01/12) Past Trfngdj-Uzcqkn-Wexbun Hx Patient Social History Marrital Status: Employed/Student: retired Tobacco Use?: Yes Use of E-Cig and/or Vaping dev: No Substance use?: No Alcohol Use?: No Pt feels they are or have been: No Immunizations Up To Date Date of Influenza Vaccine: Jan 08, 2021 First/Initial COVID19 Vaccinat: declined Second COVID19 Vaccination Jamir: declined Tetanus Booster (TDap): More Than 5 Years Hepatitis A: No Hepatitis B: No Seasonal Allergies Seasonal Allergies: No Current Status status: No status: No Advance Directives: No Communicates: Verbally Primary Language: Maori Preferred Spoken Language: Maori Sensory deficits: Hearing impairment Implanted or Applied Medical D: Stents Past Medical History Surgeries: Coronary Stent, Gallbladder, Hysterectomy, Orthopedic, Vascular Surgery Pneumonia Currently Using CPAP: No Currently Using BIPAP: No Chronic Edema/Swelling, High Cholesterol, Hypertension Stroke, TIA Bladder Infection Gastroesophageal Reflux Arthritis, Chronic Back Pain Hypothyroidsim Blood Disorders: No PMHx: CAD with 10 stents HTN HLD A fib Stress incontinence, with pessary use Osteoarthritis Hypothyroidism GERD SurgHx: Coronary artery stenting Partial hysterectomy Cholecystectomy Appendectomy Family Medical History Diabetes mellitus 19 FATHER FH: liver cancer 19 MOTHER Myocardial infarction G8 BROTHER G8 SISTER Cancer, CAD Over 55 Years Old, Diabetes Review of Systems Constitutional: see HPI, malaise, weakness EENTM: no symptoms reported Respiratory: dyspnea on exertion Cardiovascular: chest pain, palpitations Gastrointestinal: no symptoms reported Genitourinary: no symptoms reported Musculoskeletal: no symptoms reported Skin: no symptoms reported Psychiatric/Neurological: No Symptoms Reported All Other Systems Reviewed Negative Unless Noted: Yes Physical Exam Physical Exam Vital Signs Vital Signs - First Documented 11/22/21 11/22/21 11/22/21 10:03 13:07 13:32 Temp 36.6 Pulse 128 Resp 24 B/P (MAP) 180/115 (136) Pulse Ox 98 O2 Delivery Room Air O2 Flow Rate 2.00 FiO2 21 Capillary Refill : Less Than 3 Seconds Height, Weight, BMI Height: 5'2.00" Weight: 136lbs. 4.0oz. [id number]; 26.20 BMI Method:Stated General Appearance: No Apparent Distress, Anxious, Chronically ill, Thin Eyes: Right Eye Normal Inspection, Right Eye PERRL HEENT: PERRL/EOMI, Normal ENT Inspection, Pharynx Normal, Moist Mucous Membranes Neck: Full Range of Motion, Normal Inspection, Non Tender Respiratory: Chest Non Tender, Lungs Clear, Normal Breath Sounds, No Accessory Muscle Use, No Respiratory Distress Cardiovascular: No Edema, No Gallop, No JVD, No Murmur, Normal Peripheral Pulses, Irregularly Irregular Gastrointestinal: Normal Bowel Sounds, No Organomegaly, No Pulsatile Mass, Non Tender, Soft Back: Normal Inspection, No CVA Tenderness, No Vertebral Tenderness Extremity: Normal Capillary Refill, Normal Inspection, Normal Range of Motion, Non Tender, No Calf Tenderness, No Pedal Edema Neurologic/Psychiatric: Alert, Oriented x3, No Motor/Sensory Deficits, Normal Mood/Affect Skin: Normal Color, Warm/Dry Lymphatic: No Adenopathy Results Results/Procedures Labs Laboratory Tests 11/22/21 10:10 Patient resulted labs reviewed. Assessment/Plan Admission Diagnosis Assessment: Katelyn. andi with RVR Chest pain CAD Plan: Cardiology consult Wendy meneses Admission Status: Inpatient Order (span 2 midnights) Reason for Inpatient Admission: A. fib Diagnosis/Problems Diagnosis/Problems (1) Chest pain Status: Acute Qualifiers: Chest pain type: intercostal pain Qualified Codes: R07.82 - Intercostal pain (2) CAD (coronary artery disease) Status: Chronic Qualifiers: Coronary Disease-Associated Artery/Lesion type: [place] artery [place] vs. transplanted heart: [place] heart Associated angina: with stable angina Qualified Codes: I25.118 - Atherosclerotic heart disease of [place] coronary artery with other forms of angina pectoris (3) Atrial fibrillation Status: Chronic Clinical Quality Measures AMI/AHF: ASA po Prior to arrival: KAMALA Vann DO Nov 22, 2021 15:03
[2021-11-22] MEDS ORDERED: ACET500P24 PO (17:06)
[2021-11-22] MEDS ORDERED: FISH1CAP15 PO (17:06)
[2021-11-22] MEDS ORDERED: METO50TA7 PO (17:06)
[2021-11-22] MEDS ORDERED: FOLI400T4 PO (17:06)
[2021-11-22] MEDS ORDERED: FUROSEMIDE 20 MG (LASIX) TAB PO PRN (18:45)
[2021-11-22] MEDS ORDERED: KCL 20 MEQ TAB (K-DUR) PO ONE ×2 (20:08→21:00)
[2021-11-22] MEDS ORDERED: RANOLAZINE ER 500 MG TAB (RANEXA) PO ONE (20:11)
[2021-11-22] MEDS: APIXABAN 5 MG (ELIQUIS) TABLET PO SCH (20:36)
[2021-11-22] MEDS: DOCUSATE SODIUM 100 MG (COLACE) CAP PO SCH (20:36)
[2021-11-22] MEDS: RANOLAZINE ER 500 MG TAB (RANEXA) PO SCH (20:36)
[2021-11-22] MEDS ORDERED: DOCUSATE SODIUM 100 MG (COLACE) CAP PO SCH (21:00)
[2021-11-22] MEDS ORDERED: APIXABAN 5 MG (ELIQUIS) TABLET PO SCH ×2 (21:00)
[2021-11-22] MEDS ORDERED: NON-FORMULARY MEDICATION 1 EA EA (Famotidine 40 MG) PO SCH (21:00)
[2021-11-23 05:17] LABS: BASOPHILS % (AUTO) 0 % (0-10); EOSINOPHILS # (AUTO) 0.1 10^3/uL (0.0-0.3); EOSINOPHILS % (AUTO) 1 % (0-10); HEMATOCRIT 38 % (35-52); HEMOGLOBIN 12.8 g/dL (11.5-16.0); LYMPHOCYTES # (AUTO) 2.3 10^3/uL (1.0-4.0); LYMPHOCYTES % (AUTO) 21 % (12-44); MEAN CORPUSCULAR HEMOGLOBIN 31 pg (25-34); MEAN CORPUSCULAR HGB CONC 34 g/dL (32-36); MEAN CORPUSCULAR VOLUME 93 fL (80-99); MEAN PLATELET VOLUME 9.7 fL (9.0-12.2); MONOCYTES # (AUTO) 1.6 10^3/uL (0.0-1.0); MONOCYTES % (AUTO) 14 % (0-12); NEUTROPHILS # (AUTO) 6.7 10^3/uL (1.8-7.8); NEUTROPHILS % (AUTO) 62 % (42-75); PLATELET COUNT 418 10^3/uL (130-400); WHITE BLOOD COUNT 10.8 10^3/uL (4.3-11.0)
[2021-11-23 05:33] LABS: ALBUMIN 3.6 GM/DL (3.2-4.5); POTASSIUM 4.8 MMOL/L (3.6-5.0)
[2021-11-23 05:34] LABS: CALCIUM 8.7 MG/DL (8.5-10.1)
[2021-11-23 05:37] LABS: BILIRUBIN,TOTAL 0.7 MG/DL (0.1-1.0)
[2021-11-23 05:38] LABS: PHOSPHORUS 2.8 MG/DL (2.3-4.7)
[2021-11-23 05:39] LABS: CREATININE SERUM 0.89 MG/DL (0.60-1.30)
[2021-11-23] MEDS: KCL 20 MEQ TAB (K-DUR) PO SCH (05:44)
[2021-11-23] MEDS: MAGNESIUM 1 GM/100 ML IVPB 100 ML IV SCH (05:44)
[2021-11-23] MEDS: LEVOTHYROXINE 50 MCG (LEVOTHROID) TAB PO SCH (05:44)
[2021-11-23] MEDS: POTASSIUM CL 10MEQ/50ML IVPB 50 ML IV SCH (05:44)
[2021-11-23] MEDS ORDERED: MAGNESIUM 1 GM/100 ML IVPB 100 ML IV SCH (06:00)
[2021-11-23] MEDS ORDERED: KCL 20 MEQ TAB (K-DUR) PO SCH (06:00)
[2021-11-23] MEDS ORDERED: POTASSIUM CL 10MEQ/50ML IVPB 50 ML IV SCH (06:00)
[2021-11-23] MEDS ORDERED: proPOfol 200 MG/20 ML (DIPRIVAN) VIAL IV ONE (08:54)
[2021-11-23] MEDS: CLOPIDOGREL 75 MG (PLAVIX) TABLET PO SCH (09:00)
[2021-11-23] MEDS ORDERED: CLOPIDOGREL 75 MG (PLAVIX) TABLET PO SCH ×2 (09:00)
[2021-11-23] MEDS: DOCUSATE SODIUM 100 MG (COLACE) CAP PO SCH ×2 (09:00→20:31)
[2021-11-23] MEDS: meTOproloL SUCCINATE 50 MG (TOPROL XL) TAB PO SCH (09:26)
[2021-11-23] MEDS: RANOLAZINE ER 500 MG TAB (RANEXA) PO SCH ×2 (09:26→20:29)
[2021-11-23] MEDS: APIXABAN 5 MG (ELIQUIS) TABLET PO SCH ×2 (09:26→20:29)
[2021-11-23] MEDS: PANTOPRAZOLE 40 MG (PROTONIX) TAB PO SCH (09:27)
--- NOTE | 2021-11-23 09:41 | Anesthesia-General Post-Op ---
MAC Patient Condition Mental Status/LOC: Same as Preop Cardiovascular: Satisfactory Nausea/Vomiting: Absent Respiratory: Satisfactory Pain: Controlled Complications: Absent Post Op Complications Complications None Follow Up Care/Instructions Patient Instructions None needed. Anesthesiology Discharge Order Discharge Order Patient is doing well, no complaints, stable vital signs, no apparent adverse anesthesia problems. No complications reported per nursing. SUMANTH JONES DO Nov 23, 2021 09:41
[2021-11-23] MEDS ORDERED: ACET-2267 PO (10:07)
[2021-11-23] MEDS ORDERED: RANO500T6 PO (10:07)
--- NOTE | 2021-11-23 10:39 | Cardioversion ---
Cardioversion PROCEDURE PHYSICIAN: Dominic Deal DATE OF PROCEDURE: 11/23/21 DIRECT EXTERNAL ELECTRICAL CARDIOVERSION: Indications: Atrial Fibrillation with rapid ventricular rate Preoperative diagnoses: Atrial Fibrillation with rapid ventricular rate Postoperative diagnosis: Sinus rhythm, Successful Electrical Cardioversion History: 86-year-old lady with paroxysmal atrial fibrillation, was seen in the emergency room with atrial fibrillation and chest pain. Maintained on Cardizem drip, heart rate is better controlled, still in atrial fibrillation. Patient has uninterrupted treatment with oral anticoagulation. Anesthesia: By Anesthesia services Complications: None Specimen: None Contrast: 0 Flouroscopy: none Procedure Details: The patient was brought the laboratory scientist after informed consent was taken, all the risks and complications were explained including the risk of stroke. Electrical cardioversion was carried out with anesthesia support with propofol. 120 joules of synchronized shock was delivered through external patches which promptly restored sinus rhythm. The patient tolerated the procedure well. Conclusions: Successful electrical cardioversion with no complication Final Diagnosis: Paroxysmal atrial fibrillation Chest pain Coronary artery disease Hypertension DOMINIC DEAL MD Nov 23, 2021 10:39
--- NOTE | 2021-11-23 10:41 | Cardiology Progress Note ---
Subjective Date Seen by Provider: Nov 23, 2021 Time Seen by Provider: 10:39 Subjective/Events-last exam Patient was seen at bedside, laying down comfortably, Denied any chest pain. Heart rate is better controlled. Review of Systems General: No Chills, No Night Sweats; Fatigue; No Malaise, No Appetite, No Other HEENT: No Head Aches, No Visual Changes, No Eye Pain, No Ear Pain, No Dysphasia, No Sinus Congestion, No Post Nasal Drip, No Sore Throat, No Other Pulmonary: No Dyspnea, No Cough, No Pleuritic Chest Pain, No Other Cardiovascular: No: Chest Pain, Palpitations, Orthopnea, Paroxysmal Noc. Dyspnea, Edema, Lt Headedness, Other Objective-Cardiology Exam Last Set of Vital Signs Vital Signs 11/22/21 11/23/21 11/23/21 11/23/21 13:32 04:00 07:00 10:00 Temp 37.0 Pulse 56 Resp 16 B/P (MAP) 164/93 Pulse Ox 94 O2 Delivery Room Air O2 Flow Rate 2.00 FiO2 21 I&O Intake and Output 11/23/21 00:00 Intake Total 450 ml Balance 450 ml Intake Oral 450 ml # Voids 3 Daily Weight Change Yes, 2-13 lbs General: Alert, Oriented X3, Cooperative HEENT: Atraumatic, PERRLA Neck: Supple, No JVD, No Thyromegaly Lungs: Clear to Auscultation, Normal Air Movement Heart: Regular Rate, Normal S1, Normal S2, Other (Systolic murmur at the left sternal border) Abdomen: Normal Bowel Sounds, Soft, No Tenderness, No Hepatosplenomegaly, No Masses Extremities: No Clubbing, No Cyanosis, No Edema, Normal Pulses, No Tenderness/Swelling Skin: No Rashes, No Breakdown, No Significant Lesion Neuro: Normal Gait, Normal Speech, Strength at 5/5 X4 Ext, Normal Tone, Sensation Intact Psych/Mental Status: Mental Status NL, Mood NL Results Lab Laboratory Tests 11/23/21 05:01 A/P-Cardiology Admission Diagnosis Paroxysmal atrial fibrillation Hypertension Coronary artery disease Hyperlipidemia Assessment/Plan Paroxysmal atrial fibrillation, Underwent electrical cardioversion on November 23, 2021. Back in sinus rhythm, currently in sinus bradycardia. Doing well. Unable to tolerate higher dose of beta-blockers due to underlying sinus bradycardia. Maintained on oral anticoagulation, has been compliant with her medication. I will add Multaq 400 mg twice daily and evaluate tolerance and response Elevated BNP, history of congestive heart failure, chronic compensated left ventricular diastolic dysfunction. Normal systolic function. Echocardiogram done in May 2021 showing ejection fraction 55 to 65%. History of chest pain, currently no active chest pain, troponin level is normal. Patient has been maintained on Ranexa and isosorbide as an outpatient. Congestive heart failure, chronic compensated left ventricular diastolic dysfunction, 2D Echo done showing ejection fraction 55-65%. Continue with diuretics, monitor tolerance and response Coronary artery disease, multiple interventions in the past, reporting a total of 12 stents. Cardiac catheterization was done in July [address] Mayer reporting diffuse moderate disease, patent stents in the proximal and mid LAD and circumflex arteries. The first obtuse marginal branch is a small artery originating from the middle of a stenting area with 80% ostial stenosis treated medically. The right coronary artery has a patent stent with diffuse mild to moderate disease. Left ventricular systolic function was mildly reduced with anteroapical hypokinesis. Cardiac catheterization was carried out on June 12, 2021 showing patent stent in the LAD and stents in the circumflex artery, patent ostial right coronary artery stent with occluded right coronary artery distally receiving collaterals from the left system. The artery is very small and tortuous. Treated medically. Currently asymptomatic. History of peripheral arterial disease, had segmental pressures done in December [address] Mayer showing moderate abnormality. Does not have claudication at that time. Continue to monitor History of carotid stenosis, had carotid endarterectomy done in the past, last ultrasound was done in December 2020 showing moderate disease on the left and mild on the right. History of CVA with chronic headache, [id number] score of 6, maintained on Eliquis Intolerant to multiple medication including aspirin, lisinopril and statin History of gastroesophageal reflux disease, abdominal pain, nausea and vomiting, had endoscopy done with Dr. Caballero in 2019 reporting large hiatal hernia and H. pylori gastritis. History of hypothyroidism, maintained on levothyroxine DOMINIC HOOVER MD Nov 23, 2021 10:41
[2021-11-23] MEDS: DRONEDARONE 400 MG TABLET PO SCH ×2 (12:27→20:29)
[2021-11-23] MEDS: dilTIAZem DRIP PRE-MIX 125 ML IV SCH (13:15)
--- NOTE | 2021-11-23 13:38 | Physical Therapy Evaluation ---
PT Evaluation-General Medical Diagnosis Admission Date Nov 22, 2021 at 12:41 Medical Diagnosis: afib with RVR Onset Date: Nov 22, 2021 Therapy Diagnosis Therapy Diagnosis: impaired mobility Height/Weight Height (Feet): 5 Height (Inches): 2.00 Weight (Pounds): 136 Weight (Ounces): 4.0 Precautions Precautions/Isolations: Fall Prevention, Standard Precautions Referral Physician: Gaby Reason for Referral: Evaluation/Treatment Medical History Pertinent Medical History: Atrial Fib, Arthritis, CAD, CVA, HTN Additional Medical History Past Medical History Surgeries: Coronary Stent, Gallbladder, Hysterectomy, Orthopedic, Vascular Surg nancy Pneumonia Currently Using CPAP: No Currently Using BIPAP: No Chronic Edema/Swelling, High Cholesterol, Hypertension Stroke, TIA Bladder Infection Gastroesophageal Reflux Arthritis, Chronic Back Pain Hypothyroidsim Blood Disorders: No Reviewed History: Yes Social History Home: Apartment Entry Into Home: Elevator Prior Prior Level of Function SCALE: Activities may be completed with or without assistive devices. 5-Tsoiwcuoei-jrqdvns completes the activity by him/herself with no assistance from a helper. 5-Set-up or Clean-up Assistance-helper sets up or cleans up; patient completes activity. [place] assists only prior to or following the activity. 4-Supervision or Touching Assistance-helper provides verbal cues and/or touching/steadying and/or contact guard assistance as patient completes activity. Assistance may be provided throughout the activity or intermittently. 3-Partial/Moderate Assistance-helper does LESS THAN HALF the effort. [place] lifts, holds or supports trunk or limbs, but provides less than half the effort. 2-Substantial/Maximal Assistance-helper does MORE THAN HALF the effort. [place] lifts or holds trunk or limbs and provides more than half the effort. 0-Mjkzalqqm-jhbfom does ALL the effort. Patient does none of the effort to complete the activity. Or, the assistance of 2 or more helpers is required for the patient to complete the activity. If activity was not attempted, code reason: 7-Patient Refused. 9-Not Applicable-not attempted and the patient did not perform the activity before the current illness, exacerbation or injury. 10-Not Attempted due to Environmental Limitations-(lack of equipment, weather restraints, etc.). 88-Not Attempted due to Medical Conditions or Safety Concerns. Bed Mobility: 6 Transfers (B,C,W/C): 6 Gait: 6 PT Evaluation-Current Subjective Patient in bed pre tx, agrees to PT, has no complaints of pain. Pt/Family Goals to be independent at home Objective Patient Orientation: Person, Place, Situation ROM/Strength ROM Lower Extremities WNL Strength Lower Extremities grossly 4+/5 BLE Sensory Hearing: Functional Sensation Right Lower Extremit: Intact Sensation Left Lower Extremity: Intact Transfers Roll Left to Right (QC): 6 Lying to Sitting/Side of Bed(Q: 6 Sit to Stand (QC): 4 Chair/Yqm-uw-Fayda Xfer(QC): 4 Gait Does the Patient Walk?: Yes Mode of Locomotion: Walk Anticipated Mode of Locomotion: Walk Walk 10 feet (QC): 4 Distance: 20' Gait Assistive Device: None Comments/Gait Description slow ambulation, slightly unsteady, patient states this is always how she walks Balance Sitting Static: Normal Sitting Dynamic: Normal Standing Static: Fair Standing Dynamic: Poor Treatment BLE seated exercises x20 (AP, LAQ) Assessment/Needs Patient in recliner post tx, with nurse call, phone, tray, all needs met. Patient instructed to call nurse if she needs to get up. Patient has some unsteadiness with ambulation, would benefit from using a cane or walker. P atient's HR stayed in the 70's and O2 in low 90's with ambulation. Rehab Potential: Fair PT Grout Machine Operator Goals Grout Machine Operator Goals PT Grout Machine Operator Goals Time Frame: Nov 30, 2021 Roll Left & Right (QC): 6 Sit to Lying (QC): 6 Lying-Sitting on Side/Bed(QC): 6 Sit to Stand (QC): 6 Chair/Jce-qu-Givbi Xfer(QC): 6 Walk 10 feet (QC): 6 Walk 50ft with 2 Turns (QC): 6 Walk 150 ft (QC): 6 PT Plan Problem List Problem List: Activity Tolerance, Functional Strength, Safety, Balance, Gait, Transfer, ROM Treatment/Plan Treatment Plan: Continue Plan of Care Treatment Plan: Education, Functional Activity Felisha, Functional Strength, Gait, Safety, Therapeutic Exercise, Transfers Treatment Duration: Nov 30, 2021 Frequency: 6 times per week Estimated Hrs Per Day: .25 hour per day Patient and/or Family Agrees t: Yes Safety Risks/Education Patient Education: Gait Training, Transfer Techniques, Correct Positioning, Safety Issues Teaching Recipient: Patient Teaching Methods: Demonstration, Discussion Response to Teaching: Reinforcement Needed Discharge Recommendations Plan Patient will perform bed mobility and transfer training, balance and endurance training, functional strengthening, gait training, and education, to improve functional mobility and independence at home. Therapy Discharge Recommendati: Home & Family, Post Acute PT Time/GCodes Time In: 1304 Time Out: 1314 Total Billed Treatment Time: 10 Total Billed Treatment 1 visit BRYSON VILLA PT Nov 23, 2021 13:38
[2021-11-23] MEDS ORDERED: FAMOTIDINE 20 MG (PEPCID) TABLET PO SCH (21:00)
--- NOTE | 2021-11-23 23:35 | Progress Note ---
Subjective Subjective/Events-last exam Patient feeling better after cardioversion. States that the heaviness in her chest has went away. Tolerating PO diet and ambulation Review of Systems Pulmonary: Dyspnea Cardiovascular: Chest Pain Neurological: Weakness, Incoordination Objective Exam Last Set of Vital Signs Vital Signs Date Time Temp Pulse Resp B/P (MAP) Pulse Ox O2 Delivery O2 Flow Rate FiO2 11/23/21 20:30 Room Air 11/23/21 19:20 36.5 71 15 147/80 95 11/23/21 04:00 2.00 11/22/21 13:32 21 Capillary Refill : Less Than 3 Seconds I&O Intake and Output 11/23/21 00:00 Intake Total 450 ml Balance 450 ml Intake Oral 450 ml # Voids 3 Daily Weight Change Yes, 2-13 lbs General: Alert, Oriented X3, Cooperative, No Acute Distress Lungs: Clear to Auscultation, Normal Air Movement Heart: No Murmurs, Other (bradycardic rate) Abdomen: No Tenderness, No Masses Extremities: No Edema, No Tenderness/Swelling Neuro: Normal Speech Psych/Mental Status: Mental Status NL, Mood NL Results/Procedures Lab Laboratory Tests 11/23/21 05:01: White Blood Count 10.8, Red Blood Count 4.08, Hemoglobin 12.8, Hematocrit 38, Mean Corpuscular Volume 93, Mean Corpuscular Hemoglobin 31, Mean Corpuscular Hemoglobin Concent 34, Red Cell Distribution Width 13.6, Platelet Count 418H, Mean Platelet Volume 9.7, Immature Granulocyte % (Auto) 2, Neutrophils (%) (Auto) 62, Lymphocytes (%) (Auto) 21, Monocytes (%) (Auto) 14H, Eosinophils (%) (Auto) 1, Basophils (%) (Auto) 0, Neutrophils # (Auto) 6.7, Lymphocytes # (Auto) 2.3, Monocytes # (Auto) 1.6H, Eosinophils # (Auto) 0.1, Basophils # (Auto) 0.0, Immature Granulocyte # (Auto) 0.2H, Sodium Level 139, Potassium Level 4.8, Chloride Level 110H, Carbon Dioxide Level 17L, Anion Gap 12, Blood Urea Nitrogen 22H, Creatinine 0.89, Estimat Glomerular Filtration Rate 63, BUN/Creatinine Ratio 25, Glucose Level 99, Calcium Level 8.7, Corrected Calcium 9.0, Phosphorus Level 2.8, Magnesium Level 2.0, Total Bilirubin 0.7, Aspartate Amino Transf (AST/SGOT) 16, Alanine Aminotransferase (ALT/SGPT) 18, Alkaline Phosphatase 55, Total Protein 7.0, Albumin 3.6 Microbiology 11/22/21 MRSA Screen - Final, Complete MRSA not isolated Assessment/Plan Assessment/Plan (1) Atrial fibrillation with rapid ventricular response Status: Acute Assessment & Plan: 11/24: Bradycardic SR, asymptomatic, ok to transfer to floor and monitor ON with plan for d/c in AM (2) Chest pain Status: Acute Assessment & Plan: 11/24: Resolved after cardioversion Qualifiers: Qualified Codes: R07.82 - Intercostal pain (3) CAD (coronary artery disease) Status: Chronic Qualifiers: Qualified Codes: I25.118 - Atherosclerotic heart disease of n[place]ol[place] coronary artery with other forms of angina pectoris (4) Advanced age Status: Chronic Clinical Quality Measures AMI/AHF: ASA po Prior to arrival: No SINGH LUCAS MD Nov 23, 2021 23:35
[2021-11-24] MEDS: LEVOTHYROXINE 50 MCG (LEVOTHROID) TAB PO SCH (06:13)
[2021-11-24 07:13] LABS: BASOPHILS % (AUTO) 0 % (0-10); EOSINOPHILS # (AUTO) 0.2 10^3/uL (0.0-0.3); EOSINOPHILS % (AUTO) 2 % (0-10); HEMATOCRIT 38 % (35-52); HEMOGLOBIN 12.7 g/dL (11.5-16.0); LYMPHOCYTES # (AUTO) 2.7 10^3/uL (1.0-4.0); LYMPHOCYTES % (AUTO) 25 % (12-44); MEAN CORPUSCULAR HEMOGLOBIN 31 pg (25-34); MEAN CORPUSCULAR HGB CONC 33 g/dL (32-36); MEAN CORPUSCULAR VOLUME 93 fL (80-99); MONOCYTES # (AUTO) 1.4 10^3/uL (0.0-1.0); MONOCYTES % (AUTO) 13 % (0-12); NEUTROPHILS # (AUTO) 6.3 10^3/uL (1.8-7.8); NEUTROPHILS % (AUTO) 58 % (42-75); PLATELET COUNT 451 10^3/uL (130-400)
[2021-11-24 07:32] LABS: ALBUMIN 3.6 GM/DL (3.2-4.5); POTASSIUM 4.2 MMOL/L (3.6-5.0)
[2021-11-24 07:33] LABS: CALCIUM 8.9 MG/DL (8.5-10.1)
[2021-11-24 07:35] LABS: TOTAL PROTEIN 6.9 GM/DL (6.4-8.2)
[2021-11-24 07:36] LABS: BILIRUBIN,TOTAL 0.8 MG/DL (0.1-1.0)
[2021-11-24 07:38] LABS: CREATININE SERUM 1.05 MG/DL (0.60-1.30); PHOSPHORUS 3.7 MG/DL (2.3-4.7)
[2021-11-24 07:41] LABS: MAGNESIUM 2.1 MG/DL (1.6-2.4)
[2021-11-24] MEDS: POTASSIUM CL 10MEQ/50ML IVPB 50 ML IV SCH (07:49)
[2021-11-24] MEDS: KCL 20 MEQ TAB (K-DUR) PO SCH (07:49)
[2021-11-24] MEDS: MAGNESIUM 1 GM/100 ML IVPB 100 ML IV SCH (07:49)
--- NOTE | 2021-11-24 08:14 | Cardiology Progress Note ---
Subjective Date Seen by Provider: Nov 24, 2021 Time Seen by Provider: 08:13 Subjective/Events-last exam Patient was seen at bedside, sitting comfortably. No new complaint Review of Systems General: No Chills, No Night Sweats, No Fatigue, No Malaise, No Appetite, No Other HEENT: No Head Aches, No Visual Changes, No Eye Pain, No Ear Pain, No Dysphasia, No Sinus Congestion, No Post Nasal Drip, No Sore Throat, No Other Pulmonary: No Dyspnea, No Cough, No Pleuritic Chest Pain, No Other Cardiovascular: No: Chest Pain, Palpitations, Orthopnea, Paroxysmal Noc. Dyspnea, Edema, Lt Headedness, Other Objective-Cardiology Exam Last Set of Vital Signs Vital Signs 11/22/21 11/23/21 11/24/21 13:32 04:00 07:43 Temp 36.0 Pulse 55 Resp 18 B/P (MAP) 165/88 Pulse Ox 96 O2 Delivery Room Air O2 Flow Rate 2.00 FiO2 21 I&O Intake and Output 11/24/21 00:00 Intake Total 810 ml Balance 810 ml Intake Oral 810 ml # Voids 7 General: Alert, Oriented X3, Cooperative HEENT: Atraumatic, PERRLA Neck: Supple, No JVD, No Thyromegaly Lungs: Clear to Auscultation, Normal Air Movement Heart: Regular Rate, Normal S1, Normal S2, Other (Systolic murmur at the left sternal border) Abdomen: Normal Bowel Sounds, Soft, No Tenderness, No Hepatosplenomegaly, No Masses Extremities: No Clubbing, No Cyanosis, No Edema, Normal Pulses, No Tenderness/Swelling Skin: No Rashes, No Breakdown, No Significant Lesion Neuro: Normal Gait, Normal Speech, Strength at 5/5 X4 Ext, Normal Tone, Sensati on Intact Psych/Mental Status: Mental Status NL, Mood NL Results Lab Laboratory Tests 11/24/21 06:51 A/P-Cardiology Admission Diagnosis Paroxysmal atrial fibrillation Hypertension Coronary artery disease Hyperlipidemia Assessment/Plan Paroxysmal atrial fibrillation, Underwent electrical cardioversion on November 23, 2021. Back in sinus rhythm, currently in sinus bradycardia. Doing well. Unable to tolerate higher dose of beta-blockers due to underlying sinus bradycardia. Maintained on oral anticoagulation, has been compliant with her medication. Started on Multaq 400 mg twice daily and tolerating it well. Elevated BNP, history of congestive heart failure, chronic compensated left ventricular diastolic dysfunction. Normal systolic function. Echocardiogram done in May 2021 showing ejection fraction 55 to 65%. History of chest pain, currently no active chest pain, troponin level is normal. Patient has been maintained on Ranexa and isosorbide as an outpatient. Congestive heart failure, chronic compensated left ventricular diastolic dysfunction, 2D Echo done showing ejection fraction 55-65%. Continue with diuretics, monitor tolerance and response Coronary artery disease, multiple interventions in the past, reporting a total of 12 stents. Cardiac catheterization was done in July [address] Mayer reporting diffuse moderate disease, patent stents in the proximal and mid LAD and circumflex arteries. The first obtuse marginal branch is a small artery originating from the middle of a stenting area with 80% ostial stenosis treated medically. The right coronary artery has a patent stent with diffuse mild to moderate disease. Left ventricular systolic function was mildly reduced with anteroapical hypokinesis. Cardiac catheterization was carried out on June 12, 2021 showing patent stent in the LAD and stents in the circumflex artery, patent ostial right coronary artery stent with occluded right coronary artery distally receiving collaterals from the left system. The artery is very small and tortuous. Treated medically. Currently asymptomatic. History of peripheral arterial disease, had segmental pressures done in December [address] Mayer showing moderate abnormality. Does not have claudication at that time. Continue to monitor History of carotid stenosis, had carotid endarterectomy done in the past, last ultrasound was done in December 2020 showing moderate disease on the left and mild on the right. History of CVA with chronic headache, [id number] score of 6, maintained on Eliquis Intolerant to multiple medication including aspirin, lisinopril and statin History of gastroesophageal reflux disease, abdominal pain, nausea and vomiting, had endoscopy done with Dr. Caballero in 2019 reporting large hiatal hernia and H. pylori gastritis. History of hypothyroidism, maintained on levothyroxine Okay for discharge from cardiology standpoint Appointment with Dr. Mayer in 2 to 4 weeks DOMINIC HOOVER MD Nov 24, 2021 08:14
[2021-11-24] MEDS: PANTOPRAZOLE 40 MG (PROTONIX) TAB PO SCH (09:01)
[2021-11-24] MEDS: DOCUSATE SODIUM 100 MG (COLACE) CAP PO SCH (09:01)
[2021-11-24] MEDS: RANOLAZINE ER 500 MG TAB (RANEXA) PO SCH (09:01)
[2021-11-24] MEDS: APIXABAN 5 MG (ELIQUIS) TABLET PO SCH (09:01)
[2021-11-24] MEDS: meTOproloL SUCCINATE 50 MG (TOPROL XL) TAB PO SCH (09:01)
[2021-11-24] MEDS: CLOPIDOGREL 75 MG (PLAVIX) TABLET PO SCH (09:01)
[2021-11-24] MEDS: DRONEDARONE 400 MG TABLET PO SCH (09:01)
--- NOTE | 2021-11-24 12:18 | Discharge Summary ---
Diagnosis/Chief Complaint Date of Admission Nov 22, 2021 at 12:41 Date of Discharge 11/24/21 Admission Diagnosis Admission Diagnosis Atypical Chest pain Atrial fibrillation with RVR CAD Discharge Diagnosis See above Discharge Summary-Simple/Stand Procedures Cardioversion Consultations Dr Deal: Cardiology Discharge Physical Examination Allergies: Coded Allergies: Penicillins (Verified Allergy, Intermediate, HIVES, 07/25/12) oxytetracycline (Verified Allergy, Intermediate, HIVES, 07/25/12) cefdinir (Verified Allergy, Unknown, Rash, 04/02/21) hydrocodone (Verified Adverse Reaction, Mild, MAKES ME SICK, 07/01/12) lisinopril (Verified Adverse Reaction, Mild, COUGH, 07/01/12) oxytetracycline HCl (Verified Adverse Reaction, Mild, HIVES, 07/01/12) tramadol (Verified Adverse Reaction, Mild, NAUSEA, "HEAVINESS", 07/01/12) Vitals & I&Os Vital Sign - Last 12Hours Date Time Temp Pulse Resp B/P (MAP) Pulse Ox O2 Delivery O2 Flow Rate FiO2 11/24/21 12:02 62 11/24/21 11:31 36.0 18 151/84 96 Room Air 11/23/21 04:00 2.00 11/22/21 13:32 21 Intake and Output 11/24/21 00:00 Intake Total 410 ml Balance 410 ml General Appearance: Alert, Oriented X3, Cooperative, No Acute Distress HEENT: Mucous Memb Moist/[place] Respiratory: Clear to Auscultation, Normal Air Movement Cardiovascular: No Murmurs, Other (lidia rate) Abdominal: Normal Bowel Sounds, Soft, No Tenderness, No Masses Extremities: No Edema, No Tenderness/Swelling Skin: No Rashes Neuro: Normal Speech, Strength at 5/5 X4 Ext Psych/Mental Status: Mental Status NL, Mood NL Hospital Course See final discharge diagnosis. Discussion & Recommendations 86 yo F that presented with chest pain and heaviness that was in atrial fibrillation with RVR. Patient was cardioverted and has maintained SR. Will be d/c today and has f.u with PCP and Dr Mayer Discharge Condition at discharge stable Instructions to patient/family Please see electronic discharge instructions given to patient. Discharge Medications Reviewed and agree with Discharge Medication list on patient's Discharge Ins truction sheet Clinical Quality Measures AMI/AHF: ASA po Prior to arrival: SINGH Munoz MD Nov 24, 2021 12:18
[2021-11-24] MEDS ORDERED: MTP25TSR PO (12:20)
[2021-11-24] MEDS ORDERED: DRON400T6 PO (12:20)
--- NOTE | 2021-11-24 12:22 | Discharge Summary ---
Discharge [facility] Reconcile Patient Problems Problems Reviewed?: Yes Discharge Medications New, Converted or Re-Newed RX: Transmitted to Pharmacy New Medications: Dronedarone HCl (Multaq) 400 Mg Tablet 400 MG PO BID, #60 TAB Metoprolol Succinate (Metoprolol Succinate) 25 Mg Tab.er.24h 25 MG PO DAILY, #30 TAB Continued Medications: Acetaminophen (Tylenol Extra Strength) 500 Mg Tablet 500-1000 MG PO Q8H PRN for PAIN-MILD (1-4), TAB Apixaban (Eliquis) 5 Mg Tablet 5 MG PO BID, TAB Clopidogrel Bisulfate (Clopidogrel) 75 Mg Tablet 75 MG PO DAILY, TAB Famotidine (Famotidine) 40 Mg Tablet 40 MG PO HS, TAB Fish Oil/Dha/Epa (Fish Oil 1,200 mg Fish Oil) 1,200 Mg-144 Mg-216 Mg Capsule 1 EACH PO DAILY, CAP Folic Acid/Vitamin B Comp W-C (Super B-Complex Folic-Vit C Tb) 400 Mcg Tablet 400 MCG PO DAILY, TAB Furosemide (Furosemide) 20 Mg Tablet 20 MG PO EVERY 72 HOURS, TAB Levothyroxine Sodium (Levothyroxine Sodium) 50 Mcg Tablet 50 MCG PO DAILY, TAB Pantoprazole Sodium (Pantoprazole Sodium) 40 Mg Tablet.dr 40 MG PO DAILY, TAB Ranolazine (Ranolazine ER) 500 Mg Tab.er.12h 500 MG PO BID, TAB Discontinued Medications: Metoprolol Succinate (Metoprolol Succinate) 50 Mg Tab.er.24h 50 MG PO DAILY, TAB Patient Instructions Goal/Follow Up Appt: Deandre Márquez 1-[address] Mayer 1-2 Activity & Diet Discharge Diet: Cardiac Diet Activity as Tolerated: Yes SINGH LUCAS MD Nov 24, 2021 12:22
[2021-11-24 14:17] VITALS: BP 151/84
== END 2021-11-24 14:19 | disposition home or self-care (01) | DRG 309 ==
LOC: EDUNIT# 10:03 → ER FS 10:04 → ICU 12:41 → UNDOADMIN 12:46 → 4TH 11-23 18:51
PROVIDERS: ADMIT Internal Medicine; ATTEND Family Medicine
PROC: 5A2204Z Restoration of Cardiac Rhythm, Single (ICD-10-PCS; principal; 2021-11-23)
DX: I48.0 Paroxysmal atrial fibrillation (principal); I50.32 Chronic diastolic (congestive) heart failure; I11.0 Hypertensive heart disease with heart failure; I25.118 Atherosclerotic heart disease of native coronary artery with other forms of angina pectoris; R00.1 Bradycardia, unspecified; I65.23 Occlusion and stenosis of bilateral carotid arteries; I73.9 Peripheral vascular disease, unspecified; E03.9 Hypothyroidism, unspecified; K21.9 Gastro-esophageal reflux disease without esophagitis; H91.90 Unspecified hearing loss, unspecified ear; E78.00 Pure hypercholesterolemia, unspecified; M19.90 Unspecified osteoarthritis, unspecified site; Z20.822 Contact with and (suspected) exposure to COVID-19; Z28.310 Unvaccinated for COVID-19; Z86.73 Personal history of transient ischemic attack (TIA), and cerebral infarction without residual deficits; Z79.01 Long term (current) use of anticoagulants; Z79.890 Hormone replacement therapy; Z79.899 Other long term (current) drug therapy; Z95.5 Presence of coronary angioplasty implant and graft; Z86.16 Personal history of COVID-19; Z88.0 Allergy status to penicillin; Z88.5 Allergy status to narcotic agent; Z88.1 Allergy status to other antibiotic agents; Z88.6 Allergy status to analgesic agent; Z28.20 Immunization not carried out because of patient decision for unspecified reason
CPT/HCPCS: 36415; 71045; 80053; 83690; 83735; 83880; 84100; 84484; 85007; 85025; 85027; 85610; 85730; 87081; 87636; 93005; 93041

== ENCOUNTER → 2021-12-09 | Outpatient (CLI) | payer MEDICARE ==
[~2021-12-09] MED LIST changes: +ACET500P24 PO; +DRON400T6 PO; +FOLI400T4 PO; +RANO500T6 PO
--- NOTE | 2021-12-09 09:38 | Diagnostic Imaging Report ---
INDICATION: Osteoarthritis. TECHNIQUE/COMPARISON: AP, oblique, and lateral views of the right knee were obtained and compared to 11/20/2018. FINDINGS: No fracture or acute bony abnormality is seen. There are degenerative changes of the medial compartment with osteophyte formation of moderate severity. There is mild degenerative change of the lateral compartment with mild chondrocalcinosis. There is patellofemoral spurring. IMPRESSION: Degenerative findings of the right knee with no acute bony abnormality. Dictated by: Dictated on workstation # [id number]
== END ==
LOC: RAD FS 08:29
PROVIDERS: ATTEND Nurse Practitioner
DX: M17.0 Bilateral primary osteoarthritis of knee (principal)
CPT/HCPCS: 73562